=== PATIENT | female | born 1955 | race Caucasian/White ===

== ENCOUNTER 2023-09-06 08:17 | Outpatient (OUT) | payer OTHER, SELFPAY ==
[2023-09-06 08:37] LABS: Basophils Percent Auto 0.7 % (0.2-2.0); Eosinophils Absolute Auto 0.1 10^3/uL (0.0-0.7); Eosinophils Percent Auto 2.2 % (0.9-7.0); Hematocrit 38.9 % (36.0-48.0); Hemoglobin 12.9 g/dL (12.0-16.0); Immature Granulocytes Abs Auto 0.02 10^3/uL (0.00-0.03); Immature Granulocytes Pct Auto 0.4 % (0.0-0.5); Lymphocytes Absolute Auto 1.2 10^3/uL (1.2-3.8); Lymphocytes Percent Auto 22.1 % (20.5-60.0); Mean Corpuscular HGB Conc 33.2 g/dL (29.9-35.2); Mean Corpuscular Hemoglobin 29.4 pg (26.7-34.0); Mean Corpuscular Volume 88.6 fL (81.0-99.0); Monocytes Absolute Auto 0.5 10^3/uL (0.3-0.8); Monocytes Percent Auto 8.5 % (1.7-12.0); Neutrophils Absolute Auto 3.6 10^3/uL (1.4-6.5); Neutrophils Percent Auto 66.1 % (43.0-75.0); Platelet Count 243 10^3/uL (150-450); Red Blood Count 4.39 10^6/uL (4.20-5.40); Red Cell Distribution Width 13.2 % (11.0-15.0); White Blood Count 5.4 10^3/uL (4.0-11.0)
[2023-09-06 09:46] LABS: Alanine Aminotransferase 20 U/L (14-59); Albumin Level 3.4 g/dL (3.4-5.0); Alkaline Phosphatase 56 U/L (46-116); Anion Gap 10.7; Aspartate Amino Transferase 9 U/L (15-37); BUN Creatinine Ratio 18.1; Bilirubin Total 0.4 mg/dL (0.2-1.0); Calcium 8.6 mg/dL (8.5-10.1); Carbon Dioxide 27.3 mmol/L (21.0-32.0); Chloride 105 mmol/L (98-107); Chol HDL Ratio 3.2; Cholesterol 194 mg/dL (<=200); Estimated GFR (African America >60 (>=60); Estimated GFR (Non-African Ame 59 (>=60); Globulin 3.4 g/dL; Glucose 94 mg/dL (74-106); HDL Cholesterol 61 mg/dL (40-60); Sodium 139 mmol/L (136-145); Thyroid Stimulating Hormone 1.911 uIU/mL (0.358-3.740); Total Protein 6.8 g/dL (6.4-8.2); Triglycerides 125 mg/dL (<=150)
== END 2023-09-06 08:18 | disposition home or self-care (01) ==
LOC: LAB 08:17
PROVIDERS: PCP Family Medicine; Visit Provider Family Medicine
DX: Z00.00 Encounter for general adult medical examination without abnormal findings (principal); I10 Essential (primary) hypertension
CPT/HCPCS: 36415; 80053; 80061; 84443; 85025

== ENCOUNTER 2023-11-21 09:54 | Outpatient (OUT) | payer MEDICARE, SELFPAY ==
--- OUTSIDE RECORDS SUMMARY | 2023-11-21 10:00 | XMS_ITS | CCD ---
Author Name Unknown Address [address] [place] [address] Organization [facility] Care Team Providers Care Wholesale Buyer Name Role Phone MORRO LILLY Attending Unavailab le CATALINA CARSON Primary Care Unavailable Catalina Carson Primary Care Provider Genevieve Sahu Unavailable Jewell Fernandez Unavailable MD Catalina Carson Primary Care Provider MD Genevieve Sahu R Attending Provider DO Dallas Whitaker Attending Provider DO Dallas Whitaker Referring Provider DR KAN BAXTER V Consulting Unavailable DR CATALINA CARSON Primary Care Unavailable DELIA GONZALEZ Attending Unavailable DELIA GONZALEZ Admitting Unavailable DELIA GONZALEZ Consulting Unavailable MD Catalina Carson Primary Care Provider DO Dallas Whitaker Attending Provider DO Dallas Whitaker Referring Provider Catalina Carson Unavailable MD Catalina Carson Primary Care Provider DO Dallas Whitaker Attending Provider DO Dallas Whitaker Referring Provider OCTAVIO Hernandez Attending Provider Joi Hernandez Admitting Unavailable Joi Hernandez Attending Unavailable Catalina Carson Primary Care Unavailable Dallas Whitaker Referring Unavailable Catalina Carson Primary Care Unavailable Dallas Whitaker Admitting Unavailable Dallas Whitaker Attending Unavailable Gagandeep Stevens Unavailable Allergies Allergy Classification Reported Allergen(s) Allergy Type Date of Onset Reaction(s) Facility (2 sources) patient allergy list reviewed by nurse or physicia Propensity to adverse reactions Comment:Done Sape Other (2 sources) Allergies Reconciled Propensity to adverse reactions Unknown Sape Other Medications Current Medications Medication Drug Class(es) Dates Sig (Normalized) Sig (Original) acetaminophen 500 mg oral capsule (13 sources) take 1 capsule by mouth every six hours Acetaminophen 500 MG 1 capsule as needed Orally every 6 hrs Active acetaminophen 325 mg / HYDROcodone bitartrate 5 mg oral tablet (4 sources) Opioid Agonist Start: 05-08-2022 take 1 tablet by mouth every four to six hours Hydrocodone-Acetam inophen Active 1 - 2 TAB PO EVERY 4-6 HOURS 30 4 May 08, 2022 24 hr amphetamine aspartate 3.75 mg / amphetamine sulfate 3.75 mg / dextroamphetamine saccharate 3.75 mg / dextroamphetamine sulfate 3.75 mg extended release oral capsule (2 sources) Central Nervous System Stimulant Start: 09-13-2023 take 1 capsule by mouth every twenty-four hours Adderall XR 15 MG 1 capsule in the morning Orally Once a day for 30 days Aug, Active ascorbic acid 500 mg oral tablet (4 sources) Vitamin C Start: 05-04-2022 take 500 mg by mouth twice daily Ascorbic Acid (Vitamin C) Active 500 MG PO Twice daily May 03, 2022 11:00pm azithromycin 250 mg oral tablet (2 sources) Macrolide Antimicrobial Start: 11-05-2023 Azithromycin 250 MG as directed Orally 2 tabs po today, then 1 tab daily x 4 more days for 5 Oct, Active benzonatate 200 mg oral capsule (2 sources) Non-narcotic Antitussive Start: 11-05-2023 take 1 capsule by mouth every eight hours Benzonatate 200 MG 1 capsule Orally Three times a day for 10 day(s) Oct, Active Qikzuhy-Tmxetjqgt-Hngv (4 sources) Start: 05-04-2022 take 2 tablets by mouth once daily in the evening Calcium-Magnesium- Zinc Active 2 TAB PO Every evening May 03, 2022 11:00pm Start: 05-04-2022 take 2 tablets by mo uth once daily in the evening Oiwxyyl-Epqeogyrl-Wogn Active 2 TAB PO Every evening May 04, 2022 12:00am cetirizine hydrochloride 10 mg oral tablet (9 sources) Histamine-1 Receptor Antagonist Start: 05-04-2022 take 10 mg by mouth once daily Cetirizine Active 10 MG PO Daily May 03, 2022 11:00pm ZyrTEC Allergy A ctive diclofenac potassium 50 mg oral tablet (2 sources) Nonsteroidal Anti-inflammatory Drug Diclofenac Potassium 50 MG 1 tablet twice a day with food for 7 days then as needed Orally Twice a day for 30 days Active doxycycline hyclate 100 mg oral tablet (4 sources) Tetracycline-class Drug Start: 05-08-20 take 100 mg by mouth twice daily Doxycycline Hyclate Active 100 MG PO Twice daily 10 5 May 07, 2022 11:00pm estradiol 1 mg oral tablet (17 sources) Estrogen Start: 05-04-20 Estradiol Active 1 MG PO Q48H May 03, 2022 11:00pm take 1 tablet by mouth every oth er day Estradiol 0.5 MG 1 tablet Orally qod Active Estradiol Active fluconazole 150 mg oral tablet (6 sources) Azole Antifungal Start: 05-11-2022 Fluconazole 1 50 MG 1 tablet Orally repeat after 3 days if needed Apr, Active Golo (4 sources) Start: 05-04-2022 take 1 tablet by mouth three times daily Golo Active 1 TAB PO Three times daily May 03, 2022 11:00pm Start: 05-04-2022 take 1 tablet by lito th three times daily Golo Active 1 TAB PO Three times daily May 04, 2022 12:00am inulin 200 mg / lactobacillus rhamnosus gg [id number] unt oral capsule (13 sources) Culturelle - as directed Orally Active losartan potassium 50 mg oral tablet (17 sources) Angiotensin 2 Receptor Terrell Start: 2 take 1 tablet by mouth once daily Losartan Potassium 50MG Losartan Potassium 50MG, 1 (one) Tablet daily # 30, 04/28/2022, Ref. x3. Active Oral daily for 0 *Pick strength-form from [employer] for eRX* 10 Apr, 2022 Active take 1 tablet by lito th every twenty-four hours Losartan Potassium 25 MG 1 tablet Orally Once a day Active medroxyPROGESTERone acetate 2.5 mg oral tablet (12 sources) Progestin Start: 05-04-2022 Medroxyprogest erone Active 2.5 MG PO Q48H May 03, 2022 11:00pm medroxyPROGESTER one Acetate Active methylPREDNISolone 4 mg oral tablet (4 sources) Corticosteroid Start: 06-09-2022 Medrol 4 MG as directed Orally for 6 days May, Active Omeprazole (8 sources) Proton Pump Inhibitor PriLOSEC Active oxybutynin chloride 5 mg oral tablet (17 sources) Cholinergic Muscarinic Antagonist Start: 05-04-2022 take 5 mg by mouth twice daily Oxybutynin Chloride Active 5 MG PO Twice daily May 03, 2022 11:00pm Start: 10-05-2021 take 5 mg by mouth once daily oxyBUTYnin Chloride 5MG Oxybutynin Chloride( 5MG Oral daily ) Active -Hx Entry Oral daily for 0 *Pick strength-form from [employer] for eRX* Sep, Active Oxybutynin Activ e Probiotic For Digestive Health (4 sources) Start: 05-04-2022 take 2 tablets by mouth once daily in the evening Probiotic For Digestive Health Active 2 TAB PO Every evening May 03, 2022 11:00pm Start: 05-04-2022 take 2 tablets by mo ut once daily in the evening Probiotic For Digestive Health Active 2 TAB PO Every evening May 04, 2022 12:00am Psyllium (10 sources) Metamucil 48.57 % as directed Orally Active Completed/Discontinued Medications Medication Drug Class(es) Dates Sig (Normalized) Sig (Original) Calcium & Magnesium Carbonates (3 sources) Calcium & Magnesium Carbonates Not-Taking Lisinopril (3 sources) Angiotensin Converting Enzyme Inhibitor Lisinopril Not-Taking metroNIDAZOLE 500 mg oral tablet (3 sources) Nitroimidazole Antimicrobial Start: 03-10-2019 take 1 tablet by mouth every eight hours metroNIDAZOLE 500 MG 1 tablet Orally tid for 10 day(s) Feb, Not-Taking triamcinolone acetonide 0.25 mg/ml topical cream (3 sources) Corticosteroid Start: 10-24-2018 Triamcinolone Acetonide 0.025 % 1 application to affected area Externally Twice a day for 5 days Oct, Not-Taking Problems Active Problems Problem Classification Problem Date Documented Da te Episodic/Chronic Acute bronchitis (10 sources) Acute bronchitis; Translations: [Acute bronchitis due to other specified organisms] Onset: 04-25-2017 Episodic Allergic reactions (5 sources) Contact dermatitis due to plants; Translations: [Unspecified contact dermatitis due to plants, except food] Episodic Anxiety disorders (5 sources) Generalized anxiety disorder; Translations: [Generalized anxiety disorder] Chronic Attention-deficit, conduct, and disruptive behavior disorders (5 sources) Attention deficit hyperactivity disorder; Translations: [Attention-deficit hyperactivity disorder, unspecified type] Chronic Attention-deficit, conduct, and disruptive behavior disorders (1 source) Attention-deficit hyperactivity disorder, unspecified type Chronic Disorders usually diagnosed in infancy, childhood, or adolescence (6 sources) Adult attention deficit hyperactivity disorder ; Translations: [Other specified behavioral and emotional disorders with onset usually occurring in childhood and adolescence] Chronic Diverticulosis and diverticulitis (13 sources) Diverticulitis of intestine; Translations: [Diverticulitis of intestine, part unspecified, without perforation or abscess without bleeding] Chronic Esophageal disorders (6 sources) Gastro-esophageal reflux disease without esophagitis; Translations: [Esophageal reflux finding] Onset: 06-28-2015 Chronic Essential hypertension (7 sources) Essential (primary) hypertension; Translations: [Essential hypertension] Onset: 11-01-2022 Chronic Fracture of upper limb (11 sources) Nondisplaced fracture of proximal phalanx of left ring finger, initial encounter for closed fracture; Translations: [Displaced fracture of proximal phalanx of left ring finger, initial encounter for closed fracture] Onset: 04-11-2022 Resolved: 07-07-2022 Episodic Gastroduodenal ulcer (except hemorrhage) (5 sources) Gastric ulcer; Translations: [Gastric ulcer, unspecified as acute or chronic, without hemorrhage or perforation] Onset: 12-31-2018 Chronic Genitourinary symptoms and ill-defined conditions (5 sources) Dysuria; Translations: [Dysuria] Episodic Immunizations and screening for infectious disease (10 sources) Vaccination given; Translations: [Encounter for immunization] Episodic Intestinal infection (6 sources) Campylobacter enteritis; Translations: [Other intestinal Escherichia coli infections] Onset: 11-01-2022 Episodic Menopausal disorders (7 sources) Postmenopausal bleeding; Translations: [Menopause present] Onset: 06-28-2015 11-25-2020 Chronic Noninfectious gastroenteritis (5 sources) Non-infective enteritis and colitis; Translations: [Noninfective gastroenteritis and colitis, unspecified] Episodic Osteoarthritis (8 sources) Osteoarthritis of left knee joint; Translations: [Unilateral primary osteoarthritis, left knee] Chronic Other acquired deformities (5 sources) Acquired postural kyphosis; Translations: [Unspecified kyphosis, site unspecified] Onset: 07-18-2016 Chronic Other connective tissue disease (1 source) Synovial cyst of popliteal space [Trinh], left knee Episodic Other gastrointestinal disorders (5 sources) Irritable bowel syndrome with diarrhea; Translations: [Irritable bowel syndrome with diarrhea] Chronic Other liver diseases (13 sources) Liver cyst; Translations: [Other specified diseases of liver] Chronic Other liver diseases (13 sources) Disease of liver; Translations: [Liver disease, unspecified] Chronic Other nervous system disorders (4 sources) Pain in limb; Translations: [Other acute postprocedural pain] 05-08-2022 Episodic Other non-traumatic joint disorders (1 source) Pain in left knee Episodic Other nutritional; endocrine; and metabolic disorders (5 sources) Obese class I; Translations: [Body mass index (BMI) 32.0-32.9, adult] Chronic Other nutritional; endocrine; and metabolic disorders (10 sources) Body mass index 30+ - obesity; Translations: [Body mass index (BMI) 30.0-30.9, adult] Onset: 09-17-2018 Chronic Other upper respiratory disease (5 sources) Allergic rhinitis; Translations: [Allergic rhinitis, unspecified] Onset: 04-28-2016 Chronic Other upper respiratory disease (5 sources) Seasonal allergic rhinitis; Translations: [Other seasonal allergic rhinitis] Chronic Other upper respiratory infections (6 sources) Acute pharyngitis; Translations: [Acute pharyngitis, unspecified] Episodic Residual codes; unclassified (4 sources) Other specified postprocedural states Onset: 06-09-2022 Resolved: 07-07-2022 Episodic Unclassified (5 sources) Acute candidiasis of vulva and vagina; Translations: [Acute candidiasis of vulva and vagina] Unclassified (1 source) Pain in left knee; Translations: [Pain in left knee] Onset: 09-24-2023 Unclassified (1 source) Encounter for screening mammogram for malignant neoplasm of breast; Translations: [Encounter for screening mammogram for malignant neoplasm of breast] Onset: 07-27-2023 Viral infection (2 sources) Other specified viral infection; Translations: [COVID-19 virus infection] Onset: 11-25-2020 11-25-2020 Episodic Viral infection (5 sources) Disease caused by 2019-nCoV; Translations: [COVID-19] Past or Other Problems Problem Classification Problem Date Documented Da te Episodic/Chronic Abdominal pain (8 sources) Unspecified abdominal pain; Translations: [Generalized abdominal pain] Onset: 09-17-2018 Episodic Other connective tissue disease (5 sources) Pain in left hand Onset: 04-11-2022 Resolved: 06-09-2022 Episodic Other gastrointestinal disorders (5 sources) Diarrhea; Translations: [Diarrhea] Onset: 09-17-2018 Episodic Residual codes; unclassified (5 sources) Sleep disorder; Translations: [Persistent disorder of initiating or maintaining sleep] Onset: 12-31-2018 Episodic Sprains and strains (5 sources) Neck sprain; Translations: [Strain of muscle, fascia and tendon at neck level, initial encounter] Onset: 12-31-2018 Episodic Superficial injury; contusion (5 sources) Blister of toe without infection; Translations: [Blister (nonthermal), right foot, initial encounter] Onset: 07-18-2016 Episodic Unclassified (5 sources) Vaccine product containing only acellular Bordetella pertussis and Clostridium tetani and Corynebacterium diphtheriae antigens (medicinal product); Translations: [Sfircdwzch-daoamvq-b ertussis, combined [DTP] [DtaP]] Onset: 09-28-2016 Results Test Name Value Interpretation Reference Range Facility XR knee LT 4V*on 09-24-2023 XR knee LT 4V* [facility] [place] [address] XRay Report Signed Patient: Nany Carmen MR#: [id number] 1 : 1955 Acct:[id number] Age/Sex: 68 / F ADM Date: 09/24/23 Loc: XDUC Room: Type: [facility] Attending Dr: Joi CUNNINGHAM Copies to: AMBER Paul Ordering Provider: AMBER Paul Date of Service: 09/24/23 XR/XR knee LT 4V*: LEFT KNEE PAIN XR knee LT 4V* 09/24/2023 11:29 AM SIGNS AND SYMPTOMS: Recent fall, left posterior knee pain, left knee instability PROTOCOL: Frontal, lateral, and oblique radiographs of the left knee COMPARISON: None FINDINGS: There is mild narrowing of the weightbearing and patellofemoral joint spaces. No joint effusion. No soft tissue tissue swelling. No fracture or dislocation. XR/XR knee LT 4V* IMPRESSION: No acute bony injury. Mild tricompartmental degenerative changes are noted, as above. Impression dictated by: Chetne Crook M.D.09/24/2023 11:37 AM Dictation Location: [place] [address] Transcribed By: [facility] 09/24/23 113 Dictated By: Chente Crook II, MD 09/24/23 1134 Signed By: 09/24/23 1137 [facility] MM screening mammo BI w/CADo n 07-27-2023 MM screening mammo BI w/CAD [facility] [place] [address] Mammography Report Signed Patient: Nany Carmen MR#: [id number] 1 : 1955 Acct:[id number] Age/Sex: 68 / F ADM Date: 07/27/23 Loc: [place] Room: Type: [facility] Attending Dr: Dallas Whitaker DO Copies to: MD Dallas Yi DO Ordering Provider: Dallas Whitaker DO Date of Service: 07/27/23 MM/MM screening mammo BI w/CAD: SCREENING CLINICAL DATA: Screening for malignancy. BILATERAL SCREENING MAMMOGRAMS - FULL FIELD DIGITAL WITH TOMOSYNTHESIS AND CAD Tomosynthesis craniocaudal and mediolateral oblique views of both breasts were obtained using low- dose digital technique. Comparison is made to prior studies from July 08, 2019 through July 19, 2022. This examination was reviewed with the aid of CAD. There are scattered fibroglandular densities. There are a few benign and vascular calcifications. There are no developing masses, typically malignant calcifications or architectural distortion. There has been no significant interval change. MM/MM screening mammo BI w/CAD IMPRESSION: NO MAMMOGRAPHIC EVIDENCE OF MALIGNANCY. ROUTINE FOLLOW-UP IS RECOMMENDED IN ONE YEAR. RESULT CODE: 2 Benign Findings(s) DENSITY CODE: 2 (approximately 25-50% glandular) FOLLOW UP: 1YR The false-negative rate of mammography is approximately 10-percent. Management of a palpable abnormality must be based on clinical grounds. Patient was entered into a reminder system with a target due date for the next mammogram. Impression dictated by: Madeline Jimenes M.D.07/27/2023 2:52 PM Dictation Location: [facility] Transcribed By: [facility] 07/27/23 145 Dictated By: Madeline Jimenes MD 07/27/23 1448 Signed By: 07/27/23 145 [facility] AMYLASEon 10-30-2022 Amylase [Catalytic activity/Vol] 20 U/L Critically low 25-115 [facility] Comment on above: Performed By: #### A MY, LIPA, CMP #### [facility] [address] [place] [address] Dr. Nunu Newman CBC AUTO DIFFon 10-30-2022 BASO # 0.0 103/ul Normal 0.0-0.1 [facility] Comment on above: Performed By: #### C BC #### [facility] [address] [place] [address] Dr. Nunu Newman Basophils/100 WBC (Bld) 0.5 % Normal 0.2-2.0 [facility] Comment on above: Performed By: #### C BC #### [facility] [address] [place] [address] Dr. Nunu Newman EO # 0.0 103/ul Normal 0.0-0.7 [facility] Comment on above: Performed By: #### C BC #### [facility] [address] [place] [address] Dr. Nunu Newman Eosinophils/100 WBC (Bld) 0.2 % Critically low 0.9-7.0 [facility] Comment on above: Performed By: #### C BC #### [facility] [address] [place] [address] Dr. Nunu Newman Erythrocyte distribution width (RBC) [Ratio] 12.7 % Normal 11.0-15.0 [facility] Comment on above: Performed By: #### C BC #### [facility] [address] [place] [address] Dr. Nunu Newman Hematocrit (Bld) [Volume fraction] 39.7 % Normal 36.0-48.0 [facility] Comment on above: Performed By: #### C BC #### [facility] [address] [place] [address] Dr. Nunu Newman Hemoglobin (Bld) [Mass/Vol] 13.6 g/dL Normal 12.0-16.0 [facility] Comment on above: Performed By: #### C BC #### [facility] [address] [place] [address] Dr. Nunu Newman IG # 0.02 10e3/ul Normal 0.00-0.03 [facility] Comment on above: Performed By: #### C BC #### [facility] [address] [place] [address] Dr. Nunu Newman IG % 0.3 % Normal 0.0-0.5 [facility] Comment on above: Performed By: #### C BC #### [facility] [address] [place] [address] Dr. Nunu Newman LYMPH # 0.9 103/ul Critically low 1.2-3.8 [facility] Comment on above: Performed By: #### C BC #### [facility] [address] [place] [address] Dr. Nunu Newman Lymphocytes/100 WBC (Bld) 14.6 % Critically low 20.5-60.0 [facility] Comment on above: Performed By: #### C BC #### [facility] [address] [place] [address] Dr. Nunu Newman MANUAL DIFF REQ NO Normal [facility] Comment on above: Performed By: #### C BC #### [facility] [address] [place] [address] Dr. Nunu Newman MCH (RBC) [Entitic mass] 29.1 pg Normal 26.7-34.0 [facility] Comment on above: Performed By: #### C BC #### [facility] [address] [place] [address] Dr. Nunu Newman MCHC (RBC) [Mass/Vol] 34.3 g/dL Normal 29.9-35.2 [facility] Comment on above: Performed By: #### C BC #### [facility] [address] [place] [address] Dr. Nunu Newman MCV (RBC) [Entitic vol] 84.8 fL Normal 81.0-99.0 [facility] Comment on above: Performed By: #### C BC #### [facility] [address] [place] [address] Dr. Nunu Newman MONO # 0.8 103/ul Normal 0.3-0.8 [facility] Comment on above: Performed By: #### C BC #### [facility] [address] [place] [address] Dr. Nunu Newman Monocytes/100 WBC (Bld) 11.8 % Normal 1.7-12.0 [facility] Comment on above: Performed By: #### C BC #### [facility] [address] [place] [address] Dr. Nunu Newman NEUT # 4.7 103/ul Normal 1.4-6.5 [facility] Comment on above: Performed By: #### C BC #### [facility] [address] [place] [address] Dr. Nunu Newman Neutrophils/100 WBC (Bld) 72.6 % Normal 43.0-75.0 [facility] Comment on above: Performed By: #### C BC #### [facility] [address] [place] [address] Dr. Nunu Newman Platelet mean volume (Bld) [Entitic vol] 8.8 fL Critically low 9.5-13.5 [facility] Comment on above: Performed By: #### C BC #### [facility] [address] [place] [address] Dr. Nunu Newman PLT 200 103/ul Normal 150-450 [facility] Comment on above: Performed By: #### C BC #### [facility] [address] [place], [place] [address] Dr. Nunu Newman RBC 4.68 106/ul Normal 4.20-5.40 [facility] Comment on above: Performed By: #### C BC #### [facility] [address] [place], [place] [address] Dr. Nunu Newman WBC 6.4 103/ul Normal 4.0-11.0 [facility] Comment on above: Performed By: #### C BC #### [facility] [address] [place], [place] [address] ABD/PELVIS WO CONon 10-30 CT ABD/PELVIS WO CON EXAMINATION: CT ABD/PELVIS WO CON, 10/30/2022 9:33 AM EST HISTORY: UNSPECIFIED ABDOMINAL PAIN , diarrhea COMPARISON: 09/24/2018 TECHNIQUE: CT scan of the abdomen and pelvis was performed without IV contrast. CT dose reduction technique was used, including Automated Exposure Control. FINDINGS: LUNG BASES: No visible pulmonary or pleural disease. LIVER: 2.1 cm subcapsular hypodensity left hepatic lobe possibly a cyst BILIARY: No dilatation or calcification. PANCREAS: No lesion, fluid collection, ductal dilatation, or atrophy. SPLEEN: No enlargement or focal lesion. ADRENALS: No mass or enlargement. KIDNEYS: No mass, obstruction, or calcification. BOWEL/MESENTERY: Nonobstructive bowel gas pattern. Normal appendix. Some mild thickening of the colon wall significant in the ascending colon with a minimal amount of pericolonic mesenteric stranding. Colonic diverticulosis. AORTA/VASCULAR: No aortic aneurysm. Mild atherosclerosis. RETROPERITONEUM: No mass or adenopathy. LYMPH NODES: No adenopathy. URINARY BLADDER: No visible focal wall thickening, lesion, or calculus. PELVIC ORGANS: Uterine calcifications, fibroids are favored ABDOMINAL WALL: No mass or hernia. BONES: No bony lesion or fracture. OTHER: Negative. IMPRESSION: Suspected colitis. Consider inflammatory and infectious etiologies Electronically authenticated by: KAN BAXTER Date: 2022-10-30 10:50 Normal [facility] URINE PROFILEon 2 Bilirubin Ql (U) SMALL Abnormal NEGATIVE [facility] Comment on above: Performed By: #### U MICRO, ERUR #### [facility] [address] [place] [address] [address] Nunu Newman Clarity (U) CLEAR Normal CLEAR [facility] Comment on above: Performed By: #### U MICRO, ERUR #### [facility] [address] [place] [address] Dr. Nunu Newman Color (U) YELLOW Normal YELLOW [facility] Comment on above: Performed By: #### U MICRO, ERUR #### [facility] [address] [place] [address] [address] Nunu Newman ERUAHD A micrscopic examination will be performed if indicated. Normal [facility] Comment on above: Performed By: #### U MICRO, ERUR #### [facility] [address] [place] [address] Dr. Nunu Newman Glucose Ql (U) Negative Normal NEGATIVE [facility] Comment on above: Performed By: #### U MICRO, ERUR #### [facility] [address] [place] [address] Dr. Nunu Newman Hemoglobin Ql (U) TRACE-INTACT Abnormal NEGATIVE [facility] Comment on above: Performed By: #### U MICRO, ERUR #### [facility] [address] [place] [address] Dr. Nunu Newman Ketones Ql (U) 15 mg/dl Abnormal NEGATIVE [facility] Comment on above: Performed By: #### U MICRO, ERUR #### [facility] [address] [place] [address] Dr. Nunu Newman LEUKOCYTES Negative Normal NEGATIVE [facility] Comment on above: Performed By: #### U MICRO, ERUR #### [facility] [address] [place] [address] Dr. Nunu Newman Nitrite Ql (U) Negative Normal NEGATIVE [facility] Comment on above: Performed By: #### U MICRO, ERUR #### [facility] [address] [place] [address] Dr. Nunu Newman pH (U) 6.0 [pH] Normal 5-9 [facility] Comment on above: Performed By: #### U MICRO, ERUR #### [facility] [address] [address] [address] Nunu Newman SPEC GRAVITY 1.010 Normal 1.005-<=1.[address] [facility] Comment on above: Performed By: #### U MICRO, ERUR #### [facility] [address] [address] [address] Nunu Newman UA PROTEIN TRACE Normal NEGATIVE/ TRACE [facility] Comment on above: Performed By: #### U MICRO, ERUR #### [facility] [address] [address] [address] Nunu Newman UR MICRO IND INDICATED Normal [facility] Comment on above: Performed By: #### U MICRO, ERUR #### [facility] [address] [place] [address] Dr. Nunu Newman Urobilinogen Qn (U) 0.2 {Anish'U}/dL Normal 0.2 - 1. 0 [facility] Comment on above: Performed By: #### U MICRO, ERUR #### [facility] [address] [address] [address] Nunu Newman GI PANEL (PCR)on 10-30-2022 Adenovirus F 40/41 Not detected Normal NOT DETECTED [facility] Comment on above: Performed By: #### G IPANEL #### [facility] [address] [place] [address] Dr. Nunu Newman Astrovirus Not detected Normal NOT DETECTED [facility] Comment on above: Performed By: #### G IPANEL #### [facility] [address] [place] [address] Dr. Nunu Newman C. Diff toxin A/B Not detected Normal NOT DETECTED The [facility] Comment on above: Performed By: #### G IPANEL #### [facility] [address] [place] [address] Dr. Nunu Newman Campylobacter Detected Critically abnormal NOT DETECTED The [facility] Comment on above: Performed By: #### G IPANEL #### [facility] [address] [address] [address] Nunu Newman Cryptosporidium Not detected Normal NOT DETECTED [facility] Comment on above: Performed By: #### G IPANEL #### [facility] [address] [address] [address] Nunu Newman Cyclos. Cayetanensis Not detected Normal NOT DETECTED The [facility] Comment on above: Performed By: #### G IPANEL #### [facility] [address] [address] [address] Nunu Newman E. Coli O157 Not Applicable Normal Not Applicable The [facility] Comment on above: Performed By: #### G IPANEL #### [facility] [address] [place] [address] Dr. Nunu Newman E. histolytica Not detected Normal NOT DETECTED [facility] Comment on above: Performed By: #### G IPANEL #### [facility] [address] [place] [address] Dr. Nunu Newman EAEC Not detected Normal NOT DETECTED [facility] Comment on above: Performed By: #### G IPANEL #### [facility] [address] [place] [address] Dr. Nunu Newman EIEC Not detected Normal NOT DETECTED [facility] Comment on above: Performed By: #### G IPANEL #### [facility] [address] [place] [address] Dr. Nunu Newman EPEC Not detected Normal NOT DETECTED [facility] Comment on above: Performed By: #### G IPANEL #### [facility] [address] [place] [address] Dr. Nunu Newman ETEC Not detected Normal NOT DETECTED [facility] Comment on above: Performed By: #### G IPANEL #### [facility] [address] [place] [address] Dr. Nunu Guevara. Lamblia Not detected Normal NOT DETECTED [facility] Comment on above: Performed By: #### G IPANEL #### [facility] [address] [place] [address] Dr. Nunu Newman GIPANEL CONTROLS PASSED Normal [facility] Comment on above: Performed By: #### G IPANEL #### [facility] [address] [address] [address] Nunu ARRIAGA HEADER GI PANEL BACTERIA Normal [facility] Comment on above: Performed By: #### G IPANEL #### [facility] [address] [address] [address] Nunu EISENBERG ECOLI GI PANEL DIARRHEAGENIC E.COLI / SHIGELLA Normal The [facility] Comment on above: Performed By: #### G IPANEL #### [facility] [address] [address] [address] Nunu EISENBERG INFO SEE BELOW [facility] Comment on above: Result Comment: EAEC - Enteroaggregative E. Coli EPEC- Enteropathogenic E. Coli ETEC- Enterotoxigenic E. Coli lt/st STEC- Shigella-like toxin-producing E. Coli stx1/stx2 EIEC- Shigella/Enteroinvasive E. Coli Performed By: #### G IPANEL #### [facility] [address] [address] [address] Nunu EISENBERG PARASITES GI PANEL PARASITES Normal The [facility] Comment on above: Performed By: #### G IPANEL #### [facility] [address] [address] [address] Nunu EISENBERG VIRUS GI PANEL VIRUSES Normal [facility] Comment on above: Performed By: #### G IPANEL #### [facility] [address] [address] [address] Nunu Newman Norovirus GI/GII Not detected Normal NOT DETECTED The [facility] Comment on above: Performed By: #### G IPANEL #### [facility] [address] [address] [address] Nunu Newman P. Shigelloides Not detected Normal NOT DETECTED [facility] Comment on above: Performed By: #### G IPANEL #### [facility] [address] [address] [address] Nunu Newman Rotavirus A Not detected Normal NOT DETECTED [facility] Comment on above: Performed By: #### G IPANEL #### [facility] [address] [place] [address] Dr. Nunu Newman Salmonella Not detected Normal NOT DETECTED [facility] Comment on above: Performed By: #### G IPANEL #### [facility] [address] [place] [address] Dr. Nunu Newman Sapovirus Not detected Normal NOT DETECTED [facility] Comment on above: Performed By: #### G IPANEL #### [facility] [address] [place] [address] Dr. Nunu Newman STEC Not detected Normal NOT DETECTED [facility] Comment on above: Performed By: #### G IPANEL #### [facility] [address] [place] [address] Dr. Nunu Newman Vibrio Not detected Normal NOT DETECTED [facility] Comment on above: Performed By: #### G IPANEL #### [facility] [address] [place] [address] Dr. Nunu eNwman Vibrio Cholera Not detected Normal NOT DETECTED [facility] Comment on above: Performed By: #### G IPANEL #### [facility] [address] [place] [address] Dr. Nunu Newman Y. Enterocolitica Not detected Normal NOT DETECTED The [facility] Comment on above: Performed By: #### G IPANEL #### [facility] [address] [place] [address] Dr. Nunu Newman LACTATE/LACTIC ACIDon 2021 Lactate [Moles/Vol] 0.9 mmol/L Normal 0.4-1.9 [facility] Comment on above: Performed By: #### L ACT #### [facility] [address] [place] [address] Dr. Nunu Newman LIPASEon 10-30-2022 Lipase [Catalytic activity/Vol] 114.0 U/L Normal 73.0-393.0 [facility] Comment on above: Performed By: #### A MY, LIPA, CMP #### [facility] [address] [place] [address] Dr. Nunu Newman PROF 14(COMP METB)on 022 Albumin [Mass/Vol] 3.0 g/dL Critically low 3.4-5.0 [facility] Comment on above: Performed By: #### A OSCAR HOGAN, CMP #### [facility] [address] [address] [address] Nunu Newman Albumin/Globulin [Mass ratio] 0.7 {ratio} Normal [facility] Comment on above: Performed By: #### A SAMIRA LIPA, CMP #### [facility] [address] [address] [address] Nunu Newman ALP [Catalytic activity/Vol] 53 U/L Normal 46-116 [facility] Comment on above: Performed By: #### A OSCAR HOGAN, CMP #### [facility] [address] [address] [address] Nunu Newman ALT [Catalytic activity/Vol] 20 U/L Normal 14-59 [facility] Comment on above: Performed By: #### A OSCAR HOGAN, CMP #### [facility] [address] [address] [address] Nunu Newman Anion gap [Moles/Vol] 12.4 mmol/L Normal [facility] Comment on above: Performed By: #### A SAMIRA LIPMaribel, CMP #### [facility] [address] [address] [address] Nunu Newman AST [Catalytic activity/Vol] 21 U/L Normal 15-37 [facility] Comment on above: Performed By: #### A SAMIRA LIPA, CMP #### [facility] [address] [address] [address] Nunu Newamn Bilirubin [Mass/Vol] 0.4 mg/dL Normal 0.2-1.0 [facility] Comment on above: Performed By: #### A OSCAR HOGAN, CMP #### [facility] [address] [address] [address] Nunu Newman Calcium [Mass/Vol] 8.6 mg/dL Normal 8.5-10.1 [facility] Comment on above: Performed By: #### A MY, LIPA, CMP #### [facility] [address] [address] [address] Nunu Newman Chloride [Moles/Vol] 100 mmol/L Normal 98-107 [facility] Comment on above: Performed By: #### A MY, LIPA, CMP #### [facility] [address] [address] [address] Nunu Newman CO2 [Moles/Vol] 27.0 mmol/L Normal 21.0-32.0 [facility] Comment on above: Performed By: #### A MY, LIPA, CMP #### [facility] [address] [address] [address] Nunu Newman Creatinine [Mass/Vol] 0.90 mg/dL Normal 0.55-1.02 [facility] Comment on above: Performed By: #### A MY, LIPA, CMP #### [facility] [address] [place] [address] Dr. Nunu Newman EGFR-AF MOZAMBICAN >60 Normal >=60 [facility] Comment on above: Performed By: #### A MY, LIPA, CMP #### [facility] [address] [address] [address] Nunu Newman EGFR-NON AF MOZAMBICAN >60 Normal >=60 [facility] Comment on above: Performed By: #### A MY, LIPA, CMP #### [facility] [address] [address] [address] Nunu Newman Globulin (S) [Mass/Vol] 4.1 g/dL Normal [facility] Comment on above: Performed By: #### A MY, LIPA, CMP #### [facility] [address] [address] [address] Nunu Newman Glucose [Mass/Vol] 112 mg/dL Critically high 74-106 [facility] Comment on above: Performed By: #### A MY, LIPA, CMP #### [facility] [address] [address] [address] Nunu Newman Potassium [Moles/Vol] 3.4 mmol/L Critically low 3.5-5.1 [facility] Comment on above: Performed By: #### A OSCAR HOGAN, CMP #### [facility] [address] [place] [address] Dr. Nunu Newman Protein [Mass/Vol] 7.1 g/dL Normal 6.4-8.2 [facility] Comment on above: Performed By: #### A OSCAR HOGAN, CMP #### [facility] [address] [place] [address] Dr. Nunu Newman Sodium [Moles/Vol] 136 mmol/L Normal 136-145 [facility] Comment on above: Performed By: #### A OSCAR HOGAN, CMP #### [facility] [address] [place] [address] Dr. Nunu Newman Urea nitrogen [Mass/Vol] 14.0 mg/dL Normal 7.0-18.0 [facility] Comment on above: Performed By: #### A OSCAR HOGAN, CMP #### [facility] [address] [place] [address] Dr. Nunu Newman Urea nitrogen/Creatinine [Mass ratio] 15.6 mg/mg Normal [facility] Comment on above: Performed By: #### A OSCAR HOGAN, CMP #### [facility] [address] [place] [address] Dr. Nunu Newman URINE MICROSCOPIC ONLYon BACTERIA NONE SEEN Normal NONE SEEN [facility] Comment on above: Performed By: #### U MICRO, ERUR #### [facility] [address] [place] [address] Dr. Nunu Newman Bacteria identified Cx Nom (U) NOT INDICATED Normal The [facility] Comment on above: Performed By: #### U MICRO, ERUR #### [facility] [address] [place] [address] Dr. Nunu Newman CAST NONE SEEN Normal NONE SEEN [facility] Comment on above: Performed By: #### U MICRO, ERUR #### [facility] [address] [place] [address] Dr. Nunu Newman Crystals LM Nom (Urine sed) NONE SEEN Normal NONE SEEN The [facility] Comment on above: Performed By: #### U MICRO, ERUR #### [facility] [address] [address] [address] Nunu Newman Epithelial cells LM Ql (Urine sed) FEW Abnormal NONE SEEN /RARE The [facility] Comment on above: Performed By: #### U MICRO, ERUR #### [facility] [address] [address] [address] Nunu Newman MUCOUS NONE SEEN Normal NONE SEEN The [facility] Comment on above: Performed By: #### U MICRO, ERUR #### [facility] [address] [address] [address] Nunu Newman RBC 0-2 Normal 0-2 [facility] Comment on above: Performed By: #### U MICRO, ERUR #### [facility] [address] [address] [address] Nunu Newman WBC NONE SEEN Normal NONE SEEN The [facility] Comment on above: Performed By: #### U MICRO, ERUR #### [facility] [address] [address] [address] Nunu Newman XR hand LT min 3V*on 022 XR hand LT min 3V* [facility] [id number] Other XR hand LT min 3V* [facility] [employer] Other XR hand LT min 3V* [address] [place] [address] [employer] Other XR hand LT min 3V* [place] [address] [employer] [facility] [employer] Other XR hand LT min 3V* XRay Report S[employer] Other XR hand LT min 3V* Signed S[employer] Other XR hand LT min 3V* Patient: Nany Carmen MR#: [id number] [facility] [employer] Other XR hand LT min 3V* 1 [employer] Other XR hand LT min 3V* : 1955 Acct:[id number] [employer] Other XR hand LT min 3V* Age/Sex: 67 / F ADM Date: 06/09/22 S[employer] Other XR hand LT min 3V* Loc: SOXD Room: Type: [facility] Sape Other XR hand LT min 3V* Attending Dr: Genevieve Sahu MD [employer] Other XR hand LT min 3V* Copies to: Genevieve Sahu MD [employer] Other XR hand LT min 3V* Ordering Provider: Genevieve Sahu MD [employer] Other XR hand LT min 3V* Date of Service: 06/09/22 [employer] Other XR hand LT min 3V* XR/XR hand LT min 3V*: Closed displaced fracture of proximal phalanx of Sape Other XR hand LT min 3V* left ring f Sape Other XR hand LT min 3V* 4 viewsLEFT hand plain film Sape Other XR hand LT min 3V* COMPARISON:05/16/22 [employer] Other XR hand LT min 3V* HISTORY:Status post ORIF LEFT 4th proximal interphalangeal fracture Sape Other XR hand LT min 3V* Fixation hardware intact. Continued healing of the fracture of the proximal 4th phalanx present. Sape Other XR hand LT min 3V* Bony alignment is unchanged. Sape Other XR hand LT min 3V* XR/XR hand LT min 3V* Sape Other XR hand LT min 3V* IMPRESSION:Healing fracture. No hardware failure. Sape Other XR hand LT min 3V* Impression dictated by: Miguelangel Alonzo M.D.06/09/2022 1:13 PM Sape Other XR hand LT min 3V* Dictation Location: [place] [address] Sape Other XR hand LT min 3V* Transcribed By: HEMANT 06/09/22 1313 [employer] Other XR hand LT min 3V* Dictated By: Miguelangel Alonzo DO 06/09/22 1312 [employer] Other XR hand LT min 3V* Signed By: Sape Other XR hand LT min 3V* 06/09/22 1313 [facility] [id number] Other XR hand LT min 3V*on 022 XR hand LT min 3V* [facility] Sape Other XR hand LT min 3V* [facility] S[employer] Other XR hand LT min 3V* [address] [place] [address] Sape Other XR hand LT min 3V* [place] [id number] Sape Other XR hand LT min 3V* XRay Report Sape Other XR hand LT min 3V* Signed Sape Other XR hand LT min 3V* Patient: Nany Carmen MR#: [id number] [facility] [id number] Other XR hand LT min 3V* 1 Sape Other XR hand LT min 3V* : 1955 Acct:[id number] [employer] Other XR hand LT min 3V* Age/Sex: 67 / F ADM Date: 05/16/22 Sape Other XR hand LT min 3V* Loc: SOXD Room: Type: [facility] Sape Other XR hand LT min 3V* Attending Dr: Genevieve Sahu MD Sape Other XR hand LT min 3V* Copies to: Genevieve Sahu MD [employer]ape Other XR hand LT min 3V* Ordering Provider: Genevieve Sahu MD Sape Other XR hand LT min 3V* Date of Service: 05/16/22 Sape Other XR hand LT min 3V* XR/XR hand LT min 3V*: Closed displaced fracture of proximal phalanx of Sape Other XR hand LT min 3V* left ring f Sape Other XR hand LT min 3V* XR hand LT min 3V* 05/16/2022 1:23 PM Sape Other XR hand LT min 3V* SIGNS AND SYMPTOMS: Closed displaced fracture of proximal phalanx of left ring finger, follow-up Sape Other XR hand LT min 3V* PROTOCOL: Frontal, lateral, and oblique radiographs of the left hand Sape Other XR hand LT min 3V* COMPARISON: 05/08/2022 Sape Other XR hand LT min 3V* FINDINGS: Sape Other XR hand LT min 3V* There has been screw fixation across a midshaft fracture of the proximal phalanx of the fourth Sape Other XR hand LT min 3V* digit. Healing remains incomplete. There is soft tissue swelling throughout the fourth digit. No Sape Other XR hand LT min 3V* hardware complication or change in alignment. Sape Other XR hand LT min 3V* XR/XR hand LT min 3V* Sape Other XR hand LT min 3V* IMPRESSION: Sape Other XR hand LT min 3V* Status post hardware fixation across a fracture involving the shafts of the fourth proximal phalanx Sape Other XR hand LT min 3V* without hardware complication or change in alignment. Healing remains incomplete. Sape Other XR hand LT min 3V* Impression dictated by: Chente Crook M.D.05/16/2022 2:34 PM Sape Other XR hand LT min 3V* Dictation Location: [place] [address] Sape Other XR hand LT min 3V* Transcribed By: HEMANT 05/16/22 [facility] Sape Other XR hand LT min 3V* Dictated By: Chente Crook II, MD 05/16/22 [facility] Sape Other XR hand LT min 3V* Signed By: Sape Other XR hand LT min 3V* 05/16/[address] [place] [address] [id number] Other Albumin [Mass/volume] in Ser um or PlasmaOrdered By: Genevieve Sahu on 05-04-2022 Albumin [Mass/Vol] 3.6 g/dL 3.2-5.5 [facility] Basophils Auto (Bld) [#/Vol] Ordered By: Genevieve Sahu on 05-04-2022 Basophils (Bld) [#/Vol] 0.0 10*3/uL 0.0-0.2 [facility] Basophils/100 WBC Auto (Bld) Ordered By: Genevieve Sahu on 05-04-2022 Basophils/100 WBC (Bld) 0.5 % . [facility] Blood hemoglobin measurement (mass/volume)Ordered By: Genevieve Sahu on 05-04-2022 Hemoglobin (Bld) [Mass/Vol] 13.0 g/dL 11.8-15.4 [facility] Blood leukocytes automated c ount (number/volume)Ordered By: Genevieve Sahu on 05-04-2022 WBC (Bld) [#/Vol] 7.0 10*3/uL 4.5-11.0 [facility] COVID-19 Positive/NegativeOr dered By: Genevieve Sahu on 05-04-2022 SARS-CoV-2 (COVID-19) N gene LISA+probe Ql (Resp) Negative Negative [facility] Comment on above: Testing for SARS-CoV -2 by RT-PCR This test was developed and its performance characteristics determined by [employer] [facility]) and validated at the [facility]. This test has not been FDA cleared or approved. This test has been authorized by FDA under an Emergency Use Authorization (EUA). This test has been validated in accordance with the FDA's Guidance Document (Policy for Diagnostics Testing in Laboratories Certified to Perform High Complexity Testing under CLIA prior to Emergency Use Authorization for Coronavirus Disease-2019 during the Public Health Emergency) issued on February 19, 2020. This test is only authorized for the duration of time the declaration that circumstances exist justifying the authorization of the emergency use of in vitro diagnostic tests for detection of SARS-CoV-2 virus and/or diagnosis of COVID-19 infection under section 564(b)(1) of the Act, 21 U.S.C. 360bbb-3(b)(1), unless the authorization is terminated or revoked sooner. Creatinine and Glomerular fi ltration rate.predicted panel (S/P/Bld)Ordered By: Genevieve Sahu on 05-04-2022 Creatinine [Mass/Vol] 0.95 mg/dL 0.44-1.03 [facility] Eosinophils Auto (Bld) [#/Vo l]Ordered By: Genevieve Sahu on 05-04-2022 Eosinophils (Bld) [#/Vol] 0.1 10*3/uL 0.0-0.45 [facility] Eosinophils/100 WBC Auto (Bl d)Ordered By: Genevieve Sahu on 05-04-2022 Eosinophils/100 WBC (Bld) 2.0 % . [facility] Erythrocyte distribution wid th Auto (RBC) [Ratio]Ordered By: Genevieve Sahu on 05-04-2022 Erythrocyte distribution width (RBC) [Ratio] 14.0 % 11.9-15.3 [facility] Estimated glomerular filtrat ion rate (GFR) non- AmericanOrdered By: Genevieve Sahu on 05-04-2022 GFR/1.73 sq M.predicted among non-blacks MDRD (S/P/Bld) [Vol rate/Area] 59 mL/Min [facility] Globulin Calc (S) [Mass/Vol] Ordered By: Genevieve Sahu on 05-04-2022 Globulin (S) [Mass/Vol] 2.8 g/dL [facility] Hematocrit Auto (Bld) [Volum e fraction]Ordered By: Genevieve Sahu on 05-04-2022 Hematocrit (Bld) [Volume fraction] 38.7 % 34.0-46.4 [facility] Laboratory - Hematology and Cell countsOrdered By: Genevieve Sahu on 05-04-2022 Nucleated RBC/100 WBC (Bld) [Ratio] 0.1 % 0-0.5 [facility] Lymphocytes Auto (Bld) [#/Vo l]Ordered By: Genevieve Sahu on 05-04-2022 Lymphocytes (Bld) [#/Vol] 1.5 10*3/uL 1.00-4.8 [facility] Lymphocytes/100 WBC Auto (Bl d)Ordered By: Genevieve Sahu on 05-04-2022 Lymphocytes/100 WBC (Bld) 22.0 % . [facility] MCH Auto (RBC) [Entitic mass ]Ordered By: Genevieve Sahu on 05-04-2022 MCH (RBC) [Entitic mass] 29.5 pg 24.7-34.3 [facility] MCHC Auto (RBC) [Mass/Vol]Or dered By: Genevieve Sahu on 05-04-2022 MCHC (RBC) [Mass/Vol] 33.6 g/dL 32.0-35.0 [facility] MCV Auto (RBC) [Entitic vol] Ordered By: Genevieve Sahu on 05-04-2022 MCV (RBC) [Entitic vol] 87.9 fL 80-100 [facility] Monocytes Auto (Bld) [#/Vol] Ordered By: Genevieve Sahu on 05-04-2022 Monocytes (Bld) [#/Vol] 0.5 10*3/uL 0.0-0.8 [facility] Monocytes/100 WBC Auto (Bld) Ordered By: Genevieve Sahu on 05-04-2022 Monocytes/100 WBC (Bld) 7.1 % . [facility] Neutrophils Auto (Bld) [#/Vo l]Ordered By: Genevieve Sahu on 05-04-2022 Neutrophils (Bld) [#/Vol] 4.8 10*3/uL 1.8-7.7 [facility] Neutrophils/100 WBC Auto (Bl d)Ordered By: Genevieve Sahu on 05-04-2022 Neutrophils/100 WBC (Bld) 68.4 % . [facility] No Panel InformationOrdered By: Genevieve Sahu on 05-04-2022 Estimated GFR () > 60 mL/Min [facility] Comment on above: GFR estimated refere nce range: According to KDOQI guidelines, <60 ml/min/1.73m2 is sufficient to diagnose a patient with chronic kidney disease. Pharmacy Creatinine Clearance (Chem N/A [facility] Platelet mean volume Auto (B ld) [Entitic vol]Ordered By: Genevieve Sahu on 05-04-2022 Platelet mean volume (Bld) [Entitic vol] 8.1 fL 6.3-10.7 [facility] Platelets Auto (Bld) [#/Vol] Ordered By: Genevieve Sahu on 05-04-2022 Platelets (Bld) [#/Vol] 271 10*3/uL 150-450 [facility] Protein [Mass/volume] in Ser um or PlasmaOrdered By: Genevieve Sahu on 05-04-2022 Protein [Mass/Vol] 6.4 g/dL 6.1-7.9 [facility] RBC Auto (Bld) [#/Vol]Ordere d By: Genevieve Sahu on 05-04-2022 RBC (Bld) [#/Vol] 4.40 10*6/uL 3.60-5.00 [facility] Serum or plasma alanine alejandre otransferase measurement without P-5'-P (enzymatic activiOrdered By: Genevieve Sahu on 05-04-2022 ALT No additional P-5'-P [Catalytic activity/Vol] 16 U/L 10-60 [facility] Serum or plasma albumin/glob ulin mass ratioOrdered By: Genevieve Sahu on 05-04-2022 Albumin/Globulin [Mass ratio] 1.3 {ratio} [facility] Serum or plasma alkaline lakia sphatase measurement (enzymatic activity/volume)Ordered By: Genevieve Sahu on 05-04-2022 ALP [Catalytic activity/Vol] 48 U/L 32-92 [facility] Serum or plasma aspartate am inotransferase measurement (enzymatic activity/volume)Ordered By: Genevieve Sahu on 05-04-2022 AST [Catalytic activity/Vol] 17 U/L 10-42 [facility] Serum or plasma calcium glynn urement (mass/volume)Ordered By: Genevieve Sahu on 05-04-2022 Calcium [Mass/Vol] 9.2 mg/dL 8.2-10.2 [facility] Serum or plasma chloride srinivasa surement (moles/volume)Ordered By: Genevieve Sahu on 05-04-2022 Chloride [Moles/Vol] 101 mmol/L 95-114 [facility] Serum or plasma glucose glynn urement (mass/volume)Ordered By: Genevieve Sahu on 05-04-2022 Glucose [Mass/Vol] 95 mg/dL 70-100 [facility] Comment on above: ADA recommended refe rence range Random Glucose Reference Range is dependent on time and content of last meal. Glucose of more than 200 mg/dL in a nonstressed, ambulatory subject supports the diagnosis of Diabetes Mellitus. Serum or plasma potassium me asurement (moles/volume)Ordered By: Genevieve Sahu on 05-04-2022 Potassium [Moles/Vol] 4.2 mmol/L 3.5-5.1 [facility] Serum or plasma sodium measu rement (moles/volume)Ordered By: Genevieve Sahu on 05-04-2022 Sodium [Moles/Vol] 138 mmol/L 136-146 [facility] Serum or plasma total biliru bin measurement (mass/volume)Ordered By: Genevieve Sahu on 05-04-2022 Bilirubin [Mass/Vol] 0.4 mg/dL 0.3-1.2 [facility] Serum or plasma total carbon dioxide measurement (moles/volume)Ordered By: Genevieve Sahu on 05-04-2022 CO2 [Moles/Vol] 24.9 mmol/L 22.0-30.0 [facility] Serum or plasma urea nitroge n measurement (mass/volume)Ordered By: Genevieve Sahu on 05-04-2022 Urea nitrogen [Mass/Vol] 17 mg/dL 9- [facility] XR hand LT min 3V*on 022 XR hand LT min 3V* [facility] [employer] Other XR hand LT min 3V* [facility] Sape Other XR hand LT min 3V* [address] [place] [address] Sape Other XR hand LT min 3V* [place] [address] Sape Other XR hand LT min 3V* XRay Report Sape Other XR hand LT min 3V* Signed Sape Other XR hand LT min 3V* Patient: Nany Carmen MR#: [id number] S[employer] Other XR hand LT min 3V* 1 Sape Other XR hand LT min 3V* : 1955 Acct:[id number] S[employer] Other XR hand LT min 3V* Age/Sex: 66 / F ADM Date: 05/03/22 Sape Other XR hand LT min 3V* Loc: SOXD Room: Type: [facility] Sape Other XR hand LT min 3V* Attending Dr: Genevieve Sahu MD Sape Other XR hand LT min 3V* Copies to: Genevieve Sahu MD Sape Other XR hand LT min 3V* Ordering Provider: Genevieve Sahu MD Sape Other XR hand LT min 3V* Date of Service: 05/03/22 Sape Other XR hand LT min 3V* XR/XR hand LT min 3V*: M79.642 S[employer] Other XR hand LT min 3V* XR hand LT min 3V* 05/03/2022 4:05 PM Sape Other XR hand LT min 3V* SIGNS AND SYMPTOMS: Injury to left fourth digit with fracture, follow-up Sape Other XR hand LT min 3V* PROTOCOL: Frontal, lateral, and oblique radiographs of the left Sape Other XR hand LT min 3V* COMPARISON: 04/11/2022 Sape Other XR hand LT min 3V* FINDINGS: Sape Other XR hand LT min 3V* There is a transversely oriented, comminuted fracture of the shaft of the fourth proximal phalanx. Sape Other XR hand LT min 3V* There is 38 degrees of apex palmar angulation which is slightly more pronounced when compared prior Sape Other XR hand LT min 3V* exam. No change in alignment otherwise. There is mild narrowing of the distal interphalangeal Sape Other XR hand LT min 3V* joints of the second and third digits. Degenerative changes are noted in the wrist. Sape Other XR hand LT min 3V* XR/XR hand LT min 3V* Sape Other XR hand LT min 3V* IMPRESSION: Sape Other XR hand LT min 3V* exam. Sape Other XR hand LT min 3V* Impression dictated by: Chente Crook M.D.05/03/2022 7:18 PM Sape Other XR hand LT min 3V* Dictation Location: [address] [employer] Other XR hand LT min 3V* Transcribed By: PWS 05/03/221917 Sape Other XR hand LT min 3V* Dictated By: Chente Crook II, MD 05/03/221916 Sape Other XR hand LT min 3V* Signed By: Sape Other XR hand LT min 3V* 05/03/221917 Nor [employer] Other XR hand LT min 3V*on XR hand LT min 3V* [facility] [id number] Other XR hand LT min 3V* [facility] [employer] Other XR hand LT min 3V* [address] [place] [address] Sape Other XR hand LT min 3V* RONNY Delgado [address] [address] [employer] Other XR hand LT min 3V* XRay Report Sape Other XR hand LT min 3V* Signed Sape Other XR hand LT min 3V* Patient: Nany Carmen MR#: [id number] [place] [employer] Other XR hand LT min 3V* 1 Sape Other XR hand LT min 3V* : 1955 Acct:[id number] Sape Other XR hand LT min 3V* Age/Sex: 66 / F ADM Date: 04/11/22 Sape Other XR hand LT min 3V* Loc: XDUCLY Room: Type: [facility] Sape Other XR hand LT min 3V* Attending Dr: Jewell CUNNINGHAM Sape Other XR hand LT min 3V* Ordering Provider: OCTAVIO Guzman Sape Other XR hand LT min 3V* Date of Service: 04/11/22 Sape Other XR hand LT min 3V* XR/XR hand LT min 3V*: LEFT HAND PAIN Sape Other XR hand LT min 3V* Copies to: OCTAVIO Guzman Sape Other XR hand LT min 3V* LEFT HAND - 3 views Sape Other XR hand LT min 3V* COMPARISON: None Sape Other XR hand LT min 3V* REASON FOR EXAM: Heavy rock truck onto left hand without pain and swelling and redness over the Sape Other XR hand LT min 3V* dorsal hand/ ringfinger Sape Other XR hand LT min 3V* FINDINGS: Sape Other XR hand LT min 3V* Soft tissue swelling is noted involving the ring finger. There is a mildly displaced comminuted Sape Other XR hand LT min 3V* fracture involving the shaft of the proximal phalanx of the fourth digit. No additional fractures Sape Other XR hand LT min 3V* are seen. Mild degenerative changes involving the DIP joints. Sape Other XR hand LT min 3V* XR/XR hand LT min 3V* Sape Other XR hand LT min 3V* IMPRESSION: Sape Other XR hand LT min 3V* MILDLY DISPLACED COMMINUTED FRACTURE INVOLVING THE SHAFT OF THE PROXIMAL PHALANX OF THE FOURTH Sape Other XR hand LT min 3V* DIGIT. Sape Other XR hand LT min 3V* Impression dictated by: Reji Khan Jr., KarelOMario04/11/2022 1:56 PM Sape Other XR hand LT min 3V* Dictation Location: [facility]--13 Sape Other XR hand LT min 3V* Transcribed By: PWS 04/11/22 [facility] Sape Other XR hand LT min 3V* Dictated By: Reji Khan Jr, DO 04/11/22 [facility] Sape Other XR hand LT min 3V* Signed By: Sape Other XR hand LT min 3V* 04/11/[address] [place] [address] [employer] Other Basic Metabolic Panelon 0 Anion gap [Moles/Vol] 7 mmol/L Low 9 - 17 mmol/L [facility], [place] Bun/Cre Ratio 13 [facility] [place] [place] Calcium [Mass/Vol] 9.2 mg/dL 8.6 - 10. 4 mg/dL [facility] [place] Chloride [Moles/Vol] 104 mmol/L 98 - 10 7 mmol/L [facility] [place] CO2 [Moles/Vol] 26 mmol/L 20 - 31 mmol/L [facility], [place] Creatinine [Mass/Vol] 0.76 mg/dL 0.5 - 0.9 mg/dL [place], [place] GFR >60 >60 mL/min [place], [place] GFR Non- >60 >60 mL/min [place] Glucose [Mass/Vol] 111 mg/dL High 70 - 99 mg/dL [place], [place] Interpretation and review of laboratory results Abnormal [place] Potassium [Moles/Vol] 4.2 mmol/L 3.7 - 5.3 mmol/L [place] Sodium [Moles/Vol] 137 mmol/L 135 - 144 mmol/L [place] Urea nitrogen [Mass/Vol] 10 mg/dL 8 - 23 mg/dL [place] Basic Metabolic Profon 11-25 (cont.) Normal [facility] Comment on above: Result Comment: Aver age GFR for 60-69 years old: 85 mL/min/1.73sq m Chronic Kidney Disease: <60 mL/min/1.73sq m Kidney failure: <15 mL/min/1.73sq m eGFR calculated using average adult body mass. Additional eGFR calculator available at: http://www.Self-A-r-T.Textingly/multiple_crcl_2012.htm Performed By: #### B AMANDA, CDP #### [facility] [address] [place] [address] [place] [address] Orientor: Kan Gupta MD Anion gap [Moles/Vol] 7 mmol/L Low 9- [facility] Comment on above: Performed By: #### B AMANDA, CDP #### [facility] [address] [place] [address] Orientor: Kan Gupta MD BUN/CRE Ratio 13 Normal - [facility] Comment on above: Performed By: #### B AMANDA, CDP #### [facility] [address] [place] [address] Orientor: Kan Gupta MD Calcium [Mass/Vol] 9.2 mg/dL Normal 8.6-10.[address] [facility] Comment on above: Performed By: #### B MP, CDP #### [facility] [address] [place], [place] [id number] Orientor: Kan Gupta MD Chloride [Moles/Vol] 104 mmol/L Normal 98-107 [facility] Comment on above: Performed By: #### B MP, CDP #### [facility] [address] [place], [place] [id number] Orientor: Kan Gupta MD CO2 [Moles/Vol] 26 mmol/L Normal 20-31 [facility] Comment on above: Performed By: #### B MP, CDP #### [facility] [address] [place], [place] [id number] Orientor: Kan Gupta MD Creatinine [Mass/Vol] 0.76 mg/dL Normal 0.50-0.90 [facility] Comment on above: Performed By: #### B MP, CDP #### [facility] [address] [place], [place] [id number] Orientor: Kan Gupta MD GFR, Amer >60 Normal >60 [facility] Comment on above: Performed By: #### B MP, CDP #### [facility] [address] [place], [place] [id number] Orientor: Kan Gupta MD GFR,non Amer >60 Normal >60 [facility] Comment on above: Performed By: #### B MP, CDP #### [facility] [address] [place], [place] [id number] Orientor: Kan Gupta MD Glucose [Mass/Vol] 111 mg/dL High 70-[address] [facility] Comment on above: Performed By: #### B MP, CDP #### [facility] [address] [place], [place] [id number] Orientor: Kan Gupta MD Potassium [Moles/Vol] 4.2 mmol/L Normal 3.7-5.3 [facility] Comment on above: Performed By: #### B AMANDA, CDP #### [facility] [address] [place] [address] [place] [address] Orientor: Kan Gupta MD Sodium [Moles/Vol] 137 mmol/L Normal 135-[address] [facility] Comment on above: Performed By: #### B AMANDA, CDP #### [facility] [address] [place] [address] [place] [address] Orientor: Kan Gupta MD Staging: Normal [facility] Comment on above: Result Comment: Stag e 1: Some kidney damage normal GFR Stage 2: Mild kidney damage GFR 60-89 Stage 3: Moderate kidney damage GFR 30-59 Stage 4: Severe kidney damage GFR 15-29 Stage 5: Severe kidney damage GFR <15 ESRD - chronic treatment by dialysis or transplant Performed By: #### B AMANDA, CDP #### [address] [place] [address] Orientor: Kan Gupta MD Urea nitrogen [Mass/Vol] 10 mg/dL Normal 8-[address] [facility] Comment on above: Performed By: #### B AMANDA, CDP #### [address] [place] [address] Orientor: Kan Gupta MD CBC Auto Differentialon Basophils (Bld) [#/Vol] 10*3/uL [place] Basophils/100 WBC (Bld) 0 % 0 - 2 % [place] Differential Type NOT REPORTED [place] Eosinophils (Bld) [#/Vol] 0.10 10*3/uL [place] Eosinophils/100 WBC (Bld) 2 % 1 - 4 % [place] Erythrocyte distribution width (RBC) [Ratio] 13.2 % 11.8 - 14.4 % [place] Hematocrit (Bld) [Volume fraction] 39.3 % 36.3 - 47.1 % [place] Hemoglobin (Bld) [Mass/Vol] 12.5 g/dL 11.9 - 15.1 g/dL [place] Immature granulocytes (Bld) [#/Vol] 0.03 10*3/uL [place] Immature granulocytes (Bld) [#/Vol] 1 % High 0 [place] Interpretation and review of laboratory results Abnormal [place] Lymphocytes (Bld) [#/Vol] 0.99 10*3/uL Low [place] Lymphocytes/100 WBC (Bld) 19 % Low 24 - 43 % [place] MCH (RBC) [Entitic mass] 28.0 pg 25.2 - 33.5 pg [place] MCHC (RBC) [Mass/Vol] 31.8 g/dL 28.4 - 34.8 g/dL [place] MCV (RBC) [Entitic vol] 88.1 fL 82.6 - 102.9 fL [place] Monocytes (Bld) [#/Vol] 0.51 10*3/uL [place] Monocytes/100 WBC (Bld) 10 % 3 - 12 % [place] Platelet mean volume (Bld) [Entitic vol] 8.4 fL 8.1 - 13.5 fL [place], [place] Platelets (Bld) [#/Vol] NOT REPORTED [place] Platelets (Bld) [#/Vol] 279 10*3/uL [place] RBC (Bld) [#/Vol] 4.46 10*6/uL 3.95 - 5.1 1 m/uL [place] RBC morphology finding Nom (Bld) NOT REPORTED [place] Segmented neutrophils/100 WBC (Bld) 68 % High 36 - 65 % [place] Segs Absolute 3.64 [place], [place] WBC (Bld) [#/Vol] 0.0 10*3/uL 0.0 per 10 0 WBC [place] WBC (Bld) [#/Vol] 5.3 10*3/uL [facility] [place] WBC Morphology NOT [facility]PORTED [facility]2020 Abs. Basophil <0.03 Normal 0.00-0.20 [facility] Comment on above: Performed By: #### B MP, CDP #### [facility] [address] [place] [address] [place], [place] [id number] Orientor: Kan Gupta MD Abs.Imm.Granulocyte 0.03 k/uL Normal 0.00-0.[address] [facility] Comment on above: Performed By: #### B MP, CDP #### [address] [place] [id number] Orientor: Kan Gupta MD Abs.Neutrophil (Seg) 3.64 k/uL Normal 1.50-8.10 [facility] Comment on above: Performed By: #### B AMANDA, CDP #### [address] [place], [place] [id number] Orientor: Kan Gupta MD Basophils/100 WBC (Bld) 0 % Normal 0-[address] [facility] Comment on above: Performed By: #### B MP, CDP #### [address] [place], [place] [id number] Orientor: Kan Gupta MD Eosinophils (Bld) [#/Vol] 0.10 10*3/uL Normal 0.00-0.[address] [facility] Comment on above: Performed By: #### B MP, CDP #### [address] [place], [place] [id number] Orientor: Kan Gupta MD Eosinophils/100 WBC (Bld) 2 % Normal 1-[address] [facility] Comment on above: Performed By: #### B MP, CDP #### [facility] [address] [place] [address] [place], [place] [id number] Orientor: Kan Gupta MD Erythrocyte distribution width (RBC) [Ratio] 13.2 % Normal 11.8-14.[address] [facility] Comment on above: Performed By: #### B AMANDA, CDP #### [facility] [address] [place] [address] [place], [place] [id number] Orientor: Kan Gupta MD Hematocrit (Bld) [Volume fraction] 39.3 % Normal 36.3-47.[address] [facility] Comment on above: Performed By: #### B AMANDA, CDP #### [address] [place], [place] [id number] Orientor: Kan Gupta MD Hemoglobin (Bld) [Mass/Vol] 12.5 g/dL Normal 11.9-15.[address] [facility] Comment on above: Performed By: #### B AMANDA, CDP #### [address] [place], [facility]83 Orientor: Kan Gupta MD Immature granulocytes (Bld) [#/Vol] 1 % High [address] [facility] Comment on above: Performed By: #### B AMANDA, CDP #### [address] [place], [place] [id number] Orientor: Kan Gupta MD Lymphocytes (Bld) [#/Vol] 0.99 10*3/uL Low 1.10-3.[address] [facility] Comment on above: Performed By: #### B AMANDA, CDP #### [facility] [address] [place] [address] [place], [place] [id number] Orientor: Kan Gupta MD Lymphocytes/100 WBC (Bld) 19 % Low 24-[address] [facility] Comment on above: Performed By: #### B AMANDA, CDP #### [address] [place], [place] [id number] Orientor: Kan Gupta MD MCH (RBC) [Entitic mass] 28.0 pg Normal 25.2-33.[address] [facility] Comment on above: Performed By: #### B AMANDA, CDP #### [facility] [address] [place], [place] [id number] Orientor: Kan Gupta MD MCHC (RBC) [Mass/Vol] 31.8 g/dL Normal 28.4-34.8 [facility] Comment on above: Performed By: #### B MP, CDP #### [facility] [address] [place], [facility]83 Orientor: Kan Gupta MD MCV (RBC) [Entitic vol] 88.1 fL Normal 82.6-102.[address] [facility] Comment on above: Performed By: #### B AMANDA, CDP #### [address] [place], [facility]83 Orientor: Kan Gupta MD Monocytes (Bld) [#/Vol] 0.51 10*3/uL Normal 0.10-1.[address] [facility] Comment on above: Performed By: #### B AMANDA, CDP #### [address] [place], [place] [id number] Orientor: Kan Gupta MD Monocytes/100 WBC (Bld) 10 % Normal 3-[address] [facility] Comment on above: Performed By: #### B AMANDA, CDP #### [address] [place], [facility]83 Orientor: Kan Gupta MD Neutrophil (Seg) 68 % High 36-65 [facility] Comment on above: Performed By: #### B AMANDA, CDP #### [address] [place], [place] [id number] Orientor: Kan Gupta MD NRBC Automated 0.0 per 100 WBC Normal 0.[address] [facility] Comment on above: Performed By: #### B MP, CDP #### [address] [place] [address] Orientor: Kan Gupta MD Platelet mean volume (Bld) [Entitic vol] 8.4 fL Normal 8.1-13.[address] [facility] Comment on above: Performed By: #### B MP, CDP #### [facility] [address] [place] [address] Orientor: Kan Gupta MD Platelets (Bld) [#/Vol] 279 10*3/uL Normal 138-[address] [facility] Comment on above: Performed By: #### B MP, CDP #### [facility] [address] [place], [place] [id number] Orientor: Kan Gupta MD RBC (Bld) [#/Vol] 4.46 10*6/uL Normal 3.95-5.[address] [facility] Comment on above: Performed By: #### B MP, CDP #### [facility] [address] [place] [address] Orientor: Kan Gupta MD WBC (Bld) [#/Vol] 5.3 10*3/uL Normal 3.5-11.[address] [facility] Comment on above: Performed By: #### B MP, CDP #### [facility] [address] [place] [address] [place] [address] Orientor: Kan Gupta MD Auto Diff Performed NOT REPORTED Normal [facility] Comment on above: Performed By: #### B MP, CDP #### [facility] [address] [place] [address] Orientor: Kan Gupta MD Platelets (Bld) [#/Vol] NOT REPORTED Normal [facility] Comment on above: Performed By: #### B MP, CDP #### [facility] [address] [place], [place] [id number] Orientor: Kan Gupta MD RBC morphology finding Nom (Bld) NOT REPORTED Normal [facility] Comment on above: Performed By: #### B MP, CDP #### [facility] [address] [place] [address] Orientor: Kan Gupta MD WBC Morphology NOT REPORTED Normal [facility] Comment on above: Performed By: #### B MP, CDP #### [facility] [address] [place] [address] Orientor: Kan Gupta MD Metabolic Panelon 11-25-2020 GFR/1.73 sq M predicted among non-blacks MDRD (S/P/Bld) [Vol rate/Area] [place], [place] Comment on above: Stage 1: Some kidney damage normal GFR Stage 2: Mild kidney damage GFR 60-89 Stage 3: Moderate kidney damage GFR 30-59 Stage 4: Severe kidney damage GFR 15-29 Stage 5: Severe kidney damage GFR <15 ESRD - chronic treatment by dialysis or transplant Average GFR for 60-6 9 years old: 85 mL/min/1.73sq m Chronic Kidney Disease: <60 mL/min/1.73sq m Kidney failure: <15 mL/min/1.73sq m eGFR calculated using average adult body mass. Additional eGFR calculator available at: http://www.Self-A-r-T.Textingly/multiple_crcl_2012.htm US NON OB TRANSVAGINALon US NON OB TRANSVAGINAL EXAMINATION: PELVIC ULTRASOUND 11/25/2020 TECHNIQUE: Transvaginal pelvic ultrasound was performed. Color Doppler evaluation was performed. COMPARISON: None HISTORY: ORDERING SYSTEM PROVIDED HISTORY: Postmenopausal bleeding TECHNOLOGIST PROVIDED HISTORY: Postmenopausal bleeding 65-year-old female with postmenopausal bleeding FINDINGS: Measurements: Uterus: 6.9 x 3.9 x 4.8 cm Endometrial stripe: 8 mm Right Ovary: Not visualized. Left Ovary: Not visualized. Ultrasound Findings: Uterus: Uterus demonstrates normal myometrial echotexture. Hypoechoic left uterine fundal fibroid measuring 2.4 x 1.5 x 1.2 cm with associated calcification measuring 1.2 x 0.8 x 1.0 cm. Endometrial stripe: Endometrial stripe is abnormally thickened for a postmenopausal female with bleeding. Right Ovary: Not visualized. Left Ovary: Not visualized. Free Fluid: No evidence of free fluid. IMPRESSION: 1. Endometrial stripe thickness is abnormally enlarged measuring 8 mm in a postmenopausal female with bleeding. Differential considerations include endometrial hyperplasia or endometrial carcinoma. Endometrial sampling recommended. 2. Left uterine fundal fibroid measuring up to 2.4 cm with associated 1.2 cm calcification. 3. Nonvisualization of the ovaries. Interpreted by: Mele Ivy MD Signed by: Mele Ivy MD 11/25/20 Final result Normal [facility] [employer], [employer] Incoming Radiant Results From [employer] - 11/25/2020 12:03 PM EST EXAMINATION: PELVIC ULTRASOUND 11/25/2020 TECHNIQUE: Transvaginal pelvic ultrasound was performed. Color Doppler evaluation was performed. COMPARISON: None HISTORY: ORDERING SYSTEM PROVIDED HISTORY: Postmenopausal bleeding TECHNOLOGIST PROVIDED HISTORY: Postmenopausal bleeding 65-year-old female with postmenopausal bleeding FINDINGS: Measurements: Uterus: 6.9 x 3.9 x 4.8 cm Endometrial stripe: 8 mm Right Ovary: Not visualized. Left Ovary: Not visualized. Ultrasound Findings: Uterus: Uterus demonstrates normal myometrial echotexture. Hypoechoic left uterine fundal fibroid measuring 2.4 x 1.5 x 1.2 cm with associated calcification measuring 1.2 x 0.8 x 1.0 cm. Endometrial stripe: Endometrial stripe is abnormally thickened for a postmenopausal female with bleeding. Right Ovary: Not visualized. Left Ovary: Not visualized. Free Fluid: No evidence of free fluid. IMPRESSION: 1. Endometrial stripe thickness is abnormally enlarged measuring 8 mm in a postmenopausal female with bleeding. Differential considerations include endometrial hyperplasia or endometrial carcinoma. Endometrial sampling recommended. 2. Left uterine fundal fibroid measuring up to 2.4 cm with associated 1.2 cm calcification. 3. Nonvisualization of the ovaries. [facility]- [place], [place] EXAMINATION: PELVIC ULTRASOUND 11/25/2020 TECHNIQUE: Transvaginal pelvic ultrasound was performed. Color Doppler evaluation was performed. COMPARISON: None HISTORY: ORDERING SYSTEM PROVIDED HISTORY: Postmenopausal bleeding TECHNOLOGIST PROVIDED HISTORY: Postmenopausal bleeding 65-year-old female with postmenopausal bleeding FINDINGS: Measurements: Uterus: 6.9 x 3.9 x 4.8 cm Endometrial stripe: 8 mm Right Ovary: Not visualized. Left Ovary: Not visualized. Ultrasound Findings: Uterus: Uterus demonstrates normal myometrial echotexture. Hypoechoic left uterine fundal fibroid measuring 2.4 x 1.5 x 1.2 cm with associated calcification measuring 1.2 x 0.8 x 1.0 cm. Endometrial stripe: Endometrial stripe is abnormally thickened for a postmenopausal female with bleeding. Right Ovary: Not visualized. Left Ovary: Not visualized. Free Fluid: No evidence of free fluid. [place] 1. Endometrial stripe thickness is abnormally enlarged measuring 8 mm in a postmenopausal female with bleeding. Differential considerations include endometrial hyperplasia or endometrial carcinoma. Endometrial sampling recommended. 2. Left uterine fundal fibroid measuring up to 2.4 cm with associated 1.2 cm calcification. 3. Nonvisualization of the ovaries. [place] Vital Signs Date Time Vital Sign Value Performing Clinician Viviane [email or web address] 11-02-2023 08:00-0500 Body height 165.1 cm Gagandeep Stevens Other [facility] Other 11-02-2023 08:00-0500 Body mass index (BMI) [Ratio] 31.12 kg/m2 Gagandeep Stevens Other [facility] Other 11-02-2023 08:00-0500 Body weight 84.82 kg Gagandeep Stevens Other [facility] Other 10-08-2023 11:00-0500 Body height 165.1 cm Catalina Carson Other [facility] Other 10-08-2023 11:00-0500 Body mass index (BMI) [Ratio] 31.21 kg/m2 Catalina Carson Other [facility] Other 10-08-2023 11:00-0500 Body weight 85.1 kg Catalina Carson Other [facility] Other 10-08-2023 11:00-0500 Diastolic blood pressure 91 mm[Hg] Catalina Carson Other [facility] Other 10-08-2023 11:00-0500 Systolic blood pressure 142 mm[Hg] Catalina Carson Other [facility] Other 09-04-2023 11:00-0400 Body height 165.1 cm Catalina Carson Other [facility] Other 09-04-2023 11:00-0400 Body mass index (BMI) [Ratio] 31.08 kg/m2 Catalina Carson Other [facility] Other 09-04-2023 11:00-0400 Body weight 84.73 kg Catalina Carson Other [facility] Other 09-04-2023 11:00-0400 Diastolic blood pressure 85 mm[Hg] Catalina Carson Other [facility] Other 09-04-2023 11:00-0400 Systolic blood pressure 135 mm[Hg] Catalina Carson Other [facility] Other 07-07-2022 11:45-0400 Body height 166.37 cm Genevieve Calvmalinda Other [facility] Other 07-07-2022 11:45-0400 Body mass index (BMI) [Ratio] 29.99 kg/m2 Genevieve Calvey Other [facility] Other 07-07-2022 11:45-0400 Body weight 83.01 kg Genevieve Calvey Other [facility] Other 05-16-2022 12:45-0400 Body height 166.37 cm Genevieve Calvey Other [facility] Other 05-16-2022 12:45-0400 Body mass index (BMI) [Ratio] 30.48 kg/m2 Genevieve Calvey Other [facility] [employer] Other 05-16-2022 12:45-0400 Body weight 84.37 kg Genevieve Sahu Other [facility] [employer] Other 05-08-2022 17:02-0400 Diastolic blood pressure 75 mm[Hg] MD Catalina Carson Work Phone: [facility] 05-08-2022 17:02-0400 Heart rate 66 /min MD Catalina Carson Work Phone: [facility] 05-08-2022 17:02-0400 Respiratory rate 16 /min MD Catalina Carson Work Phone: [facility] 05-08-2022 17:02-0400 SaO2% (BldA) [Mass fraction] 97 % MD Catalina Carson Work Phone: [facility] 05-08-2022 17:02-0400 Systolic blood pressure 144 mm[Hg] MD Catalina Carson Work Phone: [facility] 05-08-2022 16:17-0400 Inhaled oxygen flow rate 6 L/min MD Catalina Carson Work Phone: [facility] 05-08-2022 14:43-0400 Body mass index (BMI) [Ratio] 32.5 kg/m2 MD Catalina Carson Work Phone: [facility] 05-08-2022 14:34-0400 Body height 162.56 cm MD Catalina Carson Work Phone: [facility] 05-08-2022 14:34-0400 Body weight 86 kg MD Catalina Carson Work Phone: [facility] 05-08-2022 12:57-0400 Body temperature 98.1 [degF] MD Catalina Carson Work Phone: [facility] 04-11-2022 14:10-0400 Body height 166.37 cm Jewell Fernandez Other [facility] Other 04-11-2022 14:10-0400 Body mass index (BMI) [Ratio] 30.48 kg/m2 Jewell Fernandez Other [facility] Other 04-11-2022 14:10-0400 Body temperature 97.1 [degF] Jewell Fernandez Other [facility] Other 04-11-2022 14:10-0400 Body weight 84.37 kg Jewell Fernandez Other [facility] Other 04-11-2022 14:10-0400 Diastolic blood pressure 93 mm[Hg] Jewell Fernandez Other [facility] Other 04-11-2022 14:10-0400 Respiratory rate 18 /min Jewell Fernandez Other [facility] Other 04-11-2022 14:10-0400 SaO2% (BldA) [Mass fraction] 99 % Jewell Fernandez Other [facility] Other 04-11-2022 14:10-0400 Systolic blood pressure 151 mm[Hg] Jewell Fernandez Other [facility] Other 11-25-2020 12:30-0500 BP Diastolic 80 mm[Hg] Morro [employer] [facility], [place] 11-25-2020 12:30-0500 BP Systolic 129 mm[Hg] Morro Auth[employer] [facility], [place] 11-25-2020 12:30-0500 Pulse Oximetry 94 % Morro Auth[employer] [facility], [place] 11-25-2020 10:39-0500 Body Temperature 99.9 [degF] Morro Polanco [facility], [place] 11-25-2020 10:35-0500 BMI (Body Mass Index) 31.62 kg/m2 Morro Mayer [facility], [place] 11-25-2020 10:35-0500 Body weight 86.18 kg Morro Mayer [facility], [place] 11-25-2020 10:35-0500 Height 165.1 cm Morro Mayer [facility], [place] 11-25-2020 10:35-0500 Pulse (Heart Rate) 95 /min Morro Mayer [facility], [place] 11-25-2020 10:35-0500 Respiratory Rate 18 /min Morro Polanco [facility] Encounters Encounter Date Encounter Type Care Provider Facility Start: 11-05-2023 (Televisit) Televisit Catalina Carson [facility] Start: 11-05-2023 End: 11-05-2023 ambulatory Catalina Carson Other [facility] Other Start: 11-02-2023 End: 11-02-2023 ambulatory Gagandeep Stevens Other [facility] Other Start: 11-02-2023 Office outpatient ne w 30 minutes Gagandeep Stevens [facility] Start: 10-08-2023 End: 10-08-2023 ambulatory Catalina Carson Other [facility] Other Start: 10-08-2023 Office outpatient visit 15 minutes Catalina Carson [facility] Start: 09-24-2023 Telephone encounter Catalina Carson [facility] Start: 09-24-2023 End: 09-24-2023 ambulatory MD Catalina Carson Work Phone: [facility] Work Phone: Start: 09-24-2023 End: 09-24-2023 Patient encounter procedure MD Catalina Carson Work Phone: [facility] Work Phone: Start: 09-04-2023 End: 09-04-2023 ambulatory Catalina Carson Other [facility] Other Start: 09-04-2023 Patient encounter procedure Catalina Carson [facility] Start: 07-27-2023 End: 07-27-2023 ambulatory Dallas Whitaker Facility:[facility] Start: 07-27-2023 End: 07-27-2023 ambulatory MD Catalina Carson Work Phone: [facility] Work Phone: Start: 07-27-2023 End: 07-27-2023 Patient encounter procedure MD Catalina Carson [facility] Work Phone: Start: 11-06-2022 Adult health examination Catalina Carson Other [facility] Other Start: 11-06-2022 Pre-procedure evaluation check Catalina Carson Other [facility] Other Start: 10-30-2022 End: 10-30-[address] KAN BAXTER Facility: Start: 10-03-2022 End: 10-03-2022 ambulatory Genevieve Sahu Other [facility] Other Start: 10-03-2022 Office outpatient visit 15 minutes Genevieve Sahu [facility] Start: 07-19-2022 End: 07-19-2022 Patient encounter procedure MD Catalina Carson [facility] Start: 07-07-2022 End: 07-07-2022 ambulatory Genevieve Sahu Other [facility] Other Start: 07-07-2022 Postop follow up vis it related to original px Genevieve Sahu [facility] Start: 07-07-2022 End: 07-07-2022 Patient encounter procedure MD Catalina Carson Work Phone: [facility] Start: 06-09-2022 End: 06-09-2022 ambulatory Genevievejovani Sahu Other [facility] Other Start: 06-09-2022 Postop follow up vis it related to original px Genevieve Calvey [facility] Start: 06-09-2022 End: 06-09-2022 Patient encounter procedure MD Catalina Carson Work Phone: [facility] Start: 05-16-2022 End: 05-16-2022 ambulatory Genevievejovani Sahu Other [facility] Other Start: 05-16-2022 Postop follow up vis it related to original px Genevieve Calvey [facility] Start: 05-16-2022 End: 05-16-2022 Patient encounter procedure MD Catalina Carson Work Phone: [facility] Start: 05-11-2022 End: 05-11-2022 ambulatory Genevieve Calvmalinda Other [facility] Other Start: 05-11-2022 Telephone encounter Genevieve Sahu [facility] Start: 05-08-2022 End: 05-08-2022 Admission to same day surgery center MD Catalina Carson Work Phone: [facility] [place] Start: 05-04-2022 End: 05-04-2022 Patient encounter procedure MD Catalina Carson Work Phone: [facility] Start: 05-03-2022 End: 05-03-2022 Patient encounter procedure MD Catalina Carson Work Phone: [facility] Start: 05-03-2022 End: 05-03-2022 ambulatory Genevievejovani Sahu Other [employer] [facility] [employer] Other Start: 05-03-2022 Office outpatient ne w 45 minutes Genevievejovani Sahu [facility] Start: 04-11-2022 End: 04-11-2022 ambulatory Jewell Fernandez Other [facility] [employer] Other Start: 04-11-2022 Office outpatient ne w 20 minutes Jewellleah Fernandez [facility] Start: 11-25-2020 End: 11-25-2020 Emergency department patient visit [facility] Start: 11-25-2020 End: 11-25-2020 Emergency department patient visit [facility] ED Comment on above: COVID-19 virus infec tion (Primary Dx); Postmenopausal bleeding Procedures Date Procedure Procedure Detail Performing Clinician Start: 09-24-2023 Radiologic examinati on of knee MD Catalina Carson Work Phone: Start: 07-27-2023 Screening mammograph y of bilateral breasts MD Catalina Carson Work Phone: Start: 07-19-2022 Screening mammograph y of bilateral breasts MD Catalina Carson Work Phone: Start: 07-07-2022 Plain X-ray of left hand MD Catalina Carson Work Phone: Start: 06-09-2022 Plain X-ray of left hand MD Catalina Carson Work Phone: Start: 05-16-2022 Plain X-ray of left hand MD Catalina Carson Work Phone: Start: 05-08-2022 Plain X-ray of left hand MD Catalina Carson Work Phone: Start: 05-08-2022 Open reduction with external fixation MD Catalina Carson Work Phone: Start: 05-03-2022 Plain X-ray of left hand MD Catalina Carson Work Phone: Start: 11-25-2020 Basic metabolic pane l calcium total Morro Jimenez Vijaya Start: 11-25-2020 Blood count complete auto&auto difrntl wbc Morro Jimenez Vijaya Start: 11-25-2020 Us transvaginal Morro Jimenez Vijaya Plan of Treatment Date Care Activity Detail Author Start: 07-19-2022 Screening mammograph y of bilateral breasts MM screening mammo BI w/CAD [facility] Start: 07-19-2022 End: 07-19-2022 Patient encounter procedure Departed Clinical [facility] Start: 05-08-2022 [facility] Work Phone: Start: 05-08-2022 [facility] Work Phone: Start: 07-20-2020 Influenza vaccination Flu vaccine (# 1) [place], [place] Start: 2006 Screening for malign ant neoplasm of breast Breast cancer screen [place], [place] Start: 2006 Screening for malign ant neoplasm of colon Colon cancer screen colonoscopy [place], [place] Start: 2006 Shingles Vaccine (1 of 2) Shingles Vaccine (1 of 2) [place], [place] Start: 1996 Diabetes screen Diabetes screen [place], [place] Start: 1996 Lipid panel Lipid screen [place], [place] Start: 1977 Screening for malign ant neoplasm of cervix Cervical cancer screen [place], [place] Start: 1975 DTaP/Tdap/Td vaccine (1 - Tdap) DTaP/Tdap/Td vaccine (1 - Tdap) [place], [place] Start: 1971 HIV screening HIV screen [place], [place] Start: 1956 Hepatitis C screening Hepatitis C sc reen [place], [place] Patient referral [facility] Work Phone: Immunizations Immunization Date Immunization Notes Care Provider Fa cilidylon 11-14-2021 COVID-19 Adriane Azevedo (Pfizer) MD Catalina Carson Work Phone: [facility] 04-04-2021 COVID-19 Adriane Azevedo (Pfizer) MD Catalina Carson Work Phone: [facility] 03-14-2021 COVID-19 Adriane Azevedo (Pfizer) MD Catalina Carson Work Phone: [facility] 01-27-2021 zoster vaccine, live Catalina Carson Other [facility] Other 09-28-2016 diphtheria, tetanus toxoids and acellular pertussis vaccine, unspecified formulation Catalina Carson Other [facility] Other Payers Date Payer Category Payer Self-pay [id number] 2019 Unknown [id number] 1958 Medicare [id number] [id number] 1955 Unknown [id number] 1955 Unknown [id number] Medicare Medicare [id number] Medicare Anthem MCR PFFS [id number] Unknown [employer] [id number] Unknown [id number] Unknown [id number] Social History Date Type Detail Facility Tobacco smoking status NHIS Unknown if ever smoked [employer] [place], [place] Sex Assigned At Not on file [employer] [place], [employer] Sex Assigned At Sex Assigned At Bir th [facility] Other Start: 05-08-2022 End: 05-08-2022 Tobacco smoking status NHIS Never smoked tobacco (finding) [facility] Start: 1955 Sex Assigned At Female F [facility] Medical Equipment Procedure Code Equipment Code Equipment Origin al Text Equipment Identifier Dates ORIF, fracture, hand Orthopaedic bone screw, non-bioabsorbable, non-sterile [id number] FDA Start: 05-08-2022 Goals Date Patient Goal Desired Activity /State Clinical Notes 04-11-2022 to 11-05-2023 Note Date & Type Note Facility 11-05-2023 Evaluation note Encounter Date Diagnosis Assessment Notes Oct, Acute non-recurren t maxillary sinusitis (ICD-10 - J01.00) Sinus infections can be triggered by a secondary infection from a viral URI or even seasonal allergies. Take medications as directed. Use saline nasal spray prior to presciption nasal spray. Take medications as directed, and complete all doses of medication even if you start to feel better. Patient advised to follow up with PCP if symptoms persist or worsen. Patient verbalized understanding and agreement with treatment plan. [facility] Other 12-15-2023 Evaluation note* Encounter Date Diagnosis Assessment Notes Treatment Notes Treatment Clinical Notes Oct, Arthritis of left knee (ICD-10 - M17.12) Oct, Cyst, trinh's knee, left (ICD-10 - M71.22) Radiographs reviewed with patient as mild arthritis. Based on her exam, there is a possibility she has a meniscal tear as well. As she is improving at this time, we will continue to monitor the condition. Could also consider a cortisone injection if patient wishes. If she does not full recover or pain worsens, we will order an MRI to assess for a meniscal tear. Advised to monitor for mechanical symptoms which would be indicative of a meniscal tear. May take diclofenac as needed. Call with questions/concern s. Oct, Acute pain of left knee (ICD-10 - M25.562) Nany presents with left knee pain. At this juncture we have discussed the findings and diagnosis as well as personally reviewed appropriate imaging and performed interpretation of related testing and examination with the patient in office today. Prior medical notes from Dr. Carson and history have been reviewed. Today we have discussed degenerative joint disease of the knee and its treatment. Imaging was discussed and explained to the patient. We discussed recommended conservative therapies including physical therapy, anti-inflammatory medications, and weight loss strategies. We also discussed other treatment options including cortisone injections, Visco supplementation injections which are options for treatment. I have laid out the course of knee DJD including the end-stage treatment of total joint arthroplasty. The patient recognizes and understands our options and goals and we will move forward with our treatment. Since she is having good results of conservative treatment I would continue this. If she has issues that return or worsen then I would like to see her back to move forward with cortisone injection. She is agreeable to this. Follow-up as needed The patient has been involved in our cooperative treatment plan and agrees to move forward with treatment at this time. Oct, Other See orders for this visit as documented in the electronic medical record. [facility] Other 11-20-2023 Evaluation note* Encounter Date Diagnosis Assessment Notes Treatment Notes Treatment Clinical Notes Sep, Primary osteoarthritis of left knee (ICD-10 - M17.12) Pt agrees to referral to ortho for her ongoing knee issues. Sep, Attention-deficit hyperactivity disorder, unspecified type (ICD-10 - F90.9) Recommend Neurology eval to assess adult ADD v. memory issues causing problems focusing and completing tasks [facility] Other 10-17-2023 Evaluation note* Encounter Date Diagnosis Assessment Notes Treatment Notes Treatment Clinical Notes Aug, Medicare annual wellness visit, subsequent (ICD-10 - Z00.00) Personalized health advice was given to the beneficiary including a written plan for screenings discussed and provided. Advanced care planning reviewed and/or information given as requested. Additional counseling was provided here today in regards to, [ ]. The above visit was performed by [ ], under direct supervision of [ ]. Document reviewed and amended by provider signed below. Aug, Essential (primary) hypertension (ICD-10 - I10) Blood pressure remains well controlled at this time. Denies cardiac symptoms. Shows no signs or symptoms or poor control. Patient to continue with above medication and we will continue to monitor. Advised to pay attention to body and symptoms. Any developing patterns. Stay well hydrated. Aug, Attention deficit disorder (ADD) in adult (ICD-10 - F98.8) Pt notes stress w father's passing but also endorses symptoms of adult ADD. Will trial lower dose of medication and followup in 1 month [facility] Other 11-15-2022 Evaluation note* Encounter Date Diagnosis Assessment Notes Treatment Notes Treatment Clinical Notes Sep, Other specified postprocedural states (ICD-10 - Z98.890) Sep, Displaced fracture o f proximal phalanx of left ring finger, subsequent encounter for fracture with routine healing (ICD-10 - S62.615D) Discussed with patient to continue to progress activity as tolerated. Call with any questions or concerns [facility] Other 08-19-2022 Evaluation note* Encounter Date Diagnosis Assessment Notes Treatment Notes Treatment Clinical Notes Jun, Other specified postprocedural states (ICD-10 - Z98.890) Jun, Displaced fracture o f proximal phalanx of left ring finger, subsequent encounter for fracture with routine healing (ICD-10 - S62.615D) Radiographs reviewed with patient today. Discussed with patient she is progressing well. Instructed patient to continue to stretch and work on range of motion excersies. Instructed patient to continue to use edema glove to help with swelling. Prescription for medrol dose pack sent into patients pharmacy [facility] Other 07-22-2022 Evaluation note* Encounter Date Diagnosis Assessment Notes Treatment Notes Treatment Clinical Notes May, Closed displaced fracture of proximal phalanx of left ring finger, initial encounter (ICD-10 - S62.615A) May dicontinue use of splint. Work on massage and stretching. Continue working on ROM exercises. Rx given for Medrol Dosepak. Patient instructed on the use of OTC NSAIDs May, Other specified postprocedural states (ICD-10 - Z98.890) May, Left hand pain (ICD-10 - M79.642) [facility] Other 06-28-2022 Evaluation note* Encounter Date Diagnosis Assessment Notes Treatment Notes Treatment Clinical Notes Apr, Left hand pain (ICD-10 - M79.642) Apr, Closed displaced fracture of proximal phalanx of left ring finger, initial encounter (ICD-10 - S62.615A) Today we removed the sterri strips on the finger, we advised patient to work on bending the ring finger. We will send her to therapy well to further improve finger motion. Patient is to remain 2-5 IBS weight limit. She is to wear brace when she is out of the house or sleeping at night. We will see her back in 2-3 weeks. Patient can call with any questions or concerns. [facility] Other 06-15-2022 Evaluation note* Encounter Date Diagnosis Assessment Notes Treatment Notes Treatment Clinical Notes Apr, Left hand pain (ICD-10 - M79.642) Apr, Closed displaced fracture of proximal phalanx of left ring finger, initial encounter (ICD-10 - S62.615A) Patient would like to proceed with surgery patient was informed of the risks and benefits. [facility] Other 05-24-2022 Evaluation note* Encounter Date Diagnosis Assessment Notes Treatment Notes Treatment Clinical Notes March, Left hand pain (ICD-10 - M79.642) March, Closed nondisplaced fracture of proximal phalanx of left ring finger, initial encounter (ICD-10 - S62.645A) Keep the splint in place until seen by orthopedics. Take Tylenol or ibuprofen as needed for pain. Ice and elevate your hand 2-3 times a day. Follow-up with the orthopedic surgeon of your choice, call tomorrow for an appointment for recheck and reevaluation as soon as possible. Go to the ER for worsening symptoms or concerns. [facility] Other Evaluation noteNo InformationNortWebflakes Other Evaluation noteNo assessment information available [facility] Work Phone: History general Narrative - Reported* Type Description Date Medical History HTN Medical History Menopause Medical History Urinary Incontinence Medical History Colonoscopy Medical History ulcers Surgical History Carpal Tunnel, Bilateral Surgical History hernia repair with mesh january 182018 Hospitalization History See above [facility] Other History general Narrative - Reported* Type Description Date Medical History HTN Medical History Menopause Medical History Urinary Incontinence Medical History Colonoscopy Medical History ulcers Medical History Skin cancer Surgical History Carpal Tunnel, Bilateral Surgical History hernia repair with mesh january 182018 Surgical History Skin cancer 08/2022 Hospitalization History See above [facility] Other Summary Purpose Family History Relationship Condition Age at Onset Recorded Date/T vi father Hypertension Unknown Not Specified Dementia Unknown Cerebrovascular accident (CVA) Unknown Advance Directives Advance Directive Response Recorded Date/ Time Advance Directives No January 24 2:31pm Advance Directive Response Recorded Date/ Time Advance Directives No January 24 1:31pm Discharge Instructions * Instructions* Morro Lilly MD - 11/25/2020 In 2 weeks you need to see an [employer] physician to have endometrial biopsy done. The lining of your uterus is thicker than it should be. There might be uterine cancer. * Attachments The following attachments cannot be sent through Care Everywhere. * Vaginal Bleeding: Postmenopausal (Lib[place]) * Coronavirus Disease (COVID-19): General Info (Libyan) documented in this encounter Assessments Diagnosis COVID-19 virus infection- Primary Postmenopausal bleeding Chief Complaint and Reason for Visit Chief Complaint M79.642 Pain Pain S62.615A S62.615A Z98.890 Screening Chief Complaint Screening Reason for Referral Reason [place] - Fol lowup from [facility], saw Joi Mina - had xrays Diagnosis 1 Primary osteoarthrit is of left knee (M17.12) Referral Organization [facility] [employer] Referring Provider First Name Catalina Referring Provider Last Name Ernestine Referring Provider Specialty Family [facility] c[facility] Referred Organization [facility] Referred Provider Sean Darling Referred Address [address] [address] [place],[id number] Referred Provider Specialty Orthopedic S urgery Referral Priority Routine General Notes Karina Aleman 12:08:58 PM >received today, faxed P2P Reason *FU 10/16 [facility] - problems focusing and completing tasks. Diagnosis 1 Attention-deficit hy peractivity disorder, unspecified type (F90.9) Referral Organization [facility] Referring Provider First Name Catalina Referring Provider Last Name Ernestine Referring Provider Specialty Family [facility] Referred Organization [facility]erred Provider Dylan Stockton [address] Address [address] [facility] [place], [place],[address] Referred Provider Specialty Neurology Referral Priority Routine General Notes Karina Aleman 04:07:47 PM >received today, attachments made, referral faxed Additional Source Comments INFORMATION SOURCE (unrecogn ized section and content) DATE CREATED AUTHOR 11/25/2020 [facility] DATE CREATED AUTHOR AUTHOR'S ORGANIZ ATION 11/08/2022 [facility] DATE CREATED AUTHOR AUTHOR'S ORGANIZ ATION 10/02/2023 [facility] Reason for Visit (unrecogniz ed section and content) Left Knee Pain Reason Comments Vaginal Bleeding Onset 1-2 days ago. Pt states she is postmenopausal Cough Pt tested positive f or Covid on Nov 15 and has been on home O2 x 1 week and is still having shortness of breath Care Teams (unrecognized sec tion and content) Team Status: Active Member Role Status Dates Catalina Carson MD Primary Care Provider Active Team Status: Inactive Member Role Status Dates Catalina Carson MD Primary Care Provider Active Dallas Whitaker DO Attending Provider, Referring Pr micheline Active Team Status: Inactive Member Role Status Dates Catalina Carson MD Primary Care Provider Active Genevieve Sahu MD Attending Provider Active Team Status: Inactive Member Role Status Dates Catalina Carson MD Primary Care Provider Active OCTAVIO Paul Attending Provider Active Goals (unrecognized section and content) Goals may be documented in a n alternate section FOR RECORDS PERTAINING TO PATIENTS WHO ARE OR HAVE BEEN ENROLLED IN A CHEMICAL DEPENDENCY/SUBSTANCEABUSE PROGRAM, SOME INFORMATION MAY BE OMITTED. This clinical summary was aggregated from multiple sources. Caution should be exercised in using it in the provision of clinical care. This summary normalizes information from multiple sources, and as a consequence, information in this document may materially change the coding, format and clinical context of patient data. In addition, data may be omitted in some cases. CLINICAL DECISIONS SHOULD BE BASED ON THE PRIMARY CLINICAL RECORDS. [employer] provides no warranty or guarantee of the accuracy or completeness of information in this document.
== END 2023-11-21 09:55 | disposition home or self-care (01) ==
LOC: LAB 09:56
PROVIDERS: PCP Family Medicine; Visit Provider Nurse Practitioner Adult Health
DX: R41.840 Attention and concentration deficit (principal)
CPT/HCPCS: 36415; 82607; 82746

== ENCOUNTER 2024-07-29 13:58 | Outpatient (OUT) | payer MEDICARE, SELFPAY ==
--- NOTE | 2024-07-29 | CT_ITS ---
[place] [address], [place] [address] Patient Name: ROGER MALHOTRA MRN: [id number] date: 1955 Sex: F Assigned Patient Location: CT Current Patient Location: Accession/Order Number: [id number] Exam Date: 07/29/2024 15:45 Report Date: 07/31/2024 07:43 At the request of: ELIUD ROMERO Procedure: CT abdomen pelvis w con EXAMINATION: CT abdomen pelvis w con HISTORY: IRRITABLE BOWEL SYNDROME WITH DIARRHEA, ABD PAIN COMPARISON: 10/30/2022 TECHNIQUE: CT images were created with IV contrast. Axial, Coronal, and Sagittal images. Dose reduction techniques were achieved by using automated exposure control and/or adjustment of mA and/or kV according to patient size and/or use of iterative reconstruction technique. FINDINGS: LUNG BASES: No visible pulmonary or pleural disease. LIVER: Scattered hypodensities, cysts are favored. BILIARY: No visible dilatation or calcification. PANCREAS: No lesion, fluid collection, ductal dilatation, or atrophy. SPLEEN: No enlargement or focal lesion. ADRENALS: No mass or enlargement. KIDNEYS: No mass, obstruction, or calcification. BOWEL/MESENTERY: Moderate colonic diverticulosis without evidence of acute diverticulitis. Nonobstructive bowel gas pattern. Normal appendix AORTA/VASCULAR: No aortic aneurysm. Mild atherosclerosis RETROPERITONEUM: No mass or adenopathy. LYMPH NODES: No adenopathy. URINARY BLADDER: No visible focal wall thickening, lesion, or calculus. PELVIC ORGANS: Lobular uterus with calcified masses fibroids are favored ABDOMINAL WALL: No mass or hernia. BONES: No bony lesion or fracture. OTHER: Negative. CT/CT abdomen pelvis w con IMPRESSION: No acute intraperitoneal abnormality Electronically authenticated by: KAN BAXTER Date: 07/31/2024 07:43
--- OUTSIDE RECORDS SUMMARY | 2024-07-29 14:03 | XMS_ITS | CCD ---
Author Organization [facility] Care Team Providers Care Splitter Machine Name Role Phone MORRO LILLY Attending Unavailab CATALINA Root Primary Care Unavailable Catalina Carson Primary Care Provider Genevieve Sahu Unavailable Jewell Fernandez Unavailable MD Catalina Carson Primary Care Provider MD Genevieve Sahu Attending Provider DO Dallas Whitaker Attending Provider [...] Care Provider DO Dallas Whitaker Attending Provider [phone] DO Dallas Whitaker Referring Provider OCTAVIO Hernandez Attending Provider Gagandeep Stevens Unavailable Catalina Carson Primary Care Unavailable Joi Hernandez Admitting Unavailable Joi Hernandez Attending Unavailable Marylin Doran Admitting Unavailable Marylin Doran Attending Unavailable Catalina Carson Primary Care Unavailable Dallas Whitaker Attending Unavailable Dallas Whitaker Referring Unavailable Catalina Carson Primary Care Unavailable Dallas Whitaker Admitting Unavailable MD Catalina Carson Primary Care Provider JESSY Doran Attending Provider Mary Joi Unavailable Allergies Allergy Classification Reported Allergen(s) Allergy Type Date of Onset Reaction(s) Facility (2 sources) patient allergy list reviewed by nurse or physicia Propensity to adverse reactions 5 Comment:Done Exos Other (2 sources) Allergies Reconciled Propensity to adverse reactions Unknown Exos Other Medications Current Medications Medication Drug Class(es) Dates Sig (Normalized) Sig (Original) acetaminophen 500 mg oral capsule (15 sources) take 1 capsule by mouth every six hours Acetaminophen 500 MG 1 capsule as needed Orally every 6 hrs Active 24 hr amphetamine aspartate 3.75 mg / [...] Active ascorbic acid 500 mg oral tablet (8 sources) Vitamin C Start: 05-04-2022 take 500 mg by mouth twice daily Ascorbic Acid (Vitamin C) Active 500 MG PO Twice daily May 04, 2022 12:00am azithromycin 250 mg oral tablet (4 sources) Macrolide Antimicrobial Start: 11-05-2023 Azithromycin 250 MG as directed Orally 2 tabs po today, then 1 tab daily x 4 more days for 5 Oct, Active benzonatate 200 mg oral capsule (4 sources) Non-narcotic Antitussive Start: 11-05-2023 take 1 capsule by mouth every eight hours Benzonatate 200 MG 1 capsule Orally Three times a day for 10 day(s) Oct, Active Htxqikl-Cjqzjymnm-Pukk (8 sources) Start: 05-04-2022 take 2 tablets by mouth once daily in the evening Calcium-Magnesium- Zinc Active 2 TAB PO Every evening May 03, 2022 11:00pm Start: 05-04-2022 take 2 tablets by mo uth once daily in the evening Xihukpm-Gyszuhwjf-Ydld Active 2 TAB PO Every evening May 04, 2022 12:00am diclofenac sodium 75 mg delayed release oral tablet (4 sources) Nonsteroidal Anti-inflammatory Drug Start: 12-26-2023 take 1 tablet by mouth every twelve hours Diclofenac Sodium 75 MG 1 tablet as needed Orally Twice a day for 30 days Dec, Active Diclofenac Activ e Diclofenac Potas sium 50 MG 1 tablet twice a day with food for 7 days then as needed Orally Twice a day for 30 days Active estradiol 1 mg oral tablet (20 sources) Estrogen Start: 05-04-2022 Estradiol Acti ve 1 MG PO Q48H May 04, 2022 12:00am take 1 tablet by mouth every oth er day Estradiol 0.5 MG 1 tablet Orally qod Active Estradiol Active fluconazole 150 mg oral tablet (6 sources) Azole Antifungal Start: 05-11-2022 Fluconazole 1 50 MG 1 tablet Orally repeat after 3 days if needed Apr, Active hyoscyamine sulfate 0.125 mg oral tablet (2 sources) Start: 06-12-2024 Hyoscyamine Sulfate (Levsin) 0.125 mg tablet Active 0.125 MG PO 2-4 TIMES PER DAY June 12, 2024 12:00am inulin 200 mg / lactobacillus rhamnosus gg [id number] unt oral capsule (15 sources) Culturelle - as directed Orally Active Losartan (20 sources) Angiotensin 2 Receptor Terrell Start: 05-08-2024 take 1 tablet by mouth once daily Losartan Active 0 .ROUTE .COMPLEX 90 May 08, 2024 8:43am TAKE 1 TABLET BY MOUTH EVERY DAY Start: 04-28-2022 End: 05-08-2024 take 50 mg by mouth once daily in the morning Losartan Discontinued 50 MG PO Every morning May 04, 2022 12:00am May 08, 2024 8:43am take 1 tablet by lito every twenty-four hours Losartan Potassium 25 MG 1 tablet Orally Once a day Active medroxyPROGESTERone acetate 2.5 mg oral tablet (16 sources) Progestin Start: 05-04-2022 Medroxyprogest erone Active 2.5 MG PO Q48H May 04, 2022 12:00am medroxyPROGESTER one Acetate Active Medroxyprogesterone Yordan-Lido (1 source) Medroxyprogester one Yordan-Lido Active methylPREDNISolone 4 mg oral tablet (4 sources) Corticosteroid Start: 2021 Medrol 4 MG as directed Orally for 6 days May, Active omeprazole 20 mg delayed release oral capsule (11 sources) Proton Pump Inhibitor Start: 2023 End: 2023 take 20 mg by mouth once daily Omeprazole Active 20 MG PO Daily July 08, 2024 2:51pm PriLOSEC Active oxybutynin chloride 5 mg oral tablet (20 sources) Cholinergic Muscarinic Antagonist Start: 05-04-2022 take 5 mg by mouth twice daily Oxybutynin Chloride Active 5 MG PO Twice daily May 04, 2022 12:00am Start: 10-05-2021 take 5 mg by mouth once daily oxyBUTYnin Chloride 5MG Oxybutynin Chloride( 5MG Oral daily ) Active -Hx Entry Oral daily for 0 *Pick strength-form from [employer] for eRX* Sep, Active Oxybutynin Activ e Probiotic For Digestive Health (8 sources) Start: 05-04-2022 take 2 tablets by mouth once daily in the evening Probiotic For Digestive Health Active 2 TAB PO Every evening May 03, 2022 11:00pm Start: 05-04-2022 take 2 tablets by co ut once daily in the evening Probiotic For Digestive Health Active 2 TAB PO Every evening May 04, 2022 12:00am Psyllium (10 sources) Metamucil 48.57 % as directed Orally Active Completed/Discontinued Medications Medication Drug Class(es) Dates Sig (Normalized) Sig (Original) acetaminophen 325 mg / HYDROcodone bitartrate 5 mg oral tablet (8 sources) Opioid Agonist Start: 05-08-2022 End: 03-05-2024 take 1 tablet by mouth every four to six hours Hydrocodone-Acetam inophen Discontinued 1 - 2 TAB PO EVERY 4-6 HOURS 30 4 May 08, 2022 March 05, 2024 11:10am Calcium & Magnesium Carbonates (3 sources) Calcium & Magnesium Carbonates Not-Taking cetirizine hydrochloride 10 mg oral tablet (15 sources) Histamine-1 Receptor Antagonist Start: 05-04-2022 End: 03-05-2024 take 10 mg by mouth once daily Cetirizine Discontinued 10 MG PO Daily May 04, 2022 12:00am March 05, 2024 11:09am ZyrTEC Allergy A ctive doxycycline hyclate 100 mg oral tablet (8 sources) Tetracycline-class Drug Start: 05-08-2022 End: 03-05-2024 take 100 mg by mouth twice daily Doxycycline Hyclate Discontinued 100 MG PO Twice daily 10 5 May 08, 2022 12:00am March 05, 2024 11:10am Golo (8 sources) Start: 05-04-2022 End: 03-05-2024 take 1 tablet by mouth three times daily Golo Discontinued 1 TAB PO Three times daily May 04, 2022 12:00am March 05, 2024 11:10am Start: 05-04-2022 take 1 tablet by lito th three times daily Golo Active 1 TAB PO Three times daily May 03, 2022 11:00pm Start: 05-04-2022 take 1 tablet by lito th three times daily Golo Active 1 TAB PO Three times daily May 04, 2022 12:00am Lisinopril (3 sources) Angiotensin Converting Enzyme Inhibitor Lisinopril Not-Taking metroNIDAZOLE 500 mg oral tablet (3 sources) Nitroimidazole Antimicrobial Start: 03-10-20 take 1 tablet by mouth every eight hours metroNIDAZOLE 500 MG 1 tablet Orally tid for 10 day(s) Feb, Not-Taking triamcinolone acetonide 40 mg/ml injectable suspension (4 sources) Corticosteroid Start: 12-26-19 24 Kenalog-40 Dec, 40 mg Start: 10-24-2018 Triamcinolone Acetonide 0.025 % 1 application to affected area Externally Twice a day for 5 days Oct, Not-Taking Problems Active Problems Problem Classification Problem Date Documented Da te Episodic/Chronic Abdominal pain (12 sources) Unspecified abdominal pain; Translations: [Generalized abdominal pain] Onset: 09-17-2018 Episodic Acute bronchitis (14 sources) Acute bronchitis; Translations: [Acute bronchitis due to other specified organisms] Onset: 04-25-2017 Episodic Allergic reactions (7 sources) Contact dermatitis due to plants; Translations: [Unspecified contact dermatitis due to plants, except food] Episodic Anxiety disorders (7 sources) Generalized anxiety disorder; Translations: [Generalized anxiety disorder] Chronic Attention-deficit, conduct, and disruptive behavior disorders (7 sources) Attention deficit hyperactivity disorder; Translations: [Attention-deficit hyperactivity disorder, unspecified type] Chronic Attention-deficit, conduct, and disruptive behavior disorders (1 source) Attention-deficit hyperactivity disorder, unspecified type Chronic Diseases of mouth; excluding dental (2 sources) Mass of oral cavity; Translations: [Other lesions of oral mucosa] 06-12-2024 Episodic Disorders usually diagnosed in infancy, childhood, or adolescence (8 sources) Adult attention deficit hyperactivity disorder ; Translations: [Other specified behavioral and emotional disorders with onset usually occurring in childhood and adolescence] Chronic Diverticulosis and diverticulitis (15 sources) Diverticulitis of intestine; Translations: [Diverticulitis of intestine, part unspecified, without perforation or abscess without bleeding] Chronic Esophageal disorders (8 sources) Gastro-esophageal reflux disease without esophagitis; Translations: [Esophageal reflux finding] Onset: 06-28-2015 Chronic Essential hypertension (11 sources) Essential (primary) hypertension; Translations: [Essential hypertension] Onset: 11-01-2022 Chronic Fracture of upper limb (15 sources) Nondisplaced fracture of proximal phalanx of left ring finger, initial encounter for closed fracture; Translations: [Displaced fracture of proximal phalanx of left ring finger, initial encounter for closed fracture] Onset: 04-11-2022 Resolved: 07-07-2022 Episodic Gastroduodenal ulcer (except hemorrhage) (7 sources) Gastric ulcer; Translations: [Gastric ulcer, unspecified as acute or chronic, without hemorrhage or perforation] Onset: 12-31-2018 Chronic Genitourinary symptoms and ill-defined conditions (7 sources) Dysuria; Translations: [Dysuria] Episodic Immunizations and screening for infectious disease (14 sources) Vaccination given; Translations: [Encounter for immunization] Episodic Intestinal infection (8 sources) Campylobacter enteritis; Translations: [Other intestinal Escherichia coli infections] Onset: 11-01-2022 Episodic Menopausal disorders (9 sources) Postmenopausal bleeding; Translations: [Menopause present] Onset: 06-28-2015 11-25-2020 Chronic Noninfectious gastroenteritis (7 sources) Non-infective enteritis and colitis; Translations: [Noninfective gastroenteritis and colitis, unspecified] Episodic Osteoarthritis (13 sources) Osteoarthritis of left knee joint; Translations: [Unilateral primary osteoarthritis, left knee] Chronic Other acquired deformities (7 sources) Acquired postural kyphosis; Translations: [Unspecified kyphosis, site unspecified] Onset: 07-18-2016 Chronic Other connective tissue disease (2 sources) Synovial cyst of popliteal space [Trinh], left knee Episodic Other connective tissue disease (2 sources) Muscle pain; Translations: [Myalgia, unspecified site] 03-11-2024 Episodic Other gastrointestinal disorders (8 sources) Irritable bowel syndrome with diarrhea; Translations: [Irritable bowel syndrome with diarrhea] 06-12-2024 Chronic Other gastrointestinal disorders (2 sources) Irritable bowel syndrome with diarrhea; Translations: [Irritable bowel syndrome] 06-12-2024 Chronic Other gastrointestinal disorders (1 source) Altered bowel function; Translations: [Change in bowel habit] 07-24-2024 Episodic Other gastrointestinal disorders (1 source) Change in bowel habit; Translations: [Other symptoms involving digestive system] 07-24-2024 Episodic Other liver diseases (15 sources) Liver cyst; Translations: [Other specified diseases of liver] Chronic Other liver diseases (15 sources) Disease of liver; Translations: [Liver disease, unspecified] Chronic Other nervous system disorders (1 source) Attention and concentration deficit; Translations: [Attention and concentration deficit] Onset: 11-23-2023 Chronic Other nervous system disorders (8 sources) Pain in limb; Translations: [Other acute postprocedural pain] 05-08-2022 Episodic Other non-traumatic joint disorders (2 sources) Pain in left knee Episodic Other nutritional; endocrine; and metabolic disorders (7 sources) Obese class I; Translations: [Body mass index (BMI) 32.0-32.9, adult] Chronic Other nutritional; endocrine; and metabolic disorders (14 sources) Body mass index 30+ - obesity; Translations: [Body mass index (BMI) 30.0-30.9, adult] Onset: 09-17-2018 Chronic Other upper respiratory disease (7 sources) Allergic rhinitis; Translations: [Allergic rhinitis, unspecified] Onset: 04-28-2016 Chronic Other upper respiratory disease (7 sources) Seasonal allergic rhinitis; Translations: [Other seasonal allergic rhinitis] Chronic Other upper respiratory infections (8 sources) Acute pharyngitis; Translations: [Acute pharyngitis, unspecified] Episodic Residual codes; unclassified (4 sources) Other specified postprocedural states Onset: 06-09-2022 Resolved: 07-07-2022 Episodic Unclassified (7 sources) Acute candidiasis of vulva and vagina; [...] infection] Onset: 11-25-2020 11-25-2020 Episodic Viral infection (7 sources) Disease caused by 2019-nCoV; Translations: [COVID-19] Past or Other Problems Problem Classification Problem Date Documented Da te Episodic/Chronic Other connective tissue disease (5 sources) Pain in left hand Onset: 04-11-2022 Resolved: 06-09-2022 Episodic Other gastrointestinal disorders (7 sources) Diarrhea; Translations: [Diarrhea] Onset: 09-17-2018 Episodic Residual codes; unclassified (7 sources) Sleep disorder; Translations: [Persistent disorder of initiating or maintaining sleep] Onset: 12-31-2018 Episodic Sprains and strains (7 sources) Neck sprain; Translations: [Strain of muscle, fascia and tendon at neck level, initial encounter] Onset: 12-31-2018 Episodic Superficial injury; contusion (7 sources) Blister of toe without infection; Translations: [Blister (nonthermal), right foot, initial encounter] Onset: 07-18-2016 Episodic Unclassified (7 sources) Vaccine product containing only acellular Bordetella pertussis and Clostridium tetani and Corynebacterium diphtheriae antigens (medicinal product); Translations: [Puqmmkinmh-lpxxhvl-l ertussis, combined [DTP] [DtaP]] Onset: 09-28-2016 Results Test Name Value Interpretation Reference Range Facility MR head/brain wo christian 11-24 MR head/brain wo [facility] [address] [address] MRI Report Signed Patient: Nany Carmen MR#: [id number] 1 : 1955 Acct:[id number] Age/Sex: 68 / F ADM Date: 11/23/23 Loc: MR Room: Type: [facility] CLI Attending Dr: Marylin Doran 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 FINDINGS: Extra axial spaces: Age appropriate. Hemorrhage: None. Ventricular system: Within normal limits. Basal cisterns: Within normal limits and not effaced. Cerebral parenchyma: T2 and FLAIR hyperintense signal is noted in the periventricular and subcortical white matter. Midline shift: None.. Cerebellum: Within normal limits. Brainstem: Within normal limits. OTHER: Calvarium: Normal marrow signal. Vascular system: Satisfactory flow voids within the anterior and posterior circulation. Visualized Paranasal sinuses: There is mucosal thickening of the maxillary sinuses, ethmoid air cells, right frontal sinus, and sphenoid sinuses. Visualized Orbits: Within normal limits. Visualized upper cervical spine: Within normal limits. Sella and skull base: Within normal limits. MR/MR head/brain wo con IMPRESSION: No acute intracranial pathology or abnormal postcontrast enhancement. Mild chronic microvascular ischemic changes are noted. Impression dictated by: Chente Crook M.D.11/24/2023 9:17 AM Dictation Location: [place] [address] Transcribed By: [facility] 11/24/23916 Dictated By: Chente Crook II, MD 11/24/2314 Signed By: 11/24/23 0917 Normal [facility] XR knee LT 4V*on 09-24-2023 XR knee LT 4V* [facility] [place] [address] XRay Report Signed Patient: Nany Carmen MR#: [id number] 1 : 1955 Acct:[id number] Age/Sex: 68 / F ADM Date: 09/24/23 Loc: XDUCLY Room: Type: REG CLI Attending Dr: Joi PROCTORC Copies to: AMBER Paul Ordering Provider: AMBER [...] are noted, as above. Impression dictated by: Chente Crook M.D.09/24/2023 11:37 AM Dictation Location: [place] [address] Transcribed By: [facility] 09/24/23 1137 Dictated By: Chente Crook II, MD 09/24/23 1134 Signed By: 09/24/23 1137 Normal [facility] MM screening mammo BI w/CADo n 07-27-2023 MM screening mammo BI w/CAD [facility] [place] [address] Mammography Report Signed Patient: Nany Carmen MR#: [id number] 1 : 1955 Acct:[id number] Age/Sex: 68 / F ADM Date: 07/27/23 Loc: [place] Room: Type: [facility] CLI Attending Dr: Dallas Whitaker DO Copies to: [...] Madeline Jimenes M.D.07/27/2023 2:52 PM Dictation Location: [facility] Transcribed By: HEMANT 07/27/23 1452 Dictated By: Madeline Jimenes MD 07/27/23 1448 Signed By: 07/27/23 1452 Normal [facility] AMYLASEon 10-30-2022 Amylase [Catalytic activity/Vol] 20 U/L Critically low 25-115 [facility] Comment on above: Performed By: #### A MY, LIPA, CMP #### [facility] [address] [place] [address] Dr. Nunu Newman CBC AUTO DIFFon 10-30-2022 BASO # 0.0 103/ul Normal 0.0-0.1 [facility] Comment on above: Performed By: #### C BC #### [facility] [address] [place] [address] Dr. Nunu Newman Basophils/100 WBC (Bld) 0.5 % Normal 0.2-2.0 [facility] Comment on above: Performed By: #### C BC #### [facility] [address] [place] [address] Dr. Nunu Newman EO # 0.0 103/ul Normal 0.0-0.7 [facility] Comment on above: Performed By: #### C BC #### [facility] [address] [place] [address] Dr. Nunu Newman Eosinophils/100 WBC (Bld) 0.2 % Critically low 0.9-7.0 [facility] Comment on above: Performed By: #### C BC #### [facility] [address] [place] [address] Dr. Nunu Newman Erythrocyte distribution width (RBC) [Ratio] 12.7 % Normal 11.0-15.0 [facility] Comment on above: Performed By: #### C BC #### [facility] [address] [place] [address] Dr. Nunu Newman Hematocrit (Bld) [Volume fraction] 39.7 % Normal 36.0-48.0 [facility] Comment on above: Performed By: #### C BC #### [facility] [address] [place] [address] Dr. Nunu Newman Hemoglobin (Bld) [Mass/Vol] 13.6 g/dL Normal 12.0-16.0 [facility] Comment on above: Performed By: #### C BC #### [facility] [address] [place] [address] Dr. Nunu Newman IG # 0.02 10e3/ul Normal 0.00-0.03 [facility] Comment on above: Performed By: #### C BC #### [facility] [address] [place] [address] Dr. uNnu Newman IG % 0.3 % Normal 0.0-0.5 [facility] Comment on above: Performed By: #### C BC #### [facility] [address] [place] [address] Dr. Nunu Newman LYMPH # 0.9 103/ul Critically low 1.2-3.8 [facility] Comment on above: Performed By: #### C BC #### [facility] [address] [place] [address] Dr. Nunu Newman Lymphocytes/100 WBC (Bld) 14.6 % Critically low 20.5-60.0 [facility] Comment on above: Performed By: #### C BC #### [facility] [address] [place] [address] Dr. Nunu Newman MANUAL DIFF REQ NO Normal [facility] Comment on above: Performed By: #### C BC #### [facility] [address] [place] [address] Dr. Nunu Newman MCH (RBC) [Entitic mass] 29.1 pg Normal 26.7-34.0 [facility] Comment on above: Performed By: #### C BC #### [facility] [address] [place] [address] Dr. Nunu Newman MCHC (RBC) [Mass/Vol] 34.3 g/dL Normal 29.9-35.2 [facility] Comment on above: Performed By: #### C BC #### [facility] [address] [place] [address] Dr. Nunu Newman MCV (RBC) [Entitic vol] 84.8 fL Normal 81.0-99.0 [facility] Comment on above: Performed By: #### C BC #### [facility] [address] [place] [address] Dr. Nunu Newman MONO # 0.8 103/ul Normal 0.3-0.8 [facility] Comment on above: Performed By: #### C BC #### [facility] [address] [place] [address] Dr. Nunu Newman Monocytes/100 WBC (Bld) 11.8 % Normal 1.7-12.0 [facility] Comment on above: Performed By: #### C BC #### [facility] [address] [place] [address] Dr. Nunu Newman NEUT # 4.7 103/ul Normal 1.4-6.5 [facility] Comment on above: Performed By: #### C BC #### [facility] [address] [place] [address] Dr. Nunu Newman Neutrophils/100 WBC (Bld) 72.6 % Normal 43.0-75.0 [facility] Comment on above: Performed By: #### C BC #### [facility] [address] [place] [address] Dr. Nunu Newman Platelet mean volume (Bld) [Entitic vol] 8.8 fL Critically low 9.5-13.5 [facility] Comment on above: Performed By: #### C BC #### [facility] [address] [place], [place] [address] Dr. Nunu Newman PLT 200 103/ul Normal 150-450 [facility] Comment on above: Performed By: #### C BC #### [facility] [address] [place], [place] [address] Dr. Nunu Newman RBC 4.68 106/ul Normal 4.20-5.40 [facility] Comment on above: Performed By: #### C BC #### [facility] [address] [place], [place] [address] Dr. Nunu Newman WBC 6.4 103/ul Normal 4.0-11.0 [facility] Comment on above: Performed By: #### C BC #### [facility] [address] [place], [place] [address] ABD/PELVIS WO CONon [...] KAN BAXTER Date: 2022-10-30 10:50 Normal [facility] ER URINE PROFILEon 2 Bilirubin Ql (U) SMALL Abnormal NEGATIVE [facility] Comment on above: Performed By: #### U MICRO, ERUR #### [facility] [address] [place] [address] Dr. Nunu Newman Clarity (U) CLEAR Normal CLEAR [facility] [facility] Comment on above: Performed By: #### U MICRO, ERUR #### [facility] [address] [address] [address] Nunu Newman Color (U) YELLOW Normal YELLOW [facility] Comment on above: Performed By: #### U MICRO, ERUR #### [facility] [address] [place] [address] Dr. Nunu SAMPSON A micrscopic examination will be performed if indicated. Normal The [facility] Comment on above: Performed By: #### U MICRO, ERUR #### [facility] [address] [address] [address] Nunu Newman Glucose Ql (U) Negative Normal NEGATIVE The [facility] Comment on above: Performed By: #### U MICRO, ERUR #### [facility] [address] [place] [address] Dr. Nunu Newman Hemoglobin Ql (U) TRACE-INTACT Abnormal NEGATIVE [facility] Comment on above: Performed By: #### U MICRO, ERUR #### [facility] [address] [address] [address] Nunu Newman Ketones Ql (U) 15 mg/dl Abnormal NEGATIVE The [facility] Comment on above: Performed By: #### U MICRO, ERUR #### [facility] [address] [address] [address] Nunu Newman LEUKOCYTES Negative Normal NEGATIVE [facility] Comment on above: Performed By: #### U MICRO, ERUR #### [facility] [address] [place] [address] Dr. Nunu Newman Nitrite Ql (U) Negative Normal NEGATIVE The [facility] Comment on above: Performed By: #### U MICRO, ERUR #### [facility] [address] [address] [address] Nunu Newman pH (U) 6.0 [pH] Normal 5-9 [facility] Comment on above: Performed By: #### U MICRO, ERUR #### [facility] [address] [place] [address] Dr. Nunu Newman SPEC GRAVITY 1.010 Normal 1.005-<=1.025 [facility] Comment on above: Performed By: #### U MICRO, ERUR #### [facility] [address] [address] [address] Nunu Newman UA PROTEIN TRACE Normal NEGATIVE/ TRACE [facility] Comment on above: Performed By: #### U MICRO, ERUR #### [facility] [address] [place] [address] Dr. Nunu Newman UR MICRO IND INDICATED Normal [facility] Comment on above: Performed By: #### U MICRO, ERUR #### [facility] [address] [place] [address] Dr. Nunu Newman Urobilinogen Qn (U) 0.2 {Anish'U}/dL Normal 0.2 - 1. 0 [facility] Comment on above: Performed By: #### U MICRO, ERUR #### [facility] [address] [place] [address] Dr. Nunu Newman GI PANEL (PCR)on 10-30-2022 Adenovirus F 40/41 Not detected Normal NOT DETECTED [facility] Comment on above: Performed By: #### G IPANEL #### [facility] [address] [place] [address] Dr. Nunu Newman Astrovirus Not detected Normal NOT DETECTED The [facility] Comment on above: Performed By: #### G IPANEL #### [facility] [address] [place] [address] Dr. Nunu Newman C. Diff toxin A/B Not detected Normal NOT DETECTED The [facility] Comment on above: Performed By: #### G IPANEL #### [facility] [address] [address] [address] Nunu Newman Campylobacter Detected Critically abnormal NOT DETECTED The [facility] Comment on above: Performed By: #### G IPANEL #### [facility] [address] [address] [address] Nunu Newman Cryptosporidium Not detected Normal NOT DETECTED The [facility] Comment on above: Performed By: #### G IPANEL #### [facility] [address] [address] [address] Nunu Newman Cyclos. Cayetanensis Not detected Normal NOT DETECTED The [facility] Comment on above: Performed By: #### G IPANEL #### [facility] [address] [place] [address] Dr. Nunu Newman E. Coli O157 Not Applicable Normal Not Applicable [facility] Comment on above: Performed By: #### G IPANEL #### [facility] [address] [place] [address] Dr. Nunu Newman E. histolytica Not detected Normal NOT DETECTED The [facility] Comment on above: Performed By: #### G IPANEL #### [facility] [address] [place] [address] Dr. Nunu Newman EAEC Not detected Normal NOT DETECTED The [facility] Comment on above: Performed By: #### G IPANEL #### [facility] [address] [place] [address] Dr. Nunu Newman EIEC Not detected Normal NOT DETECTED The [facility] Comment on above: Performed By: #### G IPANEL #### [facility] [address] [place] [address] Dr. Nunu Newman EPEC Not detected Normal NOT DETECTED The [facility] Comment on above: Performed By: #### G IPANEL #### [facility] [address] [place] [address] Dr. Nunu Newman ETEC Not detected Normal NOT DETECTED The [facility] Comment on above: Performed By: #### G IPANEL #### [facility] [address] [place] [address] Dr. Nunu Newman G. Lamblia Not detected Normal NOT DETECTED The [facility] Comment on above: Performed By: #### G IPANEL #### [facility] [address] [address] [address] Nunu STARKEY CONTROLS PASSED Normal The [facility] Comment on above: Performed By: #### G IPANEL #### [facility] [address] [address] [address] Nunu MATTHEWS BART HEADER GI PANEL BACTERIA Normal T [facility] Comment on above: Performed By: #### G IPANEL #### [facility] [address] [address] [address] Nunu EISENBERG ECOLI GI PANEL DIARRHEAGENIC E.COLI / SHIGELLA Normal The [facility] Comment on above: Performed By: #### G IPANEL #### [facility] [address] [address] [address] Nunu EISENBERG INFO SEE BELOW Normal [facility] Comment on above: Result Comment: EAEC - Enteroaggregative E. Coli EPEC- Enteropathogenic E. Coli ETEC- Enterotoxigenic E. Coli lt/st STEC- Shigella-like toxin-producing E. Coli stx1/stx2 EIEC- Shigella/Enteroinvasive E. Coli Performed By: #### G IPANEL #### [facility] [address] [address] [address] Nunu EISENBERG PARASITES GI PANEL PARASITES Normal [facility] Comment on above: Performed By: #### G IPANEL #### [facility] [address] [address] [address] Nunu EISENBERG VIRUS GI PANEL VIRUSES Normal The [facility] Comment on above: Performed By: #### G IPANEL #### [facility] [address] [address] [address] Nunu Newman Norovirus GI/GII Not detected Normal NOT DETECTED [facility] Comment on above: Performed By: #### G IPANEL #### [facility] [address] [address] [address] Nunu Newman P. Shigelloides Not detected Normal NOT DETECTED The [facility] Comment on above: Performed By: #### G IPANEL #### [facility] [address] [place] [address] Dr. Nunu Newman Rotavirus A Not detected Normal NOT DETECTED The [facility] Comment on above: Performed By: #### G IPANEL #### [facility] [address] [place] [address] Dr. Nunu Newman Salmonella Not detected Normal NOT DETECTED The [facility] Comment on above: Performed By: #### G IPANEL #### [facility] [address] [place] [address] Dr. Nunu Newman Sapovirus Not detected Normal NOT DETECTED The [facility] Comment on above: Performed By: #### G IPANEL #### [facility] [address] [place] [address] Dr. Nunu Newman STEC Not detected Normal NOT DETECTED The [facility] Comment on above: Performed By: #### G IPANEL #### [facility] [address] [place] [address] Dr. Nunu Newman Vibrio Not detected Normal NOT DETECTED The [facility] Comment on above: Performed By: #### G IPANEL #### [facility] [address] [place] [address] Dr. Nunu Newman Vibrio Cholera Not detected Normal NOT DETECTED The [facility] Comment on above: Performed By: #### G IPANEL #### [facility] [address] [place] [address] Dr. Nunu Newman Y. Enterocolitica Not detected Normal NOT DETECTED The [facility] Comment on above: Performed By: #### G IPANEL #### [facility] [address] [place] [address] Dr. Nunu Newman LACTATE/LACTIC ACIDon 2021 Lactate [Moles/Vol] 0.9 mmol/L Normal 0.4-1.9 The [facility] Comment on above: Performed By: #### L ACT #### [facility] [address] [place] [address] Dr. Nunu Newman LIPASEon 10-30-2022 Lipase [Catalytic activity/Vol] 114.0 U/L Normal 73.0-393.0 [facility] Comment on above: Performed By: #### A MY LIPA, CMP #### [facility] [address] [place] [address] Dr. Nunu Newman PROF 14(COMP METB)on 022 Albumin [Mass/Vol] 3.0 g/dL Critically low 3.4-5.0 [facility] Comment on above: Performed By: #### A MY LIPA, CMP #### [facility] [address] [place] [address] Dr. Nunu Newman Albumin/Globulin [Mass ratio] 0.7 {ratio} Normal [facility] Comment on above: Performed By: #### A MY LIPA, CMP #### [facility] [address] [place] [address] Dr. Nunu Newman ALP [Catalytic activity/Vol] 53 U/L Normal 46-116 [facility] Comment on above: Performed By: #### A SAMIRA LIPA, CMP #### [facility] [address] [place] [address] Dr. Nunu Newman ALT [Catalytic activity/Vol] 20 U/L Normal 14-59 [facility] Comment on above: Performed By: #### A SAMIRA LIPA, CMP #### [facility] [address] [place] [address] Dr. Nunu Newman Anion gap [Moles/Vol] 12.4 mmol/L Normal [facility] Comment on above: Performed By: #### A MY LIPA, CMP #### [facility] [address] [place] [address] Dr. Nunu Newman AST [Catalytic activity/Vol] 21 U/L Normal 15-37 [facility] Comment on above: Performed By: #### A MY LIPA, CMP #### [facility] [address] [place] [address] Dr. Nunu Newman Bilirubin [Mass/Vol] 0.4 mg/dL Normal 0.2-1.0 [facility] Comment on above: Performed By: #### A SAMIRA LIPA, CMP #### [facility] [address] [address] [address] Nunu Newman Calcium [Mass/Vol] 8.6 mg/dL Normal 8.5-10.1 [facility] Comment on above: Performed By: #### A MY, LIPA, CMP #### [facility] [address] [address] [address] Nunu Newman Chloride [Moles/Vol] 100 mmol/L Normal 98-107 [facility] Comment on above: Performed By: #### A MY, LIPA, CMP #### [facility] [address] [address] [address] Nunu Newman CO2 [Moles/Vol] 27.0 mmol/L Normal 21.0-32.0 [facility] Comment on above: Performed By: #### A MY LIPA, CMP #### [facility] [address] [place] [address] Dr. Nunu Newman Creatinine [Mass/Vol] 0.90 mg/dL Normal 0.55-1.02 [facility] Comment on above: Performed By: #### A SAMIRA LIPA, CMP #### [facility] [address] [place] [address] Dr. Nunu Newman EGFR-AF CUBAN >60 Normal >=60 [facility] Comment on above: Performed By: #### A SAMIRA LIPA, CMP #### [facility] [address] [place] [address] Dr. Nunu Newman EGFR-NON AF CUBAN >60 Normal >=60 [facility] Comment on above: Performed By: #### A MY LIPA, CMP #### [facility] [address] [address] [address] Nunu Newman Globulin (S) [Mass/Vol] 4.1 g/dL Normal [facility] Comment on above: Performed By: #### A MY, LIPA, CMP #### [facility] [address] [address] [address] Nunu Newman Glucose [Mass/Vol] 112 mg/dL Critically high 74-106 [facility] Comment on above: Performed By: #### A MARQUEZ HOGANA, CMP #### [facility] [address] [place] [address] Dr. Nunu Newman Potassium [Moles/Vol] 3.4 mmol/L Critically low 3.5-5.1 [facility] Comment on above: Performed By: #### A SAMIRA LIPA, CMP #### [facility] [address] [place] [address] Dr. Nunu Newman Protein [Mass/Vol] 7.1 g/dL Normal 6.4-8.2 [facility] Comment on above: Performed By: #### A SAMIRA LIPA, CMP #### [facility] [address] [place] [address] Dr. Nunu Newman Sodium [Moles/Vol] 136 mmol/L Normal 136-145 [facility] Comment on above: Performed By: #### A SAMIRA LIPA, CMP #### [facility] [address] [place] [address] Dr. Nunu Newman Urea nitrogen [Mass/Vol] 14.0 mg/dL Normal 7.0-18.0 [facility] Comment on above: Performed By: #### A OSCAR HOGAN, CMP #### [facility] [address] [place] [address] Dr. Nunu Newman Urea nitrogen/Creatinine [Mass ratio] 15.6 mg/mg Normal [facility] Comment on above: Performed By: #### A MARQUEZ HOGANA, CMP #### [facility] [address] [place] [address] Dr. Nunu Newman URINE MICROSCOPIC ONLYon BACTERIA NONE SEEN Normal NONE SEEN The [facility] Comment on above: Performed By: #### U MICRO, ERUR #### [facility] [address] [place] [address] Dr. Nunu Newman Bacteria identified Cx Nom (U) NOT INDICATED Normal [facility] Comment on above: Performed By: #### U MICRO, ERUR #### [facility] [address] [place] [address] Dr. Nunu Newman CAST NONE SEEN Normal NONE SEEN The [facility] Comment on above: Performed By: #### U MICRO, ERUR #### [facility] [address] [address] [address] Nunu Newman Crystals LM Nom (Urine sed) NONE SEEN Normal NONE SEEN The [facility] Comment on above: Performed By: #### U MICRO, ERUR #### [facility] [address] [address] [address] Nunu Newman Epithelial cells LM Ql (Urine sed) FEW Abnormal NONE SEEN /RARE The [facility] Comment on above: Performed By: #### U MICRO, ERUR #### [facility] [address] [address] [address] Nunu Newman MUCOUS NONE SEEN Normal NONE SEEN The [facility] Comment on above: Performed By: #### U MICRO, ERUR #### [facility] [address] [address] [address] Nunu Newman RBC 0-2 Normal 0-2 [facility] Comment on above: Performed By: #### U MICRO, ERUR #### [facility] [address] [address] [address] Nunu Newman WBC NONE SEEN Normal NONE SEEN The [facility] Comment on above: Performed By: #### U MICRO, ERUR #### [facility] [address] [address] [address] Nunu Newman XR hand LT min 3V*on 022 XR hand LT min 3V* [facility] [employer] Other XR hand LT min 3V* [facility] [employer] Other XR hand LT min 3V* [address] [place] [address] [employer] Other XR hand LT min 3V* [place] [address] [facility] [facility] [employer] Other XR hand LT min 3V* XRay Report [employer] [facility] [employer] Other XR hand LT min 3V* Signed [employer] Other XR hand LT min 3V* Patient: Nany Carmen MR#: [id number] [employer] Other XR hand LT min 3V* 1 [employer] Other XR hand LT min 3V* : 1955 Acct:[id number] [employer] Other XR hand LT min 3V* Age/Sex: 67 / F ADM Date: 06/09/22 [employer] Other XR hand LT min 3V* Loc: SOXD Room: Type: [facility] [employer] Other XR hand LT min 3V* Attending Dr: Genevieve Sahu MD [employer] Other XR hand LT min 3V* Copies to: Genevieve Sahu MD [employer] Other XR hand LT min 3V* Ordering Provider: Genevieve Sahu MD [employer] Other XR hand LT min 3V* Date of Service: 06/09/22 [employer] Other XR hand LT min 3V* XR/XR hand LT min 3V*: Closed displaced fracture of proximal phalanx of [employer] Other XR hand LT min 3V* left ring f [employer] Other XR hand LT min 3V* 4 viewsLEFT hand plain film [employer] Other XR hand LT min 3V* COMPARISON:05/16/22 [employer] Other XR hand LT min 3V* HISTORY:Status post ORIF LEFT 4th proximal interphalangeal fracture [employer] Other XR hand LT min 3V* Fixation hardware intact. Continued healing of the fracture of the proximal 4th phalanx present. [employer] Other XR hand LT min 3V* Bony alignment is unchanged. [employer] Other XR hand LT min 3V* XR/XR hand LT min 3V* [employer] Other XR hand LT min 3V* IMPRESSION:Healing fracture. No hardware failure. [employer] Other XR hand LT min 3V* Impression dictated by: Miguelangel Alonzo M.D.06/09/2022 1:13 PM [employer] Other XR hand LT min 3V* Dictation Location: [place] [address] [employer] Other XR hand LT min 3V* Transcribed By: PWS 06/09/22 1313 [employer] Other XR hand LT min 3V* Dictated By: Miguelangel Alonzo DO 06/09/22 1312 [employer] Other XR hand LT min 3V* Signed By: [employer] Other XR hand LT min 3V* 06/09/22 1313 [facility] [employer] Other XR hand LT min 3V*on 022 XR hand LT min 3V* [facility] [employer] Other XR hand LT min 3V* [facility] [employer] Other XR hand LT min 3V* [address] [place] [address] [employer] Other XR hand LT min 3V* [place] [address] [employer] Other XR hand LT min 3V* XRay Report [employer] Other XR hand LT min 3V* Signed [employer] Other XR hand LT min 3V* Patient: Nany Carmen MR#: [id number] [place] [employer] Other XR hand LT min 3V* 1 [employer] Other XR hand LT min 3V* : 1955 Acct:[id number] [employer] Other XR hand LT min 3V* Age/Sex: 67 / F ADM Date: 05/16/22 [employer] Other XR hand LT min 3V* Loc: SOXD Room: Type: [facility] [employer] Other XR hand LT min 3V* Attending Dr: Genevieve Sahu MD [employer] Other XR hand LT min 3V* Copies to: Genevieve Sahu MD [employer] Other XR hand LT min 3V* Ordering Provider: Genevieve Sahu MD [employer] Other XR hand LT min 3V* Date of Service: 05/16/22 [employer] Other XR hand LT min 3V* XR/XR hand LT min 3V*: Closed displaced fracture of proximal phalanx of [employer] Other XR hand LT min 3V* left ring f [employer] Other XR hand LT min 3V* XR hand LT min 3V* 05/16/2022 1:23 PM [employer] Other XR hand LT min 3V* SIGNS AND SYMPTOMS: Closed displaced fracture of proximal phalanx of left ring finger, follow-up [employer] Other XR hand LT min 3V* PROTOCOL: Frontal, lateral, and oblique radiographs of the left hand [employer] Other XR hand LT min 3V* COMPARISON: 05/08/2022 [employer] Other XR hand LT min 3V* FINDINGS: [employer] Other XR hand LT min 3V* There has been screw fixation across a midshaft fracture of the proximal phalanx of the fourth [employer] Other XR hand LT min 3V* digit. Healing remains incomplete. There is soft tissue swelling throughout the fourth digit. No [employer] Other XR hand LT min 3V* hardware complication or change in alignment. [employer] Other XR hand LT min 3V* XR/XR hand LT min 3V* [employer] Other XR hand LT min 3V* IMPRESSION: [employer] Other XR hand LT min 3V* Status post hardware fixation across a fracture involving the shafts of the fourth proximal phalanx [employer] Other XR hand LT min 3V* without hardware complication or change in alignment. Healing remains incomplete. [employer] Other XR hand LT min 3V* Impression dictated by: Chente Crook M.D.05/16/2022 2:34 PM [employer] Other XR hand LT min 3V* Dictation Location: [place] [address] [employer] Other XR hand LT min 3V* Transcribed By: HEMANT 05/16/22 [facility] [employer] Other XR hand LT min 3V* Dictated By: Chente Crook II, MD 05/16/22 [facility] [employer] Other XR hand LT min 3V* Signed By: [employer] Other XR hand LT min 3V* 05/16/[address] [place] [address] [employer] Other Albumin [Mass/volume] in Ser um or PlasmaOrdered By: Genevieve Sahu on 05-04-2022 Albumin [Mass/Vol] 3.6 g/dL 3.2-5.5 [facility] Basophils Auto (Bld) [#/Vol] Ordered By: Genevieve Sahu on 05-04-2022 Basophils (Bld) [#/Vol] 0.0 10*3/uL 0.0-0.2 [facility] Basophils/100 WBC Auto (Bld) Ordered By: Genevieve Sahu on 05-04-2022 Basophils/100 WBC (Bld) 0.5 % . [facility] Blood hemoglobin measurement (mass/volume)Ordered By: Genevieve Sahu on 05-04-2022 Hemoglobin (Bld) [Mass/Vol] 13.0 g/dL 11.8-15.4 [facility] Blood leukocytes automated c ount (number/volume)Ordered By: Genevieve Sahu on 05-04-2022 WBC (Bld) [#/Vol] 7.0 10*3/uL 4.5-11.0 [facility] COVID-19 Positive/NegativeOr dered By: Genevieve Sahu on 05-04-2022 SARS-CoV-2 (COVID-19) N gene LISA+probe Ql (Resp) Negative Negative [facility] Comment on above: Testing for SARS-CoV -2 by RT-PCR This test was developed and its performance characteristics determined by [employer] and validated at the [facility]. This test has not been FDA [...] on 05-04-2022 Creatinine [Mass/Vol] 0.95 mg/dL 0.44-1.03 [facility] Eosinophils Auto (Bld) [#/Vo l]Ordered By: Genevieve Sahu on 05-04-2022 Eosinophils (Bld) [#/Vol] 0.1 10*3/uL 0.0-0.45 [facility] Eosinophils/100 WBC Auto (Bl d)Ordered By: Genevieve Sahu on 05-04-2022 Eosinophils/100 WBC (Bld) 2.0 % . [facility] Erythrocyte distribution wid th Auto (RBC) [Ratio]Ordered By: Genevieve Sahu on 05-04-2022 Erythrocyte distribution width (RBC) [Ratio] 14.0 % 11.9-15.3 [facility] Estimated glomerular filtrat ion rate (GFR) non- AmericanOrdered By: Genevieve Sahu on 05-04-2022 GFR/1.73 sq M.predicted among non-blacks MDRD (S/P/Bld) [Vol rate/Area] 59 mL/Min [facility] Globulin Calc (S) [Mass/Vol] Ordered By: Genevieve Sahu on 05-04-2022 Globulin (S) [Mass/Vol] 2.8 g/dL [facility] Hematocrit Auto (Bld) [Volum e fraction]Ordered By: Genevieve Sahu on 05-04-2022 Hematocrit (Bld) [Volume fraction] 38.7 % 34.0-46.4 [facility] Laboratory - Hematology and Cell countsOrdered By: Genevieve Sahu on 05-04-2022 Nucleated RBC/100 WBC (Bld) [Ratio] 0.1 % 0-0.5 [facility] Lymphocytes Auto (Bld) [#/Vo l]Ordered By: Genevieve Sahu on 05-04-2022 Lymphocytes (Bld) [#/Vol] 1.5 10*3/uL 1.00-4.8 [facility] Lymphocytes/100 WBC Auto (Bl d)Ordered By: Genevieve Sahu on 05-04-2022 Lymphocytes/100 WBC (Bld) 22.0 % . [facility] MCH Auto (RBC) [Entitic mass ]Ordered By: Genevieve Sahu on 05-04-2022 MCH (RBC) [Entitic mass] 29.5 pg 24.7-34.3 [facility] MCHC Auto (RBC) [Mass/Vol]Or dered By: Genevieve Sahu on 05-04-2022 MCHC (RBC) [Mass/Vol] 33.6 g/dL 32.0-35.0 [facility] MCV Auto (RBC) [Entitic vol] Ordered By: Genevieve Sahu on 05-04-2022 MCV (RBC) [Entitic vol] 87.9 fL 80-100 [facility] Monocytes Auto (Bld) [#/Vol] Ordered By: Genevieve Sahu on 05-04-2022 Monocytes (Bld) [#/Vol] 0.5 10*3/uL 0.0-0.8 [facility] Monocytes/100 WBC Auto (Bld) Ordered By: Genevieve Sahu on 05-04-2022 Monocytes/100 WBC (Bld) 7.1 % . [facility] Neutrophils Auto (Bld) [#/Vo l]Ordered By: Genevieve Sahu on 05-04-2022 Neutrophils (Bld) [#/Vol] 4.8 10*3/uL 1.8-7.7 [facility] Neutrophils/100 WBC Auto (Bl d)Ordered By: Genevieve Sahu on 05-04-2022 Neutrophils/100 WBC (Bld) 68.4 % . [facility] No Panel InformationOrdered By: Genevieve Sahu on 05-04-2022 Estimated GFR () > 60 mL/Min [facility] Comment on above: GFR estimated refere nce range: According to KDOQI guidelines, <60 ml/min/1.73m2 is sufficient to diagnose a patient with chronic kidney disease. Pharmacy Creatinine Clearance (Chem N/A [facility] Platelet mean volume Auto (B ld) [Entitic vol]Ordered By: Genevieve Sahu on 05-04-2022 Platelet mean volume (Bld) [Entitic vol] 8.1 fL 6.3-10.7 [facility] Platelets Auto (Bld) [#/Vol] Ordered By: Genevieve Sahu on 05-04-2022 Platelets (Bld) [#/Vol] 271 10*3/uL 150-450 [facility] Protein [Mass/volume] in Ser um or PlasmaOrdered By: Genevieve Sahu on 05-04-2022 Protein [Mass/Vol] 6.4 g/dL 6.1-7.9 [facility] RBC Auto (Bld) [#/Vol]Ordere d By: Genevieve Sahu on 05-04-2022 RBC (Bld) [#/Vol] 4.40 10*6/uL 3.60-5.00 [facility] Serum or plasma alanine alejandre otransferase measurement without P-5'-P (enzymatic activiOrdered By: Genevieve Sahu on 05-04-2022 ALT No additional P-5'-P [Catalytic activity/Vol] 16 U/L 10-60 [facility] Serum or plasma albumin/glob ulin mass ratioOrdered By: Genevieve Sahu on 05-04-2022 Albumin/Globulin [Mass ratio] 1.3 {ratio} [facility] Serum or plasma alkaline lakia sphatase measurement (enzymatic activity/volume)Ordered By: Genevieve Sahu on 05-04-2022 ALP [Catalytic activity/Vol] 48 U/L 32-92 [facility] Serum or plasma aspartate am inotransferase measurement (enzymatic activity/volume)Ordered By: Genevieve Sahu on 05-04-2022 AST [Catalytic activity/Vol] 17 U/L 10-42 [facility] Serum or plasma calcium glynn urement (mass/volume)Ordered By: Genevieve Sahu on 05-04-2022 Calcium [Mass/Vol] 9.2 mg/dL 8.2-10.2 [facility] Serum or plasma chloride srinivasa surement (moles/volume)Ordered By: Genevieve Sahu on 05-04-2022 Chloride [Moles/Vol] 101 mmol/L 95-114 [facility] Serum or plasma glucose glynn urement (mass/volume)Ordered By: Genevieve Sahu on 05-04-2022 Glucose [Mass/Vol] 95 mg/dL 70-100 [facility] Comment on above: ADA recommended refe rence range Random Glucose Reference Range is dependent on time and content of last meal. Glucose of more than 200 mg/dL in a nonstressed, ambulatory subject supports the diagnosis of Diabetes Mellitus. Serum or plasma potassium me asurement (moles/volume)Ordered By: Genevieve Sahu on 05-04-2022 Potassium [Moles/Vol] 4.2 mmol/L 3.5-5.1 [facility] Serum or plasma sodium measu rement (moles/volume)Ordered By: Genevieve Sahu on 05-04-2022 Sodium [Moles/Vol] 138 mmol/L 136-146 [facility] Serum or plasma total biliru bin measurement (mass/volume)Ordered By: Genevieve Sahu on 05-04-2022 Bilirubin [Mass/Vol] 0.4 mg/dL 0.3-1.2 [facility] Serum or plasma total carbon dioxide measurement (moles/volume)Ordered By: Genevieve Sahu on 05-04-2022 CO2 [Moles/Vol] 24.9 mmol/L 22.0-30.0 [facility] Serum or plasma urea nitroge n measurement (mass/volume)Ordered By: Genevieve Sahu on 05-04-2022 Urea nitrogen [Mass/Vol] 17 mg/dL 9-23 [facility] XR hand LT min 3V*on 022 XR hand LT min 3V* [facility] [employer] Other XR hand LT min 3V* [facility] [employer] Other XR hand LT min 3V* [address] [place] [address] [employer] Other XR hand LT min 3V* [place] [address] [employer] Other XR hand LT min 3V* XRay Report [employer] Other XR hand LT min 3V* Signed [employer] Other XR hand LT min 3V* Patient: Nany Carmen MR#: [id number] [employer] Other XR hand LT min 3V* 1 [employer] Other XR hand LT min 3V* : 1955 Acct:[id number] [employer] Other XR hand LT min 3V* Age/Sex: 66 / F ADM Date: 05/03/22 [employer] Other XR hand LT min 3V* Loc: [facility] min [facility]* Attending Dr: Genevieve Sahu MD [employer] Other XR hand LT min 3V* Copies to: Genevieve Sahu MD [employer] Other XR hand LT min 3V* Ordering Provider: Genevieve Sahu MD [employer] Other XR hand LT min 3V* Date of Service: 05/03/22 [employer] Other XR hand LT min 3V* XR/XR hand LT min 3V*: M79.642 [employer] Other XR hand LT min 3V* XR hand LT min 3V* 05/03/2022 4:05 PM [employer] Other XR hand LT min 3V* SIGNS AND SYMPTOMS: Injury to left fourth digit with fracture, follow-up [employer] Other XR hand LT min 3V* PROTOCOL: Frontal, lateral, and oblique radiographs of the left [employer] Other XR hand LT min 3V* COMPARISON: 04/11/2022 [employer] Other XR hand LT min 3V* FINDINGS: [employer] Other XR hand LT min 3V* There is a transversely oriented, comminuted fracture of the shaft of the fourth proximal phalanx. [employer] Other XR hand LT min 3V* There is 38 degrees of apex palmar angulation which is slightly more pronounced when compared prior [employer] Other XR hand LT min 3V* exam. No change in alignment otherwise. There is mild narrowing of the distal interphalangeal [employer] Other XR hand LT min 3V* joints of the second and third digits. Degenerative changes are noted in the wrist. [employer] Other XR hand LT min 3V* XR/XR hand LT min 3V* [employer] Other XR hand LT min 3V* IMPRESSION: [employer] Other XR hand LT min 3V* exam. [employer] Other XR hand LT min 3V* Impression dictated by: Chente Crook M.D.05/03/2022 7:18 PM [employer] Other XR hand LT min 3V* Dictation Location: [place] [address] [employer] Other XR hand LT min 3V* Transcribed By: HEMANT 05/03/221917 [employer] Other XR hand LT min 3V* Dictated By: Chente Crook II, MD 05/03/221916 [employer] Other XR hand LT min 3V* Signed By: [employer] Other XR hand LT min 3V* 05/03/221917 [facility] [employer] Other XR hand LT min 3V*on 022 XR hand LT min 3V* [facility] [employer] Other XR hand LT min 3V* [facility] [employer] Other XR hand LT min 3V* [address] [place] [address] [employer] Other XR hand LT min 3V* RONNY Delgado [address] [employer] Other XR hand LT min 3V* XRay Report [employer] Other XR hand LT min 3V* Signed [employer] Other XR hand LT min 3V* Patient: Nany Carmen MR#: [id number] [employer] Other XR hand LT min 3V* 1 [employer] Other XR hand LT min 3V* : 1955 Acct:[id number] [employer] Other XR hand LT min 3V* Age/Sex: 66 / F ADM Date: 04/11/22 [employer] Other XR hand LT min 3V* Loc: XDUCLY Room: Type: [facility] [employer] Other XR hand LT min 3V* Attending Dr: Jewell CUNNINGHAM [employer] Other XR hand LT min 3V* Ordering Provider: OCTAVIO Guzman [employer] Other XR hand LT min 3V* Date of Service: 04/11/22 [employer] Other XR hand LT min 3V* XR/XR hand LT min 3V*: LEFT HAND PAIN [employer] Other XR hand LT min 3V* Copies to: OCTAVIO Guzman [employer] Other XR hand LT min 3V* LEFT HAND - 3 views [employer] Other XR hand LT min 3V* COMPARISON: None [employer] Other XR hand LT min 3V* REASON FOR EXAM: Heavy 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 There is a mildly displaced comminuted [employer] Other XR hand LT min 3V* fracture involving the shaft of the proximal phalanx of the fourth digit. No additional fractures [employer] Other XR hand LT min 3V* are seen. Mild degenerative changes involving the DIP joints. [employer] Other XR hand LT min 3V* XR/XR hand LT min 3V* [employer] Other XR hand LT min 3V* IMPRESSION: [employer] Other XR hand LT min 3V* MILDLY DISPLACED COMMINUTED FRACTURE INVOLVING THE SHAFT OF THE PROXIMAL PHALANX OF THE FOURTH [employer] Other XR hand LT min 3V* DIGIT. [employer] Other XR hand LT min 3V* Impression dictated by: Reji Khan Jr., Chace04/11/2022 1:56 PM [employer] Other XR hand LT min 3V* Dictation Location: [facility]--13 [employer] Other XR hand LT min 3V* Transcribed By: [facility] 04/11/22 [facility] [employer] Other XR hand LT min 3V* Dictated By: Reji Khan Jr, DO 04/11/22 [facility] [employer] Other XR hand LT min 3V* Signed By: [employer] Other XR hand LT min 3V* 04/11/[address] [place] [address] [employer] Other Basic Metabolic Panelon Anion gap [Moles/Vol] 7 mmol/L Low 9 - 17 mmol/L [facility] [place], [employer] Ratio 13 [facility] [place], [place] Calcium [Mass/Vol] 9.2 mg/dL 8.6 - 10. 4 mg/dL [place], [place] Chloride [Moles/Vol] 104 mmol/L 98 - 10 7 mmol/L [place] CO2 [Moles/Vol] 26 mmol/L 20 - 31 mmol/L [place] Creatinine [Mass/Vol] 0.76 mg/dL 0.5 - 0.9 mg/dL [place] GFR >60 >60 mL/min [place] GFR Non- >60 >60 mL/min [place] Glucose [Mass/Vol] 111 mg/dL High 70 - 99 mg/dL [place], [place] Interpretation and review of laboratory results Abnormal [place] Potassium [Moles/Vol] 4.2 mmol/L 3.7 - 5.3 mmol/L [place] Sodium [Moles/Vol] 137 mmol/L 135 - 144 mmol/L [place] Urea nitrogen [Mass/Vol] 10 mg/dL 8 - 23 mg/dL [place] Basic Metabolic Profon 11-25 (cont.) Normal [facility] Comment on above: Result Comment: Aver age GFR for 60-69 years old: 85 mL/min/1.73sq m Chronic Kidney Disease: <60 mL/min/1.73sq m Kidney failure: <15 mL/min/1.73sq m eGFR calculated using average adult body mass. Additional eGFR calculator available at: http://www.[employer]/multiple_crcl_2011.htm Performed By: #### B AMANDA, CDP #### [facility] [address] [place] [address] [employer] Officer: Kan Gupta MD Anion gap [Moles/Vol] 7 mmol/L Low 9-17 [facility] Comment on above: Performed By: #### B AMANDA, CDP #### [facility] [address] [place] [address] [employer] Officer: Kan Gupta MD BUN/CRE Ratio 13 Normal - [facility] Comment on above: Performed By: #### B AMANDA, CDP #### [facility] [address] [place], [place] [id number] [employer] Officer: Kan Gupta MD Calcium [Mass/Vol] 9.2 mg/dL Normal 8.6-10.4 [facility] Comment on above: Performed By: #### B MP, CDP #### [facility] [address] [place], [place] [id number] [employer] Officer: Kan Gupta MD Chloride [Moles/Vol] 104 mmol/L Normal 98-107 [facility] Comment on above: Performed By: #### B MP, CDP #### [facility] [address] [place], [place] [id number] [employer] Officer: Kan Gupta MD CO2 [Moles/Vol] 26 mmol/L Normal 20-31 [facility] Comment on above: Performed By: #### B MP, CDP #### [facility] [address] [place], [place] [id number] [employer] Officer: Kan Gupta MD Creatinine [Mass/Vol] 0.76 mg/dL Normal 0.50-0.90 [facility] Comment on above: Performed By: #### B MP, CDP #### [facility] [address] [place], [place] [address] [employer] Officer: Kan Gupta MD GFR, Amer >60 Normal >60 [facility] Comment on above: Performed By: #### B MP, CDP #### [facility] [address] [place], [place] [id number] [employer] Officer: Kan Gupta MD GFR,non Amer >60 Normal >60 [facility] Comment on above: Performed By: #### B MP, CDP #### [facility] [address] [place], [place] [id number] [employer] Officer: Kan Gupta MD Glucose [Mass/Vol] 111 mg/dL High 70-99 [facility] Comment on above: Performed By: #### B AMANDA, CDP #### [facility] [address] [place] [address] [place] [address] [employer] Officer: Kan Gupta MD Potassium [Moles/Vol] 4.2 mmol/L Normal 3.7-5.3 [facility] Comment on above: Performed By: #### B AMANDA, CDP #### [facility] [address] [place] [address] [place] [address] [employer] Officer: Kan Gupta MD Sodium [Moles/Vol] 137 mmol/L Normal 135-144 [facility] Comment on above: Performed By: #### B AMANDA, CDP #### [address] [place] [address] [employer] Officer: Kan Gupta MD Staging: Normal [facility] Comment on above: Result Comment: Stag e 1: Some kidney damage normal GFR Stage 2: Mild kidney damage GFR 60-89 Stage 3: Moderate kidney damage GFR 30-59 Stage 4: Severe kidney damage GFR 15-29 Stage 5: Severe kidney damage GFR <15 ESRD - chronic treatment by dialysis or transplant Performed By: #### B AMANDA, CDP #### [address] [place] [address] [employer] Officer: Kan Gupta MD Urea nitrogen [Mass/Vol] 10 mg/dL Normal 8-23 [facility] Comment on above: Performed By: #### B AMANDA, CDP #### [facility] [address] [place] [address] [place] [address] [employer] Officer: Kan Gupta MD CBC Auto Differentialon Basophils (Bld) [#/Vol] 10*3/uL [facility] [place] Basophils/100 WBC (Bld) 0 % 0 - 2 % [facility] [place] Differential Type NOT REPORTED [facility] [place] Eosinophils (Bld) [#/Vol] 0.10 10*3/uL [facility] [place] Eosinophils/100 WBC (Bld) 2 % 1 - 4 % [place] Erythrocyte distribution width (RBC) [Ratio] 13.2 % 11.8 - 14.4 % [place] Hematocrit (Bld) [Volume fraction] 39.3 % 36.3 - 47.1 % [place] Hemoglobin (Bld) [Mass/Vol] 12.5 g/dL 11.9 - 15.1 g/dL [place] Immature granulocytes (Bld) [#/Vol] 0.03 10*3/uL [place] Immature granulocytes (Bld) [#/Vol] 1 % High 0 [place] Interpretation and review of laboratory results Abnormal [place] Lymphocytes (Bld) [#/Vol] 0.99 10*3/uL Low [place] Lymphocytes/100 WBC (Bld) 19 % Low 24 - 43 % [place] MCH (RBC) [Entitic mass] 28.0 pg 25.2 - 33.5 pg [place] MCHC (RBC) [Mass/Vol] 31.8 g/dL 28.4 - 34.8 g/dL [place] MCV (RBC) [Entitic vol] 88.1 fL 82.6 - 102.9 fL [place] Monocytes (Bld) [#/Vol] 0.51 10*3/uL [place] Monocytes/100 WBC (Bld) 10 % 3 - 12 % [place] Platelet mean volume (Bld) [Entitic vol] 8.4 fL 8.1 - 13.5 fL [place], [place] Platelets (Bld) [#/Vol] NOT REPORTED [place] Platelets (Bld) [#/Vol] 279 10*3/uL [place] RBC (Bld) [#/Vol] 4.46 10*6/uL 3.95 - 5.1 1 m/uL [place] RBC morphology finding Nom (Bld) NOT REPORTED [place] Segmented neutrophils/100 WBC (Bld) 68 % High 36 - 65 % [place] Segs Absolute 3.64 [place], [place] WBC (Bld) [#/Vol] 0.0 10*3/uL 0.0 per 10 0 WBC [place] WBC (Bld) [#/Vol] 5.3 10*3/uL [place] WBC Morphology NOT REPORTED [place], [place] CBC with Diffon 11-25-2020 Abs. Basophil <0.03 Normal 0.00-0.20 [facility] Comment on above: Performed By: #### B AMANDA, CDP #### [address] [place] [address] [employer] Officer: Kan Gupta MD Abs.Imm.Granulocyte 0.03 k/uL Normal 0.00-0.30 [facility] Comment on above: Performed By: #### B AMANDA, CDP #### [address] [place], [place] [id number] [employer] Officer: Kan Gupta MD Abs.Neutrophil (Seg) 3.64 k/uL Normal 1.50-8.10 [facility] Comment on above: Performed By: #### B AMANDA, CDP #### [address] [place] [address] [employer] Officer: Kan Gupta MD Basophils/100 WBC (Bld) 0 % Normal 0-2 [facility] Comment on above: Performed By: #### B AMANDA, CDP #### [address] [place] [address] [employer] Officer: Kan Gupta MD Eosinophils (Bld) [#/Vol] 0.10 10*3/uL Normal 0.00-0.44 [facility] Comment on above: Performed By: #### B MP, CDP #### [address] [place] [address] [employer] Officer: Kan Gupta MD Eosinophils/100 WBC (Bld) 2 % Normal 1-4 [facility] Comment on above: Performed By: #### B MP, CDP #### [facility] [address] [place], [place] [address] [employer] Officer: Kan Gupta MD Erythrocyte distribution width (RBC) [Ratio] 13.2 % Normal 11.8-14.4 [facility] Comment on above: Performed By: #### B MP, CDP #### [facility] [address] [place], [place] [address] [employer] Officer: Kan Gupta MD Hematocrit (Bld) [Volume fraction] 39.3 % Normal 36.3-47.1 [facility] Comment on above: Performed By: #### B AMANDA, CDP #### [address] [place], [place] [address] [employer] Officer: Kan Gupta MD Hemoglobin (Bld) [Mass/Vol] 12.5 g/dL Normal 11.9-15.1 [facility] Comment on above: Performed By: #### B AMANDA, CDP #### [address] [place], [place] [address] [employer] Officer: Kan Gupta MD Immature granulocytes (Bld) [#/Vol] 1 % High 0 [facility] Comment on above: Performed By: #### B AMANDA, CDP #### [facility] [address] [place] [address] [place], [place] [address] [employer] Officer: Kan Gupta MD Lymphocytes (Bld) [#/Vol] 0.99 10*3/uL Low 1.10-3.70 [facility] Comment on above: Performed By: #### B MP, CDP #### [facility] [address] [place] [id number] [employer] Officer: Kan Gupta MD Lymphocytes/100 WBC (Bld) 19 % Low 24-43 [facility] Comment on above: Performed By: #### B MP, CDP #### [facility] [address] [place] [address] [place] [address] [employer] Officer: Kan Gupta MD MCH (RBC) [Entitic mass] 28.0 pg Normal 25.2-33.5 [facility] Comment on above: Performed By: #### B MP, CDP #### [address] [place] [address] [employer] Officer: Kan Gupta MD MCHC (RBC) [Mass/Vol] 31.8 g/dL Normal 28.4-34.8 [facility] Comment on above: Performed By: #### B MP, CDP #### [address] [place] [address] [employer] Officer: Kan Gupta MD MCV (RBC) [Entitic vol] 88.1 fL Normal 82.6-102.9 [facility] Comment on above: Performed By: #### B MP, CDP #### [address] [place], [place] [address] [employer] Officer: Kan Gupta MD Monocytes (Bld) [#/Vol] 0.51 10*3/uL Normal 0.10-1.20 [facility] Comment on above: Performed By: #### B MP, CDP #### [address] [place], [place] [address] [employer] Officer: Kan Gupta MD Monocytes/100 WBC (Bld) 10 % Normal 3-12 [facility] Comment on above: Performed By: #### B MP, CDP #### [address] [place], [place] [id number] [employer] Officer: Kan Gupta MD Neutrophil (Seg) 68 % High 36-65 [facility] Comment on above: Performed By: #### B MP, CDP #### [facility] [address] [place] [address] [address], [facility] [employer] Officer: Kan Gupta MD NRBC Automated 0.0 per 100 WBC Normal 0.0 [facility] Comment on above: Performed By: #### B AMANDA, CDP #### [facility] [address] [place], [place] [id number] [employer] Officer: Kan Gupta MD Platelet mean volume (Bld) [Entitic vol] 8.4 fL Normal 8.1-13.5 [facility] Comment on above: Performed By: #### B AMANDA, CDP #### [facility] [address] [place], [place] [address] [employer] Officer: Kan Gupta MD Platelets (Bld) [#/Vol] 279 10*3/uL Normal 138-453 [facility] Comment on above: Performed By: #### B AMANDA, CDP #### [facility] [address] [place] [address] [employer] Officer: Kan Gupta MD RBC (Bld) [#/Vol] 4.46 10*6/uL Normal 3.95-5.11 [facility] Comment on above: Performed By: #### B AMANDA, CDP #### [address] [place], [place] [id number] [employer] Officer: Kan Gupta MD WBC (Bld) [#/Vol] 5.3 10*3/uL Normal 3.5-11.3 [facility] Comment on above: Performed By: #### B AMANDA, CDP #### [facility] [address] [place], [place] [id number] [employer] Officer: Kan Gupta MD Auto Diff Performed NOT REPORTED Normal [facility] Comment on above: Performed By: #### B MP, CDP #### [facility] [address] [place] [address] [employer] Officer: Kan Gupta MD Platelets (Bld) [#/Vol] NOT REPORTED Normal [facility] Comment on above: Performed By: #### B MP, CDP #### [facility] [address] [place] [address] [employer] Officer: Kan Gupta MD RBC morphology finding Nom (Bld) NOT REPORTED Normal [facility] Comment on above: Performed By: #### B MP, CDP #### [facility] [address] [place] [address] [employer] Officer: Kan Gupta MD WBC Morphology NOT REPORTED Normal [facility] Comment on above: Performed By: #### B MP, CDP #### [facility] [address] [place] [address] [employer] Officer: Kan Gupta MD Metabolic Panelon 11-25-2020 GFR/1.73 sq M predicted among non-blacks MDRD (S/P/Bld) [Vol rate/Area] [place], [place] Comment on above: Stage 1: Some [...] body mass. Additional eGFR calculator available at: http://www.[employer]/multiple_crcl_2012.htm US NON OB TRANSVAGINALon US NON OB [...] Mele Ivy MD 11/25/20 Final result Normal [facility] [employer] Incoming Radiant Results From [employer] - 11/25/2020 12:03 PM EST EXAMINATION: PELVIC [...] cm calcification. 3. Nonvisualization of the ovaries. [facility], [place] EXAMINATION: PELVIC ULTRASOUND 11/25/2020 TECHNIQUE: Transvaginal [...] Free Fluid: No evidence of free fluid. [facility], [place] 1. Endometrial stripe thickness is abnormally enlarged measuring 8 mm in a postmenopausal female with bleeding. Differential considerations include endometrial hyperplasia or endometrial carcinoma. Endometrial sampling recommended. 2. Left uterine fundal fibroid measuring up to 2.4 cm with associated 1.2 cm calcification. 3. Nonvisualization of the ovaries. [place], [place] Vital Signs Date Time Vital Sign Value Performing Clinician Saharai froilan 07-24-2024 11:10-0400 Body height 165.1 cm [facility] 07-24-2024 11:10-0400 Body mass index (BMI) [Ratio] 30.7 kg/m2 [facility] 07-24-2024 11:10-0400 Body weight 83.91 kg [facility] 07-24-2024 11:10-0400 Diastolic blood pressure 73 mm[Hg] [facility] 07-24-2024 11:10-0400 Heart rate 75 /min [facility] 07-24-2024 11:10-0400 Systolic blood pressure 137 mm[Hg] [facility] 06-12-2024 10:04-0400 Body height 165.1 cm [facility] 06-12-2024 10:04-0400 Body mass index (BMI) [Ratio] 31.1 kg/m2 [facility] 06-12-2024 10:04-0400 Body weight 84.82 kg [facility] 06-12-2024 10:04-0400 Diastolic blood pressure 82 mm[Hg] [facility] 06-12-2024 10:04-0400 Heart rate 68 /min [facility] 06-12-2024 10:04-0400 Systolic blood pressure 129 mm[Hg] [facility] 03-05-2024 11:03-0400 Body height 165.1 cm [facility] 03-05-2024 11:03-0400 Body mass index (BMI) [Ratio] 31.3 kg/m2 [facility] 03-05-2024 11:03-0400 Body weight 85.33 kg [facility] 03-05-2024 11:03-0400 Diastolic blood pressure 74 mm[Hg] [facility] 03-05-2024 11:03-0400 Heart rate 78 /min [facility] 03-05-2024 11:03-0400 Systolic blood pressure 122 mm[Hg] [facility] 12-26-2023 12:00-0500 Body height 165.1 cm Joi Hernandez Other [facility] [employer] Other 12-26-2023 12:00-0500 Body mass index (BMI) [Ratio] 30.95 kg/m2 Joi Hernandez Other [facility] [employer] Other 12-26-2023 12:00-0500 Body weight 84.37 kg Joi Mary Other [facility] Other 11-02-2023 08:00-0500 Body height 165.1 cm Gagandeep Stevens Other [facility] Other 11-02-2023 08:00-0500 Body mass index (BMI) [Ratio] 31.12 kg/m2 Gagandeep Stevens Other [facility] Other 11-02-2023 08:00-0500 Body weight 84.82 kg Gagandeep Stevens Other [facility] Other 10-08-2023 11:00-0500 Body height 165.1 cm Catalina Carson Other [facility] Other 10-08-2023 11:00-0500 Body mass index (BMI) [Ratio] 31.21 kg/m2 Catalina Carson Other [facility] Other 10-08-2023 11:00-0500 Body weight 85.1 kg Catalina Carson Other [facility] Other 10-08-2023 11:00-0500 Diastolic blood pressure 91 mm[Hg] Catalina Carson Other [facility] Other 10-08-2023 11:00-0500 Systolic blood pressure 142 mm[Hg] Catalina Carson Other [facility] Other 09-04-2023 11:00-0400 Body height 165.1 cm Catalina Carson Other [facility] Other 09-04-2023 11:00-0400 Body mass index (BMI) [Ratio] 31.08 kg/m2 Catalina Carson Other [facility] Other 09-04-2023 11:00-0400 Body weight 84.73 kg Catalina Carson Other [facility] Other 09-04-2023 11:00-0400 Diastolic blood pressure 85 mm[Hg] Catalina Carson Other [facility] Other 09-04-2023 11:00-0400 Systolic blood pressure 135 mm[Hg] Catalina Carson Other [facility] Other 07-07-2022 11:45-0400 Body height 166.37 cm Genevieve Sahu Other [facility] Other 07-07-2022 11:45-0400 Body mass index (BMI) [Ratio] 29.99 kg/m2 Genevieve Sahu Other [facility] Other 07-07-2022 11:45-0400 Body weight 83.01 kg Genevieve Sahu Other [facility] Other 05-16-2022 12:45-0400 Body height 166.37 cm Genevieve Sauh Other [facility] Other 05-16-2022 12:45-0400 Body mass index (BMI) [Ratio] 30.48 kg/m2 Genevieve Sahu Other [facility] Other 05-16-2022 12:45-0400 Body weight 84.37 kg Genevieve Sahu Other [facility] Other 05-08-2022 17:02-0400 Diastolic blood pressure 75 mm[Hg] MD Catalina Carson Work Phone: [facility] 05-08-2022 17:02-0400 Heart rate 66 /min MD Catalina Carson Work Phone: [facility] 05-08-2022 17:02-0400 Respiratory rate 16 /min MD Catalina Carson Work Phone: [facility] 05-08-2022 17:02-0400 SaO2% (BldA) [Mass fraction] 97 % MD Catalina Carson Work Phone: [facility] 05-08-2022 17:02-0400 Systolic blood pressure 144 mm[Hg] MD Catalina Carson Work Phone: [facility] 05-08-2022 16:17-0400 Inhaled oxygen flow rate 6 L/min MD Catalina Carson Work Phone: [facility] 05-08-2022 14:43-0400 Body mass index (BMI) [Ratio] 32.5 kg/m2 MD Catalina Carson Work Phone: [facility] 05-08-2022 14:34-0400 Body height 162.56 cm MD Catalina Carson Work Phone: [facility] 05-08-2022 14:34-0400 Body weight 86 kg MD Catalina Carson Work Phone: [facility] 05-08-2022 12:57-0400 Body temperature 98.1 [degF] MD Catalina Carson Work Phone: [facility] 04-11-2022 14:10-0400 Body height 166.37 cm Jewell Rebecca Other [facility] Other 04-11-2022 14:10-0400 Body mass index (BMI) [Ratio] 30.48 kg/m2 Jewell Rebecca Other [facility] Other 04-11-2022 14:10-0400 Body temperature 97.1 [degF] Jewell Rebecca Other [facility] Other 04-11-2022 14:10-0400 Body weight 84.37 kg Jewell Calhounmond Other [facility] Other 04-11-2022 14:10-0400 Diastolic blood pressure 93 mm[Hg] Jewell Rebecca Other [facility] Other 04-11-2022 14:10-0400 Respiratory rate 18 /min Jewell Rebecca Other [facility] Other 04-11-2022 14:10-0400 SaO2% (BldA) [Mass fraction] 99 % Jewell Rebecca Other [facility] Other 04-11-2022 14:10-0400 Systolic blood pressure 151 mm[Hg] Jewlel Fernandez Other [facility] Other 11-25-2020 12:30-0500 BP Diastolic 80 mm[Hg] Morro Mayer [facility], [place] 11-25-2020 12:30-0500 BP Systolic 129 mm[Hg] Morro Mayer [facility] 11-25-2020 12:30-0500 Pulse Oximetry 94 % Morro Mayer [facility] 11-25-2020 10:39-0500 Body Temperature 99.9 [degF] Morro Mayer [facility], [place] 11-25-2020 10:35-0500 BMI (Body Mass Index) 31.62 kg/m2 Morro Mayer [facility], [place] 11-25-2020 10:35-0500 Body weight 86.18 [facility] [place] 11-25-2020 10:35-0500 Height 165.1 [address] [facility] [place] 11-25-2020 10:35-0500 Pulse (Heart Rate) 95 /min Morro Mayer [facility] [place], [place] 11-25-2020 10:35-0500 Respiratory Rate 18 /min Morro Mayer [facility] Encounters Encounter Date Encounter Type Care Provider Facility Start: 07-24-2024 End: 07-24-2024 [facility] Work Phone: Start: 07-24-2024 End: 07-24-2024 Patient encounter procedure [facility] Work Phone: Start: 06-12-2024 End: 06-12-2024 ambulatory [facility] Work Phone: Start: 06-12-2024 End: 06-12-2024 Patient encounter procedure [facility] Work Phone: Start: 03-05-2024 End: 03-05-2024 ambulatory [facility] Work Phone: Start: 03-05-2024 End: 03-05-2024 Patient encounter procedure [facility] Work Phone: Start: 12-26-2023 End: 12-26-2023 ambulatory Joi Hernandez Other [facility] Other Start: 12-26-2023 Office outpatient visit 25 minutes Joi Hernandez [facility] Start: 11-23-2023 End: 11-23-2023 ambulatory Marylin Doran Facility:[facility] Start: 11-23-2023 End: 11-23-2023 ambulatory MD Catalina Carson Work Phone: [facility] Work Phone: Start: 11-23-2023 End: 11-23-2023 Patient encounter procedure MD Catalina Carson Work Phone: [facility] [place] Work Phone: Start: 11-20-2023 End: 11-20-2023 ambulatory Catalina Carson Other [facility] Other Start: 11-20-2023 Telephone encounter Catalina Carson [facility] Start: 11-05-2023 (Televisit) Televisit Catalina Silva [facility] Start: 11-05-2023 End: 11-05-2023 ambulatory Catalina Carson Other [facility] Other Start: 11-02-2023 End: 11-02-2023 ambulatory Gagandeep Stevens Other [facility] Other Start: 11-02-2023 Office outpatient ne w 30 minutes Gagandeep Stevens [facility] Start: 10-08-2023 End: 10-08-2023 ambulatory Catalina Carson Other [facility] Other Start: 10-08-2023 Office outpatient visit 15 minutes Catalina Carson [facility] Start: 09-24-2023 Telephone encounter Catalina Carson [facility] Start: 09-24-2023 End: 09-24-2023 ambulatory MD Catalina Carson Work Phone: [facility] Work Phone: Start: 09-24-2023 End: 09-24-2023 Patient encounter procedure MD Catalina Carson Work Phone: [facility] Work Phone: Start: 09-04-2023 End: 09-04-2023 ambulatory Catalina Carson Other [facility] Other Start: 09-04-2023 Patient encounter procedure Catalina Carson [facility] Start: 07-27-2023 End: 07-27-2023 ambulatory Dallas Whitaker Facility:[facility] Start: 07-27-2023 End: 07-27-2023 ambulatory MD Catalina Carson Work Phone: [facility] Work Phone: Start: 07-27-2023 End: 07-27-2023 Patient encounter procedure MD Catalina Carson Work Phone: [facility] Work Phone: Start: 11-06-2022 Adult health examination Catalina Carson Other [facility] Other Start: 11-06-2022 Pre-procedure evaluation check Catalina Carson Other [facility] Other Start: 10-30-2022 End: 10-30-[address] KAN BAXTER Facility: Start: 10-03-2022 End: 10-03-2022 ambulatory Genevieve Calvey Other [facility] Other Start: 10-03-2022 Office outpatient visit 15 minutes Genevieve Calvey [facility] Start: 07-19-2022 End: 07-19-2022 Patient encounter procedure MD Catalina Carson Work Phone: [facility] Start: 07-07-2022 End: 07-07-2022 ambulatory Gneevieve Calvey Other [facility] Other Start: 07-07-2022 Postop follow up vis it related to original px Genevieve Calvey [facility] Start: 07-07-2022 End: 07-07-2022 Patient encounter procedure MD Catalina Carson Work Phone: [facility] Start: 06-09-2022 End: 06-09-2022 ambulatory Genevieve Calvey Other [facility] Other Start: 06-09-2022 Postop follow up vis it related to original px Genevieve Calvey [facility] Start: 06-09-2022 End: 06-09-2022 Patient encounter procedure MD Catalina Carson Work Phone: [facility] Start: 05-16-2022 End: 05-16-2022 ambulatory Genevieve Calvey Other [facility] Other Start: 05-16-2022 Postop follow up vis it related to original px Genevieve Calvey [facility] Start: 05-16-2022 End: 05-16-2022 Patient encounter procedure MD Catalina Carson Work Phone: [facility] Start: 05-11-2022 End: 05-11-2022 ambulatory Genevieve Calvey Other [facility] Other Start: 05-11-2022 Telephone encounter Genevieve Sahu [facility] Start: 05-08-2022 End: 05-08-2022 Admission to same day surgery center MD Catalina Carson Work Phone: [facility] [place] Start: 05-04-2022 End: 05-04-2022 Patient encounter procedure MD Catalina Carson Work Phone: [facility] Start: 05-03-2022 End: 05-03-2022 Patient encounter procedure MD Catalina Carson Work Phone: [facility] Start: 05-03-2022 End: 05-03-2022 ambulatory Genevieve Sahu Other [facility] Other Start: 05-03-2022 Office outpatient ne w 45 minutes Genevieve Sahu [facility] Start: 04-11-2022 End: 04-11-2022 ambulatory Jewell Fernandez Other [facility] Other Start: 04-11-2022 Office outpatient ne w 20 minutes Jewell Fernandez [facility] Start: 11-25-2020 End: 11-25-2020 Emergency department patient visit [facility] Start: 11-25-2020 End: 11-25-2020 Emergency department patient visit [facility] ED Comment on above: COVID-19 virus infec [...] Basic metabolic pane l calcium total Morro Lilly Start: 11-25-2020 Blood count complete auto&auto difrntl wbc Morro Lilly Start: 11-25-2020 Us transvaginal Moror Lilly Plan of Treatment Date Care Activity Detail Author Start: 07-24-2024 Patient referral [facility] Work Phone: Start: 11-23-2023 MR Brain WO contrast [facility] Start: 11-23-2023 MRI of head MR head/brain wo con [facility] Start: 07-19-2022 Screening mammograph y of bilateral breasts MM screening mammo BI w/CAD [facility] Start: 07-19-2022 End: 07-19-2022 Patient encounter procedure Departed Clinical [facility] Start: 05-08-2022 [facility] Work Phone: Start: 05-08-2022 [facility] Work Phone: Start: 07-20-2020 Influenza vaccination Flu vaccine (# 1) [place], [place] Start: 2006 Screening for malign ant neoplasm of breast Breast cancer screen [place], [place] Start: 2006 Screening for malign ant neoplasm of colon Colon cancer screen colonoscopy [place], [place] Start: 2006 Shingles Vaccine (1 of 2) Shingles Vaccine (1 of 2) [place], [place] Start: 1996 Diabetes screen Diabetes screen [place], [place] Start: 1996 Lipid panel Lipid screen [place], [place] Start: 1977 Screening for malign ant neoplasm of cervix Cervical cancer screen [place], [place] Start: 1975 DTaP/Tdap/Td vaccine (1 - Tdap) DTaP/Tdap/Td vaccine (1 - Tdap) [place], [place] Start: 1971 HIV screening HIV screen [facility] [place], [place] Start: 1956 Hepatitis C screening Hepatitis C sc reen [place], [place] CT Abdomen and Pelvi s W contrast IV [facility] Patient referral [facility] Work Phone: Immunizations Immunization Date Immunization Notes Care Provider Fa cili 11-14-2021 COVID-19 mRNA Comirnatgeorgie (Pfizer) MD Catalina Carson Work Phone: [facility] 04-04-2021 COVID-19 Adriane Azevedo (Pfizer) MD Catalina Carson Work Phone: [facility] 03-14-2021 COVID-19 Adriane Azevedo (Pfizer) MD Catalina Carson Work Phone: [facility] 01-27-2021 zoster vaccine, live Catalina Carson Other [facility] 09-28-2016 diphtheria, tetanus toxoids and acellular pertussis vaccine, unspecified formulation Catalina Carson Other [facility] Payers Date Payer Category Payer Self-pay [id number] 2019 Unknown [id number] 1958 Medicare [id number] 1955 Unknown [id number] [id number] 1955 Unknown [id number] Medicare Medicare [id number] Medicare Anthem MCR PF [id number] Unknown [employer] [id number] Unknown [id number] [id number] [id number] Unknown [id number] 2.16.8 [id number] Unknown [id number] 2.16.8 [id number] Social History Date Type Detail Facility Tobacco smoking status NHIS Unknown if ever smoked [employer] Sex Assigned At Not on file [employer] Sex Assigned At Sex Assigned At Bir th [facility] Other Start: 05-08-2022 End: 05-08-2022 Tobacco smoking status NHIS Never smoked tobacco (finding) [facility] Start: 1955 Sex Assigned At Female F [facility] Medical Equipment Procedure Code Equipment Code Equipment Origin al Text Equipment Identifier Dates ORIF, fracture, hand Orthopaedic bone screw, non-bioabsorbable, non-sterile ([id number] [facility] Start: 05-08-2022 Goals Date Patient Goal Desired Activity /State Clinical Notes 04-11-2022 to 12-26-2023 Note Date & Type Note Facility 12-26-2023 Evaluation note Encounter Date Diagnosis Assessment Notes Dec, Arthritis of left knee (ICD-10 - M17.12) Dec, Cyst, trinh's knee, left (ICD-10 - M71.22) Dec, Acute pain of left knee (ICD-10 - [...] we will move forward with our treatment. At this time she would like to proceed with an intraarticular left knee injection with 40 mg of Kenalog and 4 cc of Marcaine. This was administered under sterile conditions and patient tolerated it well. If symptoms do not improve will proceed with an MRI of the left knee. . Follow-up as needed The patient has been involved in our cooperative treatment plan and agrees to move forward with treatment at this time. Examination and assessment of this patient was performed by Joi Hernandez NP and patient will continue with the treatment plan per Dr. Stevens, who initiated this treatment plan. Dr. Stevens is present in the office today and providing supervision. [facility] Other 12-18-2023 Evaluation note* Encounter Date Diagnosis Assessment Notes Treatment Notes Treatment Clinical Notes Oct, Acute non-recurrent maxillary sinusitis (ICD-10 - J01.00) Sinus infections [...] verbalized understanding and agreement with treatment plan. [facility] Other 12-15-2023 Evaluation note* Encounter Date Diagnosis [...] as documented in the electronic medical record. [facility] Other 11-20-2023 Evaluation note* Encounter Date Diagnosis Assessment Notes Treatment Notes Treatment Clinical Notes Sep, Primary osteoarthritis of left knee (ICD-10 - M17.12) Pt agrees to referral to ortho for her ongoing knee issues. Sep, Attention-deficit hyperactivity disorder, unspecified type (ICD-10 - F90.9) Recommend Neurology eval to assess adult ADD v. memory issues causing problems focusing and completing tasks [facility] Other 10-17-2023 Evaluation note* Encounter Date Diagnosis [...] of medication and followup in 1 month [facility] Other 11-15-2022 Evaluation note* Encounter Date Diagnosis Assessment Notes Treatment Notes Treatment Clinical Notes Sep, Other specified postprocedural states (ICD-10 - Z98.890) Sep, Displaced fracture o f proximal phalanx of left ring finger, subsequent encounter for fracture with routine healing (ICD-10 - S62.615D) Discussed with patient to continue to progress activity as tolerated. Call with any questions or concerns [facility] Other 08-19-2022 Evaluation note* Encounter Date Diagnosis [...] medrol dose pack sent into patients pharmacy [facility] Other 07-22-2022 Evaluation note* Encounter Date Diagnosis [...] May, Left hand pain (ICD-10 - M79.642) [facility] Other 06-28-2022 Evaluation note* Encounter Date Diagnosis [...] can call with any questions or concerns. [facility] Other 06-15-2022 Evaluation note* Encounter Date Diagnosis Assessment Notes Treatment Notes Treatment Clinical Notes Apr, Left hand pain (ICD-10 - M79.642) Apr, Closed displaced fracture of proximal phalanx of left ring finger, initial encounter (ICD-10 - S62.615A) Patient would like to proceed with surgery patient was informed of the risks and benefits. [facility] Other 05-24-2022 Evaluation note* Encounter Date Diagnosis [...] the ER for worsening symptoms or concerns. [facility] Other [facility]No [facility] Other Evaluation noteNo assessment information available [facility] Work Phone: Evaluation note* Diagnosis Onset Date Resolution Status Irritable bowel syndrome with diarrhea acute Mass of oral cavity acute Abdominal pain acute Change in bowel habits acute Irritable bowel syndrome with diarrhea acute [facility] Work Phone: History general Narrative - Reported* Type Description Date Medical History HTN Medical History Menopause Medical History Urinary Incontinence Medical History Colonoscopy Medical History ulcers Surgical History Carpal Tunnel, Bilateral Surgical History hernia repair with mesh january 182018 Hospitalization History See above [facility] Other [facility] general Narrative - Reported* Type Description Date Medical History HTN Medical History Menopause Medical History Urinary Incontinence Medical History Colonoscopy Medical History ulcers Medical History Skin cancer Surgical History Carpal Tunnel, Bilateral Surgical History hernia repair with mesh january 182018 Surgical History Skin cancer 08/2022 Hospitalization History See above [facility] Other Hospital Discharge instructionsAmbulatory Orders* Referral to Gastroenterology Time Frame: 07/24/24, Location: None Selected [facility] Work Phone: Summary Purpose Family History Relationship Condition Age at Onset Recorded Date/T vi father Hypertension Unknown Not Specified Dementia Unknown Cerebrovascular accident (CVA) Unknown Relationship Condition Age at Onset Recorded Date/T vi father Hypertension Unknown Not Specified Dementia Unknown Cerebrovascular accident (CVA) Unknown Unknown Not Specified Unknown Relationship Condition Age at Onset Recorded Date/T vi father Hypertension Unknown mother Dementia Unknown Cerebrovascular accident (CVA) Unknown Unknown mother Unknown Advance Directives Advance Directive Response Recorded Date/ Time Advance Directives No January 24 2:31pm Advance Directive Response Recorded Date/ Time Advance Directives No January 24 1:31pm Discharge Instructions * Instructions* Morro Lilly MD - 11/25/2020 In 2 weeks you need to see an [employer] physician to have endometrial biopsy done. The lining of your uterus is thicker than it should be. There might be uterine cancer. * Attachments The following attachments cannot be sent through Care Everywhere. * Vaginal Bleeding: Postmenopausal ([place]) * Coronavirus Disease (COVID-19): General Info ([place]) documented in this encounter Assessments Diagnosis COVID-19 virus infection- Primary Postmenopausal bleeding Chief Complaint and Reason for Visit Chief Complaint M79.642 Pain Pain S62.615A S62.615A Z98.890 Screening Chief Complaint Screening Chief Complaint M25.562 r41.840 r41.89 Chief Complaint discuss labs Chief Complaint abd issues, gum issu es Chief Complaint abd issues, gum issu es stomach issues Reason for Visit Irritable bowel synd leila with diarrhea Mass of oral cavity Abdominal pain Change in bowel habits Irritable bowel syndrome with diarrhea Reason for Referral Reason [place] - Fol lowup from [facility], saw Joi Mina - had xrays Diagnosis 1 Primary osteoarthrit is of left knee (M17.12) Referral Organization [facility] [employer] Referring Provider First Name Catalina Referring Provider Last Name Ernestine Referring Provider Specialty [facility] Referred Organization [facility] Referred Provider Sean Darling Referred Address [address] [place],[address] Referred Provider Specialty Orthopedic S urgery Referral Priority Routine General Notes Karina Aleman 12:08:58 PM >received today, faxed P2P Reason *FU 10/16 [place] office - problems focusing and completing tasks. Diagnosis 1 Attention-deficit hy peractivity disorder, unspecified type (F90.9) Referral Organization [facility] [employer] Referring Provider First Name Catalina Referring Provider Last Name Ernestine Referring Provider Specialty [facility] Referred Organization [facility] Referred Provider Dylan Stockton Referred Address [address] [place],[address] Referred Provider Specialty Neurology Referral Priority Routine General Notes Karina Aleman 04:07:47 PM >received today, attachments made, referral faxed Additional Source Comments INFORMATION SOURCE (unrecogn ized section and content) DATE CREATED AUTHOR 11/25/2020 Leyla paul DATE CREATED AUTHOR AUTHOR'S ORGANIZ ATION 11/08/2022 [facility] DATE CREATED AUTHOR AUTHOR'S ORGANIZ ATION 11/28/2023 [facility] Reason for Visit (unrecogniz ed section and content) Reason Comments Vaginal Bleeding Onset 1-2 days [...] Dallas Whitaker DO Attending Provider, Referring Pr ovider Active Team Status: Inactive Member Role Status Dates Catalina Carson MD Primary Care Provider Active Genevieve Sahu MD Attending Provider Active Team Status: Inactive Member Role Status Dates Catalina Carson MD Primary Care Provider Active Joi Hernandez [employer]-C Attending Provider Active Team Status: Inactive Member Role Status Dates Catalina Carson MD Primary Care Provider Active Marylin Doran ANP-BC Attending Provider Active Team Status: Inactive Member Role Status Dates Catalina Carson MD Primary Care Provide r, Attending Provider Active Start: March 05, 2024 End: March 05, 2024 Team Status: Inactive Member Role Status Dates Catalina Carson MD Primary Care Provide r, Attending Provider Active Start: June 12, 2024 End: June 12, 2024 Team Status: Inactive Member Role Status Dates Catalina Carson MD Primary Care Provide r, Attending Provider Active Start: July 24, 2024 End: July 24, 2024 Goals (unrecognized section and content) Goals may [...] BE BASED ON THE PRIMARY CLINICAL RECORDS. [employer] provides no warranty or guarantee of the accuracy or completeness of information in this document.
[2024-07-29 14:27] LABS: Estimated GFR (African America >60 (>=60); Estimated GFR (Non-African Ame 54 (>=60)
== END 2024-07-29 13:59 | disposition home or self-care (01) ==
LOC: CT 13:58
PROVIDERS: PCP Family Medicine; Visit Provider Internal Medicine
DX: K58.0 Irritable bowel syndrome with diarrhea (principal); R10.9 Unspecified abdominal pain; R19.4 Change in bowel habit
CPT/HCPCS: 36415; 74177; 82565; Q9967

== ENCOUNTER 2024-11-27 10:00 | Outpatient (OUT) | payer MEDICARE, SELFPAY ==
[2024-11-27 11:31] LABS: C Reactive Protein 0.61 mg/dL (<=0.50); TSH W/ REFLEX FT4 1.525 uIU/mL (0.358-3.740)
[2024-12-01 14:08] LABS: Calprotectin, Fecal 110 ug/g (0-120)
== END 2024-11-27 10:01 | disposition home or self-care (01) ==
LOC: LAB 10:02
PROVIDERS: PCP Family Medicine; Visit Provider Internal Medicine
DX: K59.00 Constipation, unspecified (principal)
CPT/HCPCS: 36415; 83993; 84443; 86140

== ENCOUNTER 2025-02-11 12:26 | Emergency (ER) | payer MEDICARE, SELFPAY ==
--- OUTSIDE RECORDS SUMMARY | 2025-02-11 12:47 | XMS_ITS | CCD ---
Author Organization [facility] Care Team Providers Care Hand Silvering Supervisor Name Role Phone MORRO LILLY Attending Unavailab [...] OCTAVIO Hernandez Attending Provider Gagandeep Stevens Unavailable MD Catalina Carson Primary Care Provider JESSICA Doran-MARVIN Coulter Attending Provider Joi Hernandez Unavailable MD Catalina Carson Primary Care Provider Self, Referral Attending Provider Unavailable Catalina Carson MD Primary Care Provider [phone] Paul Blair MD Attending Provider [phone] Catalina Carson Primary Care Unavailable Self, Referral Admitting Unavailable Self, Referral Attending Unavailable Catalina Carson Primary Care Unavailable Asaad, Imad Admitting Unavailable Asaad, Imad Attending Unavailable Catalina Carson MD Primary Care Provider Paul Blair MD Attending Provider Allergies Allergy Classification Reported Allergen(s) Allergy Type Date of Onset Reaction(s) Facility (2 sources) patient allergy list reviewed by nurse or physicia Propensity to adverse reactions Comment:Done [facility] Other (2 sources) Allergies Reconciled Propensity to adverse reactions Unknown [facility] Other Medications Current Medications Medication Drug Class(es) [...] Active ascorbic acid 500 mg oral tablet (11 sources) Vitamin C Start: 05-04-2022 take 1 tablet by mouth once daily Ascorbic Acid (Vitamin C) 500 mg Tablet Active 500 MG PO Daily May 04, 2022 12:00am Start: 05-04-2022 take 500 mg by mouth twice jesús ly Ascorbic Acid (Vitamin C) Active 500 MG [...] a day for 10 day(s) Oct, Active Cnwrtkp-Cxyowiqcq-Z inc (9 sources) Start: 05-04-2022 take 2 tablets by mouth once daily in the evening Calcium-Magnesium- Zinc Active 2 TAB PO Every evening May 03, 2022 11:00pm Start: 05-04-2022 take 2 tablets by mo uth once daily in the evening Iialpsu-Quvsyzgkc-Tsov Active 2 TAB PO Every evening May 04, 2022 12:00am Fguvpnt-Bcocjyenr-Tfgh Tablet (2 sources) Start: 05-04-2022 take 2 tablets by mouth once daily in the evening Rouzajr-Tspqnjcgw-Lujm Tablet Active 2 TAB PO Every evening May 04, 2022 12:00am Start: 05-04-2022 take 2 tablets by mo uth once daily in the evening Ixxrymn-Fgrgpanrz-Cxny Tablet Active 2 TAB PO Every evening May 03, 2022 11:00pm diclofenac sodium 75 mg delayed release oral [...] tablet (20 sources) Estrogen Start: 05-04-2022 Estradiol 1 mg Tablet Active 1 MG PO Q48H May 04, 2022 12:00am take 1 tablet by mouth every oth er day Estradiol 0.5 MG 1 tablet Orally qod Active Estradiol Active fluconazole 150 mg oral tablet (6 sources) Azole Antifungal Start: 05-11-2022 Fluconazole 1 50 MG 1 tablet Orally repeat after 3 days if needed Apr, Active inulin 200 mg / lactobacillus rhamnosus gg [id number] unt oral capsule (15 sources) Culturelle - as directed Orally Active losartan potassium 50 mg oral tablet (20 sources) Angiotensin 2 Receptor Terrell Start: 05-08-2024 take 1 tablet by mouth once daily Losartan 50 mg tablet Active 0 .ROUTE .COMPLEX 90 May 08, 2024 8:43am TAKE 1 TABLET BY MOUTH EVERY DAY Start: 05-08-2024 take 1 tablet by lito th once daily Losartan Active 0 .ROUTE .COMPLEX 90 May 08, 2024 8:43am TAKE 1 TABLET BY MOUTH EVERY DAY Start: 04-28-2022 End: 05-08-2024 take 1 tablet by mouth once daily in the morning Losartan 50 mg tablet Discontinued 50 MG PO Every morning May 04, 2022 12:00am May 08, 2024 8:43am take 1 tablet by lito th every twenty-four hours Losartan Potassium 25 MG 1 tablet Orally Once a day Active medroxyPROGESTERone acetate 2.5 mg oral tablet (19 sources) Progestin Start: 05-04-2022 Medroxyprogest erone 2.5 mg Tablet Active 2.5 MG PO Q48H May 04, 2022 12:00am medroxyPROGESTER one Acetate Active Medroxyprogesterone Yordan-Lido (1 source) Medroxyprogester one Yordan-Lido Active methylPREDNISolone 4 mg oral tablet (4 sources) Corticosteroid Start: 2021 Medrol 4 MG as directed Orally for 6 days May, Active Omeprazole 20 mg capsule,delayed release(DR/EC) (2 sources) Start: 2024 take 1 capsule by mouth once daily Omeprazole 20 mg capsule,delayed release(DR/EC) Active 0 .ROUTE .COMPLEX December 02, 2024 9:31am TAKE 1 CAPSULE BY MOUTH EVERY DAY Start: 12-02-2024 take 1 capsule by [facility] once daily Omeprazole 20 mg capsule,delayed release(DR/EC) Active 0 .ROUTE .COMPLEX December 02, 2024 8:31am TAKE 1 CAPSULE BY MOUTH EVERY DAY oxybutynin chloride 5 mg oral tablet (20 sources) Cholinergic Muscarinic Antagonist Start: 05-04-2022 take 5 mg by mouth twice daily Oxybutynin Chloride Active 5 MG PO Twice daily May 04, 2022 12:00am Start: 10-05-2021 take 1 tablet by lito th once daily in the morning Oxybutynin Chloride 5 mg tablet Active 5 MG PO Every morning May 04, 2022 12:00am Oxybutynin Activ e polyethylene glycol 3350 02479 mg powder for oral solution (2 sources) Osmotic Laxative Start: 11-17-2024 Polyethylene Glycol 3350 (Miralax) 17 gram/dose powder Active 17 GM PO Daily November 17, 2024 1:00am Psyllium (10 sources) Metamucil 48.57 % as directed Orally Active Completed/Discontinued Medications Medication Drug Class(es) Dates Sig (Normalized) Sig (Original) acetaminophen 325 mg / HYDROcodone bitartrate 5 mg oral tablet (11 sources) Opioid Agonist Start: 05-08-2022 End: 03-05-2024 take 1 tablet by mouth every four to six hours as needed for pain Hydrocodone-Acetam inophen 5-325 mg tablet Discontinued 1 - 2 TAB PO EVERY 4-6 HOURS as needed for pain 30 4 May 08, 2022 March 05, 2024 11:10am Calcium & Magnesium Carbonates (3 sources) Calcium & Magnesium Carbonates Not-Taking cetirizine hydrochloride 10 mg oral capsule (19 sources) Histamine-1 Receptor Antagonist Start: 02-09-2025 End: 02-10-2025 take 1 capsule by mouth once daily as needed Cetirizine (Zyrtec) 10 mg capsule Discontinued 10 MG PO Daily as needed February 09, 2025 12:00am February 10, 2025 1:52pm Start: 05-04-2022 End: 03-05-2024 take 1 tablet by mouth once daily Cetirizine 10 mg Tablet Discontinued 10 MG PO Daily May 04, 2022 12:00am March 05, 2024 11:09am ZyrTEC Allergy A ctive doxycycline hyclate 100 mg oral tablet (11 sources) Tetracycline-class Drug Start: 05-08-2022 End: 03-05-2024 take 1 tablet by mouth twice daily Doxycycline Hyclate 100 mg tablet Discontinued 100 MG PO Twice daily 10 5 May 08, 2022 12:00am March 05, 2024 11:10am Golo (11 sources) Start: 05-04-2022 End: 03-05-2024 take 1 tablet by mouth three times daily Golo Discontinued 1 TAB PO Three times daily May 03, 2022 11:00pm March 05, 2024 10:10am Start: 05-04-2022 End: 03-05-2024 take 1 tablet by mouth three times daily Golo Discontinued 1 TAB PO Three times daily May 04, 2022 12:00am March 05, 2024 11:10am Start: 06-16-2022 take 1 tablet by lito th three times daily Golo Active 1 TAB PO Three times daily May 03, 2022 11:00pm Start: 05-04-2022 take 1 tablet by lito th three times daily Golo Active 1 TAB PO Three times daily May 04, 2022 12:00am hyoscyamine sulfate 0.125 mg oral tablet (5 sources) Start: 06-12-2024 End: 11-27-2024 Hyoscyamine Sulfate (Levsin) 0.125 mg tablet Discontinued 0.125 MG PO 2-4 TIMES PER DAY as needed for dyspepsia June 12, 2024 12:00am November 27, 2024 10:41am lactobacillus rhamnosus gg [id number] unt oral capsule (1 source) Start: 02-09-2025 End: 02-10-2025 Lactobacillus Rhamnosus Gg 10 billion cell capsule Discontinued PO As Directed February 09, 2025 12:00am February 10, 2025 1:55pm FreeTextSig: as directed Orally; Note: Source Status: Taking; Provider: Ernestine Arnold ( ) Lisinopril (3 sources) Angiotensin Converting Enzyme Inhibitor Lisinopril Not-Taking metroNIDAZOLE 500 mg oral tablet (3 sources) Nitroimidazole Antimicrobial Start: 03-10-2019 take 1 tablet by mouth every eight hours metroNIDAZOLE 500 MG 1 tablet Orally tid for 10 day(s) Feb, Not-Taking omeprazole 20 mg delayed release oral capsule (17 sources) Proton Pump Inhibitor Start: 06-12-2024 End: 12-02-2024 take 1 capsule by mouth once daily Omeprazole 20 mg capsule,delayed release(DR/EC) Discontinued 20 MG PO Daily July 08, 2024 2:51pm December 02, 2024 9:31am PriLOSEC Active Probiotic For Digestive Health (11 sources) Start: 05-04-2022 End: 11-27-2024 take 2 tablets by mouth once daily in the evening Probiotic For Digestive Health Discontinued 2 TAB PO Every evening May 04, 2022 12:00am November 27, 2024 10:41am Start: 05-04-2022 End: 11-27-2024 take 2 tablets by mouth once daily in the evening Probiotic For Digestive Health Discontinued 2 TAB PO Every evening May 03, 2022 11:00pm November 27, 2024 9:41am Start: 05-04-2022 take 2 tablets by mo uth once daily in the evening Probiotic For Digestive Health Active 2 TAB PO Every evening May 03, 2022 11:00pm Start: 05-04-2022 take 2 tablets by mo uth once daily in the evening Probiotic For Digestive Health Active 2 TAB PO Every evening May 04, 2022 12:00am Sod Picosulf-Mag Ox-Citric Ac (2 sources) Start: 11-17-2024 End: 02-10-2025 take 1 mL by mouth once daily Sod Picosulf-Mag Ox-Citric Ac (Clenpiq) 10 mg-3.5 gram- 12 gram/175 mL solution Discontinued 175 ML PO Daily 11 19November 17, 2024 1:00am February 10, 2025 1:53pm please follow instructions provided by Dr. Dixon's office. Start: 11-17-2024 take 1 mL by mouth once daily Sod Picosulf-Mag Ox-Citric Ac (Clenpiq) 10 mg-3.5 gram- 12 gram/175 mL solution Active 175 ML PO Daily 11 19November 17, 2024 12:00am please follow instructions provided by Dr. Dixon's office. triamcinolone acetonide 40 mg/ml injectable suspension (4 sources) Corticosteroid Start: 12-26-2023 Kenalog-40 Dec, 40 mg Start: 10-24-2018 Triamcinolone Acetonide 0.025 % 1 application to affected area Externally Twice a day for 5 days Oct, Not-Taking Problems Active Problems Problem Classification Problem Date Documented Da te Episodic/Chronic Abdominal pain (18 sources) Unspecified abdominal pain; Translations: [Generalized abdominal [...] type Chronic Diseases of mouth; excluding dental (6 sources) Mass of oral cavity; Translations: [Other [...] reflux finding] Onset: 06-28-2015 Chronic Essential hypertension (14 sources) Essential (primary) hypertension; Translations: [Essential hypertension] Onset: 11-01-2022 Chronic Fracture of upper limb (18 sources) Nondisplaced fracture of proximal phalanx of [...] left knee Episodic Other connective tissue disease (5 sources) Muscle pain; Translations: [Myalgia, unspecified site] 03-11-2024 Episodic Other gastrointestinal disorders (11 sources) Irritable bowel syndrome with diarrhea; Translations: [Irritable bowel syndrome with diarrhea] 06-12-2024 Chronic Other gastrointestinal disorders (4 sources) Irritable bowel syndrome with diarrhea; Translations: [Irritable bowel syndrome] 06-12-2024 Chronic Other gastrointestinal disorders (4 sources) Altered bowel function; Translations: [Change in bowel habit] 07-24-2024 Episodic Other gastrointestinal disorders (4 sources) Change in bowel habit; Translations: [Other symptoms involving digestive system] 07-24-2024 Episodic Other gastrointestinal disorders (2 sources) Constipation; Translations: [Constipation, unspecified] 11-17-2024 Episodic Other gastrointestinal disorders (2 sources) Constipation, unspecified; Translations: [Constipation, unspecified] 11-17-2024 Episodic Other gastrointestinal disorders (1 source) Other constipation; Translations: [Other constipation] Onset: 12-10-2024 Episodic Other liver diseases (15 sources) Liver cyst; Translations: [Other specified diseases of liver] Chronic Other liver diseases (15 sources) Disease of liver; Translations: [Liver disease, unspecified] Chronic Other nervous system disorders (11 sources) Pain in limb; Translations: [Other acute [...] postprocedural states Onset: 06-09-2022 Resolved: 07-07-2022 Episodic Spondylosis; intervertebral disc disorders; other back problems (2 sources) Pain in the coccyx; Translations: [Sacrococcygeal disorders, not elsewhere classified] 02-10-2025 Episodic Unclassified (7 sources) Acute candidiasis of vulva and vagina; Translations: [Acute candidiasis of vulva and vagina] Viral infection (2 sources) Other specified viral [...] sources) Diarrhea; Translations: [Diarrhea] Onset: 09-17-2018 Episodic Other screening for suspected conditions (not mental disorders or infectious disease) (1 source) Encounter for screening mammogram for malignant neoplasm of breast; Translations: [Encounter for screening mammogram for malignant neoplasm of breast] Onset: 08-04-2024 Episodic Residual codes; unclassified (7 sources) Sleep [...] and Corynebacterium diphtheriae antigens (medicinal product); Translations: [Egqlgexmxu-iwmbobb-v ertussis, combined [DTP] [DtaP]] Onset: 09-28-2016 Results Test Name Value Interpretation Reference Range Facility Laboratory - Chemistry and C hemistry - challengeon 11-27-2024 TSH Qn 1.525 m[IU]/L 0.358-3.740 [facility] No Panel Informationon 11-27 C-Reactive Protein, Quantitative 0.61 mg/dL High <=0.50 [facility] Stool Calprotectin 110 ug/g 0-120 [facility] Comment on above: Concentration Interp retation Follow-Up< 5 - 50 ug/g Normal None>50 -120 ug/g Borderline Re-evaluate in 4-6 weeks >120 ug/g Abnormal Repeat as clinically indicatedPerformed at: [facility] Lab[address] [id number] Director: Elma Oshea MD, Phone: [phone] MM screening mammo BI w/CADo n 08-05-2024 MM screening mammo BI w/CAD [facility] [place] [address] [place] [address] Mammography Report Signed Patient: Nany Carmen MR#: [id number] 1 : 1955 Acct:[id number] Age/Sex: 69 / F ADM Date: 08/04/24 Loc: [place] Room: Type: [facility] Attending Dr: Referral Self Copies to: Catalina Carson MD SELF,REFERRAL Ordering Provider: SELF,REFERRAL Date of Service: 08/04/24 MM/MM screening mammo BI w/CAD: SCREENING BILATERAL Screening Full Field digital mammogram with 3-D imaging. Full field digital CC and MLO imaging performed. CAD utilized. COMPARISON: 07/25/2023 HISTORY: Annual screening BREAST COMPOSITION: Scattered fibroglandular densities of the breast parenchyma identified BREAST CALCIFICATIONS: Benign calcifications present. VASCULAR CALCIFICATIONS: None ARCHITECTURAL DISTORTION: None BREAST NODULE: None AXILLARY LYMPH NODES: Normal POSTSURGICAL CHANGES: None MM/MM screening mammo BI w/CAD IMPRESSION: No mammographic evidence of malignancy. Routine follow-up recommended in one year. RESULT CODE: 2 Benign Findings(s) DENSITY CODE: 2 (approximately 25-50% glandular) FOLLOW UP: 1YR THE FALSE-NEGATIVE RATE OF MAMMOGRAPHY IS APPROXIMATELY 10%. IMAGING OF A PALPABLE ABNORMALITY MUST BE BASED ON CLINICAL GROUNDS. PATIENT WAS ENTERED INTO A REMINDER SYSTEM WITH A TARGET DUE DATE FOR THE NEXT MAMMOGRAM. Impression dictated by: Miguelangel Alonzo M.D.08/05/2024 8:18 AM Dictation Location: S01 Transcribed By: HEMANT 08/05/24817 Dictated By: Miguelangel Alonzo DO 08/05/2414 Signed By: 08/05/24817 Normal [facility] Estimated glomerular filtrat ion rate (GFR) non- Americanon 07-29-2024 GFR/1.73 sq M.predicted among non-blacks MDRD (S/P/Bld) [Vol rate/Area] 54 mL/min/{1.73_m2} Low >=60 [facility] Laboratory - Chemistry and C hemistry - challengeon 07-29-2024 Creatinine [Mass/Vol] 1.02 mg/dL 0.55-1.02 [facility] GFR/1.73 sq M.predicted MDRD (S/P/Bld) [Vol rate/Area] mL/min/{1.73_m2} >=60 [facility] AMYLASEon 10-30-2022 Amylase [Catalytic activity/Vol] 20 U/L Critically low 25-115 [facility] Comment on above: Performed By: #### A MY, LIPA, CMP #### [facility] [address] [place] [address] Dr. Nunu Newman CBC AUTO DIFFon 10-30-2022 BASO # 0.0 103/ul Normal 0.0-0.1 [facility] Comment on above: Performed By: #### C BC #### [facility] [address] [address] [address] Nunu Newman Basophils/100 WBC (Bld) 0.5 % Normal 0.2-2.0 [facility] Comment on above: Performed By: #### C BC #### [facility] [address] [address] [address] Nunu Newman EO # 0.0 103/ul Normal 0.0-0.7 [facility] Comment on above: Performed By: #### C BC #### [facility] [address] [place] [address] Dr. Nunu Newman Eosinophils/100 WBC (Bld) 0.2 % Critically low 0.9-7.0 [facility] Comment on above: Performed By: #### C BC #### [facility] [address] [address] [address] Nunu Newman Erythrocyte distribution width (RBC) [Ratio] 12.7 % Normal 11.0-15.0 [facility] Comment on above: Performed By: #### C BC #### [facility] [address] [place] [address] Dr. Nunu Newman Hematocrit (Bld) [Volume fraction] 39.7 % Normal 36.0-48.0 [facility] Comment on above: Performed By: #### C BC #### [facility] [address] [place] [address] Dr. Nunu Newman Hemoglobin (Bld) [Mass/Vol] 13.6 g/dL Normal 12.0-16.0 [facility] Comment on above: Performed By: #### C BC #### [facility] [address] [place] [address] Dr. Nunu Newman IG # 0.02 10e3/ul Normal 0.00-0.03 [facility] Comment on above: Performed By: #### C BC #### [facility] [address] [place] [address] Dr. Nunu Newman IG % 0.3 % Normal 0.0-0.5 [facility] Comment on above: Performed By: #### C BC #### [facility] [address] [place] [address] Dr. Nunu Newman LYMPH # 0.9 103/ul Critically low 1.2-3.8 [facility] Comment on above: Performed By: #### C BC #### [facility] [address] [place] [address] Dr. Nunu Newman Lymphocytes/100 WBC (Bld) 14.6 % Critically low 20.5-60.0 [facility] Comment on above: Performed By: #### C BC #### [facility] [address] [place] [address] Dr. Nunu Newman MANUAL DIFF REQ NO Normal [facility] Comment on above: Performed By: #### C BC #### [facility] [address] [place] [address] Dr. Nunu eNwman MCH (RBC) [Entitic mass] 29.1 pg Normal 26.7-34.0 [facility] Comment on above: Performed By: #### C BC #### [facility] [address] [place] [address] Dr. Nunu Newman MCHC (RBC) [Mass/Vol] 34.3 g/dL Normal 29.9-35.2 [facility] Comment on above: Performed By: #### C BC #### [facility] [address] [place] [address] Dr. Nunu Newman MCV (RBC) [Entitic vol] 84.8 fL Normal 81.0-99.0 [facility] Comment on above: Performed By: #### C BC #### [facility] [address] [place] [address] Dr. Nunu Newman MONO # 0.8 103/ul Normal 0.3-0.8 [facility] Comment on above: Performed By: #### C BC #### [facility] [address] [place] [address] Dr. Nunu Newman Monocytes/100 WBC (Bld) 11.8 % Normal 1.7-12.0 [facility] Comment on above: Performed By: #### C BC #### [facility] [address] [place] [address] Dr. Nunu Newman NEUT # 4.7 103/ul Normal 1.4-6.5 [facility] Comment on above: Performed By: #### C BC #### [facility] [address] [place] [address] Dr. Nunu Newman Neutrophils/100 WBC (Bld) 72.6 % Normal 43.0-75.0 [facility] Comment on above: Performed By: #### C BC #### [facility] [address] [place] [address] Dr. Nunu Newman Platelet mean volume (Bld) [Entitic vol] 8.8 fL Critically low 9.5-13.5 [facility] Comment on above: Performed By: #### C BC #### [facility] [address] [place], [place] [address] Dr. Nunu Newman PLT 200 103/ul Normal 150-450 [facility] Comment on above: Performed By: #### C BC #### [facility] [address] [address] [address] Nunu Newman RBC 4.68 106/ul Normal 4.20-5.40 [facility] Comment on above: Performed By: #### C BC #### [facility] [address] [address] [address] Nunu Newman WBC 6.4 103/ul Normal 4.0-11.0 [facility] Comment on above: Performed By: #### C BC #### [facility] [address] [address] [address] ABD/PELVIS WO CONon [...] KAN BAXTER Date: 2022-10-30 10:50 Normal [facility] ER URINE PROFILEon 2 Bilirubin Ql (U) SMALL Abnormal NEGATIVE [facility] Comment on above: Performed By: #### U MICRO, ERUR #### [facility] [address] [address] [address] Nunu Newman Clarity (U) CLEAR Normal CLEAR [facility] Comment on above: Performed By: #### U MICRO, ERUR #### [facility] [address] [address] [address] Nunu Newman Color (U) YELLOW Normal YELLOW [facility] Comment on above: Performed By: #### U MICRO, ERUR #### [facility] [address] [place] [address] Dr. Nunu SAMPSON A micrscopic examination will be performed if indicated. Normal [facility] Comment on above: Performed By: #### U MICRO, ERUR #### [facility] [address] [address] [address] Nunu Newman Glucose Ql (U) Negative Normal NEGATIVE [facility] Comment on above: Performed By: #### U MICRO, ERUR #### [facility] [address] [address] [address] Nunu Newman Hemoglobin Ql (U) TRACE-INTACT Abnormal NEGATIVE [facility] Comment on above: Performed By: #### U MICRO, ERUR #### [facility] [address] [address] [address] Nunu Newman Ketones Ql (U) 15 mg/dl Abnormal NEGATIVE [facility] Comment on above: Performed By: #### U MICRO, ERUR #### [facility] [address] [address] [address] Nunu Newman LEUKOCYTES Negative Normal NEGATIVE [facility] Comment on above: Performed By: #### U MICRO, ERUR #### [facility] [address] [address] [address] Nunu Newman Nitrite Ql (U) Negative Normal NEGATIVE [facility] Comment on above: Performed By: #### U MICRO, ERUR #### [facility] [address] [place] [address] Dr. Nunu Newman pH (U) 6.0 [pH] Normal 5-9 [facility] Comment on above: Performed By: #### U MICRO, ERUR #### [facility] [address] [place] [address] Dr. Nunu Newman SPEC GRAVITY 1.010 Normal 1.005-<=1.02 5 [facility] Comment on above: Performed By: #### U MICRO, ERUR #### [facility] [address] [place] [address] Dr. Nunu Newman UA PROTEIN TRACE Normal NEGATIVE/ TRACE [facility] Comment on above: Performed By: #### U MICRO, ERUR #### [facility] [address] [place] [address] Dr. Nunu Newman UR MICRO IND INDICATED Normal [facility] Comment on above: Performed By: #### U MICRO, ERUR #### [facility] [address] [place] [address] Dr. Nunu Newman Urobilinogen Qn (U) 0.2 {Anish'U}/dL Normal 0.2 - 1. 0 [facility] Comment on above: Performed By: #### U MICRO, ERUR #### [facility] [address] [place] [address] Dr. Nunu Newman GI PANEL (PCR)on 10-30-2022 Adenovirus F 40/41 Not detected Normal NOT DETECTED [facility] Comment on above: Performed By: #### G IPANEL #### [facility] [address] [place] [address] Dr. Nunu Newman Astrovirus Not detected Normal NOT DETECTED [facility] Comment on above: Performed By: #### G IPANEL #### [facility] [address] [place] [address] Dr. Nunu Newman C. Diff toxin A/B Not detected Normal NOT DETECTED [facility] Comment on above: Performed By: #### G IPANEL #### [facility] [address] [place] [address] Dr. Nunu Newman Campylobacter Detected Critically abnormal NOT DETECTED [facility] Comment on above: Performed By: #### G IPANEL #### [facility] [address] [address] [address] Nunu Newman Cryptosporidium Not detected Normal NOT DETECTED [facility] Comment on above: Performed By: #### G IPANEL #### [facility] [address] [address] [address] Nunu Newman Cyclos. Cayetanensis Not detected Normal NOT DETECTED [facility] Comment on above: Performed By: #### G IPANEL #### [facility] [address] [address] [address] Nunu Newman E. Coli O157 Not Applicable Normal Not Applicable [facility] Comment on above: Performed By: #### G IPANEL #### [facility] [address] [place] [address] Dr. Nunu Newman E. histolytica Not detected Normal NOT DETECTED [facility] Comment on above: Performed By: #### G IPANEL #### [facility] [address] [place] [address] Dr. Nunu Newman EAEC Not detected Normal NOT DETECTED [facility] Comment on above: Performed By: #### G IPANEL #### [facility] [address] [place] [address] Dr. Nunu Newman EIEC Not detected Normal NOT DETECTED [facility] Comment on above: Performed By: #### G IPANEL #### [facility] [address] [place] [address] Dr. Nunu Newman EPEC Not detected Normal NOT DETECTED [facility] Comment on above: Performed By: #### G IPANEL #### [facility] [address] [place] [address] Dr. Nunu Newman ETEC Not detected Normal NOT DETECTED [facility] Comment on above: Performed By: #### G IPANEL #### [facility] [address] [place] [address] Dr. Nunu Guevara. Lamblia Not detected Normal NOT DETECTED [facility] Comment on above: Performed By: #### G IPANEL #### [facility] [address] [address] [address] Nunu STARKEY CONTROLS PASSED Normal [facility] Comment on above: Performed By: #### G IPANEL #### [facility] [address] [address] [address] Nunu [facility] HEADER GI PANEL BACTERIA Normal [facility] Comment on above: Performed By: #### G IPANEL #### [facility] [address] [address] [address] Nunu EISENBERG ECOLI GI PANEL DIARRHEAGENIC E.COLI / SHIGELLA Normal [facility] Comment on above: Performed By: #### G IPANEL #### [facility] [address] [address] [address] Nunu EISENBERG INFO SEE BELOW Normal [facility] Comment on above: Result Comment: EAEC - Enteroaggregative E. Coli EPEC- Enteropathogenic E. Coli ETEC- Enterotoxigenic E. Coli lt/st STEC- Shigella-like toxin-producing E. Coli stx1/stx2 EIEC- Shigella/Enteroinvasive E. Coli Performed By: #### G IPANEL #### [facility] [address] [place] [address] Dr. Nunu EISENBERG PARASITES GI PANEL PARASITES Normal [facility] Comment on above: Performed By: #### G IPANEL #### [facility] [address] [address] [address] Nunu EISENBERG VIRUS GI PANEL VIRUSES Normal [facility] Comment on above: Performed By: #### G IPANEL #### [facility] [address] [address] [address] Nunu Newman Norovirus GI/GII Not detected Normal NOT DETECTED [facility] Comment on above: Performed By: #### G IPANEL #### [facility] [address] [place] [address] Dr. Nunu Newman P. Shigelloides Not detected Normal NOT DETECTED [facility] Comment on above: Performed By: #### G IPANEL #### [facility] [address] [address] [address] Nunu Newman Rotavirus A Not detected Normal NOT DETECTED [facility] Comment on above: Performed By: #### G IPANEL #### [facility] [address] [place] [address] Dr. Nunu Newman Salmonella Not detected Normal NOT DETECTED [facility] Comment on above: Performed By: #### G IPANEL #### [facility] [address] [place] [address] Dr. Nunu Newman Sapovirus Not detected Normal NOT DETECTED [facility] Comment on above: Performed By: #### G IPANEL #### [facility] [address] [place] [address] Dr. Nunu Newman STEC Not detected Normal NOT DETECTED [facility] Comment on above: Performed By: #### G IPANEL #### [facility] [address] [place] [address] Dr. Nnuu Newman Vibrio Not detected Normal NOT DETECTED [facility] Comment on above: Performed By: #### G IPANEL #### [facility] [address] [place] [address] Dr. Nunu Newman Vibrio Cholera Not detected Normal NOT DETECTED [facility] Comment on above: Performed By: #### G IPANEL #### [facility] [address] [place] [address] Dr. Nunu Newman Y. Enterocolitica Not detected Normal NOT DETECTED [facility] Comment on above: Performed By: #### G IPANEL #### [facility] [address] [place] [address] Dr. Nunu Newman LACTATE/LACTIC ACIDon 2021 Lactate [Moles/Vol] 0.9 mmol/L Normal 0.4-1.9 [facility] Comment on above: Performed By: #### L ACT #### [facility] [address] [place] [address] Dr. Nunu Newman LIPASEon 10-30-2022 Lipase [Catalytic activity/Vol] 114.0 U/L Normal 73.0-393.0 [facility] Comment on above: Performed By: #### A MY, LIPA, CMP #### [facility] [address] [place] [address] Dr. Nunu Newman PROF 14(COMP METB)on 022 Albumin [Mass/Vol] 3.0 g/dL Critically low 3.4-5.0 [facility] Comment on above: Performed By: #### A MY, LIPA, CMP #### [facility] [address] [address] [address] Nunu Newman Albumin/Globulin [Mass ratio] 0.7 {ratio} Normal [facility] Comment on above: Performed By: #### A MY, LIPA, CMP #### [facility] [address] [place] [address] Dr. Nunu Newman ALP [Catalytic activity/Vol] 53 U/L Normal 46-116 [facility] Comment on above: Performed By: #### A MY, LIPA, CMP #### [facility] [address] [place] [address] Dr. Nunu Newman ALT [Catalytic activity/Vol] 20 U/L Normal 14-59 [facility] Comment on above: Performed By: #### A MY, LIPA, CMP #### [facility] [address] [place] [address] Dr. Nunu Newman Anion gap [Moles/Vol] 12.4 mmol/L Normal [facility] Comment on above: Performed By: #### A MY, LIPA, CMP #### [facility] [address] [place] [address] Dr. Nunu Newman AST [Catalytic activity/Vol] 21 U/L Normal 15-37 [facility] Comment on above: Performed By: #### A MY, LIPA, CMP #### [facility] [address] [place] [address] Dr. Nunu Newman Bilirubin [Mass/Vol] 0.4 mg/dL Normal 0.2-1.0 [facility] Comment on above: Performed By: #### A MY, LIPA, CMP #### [facility] [address] [place] [address] Dr. Nunu Newman Calcium [Mass/Vol] 8.6 mg/dL Normal 8.5-10.1 [facility] Comment on above: Performed By: #### A OSCAR HOGAN, CMP #### [facility] [address] [address] [address] Nunu Newman Chloride [Moles/Vol] 100 mmol/L Normal 98-107 [facility] Comment on above: Performed By: #### A OSCAR HOGAN, CMP #### [facility] [address] [address] [address] Nunu Newman CO2 [Moles/Vol] 27.0 mmol/L Normal 21.0-32.0 [facility] Comment on above: Performed By: #### A OSCAR HOGAN, CMP #### [facility] [address] [place] [address] Dr. Nunu Newman Creatinine [Mass/Vol] 0.90 mg/dL Normal 0.55-1.02 [facility] Comment on above: Performed By: #### A OSCAR HOGAN, CMP #### [facility] [address] [place] [address] Dr. Nunu Newman EGFR-AF KOSOVAN >60 Normal >=60 [facility] Comment on above: Performed By: #### A OSCAR HOGAN, CMP #### [facility] [address] [place] [address] Dr. Nunu Newman EGFR-NON AF KOSOVAN >60 Normal >=60 [facility] Comment on above: Performed By: #### A OSCAR HOGAN, CMP #### [facility] [address] [place] [address] Dr. Nunu Newman Globulin (S) [Mass/Vol] 4.1 g/dL Normal [facility] Comment on above: Performed By: #### A OSCAR HOGAN, CMP #### [facility] [address] [place] [address] Dr. Nunu Newman Glucose [Mass/Vol] 112 mg/dL Critically high 74-106 [facility] Comment on above: Performed By: #### A OSCAR HOGAN, CMP #### [facility] [address] [place] [address] Dr. Nunu Newman Potassium [Moles/Vol] 3.4 mmol/L Critically low 3.5-5.1 [facility] Comment on above: Performed By: #### A OSCAR HOGAN, CMP #### [facility] [address] [address] [address] Nunu Newman Protein [Mass/Vol] 7.1 g/dL Normal 6.4-8.2 [facility] Comment on above: Performed By: #### A OSCAR HOGAN, CMP #### [facility] [address] [address] [address] Nunu Newman Sodium [Moles/Vol] 136 mmol/L Normal 136-145 [facility] Comment on above: Performed By: #### A OSCAR HOGAN, CMP #### [facility] [address] [place] [address] Dr. Nunu Newman Urea nitrogen [Mass/Vol] 14.0 mg/dL Normal 7.0-18.0 [facility] Comment on above: Performed By: #### A OSCAR HOGAN, CMP #### [facility] [address] [place] [address] Dr. Nunu Newman Urea nitrogen/Creatinine [Mass ratio] 15.6 mg/mg Normal [facility] Comment on above: Performed By: #### A OSCAR HOGAN, CMP #### [facility] [address] [place] [address] Dr. Nunu Newman URINE MICROSCOPIC ONLYon BACTERIA NONE SEEN Normal NONE SEEN [facility] Comment on above: Performed By: #### U MICRO, ERUR #### [facility] [address] [place] [address] Dr. Nunu Newman Bacteria identified Cx Nom (U) NOT INDICATED Normal [facility] Comment on above: Performed By: #### U MICRO, ERUR #### [facility] [address] [place] [address] Dr. Nunu Newman CAST NONE SEEN Normal NONE SEEN [facility] Comment on above: Performed By: #### U MICRO, ERUR #### [facility] [address] [address] [address] Nunu Newman Crystals LM Nom (Urine sed) NONE SEEN Normal NONE SEEN [facility] Comment on above: Performed By: #### U MICRO, ERUR #### [facility] [address] [address] [address] Nunu Newman Epithelial cells LM Ql (Urine sed) FEW Abnormal NONE SEEN /RARE [facility] Comment on above: Performed By: #### U MICRO, ERUR #### [facility] [address] [address] [address] Nunu Newman MUCOUS NONE SEEN Normal NONE SEEN [facility] Comment on above: Performed By: #### U MICRO, ERUR #### [facility] [address] [place] [address] Dr. Nunu Newman RBC 0-2 Normal 0-2 [facility] Comment on above: Performed By: #### U MICRO, ERUR #### [facility] [address] [place] [address] Dr. Nunu Newman WBC NONE SEEN Normal NONE SEEN [facility] Comment on above: Performed By: #### U MICRO, ERUR #### [facility] [address] [place] [address] Dr. Nunu Newman XR hand LT min 3V*on 022 XR hand LT min 3V* [facility] [employer] Other XR hand LT min 3V* [facility] [employer] Other XR hand LT min 3V* [address] [place] [address] [employer] Other XR hand LT min 3V* [place] [address] [employer] Other XR hand LT min 3V* XRay Report [employer] Other XR hand LT min 3V* Signed [employer] Other XR hand LT min 3V* Patient: Nany Carmen MR#: [id number] [employer] Other XR hand LT min 3V* 1 [employer] Other XR hand LT min 3V* : 1955 Acct:[id number] [employer] Other XR hand LT min 3V* Age/Sex: 67 / F ADM Date: 06/09/22 [employer] Other XR hand LT min 3V* Loc: [facility] Room: Type : [facility] [employer] Other XR hand LT min 3V* Attending Dr: Ginna Sahu MD [employer] Other XR hand LT min 3V* Copies to: Genevieve Sahu MD [employer] Other XR hand LT min 3V* Ordering Provider: Genevieve Sahu MD [employer] Other XR hand LT min 3V* Date of Service: 06/09/22 [employer] Other XR hand LT min 3V* XR/XR hand LT min 3V*: Closed displaced fracture of proximal phalanx of [employer] Other XR hand LT min 3V* left ring f [employer] Other XR hand LT min 3V* 4 viewsLEFT hand plain film [employer] Other XR hand LT min 3V* COMPARISON:05/16/22 [employer] Other XR hand LT min 3V* HISTORY:Status post ORIF LEFT 4th proximal interphalangeal fracture [employer] Other XR hand LT min 3V* Fixation hardware intact. Continued healing of the fracture of the proximal 4th phalanx present. [employer] Other XR hand LT min 3V* Bony alignment is unchanged. [employer] Other XR hand LT min 3V* XR/XR hand LT min 3V* [employer] Other XR hand LT min 3V* IMPRESSION:Healing fracture. No hardware failure. [employer] Other XR hand LT min 3V* Impression dictated by: Miguelangel Alonzo M.D.06/09/2022 1:13 PM [employer] Other XR hand LT min 3V* Dictation Location: [place] [address] [employer] Other XR hand LT min 3V* Transcribed By: PWS 06/09/22 1313 [employer] Other XR hand LT min 3V* Dictated By: Miguelangel Alonzo DO 06/09/22 1312 [employer] Other XR hand LT min 3V* Signed By: [employer] Other XR hand LT min 3V* 06/09/22 1313 [facility] [employer] Other XR hand LT min 3V*on 022 XR hand LT min 3V* [facility] [employer] Other XR hand LT min 3V* [facility] [employer] Other XR hand LT min 3V* [address] [place] [address] [employer] Other XR hand LT min 3V* [place] [address] [employer] Other XR hand LT min 3V* XRay Report [employer] Other XR hand LT min 3V* Signed [employer] Other XR hand LT min 3V* Patient: Nany Carmen MR#: [id number] [employer] Other XR hand LT min 3V* 1 [employer] Other XR hand LT min 3V* : 1955 Acct:[id number] [employer] Other XR hand LT min 3V* Age/Sex: 67 / F ADM Date: 05/16/22 [employer] Other XR hand LT min 3V* Loc: [facility] Room: Type : [facility] [employer] Other XR hand LT min 3V* Attending Dr: Ginna Sahu MD [employer] Other XR hand LT min 3V* Copies to: Genevieve Sahu MD [employer] Other XR hand LT min 3V* Ordering Provider: Genevieve Sahu MD [employer] Other XR hand LT min 3V* Date of Service: 05/16/22 [employer] Other XR hand LT min 3V* XR/XR hand LT min 3V*: Closed displaced fracture of proximal phalanx of [employer] Other XR hand LT min 3V* left ring f [employer] Other XR hand LT min 3V* XR hand LT min 3V* 05/16/2022 1:23 PM [employer] Other XR hand LT min 3V* SIGNS AND SYMPTOMS: Closed displaced fracture of proximal phalanx of left ring finger, follow-up [employer] Other XR hand LT min 3V* PROTOCOL: Frontal, lateral, and oblique radiographs of the left hand [employer] Other XR hand LT min 3V* COMPARISON: 05/08/2022 [employer] Other XR hand LT min 3V* FINDINGS: [employer] Other XR hand LT min 3V* There has been screw fixation across a midshaft fracture of the proximal phalanx of the fourth [employer] Other XR hand LT min 3V* digit. Healing remains incomplete. There is soft tissue swelling throughout the fourth digit. No [employer] Other XR hand LT min 3V* hardware complicatio n or change in alignment. [employer] Other XR hand LT min 3V* XR/XR hand LT min 3V* [employer] Other XR hand LT min 3V* IMPRESSION: [employer] Other XR hand LT min 3V* Status post hardware fixation across a fracture involving the shafts of the fourth proximal phalanx [employer] Other XR hand LT min 3V* without hardware complication or change in alignment. Healing remains incomplete. [employer] Other XR hand LT min 3V* Impression dictated by: Chente Crook M.D.05/16/2022 2:34 PM [employer] Other XR hand LT min 3V* Dictation Location: [place] [address] [employer] Other XR hand LT min 3V* Transcribed By: HEMANT 05/16/22 [facility] [employer] Other XR hand LT min 3V* Dictated By: Chente Crook II, MD 05/16/22 [facility] [employer] Other XR hand LT min 3V* Signed By: [employer] Other XR hand LT min 3V* 05/16/[address] [place] [address] [employer] Other Albumin [Mass/volume] in Ser um or PlasmaOrdered By: Genevieve Sahu on 05-04-2022 Albumin [Mass/Vol] 3.6 g/dL 3.2-5.5 [facility] Basophils Auto (Bld) [#/Vol] Ordered By: Genevieve Sahu on 05-04-2022 Basophils (Bld) [#/Vol] 0.0 10*3/uL 0.0-0.2 [facility] Basophils/100 WBC Auto (Bld) Ordered By: Genevieve Sahu on 05-04-2022 Basophils/100 WBC (Bld) 0.5 % . [facility] Blood hemoglobin measurement (mass/volume)Ordered By: Genevieve Sahu on 05-04-2022 Hemoglobin (Bld) [Mass/Vol] 13.0 g/dL 11.8-15.4 [facility] Blood leukocytes automated c ount (number/volume)Ordered By: Genevieve Sahu on 05-04-2022 WBC (Bld) [#/Vol] 7.0 10*3/uL 4.5-11.0 [facility] COVID-19 Positive/NegativeOr dered By: Genevieve Sahu on 05-04-2022 SARS-CoV-2 (COVID-19) N gene LISA+probe Ql (Resp) Negative Negative [facility] Comment on above: Testing for SARS-CoV -2 by RT-PCR This test was developed and its performance characteristics determined by [employer] ([employer] and validated at the [facility]. This test has not been FDA [...] on 05-04-2022 Creatinine [Mass/Vol] 0.95 mg/dL 0.44-1.03 [facility] Eosinophils Auto (Bld) [#/Vo l]Ordered By: Genevieve Sahu on 05-04-2022 Eosinophils (Bld) [#/Vol] 0.1 10*3/uL 0.0-0.45 [facility] Eosinophils/100 WBC Auto (Bl d)Ordered By: Genevieve Sahu on 05-04-2022 Eosinophils/100 WBC (Bld) 2.0 % . [facility] Erythrocyte distribution wid th Auto (RBC) [Ratio]Ordered By: Genevieve Sahu on 05-04-2022 Erythrocyte distribution width (RBC) [Ratio] 14.0 % 11.9-15.3 [facility] Estimated glomerular filtrat ion rate (GFR) non- AmericanOrdered By: Genevieve Sahu on 05-04-2022 GFR/1.73 sq M.predicted among non-blacks MDRD (S/P/Bld) [Vol rate/Area] 59 mL/Min [facility] Globulin Calc (S) [Mass/Vol] Ordered By: Genevieve Sahu on 05-04-2022 Globulin (S) [Mass/Vol] 2.8 g/dL [facility] Hematocrit Auto (Bld) [Volum e fraction]Ordered By: Genevieve Sahu on 05-04-2022 Hematocrit (Bld) [Volume fraction] 38.7 % 34.0-46.4 [facility] Laboratory - Hematology and Cell countsOrdered By: Genevieve Sahu on 05-04-2022 Nucleated RBC/100 WBC (Bld) [Ratio] 0.1 % 0-0.5 [facility] Lymphocytes Auto (Bld) [#/Vo l]Ordered By: Genevieve Sahu on 05-04-2022 Lymphocytes (Bld) [#/Vol] 1.5 10*3/uL 1.00-4.8 [facility] Lymphocytes/100 WBC Auto (Bl d)Ordered By: Genevieve Sahu on 05-04-2022 Lymphocytes/100 WBC (Bld) 22.0 % . [facility] MCH Auto (RBC) [Entitic mass ]Ordered By: Genevieve Sahu on 05-04-2022 MCH (RBC) [Entitic mass] 29.5 pg 24.7-34.3 [facility] MCHC Auto (RBC) [Mass/Vol]Or dered By: Genevieve Sahu on 05-04-2022 MCHC (RBC) [Mass/Vol] 33.6 g/dL 32.0-35.0 [facility] MCV Auto (RBC) [Entitic vol] Ordered By: Genevieve Sahu on 05-04-2022 MCV (RBC) [Entitic vol] 87.9 fL 80-100 [facility] Monocytes Auto (Bld) [#/Vol] Ordered By: Genevieve Sahu on 05-04-2022 Monocytes (Bld) [#/Vol] 0.5 10*3/uL 0.0-0.8 [facility] Monocytes/100 WBC Auto (Bld) Ordered By: Genevieve Sahu on 05-04-2022 Monocytes/100 WBC (Bld) 7.1 % . [facility] Neutrophils Auto (Bld) [#/Vo l]Ordered By: Genevieve Sahu on 05-04-2022 Neutrophils (Bld) [#/Vol] 4.8 10*3/uL 1.8-7.7 [facility] Neutrophils/100 WBC Auto (Bl d)Ordered By: Genevieve Sahu on 05-04-2022 Neutrophils/100 WBC (Bld) 68.4 % . [facility] No Panel InformationOrdered By: Genevieve Sahu on 05-04-2022 Estimated GFR () > 60 mL/Min [facility] Comment on above: GFR estimated refere nce range: According to KDOQI guidelines, <60 ml/min/1.73m2 is sufficient to diagnose a patient with chronic kidney disease. Pharmacy Creatinine Clearance (Chem N/A [facility] Platelet mean volume Auto (B ld) [Entitic vol]Ordered By: Genevieve Sahu on 05-04-2022 Platelet mean volume (Bld) [Entitic vol] 8.1 fL 6.3-10.7 [facility] Platelets Auto (Bld) [#/Vol] Ordered By: Genevieve Sahu on 05-04-2022 Platelets (Bld) [#/Vol] 271 10*3/uL 150-450 [facility] Protein [Mass/volume] in Ser um or PlasmaOrdered By: Geneveive Sahu on 05-04-2022 Protein [Mass/Vol] 6.4 g/dL 6.1-7.9 [facility] RBC Auto (Bld) [#/Vol]Ordere d By: Genevieve Sahu on 05-04-2022 RBC (Bld) [#/Vol] 4.40 10*6/uL 3.60-5.00 [facility] Serum or plasma alanine alejandre otransferase measurement without P-5'-P (enzymatic activiOrdered By: Genevieve Sahu on 05-04-2022 ALT No additional P-5'-P [Catalytic activity/Vol] 16 U/L 10-60 [facility] Serum or plasma albumin/glob ulin mass ratioOrdered By: Genevieve Sahu on 05-04-2022 Albumin/Globulin [Mass ratio] 1.3 {ratio} [facility] Serum or plasma alkaline lakia sphatase measurement (enzymatic activity/volume)Ordered By: Genevieve Sahu on 05-04-2022 ALP [Catalytic activity/Vol] 48 U/L 32-92 [facility] Serum or plasma aspartate am inotransferase measurement (enzymatic activity/volume)Ordered By: Genevieve Sahu on 05-04-2022 AST [Catalytic activity/Vol] 17 U/L 10-42 [facility] Serum or plasma calcium glynn urement (mass/volume)Ordered By: Genevieve Sahu on 05-04-2022 Calcium [Mass/Vol] 9.2 mg/dL 8.2-10.2 [facility] Serum or plasma chloride srinivasa surement (moles/volume)Ordered By: Genevieve Sahu on 05-04-2022 Chloride [Moles/Vol] 101 mmol/L 95-114 [facility] Serum or plasma glucose glynn urement (mass/volume)Ordered By: Genevieve Sahu on 05-04-2022 Glucose [Mass/Vol] 95 mg/dL 70-100 [facility] Comment on above: ADA recommended refe rence range Random Glucose Reference Range is dependent on time and content of last meal. Glucose of more than 200 mg/dL in a nonstressed, ambulatory subject supports the diagnosis of Diabetes Mellitus. Serum or plasma potassium me asurement (moles/volume)Ordered By: Genevieve Sahu on 05-04-2022 Potassium [Moles/Vol] 4.2 mmol/L 3.5-5.1 [facility] Serum or plasma sodium measu rement (moles/volume)Ordered By: Genevieve Sahu on 05-04-2022 Sodium [Moles/Vol] 138 mmol/L 136-146 [facility] Serum or plasma total biliru bin measurement (mass/volume)Ordered By: Genevieve Sahu on 05-04-2022 Bilirubin [Mass/Vol] 0.4 mg/dL 0.3-1.2 [facility] Serum or plasma total carbon dioxide measurement (moles/volume)Ordered By: Genevieve Sahu on 05-04-2022 CO2 [Moles/Vol] 24.9 mmol/L 22.0-30.0 [facility] Serum or plasma urea nitroge n measurement (mass/volume)Ordered By: Genevieve Sahu on 05-04-2022 Urea nitrogen [Mass/Vol] 17 mg/dL 9- [facility] XR hand LT min 3V*on 022 XR hand LT min 3V* [facility] [employer] Other XR hand LT min 3V* [facility] [employer] Other XR hand LT min 3V* [address] [place] [address] [employer] Other XR hand LT min 3V* [place] [address] [employer] Other XR hand LT min 3V* XRay Report [employer] Other XR hand LT min 3V* Signed [employer] Other XR hand LT min 3V* Patient: Nany Carmen MR#: [id number] [employer] Other XR hand LT min 3V* 1 [employer] Other XR hand LT min 3V* : 1955 Acct:[id number] [employer] Other XR hand LT min 3V* Age/Sex: 66 / F ADM Date: 05/03/22 [employer] Other XR hand LT min 3V* Loc: SOXD [facility]: [facility] [employer] Other XR hand LT min 3V* Attending Dr: Ginna Sahu MD [employer] Other XR hand LT min 3V* Copies to: Genevieve Sahu MD [employer] Other XR hand LT min 3V* Ordering Provider: Genevieve Sahu MD [employer] Other XR hand LT min 3V* Date of Service: 05/03/22 [employer] Other XR hand LT min 3V* XR/XR hand LT min 3V*: M79.642 [employer] Other XR hand LT min 3V* XR hand LT min 3V* 05/03/2022 4:05 PM [employer] Other XR hand LT min 3V* SIGNS AND SYMPTOMS: Injury to left fourth digit with fracture, follow-up [employer] Other XR hand LT min 3V* PROTOCOL: Frontal, lateral, and oblique radiographs of the left [employer] Other XR hand LT min 3V* COMPARISON: 04/11/2022 [employer] Other XR hand LT min 3V* FINDINGS: [employer] Other XR hand LT min 3V* There is a transversely oriented, comminuted fracture of the shaft of the fourth proximal phalanx. [employer] Other XR hand LT min 3V* There is 38 degrees of apex palmar angulation which is slightly more pronounced when compared prior [employer] Other XR hand LT min 3V* exam. No change in alignment otherwise. There is mild narrowing of the distal interphalangeal [employer] Other XR hand LT min 3V* joints of the second and third digits. Degenerative changes are noted in the wrist. [employer] Other XR hand LT min 3V* XR/XR hand LT min 3V* [employer] Other XR hand LT min 3V* IMPRESSION: [employer] Other XR hand LT min 3V* exam. [employer] Other XR hand LT min 3V* Impression dictated by: Chente Crook M.D.05/03/2022 7:18 PM [employer] Other XR hand LT min 3V* Dictation Location: [place] [address] [employer] Other XR hand LT min 3V* Transcribed By: HEMANT 05/03/221917 [employer] Other XR hand LT min 3V* Dictated By: Chente Crook II, MD 05/03/221916 [employer] Other XR hand LT min 3V* Signed By: [employer] Other XR hand LT min 3V* 05/03/221917 [facility] [employer] Other XR hand LT min 3V*on 022 XR hand LT min 3V* [facility] [employer] Other XR hand LT min 3V* [facility] [employer] Other XR hand LT min 3V* [address] [place] [address] [employer] Other XR hand LT min 3V* [place] [address] [employer] Other XR hand LT min 3V* XRay Report [employer] Other XR hand LT min 3V* Signed [employer] Other XR hand LT min 3V* Patient: Nany Carmen MR#: [id number] [employer] Other XR hand LT min 3V* 1 [employer] Other XR hand LT min 3V* : 1955 Acct:[id number] [employer] Other XR hand LT min 3V* Age/Sex: 66 / F ADM Date: 04/11/22 [employer] Other XR hand LT min 3V* Loc: XDUCLY [facility]: [facility] [employer] Other XR hand LT min 3V* Attending Dr: Jewell CUNNINGHAM [employer] Other XR hand LT min 3V* Ordering Provider: OCTAVIO Guzman [employer] Other XR hand LT min 3V* Date of Service: 04/11/22 [employer] Other XR hand LT min 3V* XR/XR hand LT min 3V*: LEFT HAND PAIN [employer] Other XR hand LT min 3V* Copies to: OCTAVIO Guzman [employer] Other XR hand LT min 3V* LEFT HAND - 3 views [employer] Other XR hand LT min 3V* COMPARISON: None [employer] Other XR hand LT min 3V* REASON FOR EXAM: Heavy rock truck onto left hand without pain and swelling and redness over the [employer] Other XR hand LT min 3V* dorsal hand/ ringfinger [employer] Other XR hand LT min 3V* FINDINGS: [employer] Other XR hand LT min 3V* Soft tissue swelling is noted involving the ring finger. There is a mildly displaced comminuted [employer] Other XR hand LT min 3V* fracture involving the shaft of the proximal phalanx of the fourth digit. No additional fractures [employer] Other XR hand LT min 3V* are seen. Mild degenerative changes involving the DIP joints. [employer] Other XR hand LT min 3V* XR/XR hand LT min 3V* [employer] Other XR hand LT min 3V* IMPRESSION: [employer] Other XR hand LT min 3V* MILDLY DISPLACED COMMINUTED FRACTURE INVOLVING THE SHAFT OF THE PROXIMAL PHALANX OF THE FOURTH [employer] Other XR hand LT min 3V* DIGIT. [employer] Other XR hand LT min 3V* Impression dictated by: Reji Khan Jr., D.OMario04/11/2022 1:56 PM [employer] Other XR hand LT min 3V* Dictation Location: [facility]- [employer] Other XR hand LT min 3V* Transcribed By: PWS 04/11/22 [facility] [employer] Other XR hand LT min 3V* Dictated By: Reji Khan Jr, DO 04/11/22 [facility] [employer] Other XR hand LT min 3V* Signed By: [employer] Other XR hand LT min 3V* 04/11/[address] [place] [address] [employer] Other Basic Metabolic Panelon Anion gap [Moles/Vol] 7 mmol/L Low 9 - 17 mmol/L [facility] Bun/Cre Ratio 13 [facility] [place] Calcium [Mass/Vol] 9.2 mg/dL 8.6 - 10. 4 mg/dL [facility] [place] Chloride [Moles/Vol] 104 mmol/L 98 - 10 7 mmol/L [place] CO2 [Moles/Vol] 26 mmol/L 20 - 31 mmol/L [place] Creatinine [Mass/Vol] 0.76 mg/dL 0.5 - 0.9 mg/dL [place] GFR >60 >60 mL/min [place] GFR Non- >60 >60 mL/min [place] Glucose [Mass/Vol] 111 mg/dL High 70 - 99 mg/dL [place] Interpretation and review of laboratory results Abnormal [place] Potassium [Moles/Vol] 4.2 mmol/L 3.7 - 5.3 mmol/L [place] Sodium [Moles/Vol] 137 mmol/L 135 - 144 mmol/L [place] Urea nitrogen [Mass/Vol] 10 mg/dL 8 - 23 mg/dL [place] Basic Metabolic Profon 11-25 (cont.) Normal [facility] Comment on above: Result Comment: Aver age GFR for 60-69 years old: 85 mL/min/1.73sq m Chronic Kidney Disease: <60 mL/min/1.73sq m Kidney failure: <15 mL/min/1.73sq m eGFR calculated using average adult body mass. Additional eGFR calculator available at: http://www.Harry and David/multiple_crcl_2012.htm Performed By: #### B AMANDA, CDP #### [facility] [address] [place] [address] [place] [address] Human Resources Communications Manager: Kan Gupta MD Anion gap [Moles/Vol] 7 mmol/L Low 9-17 [facility] Comment on above: Performed By: #### Eleazar PATEL, CDP #### [facility] [address] [place] [address] Human Resources Communications Manager: Kan Gupta MD BUN/CRE Ratio 13 Normal 9-20 [facility] Comment on above: Performed By: #### Eleazar PATEL, CDP #### [facility] [address] [place] [id number] Human Resources Communications Manager: Kan Gupta MD Calcium [Mass/Vol] 9.2 mg/dL Normal 8.6-10.4 [facility] Comment on above: Performed By: #### B MP, CDP #### [facility] [address] [place], [place] [id number] Human Resources Communications Manager: Kan Gupta MD Chloride [Moles/Vol] 104 mmol/L Normal 98-107 [facility] Comment on above: Performed By: #### B MP, CDP #### [facility] [address] [place], [place] [id number] Human Resources Communications Manager: Kan Gupta MD CO2 [Moles/Vol] 26 mmol/L Normal 20-31 [facility] Comment on above: Performed By: #### B AMANDA, CDP #### [facility] [address] [place], [place] [id number] Human Resources Communications Manager: Kan Gupta MD Creatinine [Mass/Vol] 0.76 mg/dL Normal 0.50-0.90 [facility] Comment on above: Performed By: #### B AMANDA, CDP #### [facility] [address] [place], [place] [id number] Human Resources Communications Manager: Kan Gupta MD GFR, Amer >60 Normal >60 [facility] Comment on above: Performed By: #### B MP, CDP #### [facility] [address] [place], [place] [id number] Human Resources Communications Manager: Kan Gupta MD GFR,non Amer >60 Normal >60 [facility] Comment on above: Performed By: #### B MP, CDP #### [facility] [address] [place], [place] [id number] Human Resources Communications Manager: Kan Gupta MD Glucose [Mass/Vol] 111 mg/dL High 70-99 [facility] Comment on above: Performed By: #### B MP, CDP #### [facility] [address] [place] [address] Human Resources Communications Manager: Kan Gupta MD Potassium [Moles/Vol] 4.2 mmol/L Normal 3.7-5.3 [facility] Comment on above: Performed By: #### B AMANDA, CDP #### [address] [place] [address] Human Resources Communications Manager: Kan Gupta MD Sodium [Moles/Vol] 137 mmol/L Normal 135-144 [facility] Comment on above: Performed By: #### B AMANDA, CDP #### [address] [place] [address] Human Resources Communications Manager: Kan Gupta MD Staging: Normal [facility] Comment on above: Result Comment: Stag e 1: Some kidney damage normal GFR Stage 2: Mild kidney damage GFR 60-89 Stage 3: Moderate kidney damage GFR 30-59 Stage 4: Severe kidney damage GFR 15-29 Stage 5: Severe kidney damage GFR <15 ESRD - chronic treatment by dialysis or transplant Performed By: #### B AMANDA, CDP #### [address] [place] [address] Human Resources Communications Manager: Kan Gupta MD Urea nitrogen [Mass/Vol] 10 mg/dL Normal 8-23 [facility] Comment on above: Performed By: #### B AMANDA, CDP #### [address] [place] [address] Human Resources Communications Manager: Kan Gupta MD CBC Auto Differentialon Basophils (Bld) [#/Vol] 10*3/uL [place] Basophils/100 WBC (Bld) 0 % 0 - 2 % [place] Differential Type NOT REPORTED [place] Eosinophils (Bld) [#/Vol] 0.10 10*3/uL [place] Eosinophils/100 WBC (Bld) 2 % 1 - 4 % [place] Erythrocyte distribution width (RBC) [Ratio] 13.2 % 11.8 - 14.4 % [place] Hematocrit (Bld) [Volume fraction] 39.3 % 36.3 - 47.1 % [place] Hemoglobin (Bld) [Mass/Vol] 12.5 g/dL 11.9 - 15.1 g/dL [place] Immature granulocytes (Bld) [#/Vol] 0.03 10*3/uL [place] Immature granulocytes (Bld) [#/Vol] 1 % High 0 [place] Interpretation and review of laboratory results Abnormal [place] Lymphocytes (Bld) [#/Vol] 0.99 10*3/uL Low [place] Lymphocytes/100 WBC (Bld) 19 % Low 24 - 43 % [place] MCH (RBC) [Entitic mass] 28.0 pg 25.2 - 33.5 pg [place] MCHC (RBC) [Mass/Vol] 31.8 g/dL 28.4 - 34.8 g/dL [place] MCV (RBC) [Entitic vol] 88.1 fL 82.6 - 102.9 fL [place] Monocytes (Bld) [#/Vol] 0.51 10*3/uL [place] Monocytes/100 WBC (Bld) 10 % 3 - 12 % [place] Platelet mean volume (Bld) [Entitic vol] 8.4 fL 8.1 - 13.5 fL [place] Platelets (Bld) [#/Vol] NOT REPORTED [place] Platelets (Bld) [#/Vol] 279 10*3/uL [place] RBC (Bld) [#/Vol] 4.46 10*6/uL 3.95 - 5.1 1 m/uL [place] RBC morphology finding Nom (Bld) NOT REPORTED [place] Segmented neutrophils/100 WBC (Bld) 68 % High 36 - 65 % [place] Segs Absolute 3.64 [place] WBC (Bld) [#/Vol] 0.0 10*3/uL 0.0 per 10 0 WBC [place] WBC (Bld) [#/Vol] 5.3 10*3/uL [place] WBC Morphology NOT REPORTED [place] CBC with Diffon 11-25-2020 Abs. Basophil <0.03 Normal 0.00-0.20 [facility] Comment on above: Performed By: #### B AMANDA, CDP #### [address] [place] [address] Human Resources Communications Manager: Kan Gupta MD Abs.Imm.Granulocyte 0.03 k/uL Normal 0.00-0.30 [facility] Comment on above: Performed By: #### B AMANDA, CDP #### [address] [place] [address] Human Resources Communications Manager: Kan Gupta MD Abs.Neutrophil (Seg) 3.64 k/uL Normal 1.50-8.10 [facility] Comment on above: Performed By: #### B AMANDA, CDP #### [address] [place] [address] Human Resources Communications Manager: aKn Gupta MD Basophils/100 WBC (Bld) 0 % Normal 0-2 [facility] Comment on above: Performed By: #### B AMANDA, CDP #### [address] [place] [id number] Human Resources Communications Manager: Kan Gupta MD Eosinophils (Bld) [#/Vol] 0.10 10*3/uL Normal 0.00-0.44 [facility] Comment on above: Performed By: #### B MP, CDP #### [address] [place] [id number] Human Resources Communications Manager: Kan Gupta MD Eosinophils/100 WBC (Bld) 2 % Normal 1-4 [facility] Comment on above: Performed By: #### B MP, CDP #### [address] [place], [place] [id number] Human Resources Communications Manager: Kan Gupta MD Erythrocyte distribution width (RBC) [Ratio] 13.2 % Normal 11.8-14.4 [facility] Comment on above: Performed By: #### B MP, CDP #### [address] [place], [facility]83 Human Resources Communications Manager: Kan Gupta MD Hematocrit (Bld) [Volume fraction] 39.3 % Normal 36.3-47.1 [facility] Comment on above: Performed By: #### B AMANDA, CDP #### [address] [place], [facility] Human Resources Communications Manager: Kan Gupta MD Hemoglobin (Bld) [Mass/Vol] 12.5 g/dL Normal 11.9-15.1 [facility] Comment on above: Performed By: #### B AMANDA, CDP #### [address] [place], [facility] Human Resources Communications Manager: Kan Gupta MD Immature granulocytes (Bld) [#/Vol] 1 % High 0 [facility] Comment on above: Performed By: #### B MP, CDP #### [address] [place], [facility] Human Resources Communications Manager: Kan Gupta MD Lymphocytes (Bld) [#/Vol] 0.99 10*3/uL Low 1.10-3.70 [facility] Comment on above: Performed By: #### B MP, CDP #### [address] [place], [place] [id number] Human Resources Communications Manager: Kan Gupta MD Lymphocytes/100 WBC (Bld) 19 % Low 24-43 [facility] Comment on above: Performed By: #### B MP, CDP #### [address] [place] [address] Human Resources Communications Manager: Kan Gupta MD MCH (RBC) [Entitic mass] 28.0 pg Normal 25.2-33.5 [facility] Comment on above: Performed By: #### B MP, CDP #### [address] [place] [address] Human Resources Communications Manager: Kan Gupta MD MCHC (RBC) [Mass/Vol] 31.8 g/dL Normal 28.4-34.8 [facility] Comment on above: Performed By: #### B MP, CDP #### [address] [place] [address] Human Resources Communications Manager: Kan Gupta MD MCV (RBC) [Entitic vol] 88.1 fL Normal 82.6-102.9 [facility] Comment on above: Performed By: #### B AMANDA, CDP #### [address] [place] [address] Human Resources Communications Manager: Kan Gupta MD Monocytes (Bld) [#/Vol] 0.51 10*3/uL Normal 0.10-1.20 [facility] Comment on above: Performed By: #### B AMANDA, CDP #### [address] [place] [address] Human Resources Communications Manager: Kan Gupta MD Monocytes/100 WBC (Bld) 10 % Normal 3-12 [facility] Comment on above: Performed By: #### B MP, CDP #### [facility] [address] [place] [address] [place], [place] [id number] Human Resources Communications Manager: Kan Gupta MD Neutrophil (Seg) 68 % High 36-65 [facility] Comment on above: Performed By: #### B MP, CDP #### [facility] [address] [place] [address] [place], [place] [id number] Human Resources Communications Manager: Kan Gupta MD NRBC Automated 0.0 per 100 WBC Normal 0.0 [facility] Comment on above: Performed By: #### B MP, CDP #### [facility] [address] [place] [address] Human Resources Communications Manager: Kan Gupta MD Platelet mean volume (Bld) [Entitic vol] 8.4 fL Normal 8.1-13.5 [facility] Comment on above: Performed By: #### B MP, CDP #### [facility] [address] [place], [facility] Human Resources Communications Manager: Kan Gupta MD Platelets (Bld) [#/Vol] 279 10*3/uL Normal 138-453 [facility] Comment on above: Performed By: #### B AMANDA, CDP #### [facility] [address] [place] [address] Human Resources Communications Manager: Kan Gupta MD RBC (Bld) [#/Vol] 4.46 10*6/uL Normal 3.95-5.11 [facility] Comment on above: Performed By: #### B AMANDA, CDP #### [address] [place] [address] Human Resources Communications Manager: Kan Gupta MD WBC (Bld) [#/Vol] 5.3 10*3/uL Normal 3.5-11.3 [facility] Comment on above: Performed By: #### B MAANDA, CDP #### [facility] [address] [place], [facility] Human Resources Communications Manager: Kan Gupta MD Auto Diff Performed NOT REPORTED Normal [facility] Comment on above: Performed By: #### B AMANDA, CDP #### [facility] [address] [place], [place] [id number] Human Resources Communications Manager: Kan Gupta MD Platelets (Bld) [#/Vol] NOT REPORTED Normal [facility] Comment on above: Performed By: #### B MP, CDP #### [facility] [address] [place], [place] [id number] Human Resources Communications Manager: Kan Gupta MD RBC morphology finding Nom (Bld) NOT REPORTED Normal [facility] Comment on above: Performed By: #### B MP, CDP #### [facility] [address] [place] [address] Human Resources Communications Manager: Kan Gupta MD WBC Morphology NOT REPORTED Normal [facility] Comment on above: Performed By: #### B MP, CDP #### [facility] [address] [place] [address] Human Resources Communications Manager: Kan Gupta MD Metabolic Panelon 11-25-2020 GFR/1.73 sq M predicted among non-blacks MDRD (S/P/Bld) [Vol rate/Area] [place] Comment on above: Stage 1: Some [...] body mass. Additional eGFR calculator available at: http://www.[employer]Gravy/multiple_crcl_2012.htm US NON OB TRANSVAGINALon US NON OB [...] Mele Ivy MD 11/25/20 Final result Normal [facility] Axel, Mhpn Incoming Radiant Results From [employer] - 11/25/2020 12:03 PM EST EXAMINATION: PELVIC [...] cm calcification. 3. Nonvisualization of the ovaries. [facility] EXAMINATION: PELVIC ULTRASOUND 11/25/2020 TECHNIQUE: [...] Free Fluid: No evidence of free fluid. [place] 1. Endometrial strip e thickness is abnormally enlarged measuring 8 mm in a postmenopausal female with bleeding. Differential considerations include endometrial hyperplasia or endometrial carcinoma. Endometrial sampling recommended. 2. Left uterine fundal fibroid measuring up to 2.4 cm with associated 1.2 cm calcification. 3. Nonvisualization of the ovaries. [place] Vital Signs Date Time Vital Sign Value Performing Clinician Faci lity 02-10-2025 13:43-0400 Body height 165.1 cm Catalina Carson MD Work Phone: [facility] 02-10-2025 13:43-0400 Body mass index (BMI) [Ratio] 29.7 kg/m2 Catalina Carson MD Work Phone: [facility] 02-10-2025 13:43-0400 Body weight 81.19 kg Catalina Carson MD Work Phone: [facility] 02-10-2025 13:43-0400 Diastolic blood pressure 82 mm[Hg] Catalina Carson MD Work Phone: [facility] 02-10-2025 13:43-0400 Heart rate 83 /min Catalina Carson MD Work Phone: [facility] 02-10-2025 13:43-0400 Systolic blood pressure 132 mm[Hg] Catalina Carson MD Work Phone: [facility] 12-10-2024 09:52-0500 Diastolic blood pressure 75 mm[Hg] Catalina Carson MD Work Phone: [facility] 12-10-2024 09:52-0500 Heart rate 82 /min Catalina Carson MD Work Phone: [facility] 12-10-2024 09:52-0500 Respiratory rate 14 /min Catalina Carson MD Work Phone: [facility] 12-10-2024 09:52-0500 SaO2% (BldA) [Mass fraction] 98 % Catalina Carson MD Work Phone: [facility] 12-10-2024 09:52-0500 Systolic blood pressure 154 mm[Hg] Catalina Carson MD Work Phone: [facility] 12-10-2024 07:44-0500 Body height 165.1 cm Catalina Carson MD Work Phone: [facility] 12-10-2024 07:44-0500 Body weight 86.18 kg Catalina Carson MD Work Phone: [facility] 11-17-2024 13:56-0500 Body height 165.1 cm Catalina Carson MD Work Phone: [facility] 11-17-2024 13:56-0500 Body mass index (BMI) [Ratio] 32.1 kg/m2 Catalina Carson MD Work Phone: [facility] 11-17-2024 13:56-0500 Body weight 87.54 kg Catalina Carson MD Work Phone: [facility] 07-24-2024 11:10-0400 Body height 165.1 cm [facility] 07-24-2024 11:10-0400 Body mass index (BMI) [Ratio] 30.7 kg/m2 [facility] 07-24-2024 11:10-0400 Body weight 83.91 kg [facility] 07-24-2024 11:10-0400 Diastolic blood pressure 73 mm[Hg] [facility] 07-24-2024 11:10-0400 Heart rate 75 /min [facility] 07-24-2024 11:10-0400 Systolic blood pressure 137 mm[Hg] [facility] 06-12-2024 10:04-0400 Body height 165.1 cm [facility] 06-12-2024 10:04-0400 Body mass index (BMI) [Ratio] 31.1 kg/m2 [facility] 06-12-2024 10:04-0400 Body weight 84.82 kg [facility] 06-12-2024 10:04-0400 Diastolic blood pressure 82 mm[Hg] [facility] 06-12-2024 10:04-0400 Heart rate 68 /min [facility] 06-12-2024 10:04-0400 Systolic blood pressure 129 mm[Hg] [facility] 03-05-2024 11:03-0400 Body height 165.1 cm [facility] 03-05-2024 11:03-0400 Body mass index (BMI) [Ratio] 31.3 kg/m2 [facility] 03-05-2024 11:03-0400 Body weight 85.33 kg [facility] 03-05-2024 11:03-0400 Diastolic blood pressure 74 mm[Hg] [facility] 03-05-2024 11:03-0400 Heart rate 78 /min [facility] 03-05-2024 11:03-0400 Systolic blood pressure 122 mm[Hg] [facility] 12-26-2023 12:00-0500 Body height 165.1 cm Joi Hernandez Other [employer] Other 12-26-2023 12:00-0500 Body mass index (BMI) [Ratio] 30.95 kg/m2 Joi Hernandez Other [employer] Other 12-26-2023 12:00-0500 Body weight 84.37 kg Joi Hernandez Other [employer] Other 11-02-2023 08:00-0500 Body height 165.1 cm Gagandeep Stevens Other [employer] Other 11-02-2023 08:00-0500 Body mass index (BMI) [Ratio] 31.12 kg/m2 Gagandeep Stevens Other [employer] Other 11-02-2023 08:00-0500 Body weight 84.82 kg Gagandeep Stevens Other [employer] Other 10-08-2023 11:00-0500 Body height 165.1 cm Catalina Carson Other [employer] Other 10-08-2023 11:00-0500 Body mass index (BMI) [Ratio] 31.21 kg/m2 Catalina Carson Other [employer] Other 10-08-2023 11:00-0500 Body weight 85.1 kg Catalina Carson Other [employer] Other 10-08-2023 11:00-0500 Diastolic blood pressure 91 mm[Hg] Catalina Carson Other [employer] Other 10-08-2023 11:00-0500 Systolic blood pressure 142 mm[Hg] Catalina Carson Other [employer] Other 09-04-2023 11:00-0400 Body height 165.1 cm Catalina Carson Other [employer] Other 09-04-2023 11:00-0400 Body mass index (BMI) [Ratio] 31.08 kg/m2 Catalina Carson Other [employer] Other 09-04-2023 11:00-0400 Body weight 84.73 kg Catalina Carson Other [employer] Other 09-04-2023 11:00-0400 Diastolic blood pressure 85 mm[Hg] Catalina Carson Other [employer] Other 09-04-2023 11:00-0400 Systolic blood pressure 135 mm[Hg] Catalina Carson Other [employer] Other 07-07-2022 11:45-0400 Body height 166.37 cm Genevieve Sahu Other [employer] Other 07-07-2022 11:45-0400 Body mass index (BMI) [Ratio] 29.99 kg/m2 Genevievejovani Sahu Other [employer] Other 07-07-2022 11:45-0400 Body weight 83.01 kg Genevieve Sahu Other [employer] Other 05-16-2022 12:45-0400 Body height 166.37 cm Genevieve Sahu Other [employer] Other 05-16-2022 12:45-0400 Body mass index (BMI) [Ratio] 30.48 kg/m2 Genevieve Calvmalinda Other [employer] Other 05-16-2022 12:45-0400 Body weight 84.37 kg Genevieve Sahu Other [employer] Other 05-08-2022 17:02-0400 Diastolic blood pressure 75 mm[Hg] MD Catalina Carson Work Phone: [facility] 05-08-2022 17:02-0400 Heart rate 66 /min MD Catalina Carson Work Phone: [facility] 05-08-2022 17:02-0400 Respiratory rate 16 /min MD Catalina Carson Work Phone: [facility] 05-08-2022 17:02-0400 SaO2% (BldA) [Mass fraction] 97 % MD Catalina Carson Work Phone: [facility] 05-08-2022 17:02-0400 Systolic blood pressure 144 mm[Hg] MD Catalina Carson Work Phone: [facility] 05-08-2022 16:17-0400 Inhaled oxygen flow rate 6 L/min MD Catalina Carson Work Phone: [facility] 05-08-2022 14:43-0400 Body mass index (BMI) [Ratio] 32.5 kg/m2 MD Catalina Carson Work Phone: [facility] 05-08-2022 14:34-0400 Body height 162.56 cm MD Catalina Carson Work Phone: [facility] 05-08-2022 14:34-0400 Body weight 86 kg MD Catalina Carson Work Phone: [facility] 05-08-2022 12:57-0400 Body temperature 98.1 [degF] MD Catalina Carson Work Phone: [facility] 04-11-2022 14:10-0400 Body height 166.37 cm Jewell Fernandez Other [facility] [employer] Other 04-11-2022 14:10-0400 Body mass index (BMI) [Ratio] 30.48 kg/m2 Jewell Fernandez Other [facility] Other 04-11-2022 14:10-0400 Body temperature 97.1 [degF] Jewell Fernandez Other [facility] Other 04-11-2022 14:10-0400 Body weight 84.37 kg Jewell Fernandez Other [facility] Other 04-11-2022 14:10-0400 Diastolic blood pressure 93 mm[Hg] Jewell Fernandez Other [facility] Other 04-11-2022 14:10-0400 Respiratory rate 18 /min Jewell Calhounmond Other [facility] Other 04-11-2022 14:10-0400 SaO2% (BldA) [Mass fraction] 99 % Jewell Calhounmond Other [facility] Other 04-11-2022 14:10-0400 Systolic blood pressure 151 mm[Hg] Jewell Calhounmond Other [employer] Other 11-25-2020 12:30-0500 BP Diastolic 80 mm[Hg] Morro LillyConvoe [facility] 11-25-2020 12:30-0500 BP Systolic 129 mm[Hg] Morro LillyConvoe [facility] 11-25-2020 12:30-0500 Pulse Oximetry 94 % Morro LillyConvoe [facility] 11-25-2020 10:39-0500 Body Temperature 99.9 [degF] [facility] [place] 11-25-2020 10:35-0500 BMI (Body Mass Index) 31.62 kg/m2 [facility] [employer] [facility] 11-25-2020 10:35-0500 Body weight 86.18 kg [facility]ro [employer] [facility] 11-25-2020 10:35-0500 Height 165.1 cm Morro Osisis [employer] [facility], [place] 11-25-2020 10:35-0500 Pulse (Heart Rate) 95 /min [facility] [place] 11-25-2020 10:35-0500 Respiratory Rate 18 /min Morro [employer] [place] Encounters Encounter Date Encounter Type Care Provider Facility Start: 02-10-2025 End: 02-10-2025 ambulatory Catalina Carson MD Work Phone: [facility] Work Phone: Start: 02-10-2025 End: 02-10-2025 Patient encounter procedure Catalina Carson MD Work Phone: [facility] Work Phone: Start: 12-11-2024 Non-patient / Non-visit Catalina Carson MD Work Phone: [facility] Work Phone: Start: 12-10-2024 Non-patient / Non-visit Catalina Carson MD Work Phone: [facility] Work Phone: Start: 12-10-2024 End: 12-10-2024 Admission to same day surgery center Catalina Carson MD Work Phone: [facility] Work Phone: Start: 12-10-2024 End: 12-10-2024 ambulatory Catalina Carson MD Work Phone: [facility] Work Phone: Start: 11-27-2024 Non-patient / Non-visit Catalina Carson MD Work Phone: [facility] Work Phone: Start: 11-17-2024 End: 11-17-2024 Patient encounter procedure Catalina Carson MD Work Phone: [facility] Work Phone: Start: 08-04-2024 End: 08-04-2024 Patient encounter procedure MD Catalina Carson Work Phone: [facility] Work Phone: Start: 08-04-2024 End: 08-04-2024 ambulatory MD Catalina Carson Work Phone: [facility] Work Phone: Start: 07-29-2024 Non-patient / Non-visit MD Catalina Carson Work Phone: [facility] [employer] Work Phone: Start: 07-24-2024 End: 07-24-2024 ambulatory [facility] Work Phone: Start: 07-24-2024 End: 07-24-2024 Patient encounter procedure [facility] Work Phone: Start: 06-12-2024 End: 06-12-2024 ambulatory [facility] Work Phone: Start: 06-12-2024 End: 06-12-2024 Patient encounter procedure [facility] Work Phone: Start: 03-05-2024 End: 03-05-2024 ambulatory [facility] Work Phone: Start: 03-05-2024 End: 03-05-2024 Patient encounter procedure [facility] Work Phone: Start: 12-26-2023 End: 12-26-2023 ambulatory Joi Hernandez Other [facility] [employer] Other Start: 12-26-2023 Office outpatient visit 25 minutes Joi Hernandez [facility] Start: 11-23-2023 End: 11-23-2023 ambulatory MD Catalina Carson Work Phone: [facility] Work Phone: Start: 11-23-2023 End: 11-23-2023 Patient encounter procedure MD Catalina Carson Work Phone: [facility] [place] Work Phone: Start: 11-20-2023 End: 11-20-2023 ambulatory Catalina Carson Other [facility] [employer] Other Start: 11-20-2023 Telephone encounter Catalina Carson [facility] [address] Start: 11-05-2023 (Televisit) Televisit Catalina Silva [facility] Start: 11-05-2023 End: 11-05-2023 ambulatory Catalina Carson Other [employer] Other Start: 11-02-2023 End: 11-02-2023 ambulatory Gagandeep Stevens Other [employer] Other Start: 11-02-2023 Office outpatient ne w 30 minutes Gagandeep Stevens [facility] Start: 10-08-2023 End: 10-08-2023 ambulatory Catalina Carson Other [employer] Other Start: 10-08-2023 Office outpatient visit 15 minutes Catalina Carson [facility] Start: 09-24-2023 Telephone encounter Catalina Carson [facility] Start: 09-24-2023 End: 09-24-2023 ambulatory MD Catalina Carson Work Phone: [facility] Work Phone: Start: 09-24-2023 End: 09-24-2023 Patient encounter procedure MD Catalina Carson Work Phone: [facility] Work Phone: Start: 09-04-2023 End: 09-04-2023 ambulatory Catalina Carson Other [employer] Other Start: 09-04-2023 Patient encounter procedure Catalina Carson [facility] Start: 07-27-2023 End: 07-27-2023 ambulatory MD Catalina Carson Work Phone: [facility] Work Phone: Start: 07-27-2023 End: 07-27-2023 Patient encounter procedure MD Catalina Carson Work Phone: [facility] Work Phone: Start: 11-06-2022 Adult health examination Catalina Carson Other [employer] Other Start: 11-06-2022 Pre-procedure evaluation check Catalina Carson Other [employer] Other Start: 10-30-2022 End: 10-30-[address] KAN BAXTER Facility: Start: 10-03-2022 End: 10-03-2022 ambulatory Genevieve Calvey Other [employer] Other Start: 10-03-2022 Office outpatient visit 15 minutes Genevieve Calvey [facility] Start: 07-19-2022 End: 07-19-2022 Patient encounter procedure MD Catalina Carson Work Phone: [facility] Start: 07-07-2022 End: 07-07-2022 ambulatory Genevieve Calvey Other [employer] Other Start: 07-07-2022 Postop follow up vis it related to original px Genevieve Calvey [facility] Start: 07-07-2022 End: 07-07-2022 Patient encounter procedure MD Catalina Carson Work Phone: [facility] Start: 06-09-2022 End: 06-09-2022 ambulatory Genevieve Calvey Other [employer] Other Start: 06-09-2022 Postop follow up vis it related to original px Genevieve Calvey [facility] Start: 06-09-2022 End: 06-09-2022 Patient encounter procedure MD Catalina Carson Work Phone: [facility] Start: 05-16-2022 End: 05-16-2022 ambulatory Genevieve Calvey Other [employer] Other Start: 05-16-2022 Postop follow up vis it related to original px Genevieve Luis Alberto [facility] Start: 05-16-2022 End: 05-16-2022 Patient encounter procedure MD Catalina Carson Work Phone: [facility] Start: 05-11-2022 End: 05-11-2022 ambulatory Genevieve Luis Alberto Other [employer] Other Start: 05-11-2022 Telephone encounter Genevieve Usmalinda [facility] Start: 05-08-2022 End: 05-08-2022 Admission to same day surgery center MD Catalina Carson Work Phone: [facility] [place] Start: 05-04-2022 End: 05-04-2022 Patient encounter procedure MD Catalina Carson Work Phone: [facility] Start: 05-03-2022 End: 05-03-2022 Patient encounter procedure MD Catalina Carson Work Phone: [facility] Start: 05-03-2022 End: 05-03-2022 ambulatory Genevieve Sahu Other [employer] Other Start: 05-03-2022 Office outpatient ne w 45 minutes Genevievejovani Sahu [facility] Start: 04-11-2022 End: 04-11-2022 ambulatory Jewell Fernandez Other [employer] Other Start: 04-11-2022 Office outpatient ne w 20 minutes Jewell Fernandez [facility] Start: 11-25-2020 End: 11-25-2020 Emergency department patient visit [facility] Start: 11-25-2020 End: 11-25-2020 Emergency department patient visit [facility] ED Comment on above: COVID-19 virus infec tion (Primary Dx); Postmenopausal bleeding Procedures Date Procedure Procedure Detail Performing Clinician Start: 12-10-2024 Colonoscopy Catalina brewer MD Work Phone: Start: 09-24-2023 Radiologic examinati on of knee [...] wbc Morro Lilly Start: 11-25-2020 Us transvaginal Morro Lilly Plan of Treatment Date Care Activity Detail Author Start: 12-10-2024 [facility] Start: 08-04-2024 MG Breast - bilateral Screening [facility] Start: 08-04-2024 Screening mammography of bilateral breasts MM screening mammo BI w/CAD [facility] Start: 07-24-2024 Patient referral [facility] Work Phone: Start: 11-23-2023 MR Brain WO contrast [facility] Start: 11-23-2023 MRI of head MR head/brain wo con [facility] Start: 07-19-2022 Screening mammography of bilateral breasts MM screening mammo BI w/CAD [facility] Start: 07-19-2022 End: 07-19-2022 Patient encounter procedure Departed Clinical [facility] Start: 05-08-2022 [facility] Work Phone: Start: 05-08-2022 [facility] Work Phone: Start: 07-20-2020 Influenza vaccination Flu vaccine (#1) [place], [place] Start: 2006 Screening for malignant neoplasm of breast Breast cancer screen [place], [place] Start: 2006 Screening for malignant neoplasm of colon Colon cancer screen colonoscopy [place], [place] Start: 2006 Shingles Vaccine (1 of 2) Shingles Vaccine (1 of 2) [place] Start: 1996 Diabetes screen Diabetes screen [place] Start: 1996 Lipid panel Lipid screen [place] Start: 1977 Screening for malignant neoplasm of cervix Cervical cancer screen [place] Start: 1975 DTaP/Tdap/Td vaccine (1 - Tdap) DTaP/Tdap/Td vaccine (1 - Tdap) [place], [place] Start: 1971 HIV screening HIV screen [place], [place] Start: 1956 Hepatitis C screening Hepatitis C screen [place] CT Abdomen and Pelvi s W contrast IV [facility] Patient Education Hemorrhoids ED High-fiber diet Diverticulosis Know your Meds [facility] Work Phone: Patient referral [facility] Work Phone: XR Lumbar spine 2 or 3 Views [facility] Immunizations Immunization Date Immunization Notes Care Provider Mahesh reid 11-14-2021 COVID-19 Adriane Azevedo (Pfizer) MD Catalina Carson Work Phone: [facility] 04-04-2021 COVID-19 Adriane Azevedo (Pfizer) MD Catalina Carson Work Phone: [facility] 03-14-2021 COVID-19 Adriane Azevedo (Pfizer) MD Catalina Carson Work Phone: [facility] 01-27-2021 zoster vaccine, live Catalnia Carson Other [facility] 09-28-2016 diphtheria, tetanus toxoids and acellular pertussis vaccine, unspecified formulation Catalina Carson Other [facility] Payers Date Payer Category Payer Self-pay [id number] 2019 Unknown [id number] 1958 Medicare [id number] 1955 Unknown [id number] 1955 Unknown [id number] Medicare Medicare [id number] Medicare Anthem MCR PFFS [id number] Unknown [employer] [id number] Unknown [id number] [id number] Unknown [id number] [id number] Social History Date Type Detail Facility Tobacco smoking status NHIS Unknown if ever smoked [place], [place] Sex Assigned At Not on file [place] Sex Assigned At Sex Assigned At [facility] Other Start: 05-08-2022 End: 12-10-2024 Tobacco smoking status NHIS Never smoked tobacco (finding) [facility] Start: 1955 Sex Assigned At Female [facility] Start: 12-10-2024 End: 02-10-2025 Sex Female (finding) [facility] Medical Equipment Procedure Code Equipment Code Equipment Origin al Text Equipment Identifier Dates ORIF, fracture, hand Orthopaedic bone screw, non-bioabsorbable, non-sterile [id number] FDA Start: 05-08-2022 Goals Date Patient Goal Desired Activity /State Clinical Notes 04-11-2022 to 12-10-2024 Note Date & Type Note Facility 12-10-2024 Procedure note [facility] 11-17-2024 Evaluation note Authored November 17, 2024 3:11pm 69-year-old female referred to the GI clinic for evaluation of constipation +chronic constipation for years. +intermittent pain that happens every few months which usually resolves after getting explosive diarrhea. Will check TSH CRP and fecal calprotectin Will arrange for colonoscopy. Patient was recommended to take tablespoon of Metamucil once daily if needed, avoid dehydration, Can add Miralax 17gm PO Qday and titrate up to twice or three times daily if needed. [facility] Work Phone: [phone]) 952-523912-30-2024 Evaluation note* Author Paul Blair [facility] Authored November 17, 2024 2:11pm 69-year-old female referred to the GI clinic for evaluation of constipation +chronic constipation for years. +intermittent pain that happens every few months which usually resolves after getting explosive diarrhea. Will check TSH CRP and fecal calprotectin Will arrange for colonoscopy. Patient was recommended to take tablespoon of Metamucil once daily if needed, avoid dehydration, Can add Miralax 17gm PO Qday and titrate up to twice or three times daily if needed. [facility] Work Phone: [phone]) 579-146402-07-2024 Evaluation note* Encounter Date Diagnosis Assessment Notes Treatment Notes Treatment Clinical Notes Dec, Arthritis of left knee (ICD-10 [...] in the office today and providing supervision. [facility] Other 12-18-2023 Evaluation note* Encounter Date Diagnosis [...] verbalized understanding and agreement with treatment plan. [facility] Other 12-15-2023 Evaluation note* Encounter Date Diagnosis [...] as documented in the electronic medical record. [facility] Other 11-20-2023 Evaluation note* Encounter Date Diagnosis Assessment Notes Treatment Notes Treatment Clinical Notes Sep, Primary osteoarthritis of left knee (ICD-10 - M17.12) Pt agrees to referral to ortho for her ongoing knee issues. Sep, Attention-deficit hyperactivity disorder, unspecified type (ICD-10 - F90.9) Recommend Neurology eval to assess adult ADD v. memory issues causing problems focusing and completing tasks [employer] Other 10-17-2023 Evaluation note* Encounter Date Diagnosis [...] of medication and followup in 1 month [facility] Other 11-15-2022 Evaluation note* Encounter Date Diagnosis Assessment Notes Treatment Notes Treatment Clinical Notes Sep, Other specified postprocedural states (ICD-10 - Z98.890) Sep, Displaced fracture o f proximal phalanx of left ring finger, subsequent encounter for fracture with routine healing (ICD-10 - S62.615D) Discussed with patient to continue to progress activity as tolerated. Call with any questions or concerns [facility] Other 08-19-2022 Evaluation note* Encounter Date Diagnosis [...] medrol dose pack sent into patients pharmacy [facility] Other 07-22-2022 Evaluation note* Encounter Date Diagnosis Assessment Notes Treatment Notes Treatment Clinical Notes May, Closed displaced fracture of proximal phalanx of left ring finger, initial encounter (ICD-10 - S62.615A) March dicontinue use of splint. Work on massage and stretching. Continue working on ROM exercises. Rx given for Medrol Dosepak. Patient instructed on the use of OTC NSAIDs May, Other specified postprocedural states (ICD-10 - Z98.890) May, Left hand pain (ICD-10 - M79.642) [employer] Other 06-28-2022 Evaluation note* Encounter Date Diagnosis [...] can call with any questions or concerns. [facility] Other 06-15-2022 Evaluation note* Encounter Date Diagnosis Assessment Notes Treatment Notes Treatment Clinical Notes Apr, Left hand pain (ICD-10 - M79.642) Apr, Closed displaced fracture of proximal phalanx of left ring finger, initial encounter (ICD-10 - S62.615A) Patient would like to proceed with surgery patient was informed of the risks and benefits. [employer] Other 05-24-2022 Evaluation note* Encounter Date Diagnosis Assessment Notes Treatment Notes Treatment Clinical Notes March, Left hand pain (ICD-10 - M79.642) 24 May, 2022 Closed nondisplaced fracture of proximal phalanx of [...] the ER for worsening symptoms or concerns. [employer] Other Evaluation noteNo InformationNort [employer] Other Evaluation noteNo assessment information available [facility] Work Phone: Evaluation note* Diagnosis Onset Date Resolution Status Irritable bowel syndrome with diarrhea acute Mass of oral cavity acute Abdominal pain acute Change in bowel habits acute Irritable bowel syndrome with diarrhea acute [facility] Work Phone: Hiscnfs general Narrative - Reported* Type Description Date Medical History HTN Medical History Menopause Medical History Urinary Incontinence Medical History Colonoscopy Medical History ulcers Surgical History Carpal Tunnel, Bilateral Surgical History hernia repair with mesh january 182018 Hospitalization History See above [facility] [employer] Other [facility] general Narrative - Reported* Type Description Date Medical History HTN Medical History Menopause Medical History Urinary Incontinence Medical History Colonoscopy Medical History ulcers Medical History Skin cancer Surgical History Carpal Tunnel, Bilateral Surgical History hernia repair with mesh january 182018 Surgical History Skin cancer 08/2022 Hospitalization History See above [facility] [employer] Other Hospital Discharge instructionsAmbulatory Orders* Referral to Gastroenterology Time Frame: 07/24/24, Location: None Selected [facility] Work Phone: Hospital Discharge instructions Additional Instructions DISCHARGE INSTRUCTIONS FOR COLONOSCOPY WHAT TO EXPECT: - You may feel full, gassy or cramping after your procedure. In some cases, this may be from a few hours to a day. Walking may help relieve the discomfort. - If you have polyp(s) removed you may note some minor bloody discharge after your first bowel movements. - You should begin to recover from anesthesia within 1 hour of the procedure, however may feel groggy for the next 24 hours. DO's AND DON'Ts: - Call your doctor right away if you have a hard abdomen, severe pain, are passing lots of bright red blood or clots. - Call your doctor if you develop any rashes, hives or difficulty breathing. - Let your doctor know if you have not had a bowel movement by 3 days after your procedure. - If you take 81 mg aspirin for your heart it is safe to resume this medication. - If you take other blood thinner medications your doctor will instruct you when these can safely be resumed. - Do NOT drive for 24 hours. - Do NOT operate machinery such as power tools, lawn mowers, snow blowers, sewing machines, etc. for 24 hours. - Avoid alcoholic beverages and drugs for allergies, nerves, or sleep. - Do NOT stay alone. Do NOT leave your child unattended. - Do NOT make important personal or business decisions or sign any legal documents. - Eat solid foods and drink liquids in smaller amounts than usual until normal appetite returns. If you should experience an upset stomach, liquids high in sugar content (soda, Binu-Aid, non-acid juices) are recommended. - You can resume normal activities tomorrow. FOLLOW UP & RECOMMENDATIONS: -Notify the doctor if you have any problems. -Repeat colonoscopy in 10 years -can add tablespoon of Metamucil once daily if needed, avoid dehydration, maintain regular activity/exercise. Can add Miralax 17gm PO Qday and titrate up to twice or three times daily if needed. -Office number [phone]. [facility] Work Phone: Summary Purpose Family History Relationship [...] Cerebrovascular accident (CVA) Unknown Unknown mother Unknown Relationship Condition Age at Onset Recorded Date/T vi father Hypertension Unknown Unknown mother Dementia Unknown Cerebrovascular accident (CVA) Unknown Advance Directives Advance Directive Response Recorded Date/ Time Advance Directives No January 24 18 2:31pm Advance Directive Response Recorded Date/ Time Advance Directives No January 24 1:31pm Discharge Instructions * Instructions* Morro Lilly MD - 11/25/2020 In 2 weeks you need to see an [employer] physician to have endometrial biopsy done. The lining of your uterus is thicker than it should be. There might be uterine cancer. * Attachments The following attachments cannot be sent through Care Everywhere. * Vaginal Bleeding: Postmenopausal (Thai) * Coronavirus Disease (COVID-19): General Info (Thai) documented in this encounter Assessments Diagnosis COVID-19 [...] bowel habits Irritable bowel syndrome with diarrhea Chief Complaint abd issues, gum issu es stomach issues Screening Reason for Visit Irritable bowel synd leila with diarrhea Mass of oral cavity Abdominal pain Change in bowel habits Irritable bowel syndrome with diarrhea Chief Complaint Admit Date Refer: change in bowel habits, ibs w/ di arrhea November 17, 2024 1:53pm constipation December 10, 2024 7 :07am constipation December 10, 2024 8 :59am Reason for Visit Admit Date Abdominal pain November 17, 2024 1:53pm Change in bowel habits November 17 1:53pm Constipation November 17, 2024 1:53pm Chief Complaint Admit Date Refer: change in bowel habits, ibs w/ di arrhea November 17, 2024 1:53pm constipation December 10, 2024 7 :07am constipation December 10, 2024 8 :59am Amb Documentation December 11, 2024 8 :18am diarrhea, abd discomfort February 10 1:38pm Reason for Visit Admit Date Abdominal pain November 17, 2024 1:53pm Change in bowel habits November 17 1:53pm Constipation November 17, 2024 1:53pm Coccygeal pain, chronic February 10, 2025 1:38pm Reason for Referral Reason [place] - Fol lowup from [facility], saw Joi Mina - had xrays Diagnosis 1 Primary osteoarthrit is of left knee (M17.12) Referral Organization [facility] [employer] Referring Provider First Name Catalina Referring Provider Last Name Ernestine Referring Provider Specialty [facility] Referred Organization [facility] Referred Provider Sean Darling Referred Address [address] [place],[address] Referred Provider Specialty Orthopedic S urgery Referral Priority Routine General Notes Karina Aleman 12:08:58 PM >received today, faxed P2P Reason *FU 10/16 [place] office - problems focusing and completing tasks. Diagnosis 1 Attention-deficit hy peractivity disorder, unspecified type (F90.9) Referral Organization [facility] [employer] Referring Provider First Name Catalina Referring Provider Last Name Ernestine Referring Provider Specialty [facility] Referred Organization [facility] Referred Provider Dylan Stockton Referred Address [address] [place],[address] Referred Provider Specialty Neurology Referral Priority Routine General Notes Karina Aleman 04:07:47 PM >received today, attachments made, referral faxed Additional Source Comments INFORMATION SOURCE (unrecogn ized section and content) DATE CREATED AUTHOR 11/25/2020 [facility] DATE CREATED AUTHOR AUTHOR'S ORGANIZ ATION 11/08/2022 [facility] DATE CREATED AUTHOR AUTHOR'S ORGANIZ ATION 12/20/2024 [facility] Reason for Visit (unrecogniz ed section and [...] Provider Active OCTAVIO Paul Attending Provider Active Team Status: Inactive Member Role Status Dates Catalina Carson MD Primary Care Provider Active JESSICA Ramirez-BC Attending Provider Active Team Status: Inactive Member Role Status Dates Catalnia Carson MD Primary Care Provide r, Attending [...] July 24, 2024 End: July 24, 2024 Team Status: Active Member Role Status Dates Catalina Carson MD Primary Care Provider Active Start: July 29, 2024 Reg Adamson DO Attending Provider Active Sta rt: July 29, 2024 Team Status: Inactive Member Role Status Dates Catalina Carson MD Primary Care Provider Active Start: August 04, 2024 End: August 04, 2024 Referral Self Attending Provider Active Start: S wintertetracee 2023 End: August 04, 2024 Team Status: Inactive Member Role Status Dates Catalina Carson MD Primary Care Provider Active Start: November 17, 2024 End: November 17, 2024 Paul Blair MD Attending Provider Active Start: November 17, 2024 End: November 17, 2024 Team Status: Active Member Role Status Dates Catalina Carson MD Primary Care Provider Active Start: November 27, 2024 Paul Blair MD Attending Provider Active Start: November 27, 2024 Team Status: Inactive Member Role Status Dates Catalina Carson MD Primary Care Provider Active Start: December 10, 2024 End: December 10, 2024 Paul Blair MD Attending Provider Active Start: December 10, 2024 End: December 10, 2024 Team Status: Active Member Role Status Dates Catalina Carson MD Primary Care Provider Active Start: December 10, 2024 Paul Blair MD Attending Provider, Other Provider Active Start: December 10, 2024 Team Status: Active Member Role Status Dates Catalina Carson MD Primary Care Provider Active Start: December 11, 2024 Mini Hernandez CMA Attending Provider Active St art: December 11, 2024 Team Status: Inactive Member Role Status Dates Catalina Carson MD Primary Care Provide r, Attending Provider Active Start: February 10, 2025 End: February 10, 2025 Goals (unrecognized section and content) Goals may [...] BE BASED ON THE PRIMARY CLINICAL RECORDS. [employer] provides no warranty or guarantee of the accuracy or completeness of information in this document.
[2025-02-11 12:56] VITALS: BP 155/95; PULSE 77; TEMP 36.4; O2SAT 95
--- NOTE | 2025-02-11 13:40 | ED_ITS ---
HPI HPI - General Adult General Chief complaint: Abdominal Pain Stated complaint: ABDOMINAL PAIN Time Seen by Provider: 02/11/25 13:06 Source: patient Mode of arrival: walk-in Limitations: no limitations Related Data Previous Rx's ?Medication ?Instructions ?Recorded ciprofloxacin HCl 500 mg tablet 500 mg PO BID #20 tabs 02/11/25 (Cipro) dicyclomine 20 mg tablet 20 mg PO QID PRN abdominal pain 02/11/25 #12 tabs metronidazole 500 mg tablet 500 mg PO Q12H 10 days #20 tabs 02/11/25 ondansetron 4 mg disintegrating 4 mg PO Q6H PRN nausea and 02/11/25 tablet vomiting #12 tabs Allergies Allergy/AdvReac Type Severity Reaction Status Date / Time No Known Drug Allergies Allergy Verified 02/11/25 12:56 Opioid HPI Opioid Management Most Recent Opioid Data: No Data to Display PFSH PFSH Social History Little interest or pleasure in doing things: not at all Feeling down, depressed, or hopeless: not at all Exam Constitutional Vital Signs, click to edit/add: Last Vital Signs Temp 97.6 F 02/11/25 12:56 Pulse 77 02/11/25 12:56 Resp 18 02/11/25 12:56 BP 155/95 H 02/11/25 12:56 Pulse Ox 95 02/11/25 12:56 O2 Del Method Room Air 02/11/25 12:56 Course Vital Signs Vital signs: Vital Signs Temperature 97.6 F 02/11/25 12:56 Pulse Rate 77 02/11/25 12:56 Respiratory Rate 18 02/11/25 12:56 Blood Pressure 155/95 H 02/11/25 12:56 Pulse Oximetry 95 02/11/25 12:56 Oxygen Delivery Method Room Air 02/11/25 12:56 Temperature 97.6 F 02/11/25 12:56 Pulse Rate 77 02/11/25 12:56 Respiratory Rate 18 02/11/25 12:56 Blood Pressure 155/95 H 02/11/25 12:56 Pulse Oximetry 95 02/11/25 12:56 Oxygen Delivery Method Room Air 02/11/25 12:56 Medical Decision Making MDM Narrative Medical decision making narrative: Patient medicated with IV fluids, Levsin and Zofran. Abdomen is soft and benign in the ER and she is hemodynamically stable. Laboratory studies reviewed and noted showing mild leukocytosis, CT consistent with sigmoid colitis. No free air or abscess. Patient did not provide a stool specimen while in the emergency department for 3 hours. She is discharged home with Cipro, Flagyl, Levsin, Zofran. She is instructed to follow a clear liquid diet for 48 hours and not resume her ClearLax laxative until she touches base with her GI office. Return to the emergency department if symptoms change or worsen SHARED APC VISIT, PHYSICIAN ATTESTATION: [id number] I performed a substantive part of the MDM during the patient?s E/M visit. I personally evaluated and examined the patient. I personally made or approved the documented management plan and acknowledge its risk of complications. Medical Records Medical records reviewed: Yes I reviewed the patient's medical records Lab Data Lab results reviewed: Yes I reviewed the patient's lab results Labs: Lab Results 02/11/25 02/11/25 Range/Units 13:46 15:20 WBC 14.1 H (4.0-11.0) 10^3/uL RBC 5.02 (4.20-5.40) 10^6/uL Hgb 14.7 (12.0-16.0) g/dL Hct 43.0 (36.0-48.0) % MCV 85.7 (81.0-99.0) fL MCH 29.3 (26.7-34.0) pg MCHC 34.2 (29.9-35.2) g/dL RDW 12.9 (11.0-15.0) % Plt Count 276 (150-450) 10^3/uL MPV 9.4 L (9.5-13.5) fL Neut % (Auto) 88.0 H (43.0-75.0) % Lymph % (Auto) 7.0 L (20.5-60.0) % Emery % (Auto) 3.9 (1.7-12.0) % Eos % (Auto) 0.5 L (0.9-7.0) % Baso % (Auto) 0.3 (0.2-2.0) % Neut # (Auto) 12.4 H (1.4-6.5) 10^3/uL Lymph # (Auto) 1.0 L (1.2-3.8) 10^3/uL Emery # (Auto) 0.6 (0.3-0.8) 10^3/uL Eos # (Auto) 0.1 (0.0-0.7) 10^3/uL Baso # (Auto) 0.0 (0.0-0.1) 10^3/uL Abs Immat Gran (auto) 0.04 H (0.00-0.03) 10^3/uL Imm/Tot Granulo (auto) 0.3 (0.0-0.5) % Sodium 138 (136-145) mmol/L Potassium 3.7 (3.5-5.1) mmol/L Chloride 104 (98-107) mmol/L Carbon Dioxide 24.5 (21.0-32.0) mmol/L Anion Gap 13.2 BUN 14.0 (7.0-18.0) mg/dL Creatinine 1.03 H (0.55-1.02) mg/dL Est GFR ( Amer) >60 (>=60 mL/min/1.73m^2) Est GFR (Non-Af Amer) 53 L (>=60 mL/min/1.73m^2) BUN/Creatinine Ratio 13.6 Glucose 113 H (74-106) mg/dL Lactate 1.2 (0.4-2.0) mmol/L Calcium 9.3 (8.5-10.1) mg/dL Total Bilirubin 0.6 (0.2-1.0) mg/dL AST 14 L (15-37) U/L ALT 23 (14-59) U/L Alkaline Phosphatase 68 (46-116) U/L Total Protein 7.4 (6.4-8.2) g/dL Albumin 3.6 (3.4-5.0) g/dL Globulin 3.8 g/dL Albumin/Globulin Ratio 0.9 Lipase 40.0 (16.0-77.0) U/L Urine Color Lt. yellow (YELLOW) Urine Clarity Clear (CLEAR) Urine pH 6.5 (5.0-9.0) Ur Specific Isabella <=1.005 A (1.005-1.025) Urine Protein Negative (NEG/TRACE) mg/dL Urine Glucose (UA) Negative (NEGATIVE) mg/dL Urine Ketones Negative (NEGATIVE) mg/dL Urine Occult Blood Negative (NEGATIVE) Urine Nitrite Negative (NEGATIVE) Urine Bilirubin Negative (NEGATIVE) Urine Urobilinogen 0.2 (0.2-1.0) EU/dL Ur Leukocyte Esterase Negative (NEGATIVE) Urine RBC None seen (0-2) #/HPF Urine WBC None seen (NONE SEEN) #/HPF Ur Squamous Epith Cells Rare (NONE/RARE) #/LPF Urine Crystals None seen (None Seen) #/HPF Urine Bacteria None seen (NONE SEEN) #/HPF Urine Casts None seen (NONE SEEN) #/LPF Urine Mucus None seen (NONE SEEN) Ur Culture Indicated? No Imaging Data CT scan - abdomen: Attestation: I have reviewed the pertinent imaging results. Discharge Plan Discharge Chief Complaint: Abdominal Pain Clinical Impression: Abdominal pain, Colitis, Diarrhea Patient Disposition: Home, Self-Care Time of Disposition Decision: 15:51 Condition: Good Prescriptions / Home Meds: New metronidazole 500 mg tablet 500 mg PO Q12H 10 Days Qty: 20 0RF ciprofloxacin HCl [Cipro] 500 mg tablet 500 mg PO BID Qty: 20 0RF dicyclomine 20 mg tablet 20 mg PO QID PRN (Reason: abdominal pain) Qty: 12 0RF ondansetron 4 mg tablet,disintegrating 4 mg PO Q6H PRN (Reason: nausea and vomiting) Qty: 12 0RF Print Language: Sri Lankan Instructions: Acute Diarrhea (ED), Colitis (ED) Additional Instructions: Please follow a clear liquid diet for 48 hours Do not take a laxative for at least 48 hours - you can call your GI doctor's office for further instructions on the ClearLax Referrals: Catalina Sinha MD [Primary Care Provider] - 1 week
[2025-02-11 14:11] LABS: Basophils Percent Auto 0.3 % (0.2-2.0); Eosinophils Absolute Auto 0.1 10^3/uL (0.0-0.7); Eosinophils Percent Auto 0.5 % (0.9-7.0); Hemoglobin 14.7 g/dL (12.0-16.0); Immature Granulocytes Abs Auto 0.04 10^3/uL (0.00-0.03); Immature Granulocytes Pct Auto 0.3 % (0.0-0.5); Mean Corpuscular HGB Conc 34.2 g/dL (29.9-35.2); Mean Corpuscular Hemoglobin 29.3 pg (26.7-34.0); Mean Corpuscular Volume 85.7 fL (81.0-99.0); Mean Platelet Volume 9.4 fL (9.5-13.5); Monocytes Absolute Auto 0.6 10^3/uL (0.3-0.8); Monocytes Percent Auto 3.9 % (1.7-12.0); Neutrophils Absolute Auto 12.4 10^3/uL (1.4-6.5); Platelet Count 276 10^3/uL (150-450); Red Blood Count 5.02 10^6/uL (4.20-5.40); Red Cell Distribution Width 12.9 % (11.0-15.0); White Blood Count 14.1 10^3/uL (4.0-11.0)
[2025-02-11] MEDS: 0.9 % SODIUM CHLORIDE 1,000 ML 999 ML IV (14:15)
[2025-02-11] MEDS: HYOSCYAMINE SULFATE 0.125 MG TAB.SUBL SL (14:18)
[2025-02-11] MEDS: ONDANSETRON PF 4 MG/2 ML VIAL IV (14:18)
[2025-02-11 14:28] LABS: Lactate/Lactic Acid 1.2 mmol/L (0.4-2.0)
[2025-02-11 14:53] LABS: Alanine Aminotransferase 23 U/L (14-59); Albumin Globulin Ratio 0.9; Albumin Level 3.6 g/dL (3.4-5.0); Alkaline Phosphatase 68 U/L (46-116); Anion Gap 13.2; Aspartate Amino Transferase 14 U/L (15-37); BUN Creatinine Ratio 13.6; Bilirubin Total 0.6 mg/dL (0.2-1.0); Calcium 9.3 mg/dL (8.5-10.1); Carbon Dioxide 24.5 mmol/L (21.0-32.0); Chloride 104 mmol/L (98-107); Estimated GFR (African America >60 (>=60 mL/min/1.73m^2); Estimated GFR (Non-African Ame 53 (>=60 mL/min/1.73m^2); Globulin 3.8 g/dL; Glucose 113 mg/dL (74-106); Potassium 3.7 mmol/L (3.5-5.1); Sodium 138 mmol/L (136-145); Total Protein 7.4 g/dL (6.4-8.2)
[2025-02-11 15:40] LABS: Bilirubin Urine NEGATIVE (NEGATIVE); Blood Urine NEGATIVE (NEGATIVE); Clarity Urine CLEAR (CLEAR); Color Urine LT. YELLOW (YELLOW); Glucose Urine UA NEGATIVE (NEGATIVE); Ketones Urine NEGATIVE (NEGATIVE); Leukocyte Esterase Urine NEGATIVE (NEGATIVE); Nitrite Urine NEGATIVE (NEGATIVE); Protein Urine NEGATIVE (NEG/TRACE); Specific Gravity Urine <=1.005 (1.005-1.025); Urobilinogen Urine 0.2 EU/dL (0.2-1.0); pH Urine 6.5 (5.0-9.0)
[2025-02-11 15:49] LABS: Bacteria Urine NONE SEEN #/HPF (NONE SEEN); Cast Seen? NONE SEEN #/LPF (NONE SEEN); Crystals Seen? None Seen #/HPF (None Seen); Mucus Urine NONE SEEN (NONE SEEN); RBC Urine NONE SEEN #/HPF (0-2); Squamous Epithelial Cell Urine RARE #/LPF (NONE/RARE); Urine Culture Indicated NO; WBC Urine NONE SEEN #/HPF (NONE SEEN)
[2025-02-11 16:05] VITALS: BP 164/99; PULSE 80; O2SAT 96
== END 2025-02-11 16:28 | disposition home or self-care (01) ==
PROVIDERS: Physician Assistant; Emergency Provider Emergency Medicine; PCP Family Medicine
DX: K52.9 Noninfective gastroenteritis and colitis, unspecified (principal); R10.9 Unspecified abdominal pain
CPT/HCPCS: 36415; 74177; 80053; 81001; 83605; 83690; 85025; 96361; 96374; 99285; J2405; Q9967

== ENCOUNTER 2025-02-17 08:12 | Outpatient (REF) | payer MEDICARE, SELFPAY ==
--- OUTSIDE RECORDS SUMMARY | 2025-02-17 08:16 | XMS_ITS | CCD ---
Author Organization [facility] Care Team Providers Care Cylinder Inspector Name Role Phone MORRO LILLY Attending Unavailab CATALINA Root Primary Care Unavailable Catalina Carson Primary Care Provider Genevieve Sahu Unavailable Jewell Fernandez Unavailable MD Catalina Carson Primary Care Provider MD Genevieve Sahu Attending Provider DO Dallas Whitaker Attending Provider DO Dallas Whitaker Referring Provider [phone] [address] KAN BAXTER V Consulting Unavailable DR [...] Unavailable Catalina Carson MD Primary Care Provider [phone] Paul Blair MD Attending Provider Catalina Carson Primary Care Unavailable Self, Referral [...] or physicia Propensity to adverse reactions Comment:Done Yuyuto Other (2 sources) Allergies Reconciled Propensity to adverse reactions Unknown Yuyuto Other Medications Current Medications Medication Drug Class(es) [...] a day for 10 day(s) Oct, Active Zlcemoh-Yjbpjigth-T inc (9 sources) Start: 05-04-2022 take 2 tablets by mouth once daily in the evening Calcium-Magnesium- Zinc Active 2 TAB PO Every evening May 03, 2022 11:00pm Start: 05-04-2022 take 2 tablets by mo uth once daily in the evening Dugxddl-Jjkmdhdkh-Xyvq Active 2 TAB PO Every evening May 04, 2022 12:00am Zwthsvt-Svfeyhbxl-Xbln Tablet (2 sources) Start: 05-04-2022 take 2 tablets by mouth once daily in the evening Zspqqvi-Omepmjgou-Uswy Tablet Active 2 TAB PO Every evening May 04, 2022 12:00am Start: 05-04-2022 take 2 tablets by mo uth once daily in the evening Jukqzip-Rhxlvlqsc-Nlcb Tablet Active 2 TAB PO Every evening [...] inulin 200 mg / lactobacillus rhamnosus gg [id number] unt oral capsule (15 sources) Culturelle - [...] Start: 12-02-2024 take 1 capsule by mo [facility] once daily Omeprazole 20 mg capsule,delayed release(DR/EC) [...] 12:00am Oxybutynin Activ e polyethylene glycol 3350 74927 mg powder for oral solution (2 sources) [...] November 27, 2024 10:41am lactobacillus rhamnosus gg [id number] unt oral capsule (1 source) Start: 02-09-2025 [...] and Corynebacterium diphtheriae antigens (medicinal product); Translations: [Fzomwjrinw-efeouqm-e ertussis, combined [DTP] [DtaP]] Onset: 09-28-2016 Results Test Name Value Interpretation Reference Range Facility Laboratory - Chemistry and C hemistry - challengeon 11-27-2024 TSH Qn 1.525 m[IU]/L 0.358-3.[address] [facility] No Panel Informationon 11-27 C-Reactive Protein, Quantitative 0.61 mg/dL High <=0.[address] [facility] Stool Calprotectin 110 ug/g 0-120 [facility] Comment on above: Concentration Interp retation Follow-Up< 5 - 50 ug/g Normal None>50 -120 ug/g Borderline Re-evaluate in 4-6 weeks >120 ug/g Abnormal Repeat as clinically indicatedPerformed at: [facility] Lab[address] [id number] Director: Elma Oshea MD, Phone: [phone] MM screening mammo BI w/CADo n 08-05-2024 MM screening mammo BI w/CAD [facility] Main [place] [address] [place] [address] Mammography Report Signed Patient: Nany Carmen MR#: [id number] 1 : 1955 Acct:[id number] Age/Sex: 69 / F ADM Date: 08/04/24 Loc: [place] Room: Type: [facility] Attending Dr: Referral Self Copies to: Catalina [...] DO 08/05/2414 Signed By: 08/05/24817 Normal [facility] Estimated glomerular filtrat ion rate (GFR) non- Americanon 07-29-2024 GFR/1.73 sq M.predicted among non-blacks MDRD (S/P/Bld) [Vol rate/Area] 54 mL/min/{1.73_m2} Low >=[address] [facility] Laboratory - Chemistry and C hemistry - challengeon 07-29-2024 Creatinine [Mass/Vol] 1.02 mg/dL 0.55-1.02 [facility] GFR/1.73 sq M.predicted MDRD (S/P/Bld) [Vol rate/Area] mL/min/{1.73_m2} >=[address] [facility] AMYLASEon 10-30-2022 Amylase [Catalytic activity/Vol] 20 U/L Critically low 25-115 [facility] Comment on above: Performed By: #### A MY, LIPA, CMP #### [facility] [address] [place] [address] Dr. Nunu Newman CBC AUTO DIFFon 10-30-2022 BASO # 0.0 103/ul Normal 0.0-0.1 [facility] Comment on above: Performed By: #### C BC #### [facility] [address] [address] [address] Nunu Newman Basophils/100 WBC (Bld) 0.5 % Normal 0.2-2.0 [facility] Comment on above: Performed By: #### C BC #### [facility] [address] [address] [address] Nunu Newman EO # 0.0 103/ul Normal 0.0-0.7 [facility] Comment on above: Performed By: #### C BC #### [facility] [address] [place] [address] Dr. Nunu Newman Eosinophils/100 WBC (Bld) 0.2 % Critically low 0.9-7.0 [facility] Comment on above: Performed By: #### C BC #### [facility] [address] [address] [address] Nunu Newman Erythrocyte distribution width (RBC) [Ratio] 12.7 % Normal 11.0-15.0 [facility] Comment on above: Performed By: #### C BC #### [facility] [address] [place] [address] Dr. Nunu Newman Hematocrit (Bld) [Volume fraction] 39.7 % Normal 36.0-48.0 [facility] Comment on above: Performed By: #### C BC #### [facility] [address] [place] [address] Dr. Nunu Newman Hemoglobin (Bld) [Mass/Vol] 13.6 g/dL Normal 12.0-16.0 [facility] Comment on above: Performed By: #### C BC #### [facility] [address] [place] [address] Dr. Nunu Newman IG # 0.02 10e3/ul Normal 0.00-0.03 [facility] Comment on above: Performed By: #### C BC #### [facility] [address] [place] [address] Dr. Nunu Newman IG % 0.3 % Normal 0.0-0.5 [facility] Comment on above: Performed By: #### C BC #### [facility] [address] [place] [address] Dr. Nunu Newman LYMPH # 0.9 103/ul Critically low 1.2-3.8 [facility] Comment on above: Performed By: #### C BC #### [facility] [address] [place] [address] Dr. Nunu Newman Lymphocytes/100 WBC (Bld) 14.6 % Critically low 20.5-60.0 [facility] Comment on above: Performed By: #### C BC #### [facility] [address] [place] [address] Dr. Nunu Newman MANUAL DIFF REQ NO Normal [facility] Comment on above: Performed By: #### C BC #### [facility] [address] [place] [address] Dr. Nunu Newman MCH (RBC) [Entitic mass] 29.1 pg Normal 26.7-34.0 [facility] Comment on above: Performed By: #### C BC #### [facility] [address] [place] [address] Dr. Nunu Newman MCHC (RBC) [Mass/Vol] 34.3 g/dL Normal 29.9-35.2 [facility] Comment on above: Performed By: #### C BC #### [facility] [address] [place] [address] Dr. Nunu Newman MCV (RBC) [Entitic vol] 84.8 fL Normal 81.0-99.0 [facility] Comment on above: Performed By: #### C BC #### [facility] [address] [place] [address] Dr. Nunu Newman MONO # 0.8 103/ul Normal 0.3-0.8 [facility] Comment on above: Performed By: #### C BC #### [facility] [address] [place] [address] Dr. Nunu Newman Monocytes/100 WBC (Bld) 11.8 % Normal 1.7-12.0 [facility] Comment on above: Performed By: #### C BC #### [facility] [address] [place] [address] Dr. Nunu Newman NEUT # 4.7 103/ul Normal 1.4-6.5 [facility] Comment on above: Performed By: #### C BC #### [facility] [address] [place] [address] Dr. Nunu Newman Neutrophils/100 WBC (Bld) 72.6 % Normal 43.0-75.0 [facility] Comment on above: Performed By: #### C BC #### [facility] [address] [place] [address] Dr. Nunu Newman Platelet mean volume (Bld) [Entitic vol] 8.8 fL Critically low 9.5-13.5 [facility] Comment on above: Performed By: #### C BC #### [facility] [address] [place], [place] [address] Dr. Nunu Newman PLT 200 103/ul Normal 150-450 [facility] Comment on above: Performed By: #### C BC #### [facility] [address] [address] [address] Nunu Newman RBC 4.68 106/ul Normal 4.20-5.40 [facility] Comment on above: Performed By: #### C BC #### [facility] [address] [address] [address] Nunu Newman WBC 6.4 103/ul Normal 4.0-11.0 [facility] Comment on above: Performed By: #### C BC #### [facility] [address] [address] ABD/PELVIS WO CONon [...] KAN BAXTER Date: 2022-10-30 10:50 Normal [facility] ER URINE PROFILEon 2 Bilirubin Ql (U) SMALL Abnormal NEGATIVE [facility] Comment on above: Performed By: #### U MICRO, ERUR #### [facility] [address] [address] [address] Nunu Newman Clarity (U) CLEAR Normal CLEAR [facility] Comment on above: Performed By: #### U MICRO, ERUR #### [facility] [address] [address] [address] Nunu Newman Color (U) YELLOW Normal YELLOW [facility] Comment on above: Performed By: #### U MICRO, ERUR #### [facility] [address] [place] [address] Dr. Nunu SAMPSON A micrscopic examination will be performed if indicated. Normal [facility] Comment on above: Performed By: #### U MICRO, ERUR #### [facility] [address] [address] [address] Nunu Newman Glucose Ql (U) Negative Normal NEGATIVE [facility] Comment on above: Performed By: #### U MICRO, ERUR #### [facility] [address] [address] [address] Nunu Newman Hemoglobin Ql (U) TRACE-INTACT Abnormal NEGATIVE [facility] Comment on above: Performed By: #### U MICRO, ERUR #### [facility] [address] [address] [address] Nunu Newman Ketones Ql (U) 15 mg/dl Abnormal NEGATIVE [facility] Comment on above: Performed By: #### U MICRO, ERUR #### [facility] [address] [address] [address] Nunu Newman LEUKOCYTES Negative Normal NEGATIVE [facility] Comment on above: Performed By: #### U MICRO, ERUR #### [facility] [address] [address] [address] Nunu Newman Nitrite Ql (U) Negative Normal NEGATIVE [facility] Comment on above: Performed By: #### U MICRO, ERUR #### [facility] [address] [place] [address] Dr. Nunu Newman pH (U) 6.0 [pH] Normal 5-9 [facility] Comment on above: Performed By: #### U MICRO, ERUR #### [facility] [address] [place] [address] Dr. Nunu Newman SPEC GRAVITY 1.010 Normal 1.005-<=1.02 5 [facility] Comment on above: Performed By: #### U MICRO, ERUR #### [facility] [address] [place] [address] Dr. Nunu Newman UA PROTEIN TRACE Normal NEGATIVE/ TRACE [facility] Comment on above: Performed By: #### U MICRO, ERUR #### [facility] [address] [place] [address] Dr. Nunu Newman UR MICRO IND INDICATED Normal [facility] Comment on above: Performed By: #### U MICRO, ERUR #### [facility] [address] [place] [address] Dr. Nunu Newman Urobilinogen Qn (U) 0.2 {Anish'U}/dL Normal 0.2 - 1. 0 [facility] Comment on above: Performed By: #### U MICRO, ERUR #### [facility] [address] [place] [address] Dr. Nunu Newman GI PANEL (PCR)on 10-30-2022 Adenovirus F 40/41 Not detected Normal NOT DETECTED [facility] Comment on above: Performed By: #### G IPANEL #### [facility] [address] [place] [address] Dr. Nunu Newman Astrovirus Not detected Normal NOT DETECTED [facility] Comment on above: Performed By: #### G IPANEL #### [facility] [address] [place] [address] Dr. Nunu Newman C. Diff toxin A/B Not detected Normal NOT DETECTED [facility] Comment on above: Performed By: #### G IPANEL #### [facility] [address] [place] [address] Dr. Nunu Newman Campylobacter Detected Critically abnormal NOT DETECTED [facility] Comment on above: Performed By: #### G IPANEL #### [facility] [address] [address] [address] Nunu Newman Cryptosporidium Not detected Normal NOT DETECTED [facility] Comment on above: Performed By: #### G IPANEL #### [facility] [address] [address] [address] Nunu Newman Cyclos. Cayetanensis Not detected Normal NOT DETECTED [facility] Comment on above: Performed By: #### G IPANEL #### [facility] [address] [address] [address] Nunu Newman E. Coli O157 Not Applicable Normal Not Applicable [facility] Comment on above: Performed By: #### G IPANEL #### [facility] [address] [place] [address] Dr. Nunu Newman E. histolytica Not detected Normal NOT DETECTED [facility] Comment on above: Performed By: #### G IPANEL #### [facility] [address] [place] [address] Dr. Nunu Newman EAEC Not detected Normal NOT DETECTED [facility] Comment on above: Performed By: #### G IPANEL #### [facility] [address] [place] [address] Dr. Nunu Newman EIEC Not detected Normal NOT DETECTED [facility] Comment on above: Performed By: #### G IPANEL #### [facility] [address] [place] [address] Dr. Nunu Newman EPEC Not detected Normal NOT DETECTED [facility] Comment on above: Performed By: #### G IPANEL #### [facility] [address] [place] [address] Dr. Nunu Newman ETEC Not detected Normal NOT DETECTED [facility] Comment on above: Performed By: #### G IPANEL #### [facility] [address] [place] [address] Dr. Nunu Guevara. Lamblia Not detected Normal NOT DETECTED [facility] Comment on above: Performed By: #### G IPANEL #### [facility] [address] [address] [address] Nunu STARKEY CONTROLS PASSED Normal [facility] Comment on above: Performed By: #### G IPANEL #### [facility] [address] [address] [address] Nunu [facility] HEAD[facility] GI PANEL BACTERIA Normal [facility] Comment on above: Performed By: #### G IPANEL #### [facility] [address] [address] [address] Nunu EISENBERG ECOLI GI PANEL DIARRHEAGENIC E.COLI / SHIGELLA Normal [facility] Comment on above: Performed By: #### G IPANEL #### [facility] [address] [address] [address] Nunu EISENBERG INFO SEE BELOW Normal [facility] Comment on above: Result Comment: EAEC - Enteroaggregative E. Coli EPEC- Enteropathogenic E. Coli ETEC- Enterotoxigenic E. Coli lt/st STEC- Shigella-like toxin-producing E. Coli stx1/stx2 EIEC- Shigella/Enteroinvasive E. Coli Performed By: #### G IPANEL #### [facility] [address] [place] [address] Dr. Nunu EISENBERG PARASITES GI PANEL PARASITES Normal [facility] Comment on above: Performed By: #### G IPANEL #### [facility] [address] [address] [address] Nunu EISENBERG VIRUS GI PANEL VIRUSES Normal [facility] Comment on above: Performed By: #### G IPANEL #### [facility] [address] [address] [address] Nunu Newman Norovirus GI/GII Not detected Normal NOT DETECTED [facility] Comment on above: Performed By: #### G IPANEL #### [facility] [address] [place] [address] Dr. Nunu Newman P. Shigelloides Not detected Normal NOT DETECTED [facility] Comment on above: Performed By: #### G IPANEL #### [facility] [address] [address] [address] Nunu Newman Rotavirus A Not detected Normal NOT DETECTED [facility] Comment on above: Performed By: #### G IPANEL #### [facility] [address] [place] [address] Dr. Nunu Newman Salmonella Not detected Normal NOT DETECTED [facility] Comment on above: Performed By: #### G IPANEL #### [facility] [address] [place] [address] Dr. Nunu Newman Sapovirus Not detected Normal NOT DETECTED [facility] Comment on above: Performed By: #### G IPANEL #### [facility] [address] [place] [address] Dr. Nunu Newman STEC Not detected Normal NOT DETECTED [facility] Comment on above: Performed By: #### G IPANEL #### [facility] [address] [place] [address] Dr. Nunu Newman Vibrio Not detected Normal NOT DETECTED [facility] Comment on above: Performed By: #### G IPANEL #### [facility] [address] [place] [address] Dr. Nunu Newman Vibrio Cholera Not detected Normal NOT DETECTED [facility] Comment on above: Performed By: #### G IPANEL #### [facility] [address] [place] [address] Dr. Nunu Newman Y. Enterocolitica Not detected Normal NOT DETECTED [facility] Comment on above: Performed By: #### G IPANEL #### [facility] [address] [place] [address] Dr. Nunu Newman LACTATE/LACTIC ACIDon 2021 Lactate [Moles/Vol] 0.9 mmol/L Normal 0.4-1.9 [facility] Comment on above: Performed By: #### L ACT #### [facility] [address] [place] [address] Dr. Nunu Newman LIPASEon 10-30-2022 Lipase [Catalytic activity/Vol] 114.0 U/L Normal 73.0-393.0 [facility] Comment on above: Performed By: #### A MY, LIPA, CMP #### [facility] [address] [place] [address] Dr. Nunu Newman PROF 14(COMP METB)on 022 Albumin [Mass/Vol] 3.0 g/dL Critically low 3.4-5.0 [facility] Comment on above: Performed By: #### A MY, LIPA, CMP #### [facility] [address] [address] [address] Nunu Newman Albumin/Globulin [Mass ratio] 0.7 {ratio} Normal [facility] Comment on above: Performed By: #### A MY, LIPA, CMP #### [facility] [address] [place] [address] Dr. Nunu Newman ALP [Catalytic activity/Vol] 53 U/L Normal 46-116 [facility] Comment on above: Performed By: #### A MY, LIPA, CMP #### [facility] [address] [place] [address] Dr. Nunu Newman ALT [Catalytic activity/Vol] 20 U/L Normal 14-59 [facility] Comment on above: Performed By: #### A MY, LIPA, CMP #### [facility] [address] [place] [address] Dr. Nunu Newman Anion gap [Moles/Vol] 12.4 mmol/L Normal [facility] Comment on above: Performed By: #### A MY, LIPA, CMP #### [facility] [address] [place] [address] Dr. Nunu Newman AST [Catalytic activity/Vol] 21 U/L Normal 15-37 [facility] Comment on above: Performed By: #### A MY, LIPA, CMP #### [facility] [address] [place] [address] Dr. Nunu Newman Bilirubin [Mass/Vol] 0.4 mg/dL Normal 0.2-1.0 [facility] Comment on above: Performed By: #### A MY, LIPA, CMP #### [facility] [address] [place] [address] Dr. Nunu Newman Calcium [Mass/Vol] 8.6 mg/dL Normal 8.5-10.1 [facility] Comment on above: Performed By: #### A OSCAR HOGAN, CMP #### [facility] [address] [address] [address] Nunu Newman Chloride [Moles/Vol] 100 mmol/L Normal 98-107 [facility] Comment on above: Performed By: #### A OSCAR HOGAN, CMP #### [facility] [address] [address] [address] Nunu Newman CO2 [Moles/Vol] 27.0 mmol/L Normal 21.0-32.0 [facility] Comment on above: Performed By: #### A OSCAR HOGAN, CMP #### [facility] [address] [place] [address] Dr. Nunu Newman Creatinine [Mass/Vol] 0.90 mg/dL Normal 0.55-1.02 [facility] Comment on above: Performed By: #### A OSCAR HOGAN, CMP #### [facility] [address] [place] [address] Dr. Nunu Newman EGFR-AF ALBANIAN >60 Normal >=60 [facility] Comment on above: Performed By: #### A OSCAR HOGAN, CMP #### [facility] [address] [place] [address] Dr. Nunu Newman EGFR-NON AF ALBANIAN >60 Normal >=60 [facility] Comment on above: Performed By: #### A OSCAR HOGAN, CMP #### [facility] [address] [place] [address] Dr. Nunu Newman Globulin (S) [Mass/Vol] 4.1 g/dL Normal [facility] Comment on above: Performed By: #### A OSCAR HOGAN, CMP #### [facility] [address] [place] [address] Dr. Nunu Newman Glucose [Mass/Vol] 112 mg/dL Critically high 74-106 [facility] Comment on above: Performed By: #### A OSCAR HOGAN, CMP #### [facility] [address] [place] [address] Dr. Nunu Newman Potassium [Moles/Vol] 3.4 mmol/L Critically low 3.5-5.1 [facility] Comment on above: Performed By: #### A OSCAR HOGAN, CMP #### [facility] [address] [address] [address] Nunu Newman Protein [Mass/Vol] 7.1 g/dL Normal 6.4-8.2 [facility] Comment on above: Performed By: #### A OSCAR HOGAN, CMP #### [facility] [address] [address] [address] Nunu Newman Sodium [Moles/Vol] 136 mmol/L Normal 136-145 [facility] Comment on above: Performed By: #### A OSCAR HOGAN, CMP #### [facility] [address] [place] [address] Dr. Nunu Newman Urea nitrogen [Mass/Vol] 14.0 mg/dL Normal 7.0-18.0 [facility] Comment on above: Performed By: #### A OSCAR HOGAN, CMP #### [facility] [address] [place] [address] Dr. Nunu Newman Urea nitrogen/Creatinine [Mass ratio] 15.6 mg/mg Normal [facility] Comment on above: Performed By: #### A OSCAR HOGAN, CMP #### [facility] [address] [place] [address] Dr. Nunu Newman URINE MICROSCOPIC ONLYon BACTERIA NONE SEEN Normal NONE SEEN [facility] Comment on above: Performed By: #### U MICRO, ERUR #### [facility] [address] [place] [address] Dr. Nunu Newman Bacteria identified Cx Nom (U) NOT INDICATED Normal [facility] Comment on above: Performed By: #### U MICRO, ERUR #### [facility] [address] [place] [address] Dr. Nunu Newman CAST NONE SEEN Normal NONE SEEN [facility] Comment on above: Performed By: #### U MICRO, ERUR #### [facility] [address] [address] [address] Nunu Newman Crystals LM Nom (Urine sed) NONE SEEN Normal NONE SEEN The [facility] [facility] Comment on above: Performed By: #### U MICRO, ERUR #### [facility] [address] [address] [address] Nunu Newman Epithelial cells LM Ql (Urine sed) FEW Abnormal NONE SEEN /RARE [facility] Comment on above: Performed By: #### U MICRO, ERUR #### [facility] [address] [address] [address] Nunu Newman MUCOUS NONE SEEN Normal NONE SEEN [facility] Comment on above: Performed By: #### U MICRO, ERUR #### [facility] [address] [place] [address] Dr. Nunu Newman RBC 0-2 Normal 0-2 [facility] Comment on above: Performed By: #### U MICRO, ERUR #### [facility] [address] [place] [address] Dr. Nunu Newman WBC NONE SEEN Normal NONE SEEN [facility] Comment on above: Performed By: #### U MICRO, ERUR #### [facility] [address] [place] [address] Dr. Nunu Newman XR hand LT min 3V*on 022 XR hand LT min 3V* [facility] [employer] Other XR hand LT min 3V* [facility] [employer] Other XR hand LT min 3V* [address] [place] [address] [employer] Other XR hand LT min 3V* [place] [address] [employer] Other XR hand LT min 3V* XRay Report [employer] Other XR hand LT min 3V* Signed [employer] Other XR hand LT min 3V* Patient: Nany Carmen MR#: [id number] [employer] Other XR hand LT min 3V* 1 [employer] Other XR hand LT min 3V* : 1955 Acct:[id number] [employer] Other XR hand LT min 3V* Age/Sex: 67 / F ADM Date: 06/09/22 [employer] Other XR hand LT min 3V* Loc: SOXD Room: Type : [facility] [employer] Other XR hand LT min 3V* Attending Dr: Ginna Sahu MD [employer] Other XR hand LT min 3V* Copies to: Genevieve Sahu MD [employer] Other XR hand LT min 3V* Ordering Provider: Genevieve Sahu MD [employer] Other XR hand LT min 3V* Date of Service: 06/09/22 [employer] Other XR hand LT min 3V* XR/XR hand LT min 3V*: Closed displaced fracture of proximal phalanx of [employer] Other XR hand LT min 3V* left ring f [employer] Other XR hand LT min 3V* 4 viewsLEFT hand plain film [employer] Other XR hand LT min 3V* COMPARISON:05/16/22 [employer] Other XR hand LT min 3V* HISTORY:Status post ORIF LEFT 4th proximal interphalangeal fracture [employer] Other XR hand LT min 3V* Fixation hardware intact. Continued healing of the fracture of the proximal 4th phalanx present. [employer] Other XR hand LT min 3V* Bony alignment is unchanged. [employer] Other XR hand LT min 3V* XR/XR hand LT min 3V* [employer] Other XR hand LT min 3V* IMPRESSION:Healing fracture. No hardware failure. [employer] Other XR hand LT min 3V* Impression dictated by: Miguelangel Alonzo M.D.06/09/2022 1:13 PM [employer] Other XR hand LT min 3V* Dictation Location: [place] [address] [employer] Other XR hand LT min 3V* Transcribed By: PWS 06/09/22 1313 [employer] Other XR hand LT min 3V* Dictated By: Miguelangel Alonzo DO 06/09/22 1312 [employer] Other XR hand LT min 3V* Signed By: [employer] Other XR hand LT min 3V* 06/09/22 1313 [facility] [employer] Other XR hand LT min 3V*on 022 XR hand LT min 3V* [facility] [employer] Other XR hand LT min 3V* [facility] [employer] Other XR hand LT min 3V* [address] [place] [address] [employer] Other XR hand LT min 3V* [place] [address] [employer] Other XR hand LT min 3V* XRay Report [employer] Other XR hand LT min 3V* Signed [employer] Other XR hand LT min 3V* Patient: Nany Carmen MR#: [id number] [employer] Other XR hand LT min 3V* 1 [employer] Other XR hand LT min 3V* : 1955 Acct:[id number] [employer] Other XR hand LT min 3V* Age/Sex: 67 / F ADM Date: 05/16/22 [employer] Other XR hand LT min 3V* Loc: [facility] Room: Type : [facility] [employer] Other XR hand LT min 3V* Attending Dr: Ginna Sahu MD [employer] Other XR hand LT min 3V* Copies to: Genevieve Sahu MD [employer] Other XR hand LT min 3V* Ordering Provider: Genevieve Sahu MD [employer] Other XR hand LT min 3V* Date of Service: 05/16/22 [employer] Other XR hand LT min 3V* XR/XR hand LT min 3V*: Closed displaced fracture of proximal phalanx of [employer] Other XR hand LT min 3V* left ring f [employer] Other XR hand LT min 3V* XR hand LT min 3V* 05/16/2022 1:23 PM [employer] Other XR hand LT min 3V* SIGNS AND SYMPTOMS: Closed displaced fracture of proximal phalanx of left ring finger, follow-up [employer] Other XR hand LT min 3V* PROTOCOL: Frontal, lateral, and oblique radiographs of the left hand [employer] Other XR hand LT min 3V* COMPARISON: 05/08/2022 [employer] Other XR hand LT min 3V* FINDINGS: [employer] Other XR hand LT min 3V* There has been screw fixation across a midshaft fracture of the proximal phalanx of the fourth [employer] Other XR hand LT min 3V* digit. Healing remains incomplete. There is soft tissue swelling throughout the fourth digit. No [employer] Other XR hand LT min 3V* hardware complicatio n or change in alignment. [employer] Other XR hand LT min 3V* XR/XR hand LT min 3V* [employer] Other XR hand LT min 3V* IMPRESSION: [employer] Other XR hand LT min 3V* Status post hardware fixation across a fracture involving the shafts of the fourth proximal phalanx [employer] Other XR hand LT min 3V* without hardware complication or change in alignment. Healing remains incomplete. [employer] Other XR hand LT min 3V* Impression dictated by: Chente Crook M.D.05/16/2022 2:34 PM [employer] Other XR hand LT min 3V* Dictation Location: [place] [address] [employer] Other XR hand LT min 3V* Transcribed By: HEMANT 05/16/22 [facility] [employer] Other XR hand LT min 3V* Dictated By: Chente Crook II, MD 05/16/22 [facility] [employer] Other XR hand LT min 3V* Signed By: [employer] Other XR hand LT min 3V* 05/16/[address] [place] [address] [employer] Other Albumin [Mass/volume] in Ser um or PlasmaOrdered By: Genevieve Sahu on 05-04-2022 Albumin [Mass/Vol] 3.6 g/dL 3.2-5.5 [facility] Basophils Auto (Bld) [#/Vol] Ordered By: Genevieve Sahu on 05-04-2022 Basophils (Bld) [#/Vol] 0.0 10*3/uL 0.0-0.[address] [facility] Basophils/100 WBC Auto (Bld) Ordered By: Genevieve Sahu on 05-04-2022 Basophils/100 WBC (Bld) 0.5 % . [facility] Blood hemoglobin measurement (mass/volume)Ordered By: Genevieve Sahu on 05-04-2022 Hemoglobin (Bld) [Mass/Vol] 13.0 g/dL 11.8-15.[address] [facility] Blood leukocytes automated c ount (number/volume)Ordered By: Genevieve Sahu on 05-04-2022 WBC (Bld) [#/Vol] 7.0 10*3/uL 4.5-11.0 [facility] COVID-19 Positive/NegativeOr dered By: Genevieve Sahu on 05-04-2022 SARS-CoV-2 (COVID-19) N gene LISA+probe Ql (Resp) Negative Negative [facility] Comment on above: Testing for SARS-CoV -2 by RT-PCR This test was developed and its performance characteristics determined by [employer] and validated at the [facility]. This test has not been FDA [...] on 05-04-2022 Creatinine [Mass/Vol] 0.95 mg/dL 0.44-1.03 [facility] Eosinophils Auto (Bld) [#/Vo l]Ordered By: Genevieve Sahu on 05-04-2022 Eosinophils (Bld) [#/Vol] 0.1 10*3/uL 0.0-0.[address] [facility] Eosinophils/100 WBC Auto (Bl d)Ordered By: Genevieve Sahu on 05-04-2022 Eosinophils/100 WBC (Bld) 2.0 % . [facility] Erythrocyte distribution wid th Auto (RBC) [Ratio]Ordered By: Genevieve Sahu on 05-04-2022 Erythrocyte distribution width (RBC) [Ratio] 14.0 % 11.9-15.[address] [facility] Estimated glomerular filtrat ion rate (GFR) non- AmericanOrdered By: Genevieve Sahu on 05-04-2022 GFR/1.73 sq M.predicted among non-blacks MDRD (S/P/Bld) [Vol rate/Area] 59 mL/Min [facility] Globulin Calc (S) [Mass/Vol] Ordered By: Genevieve Sahu on 05-04-2022 Globulin (S) [Mass/Vol] 2.8 g/dL [facility] Hematocrit Auto (Bld) [Volum e fraction]Ordered By: Genevieve Sahu on 05-04-2022 Hematocrit (Bld) [Volume fraction] 38.7 % 34.0-46.[address] [facility] Laboratory - Hematology and Cell countsOrdered By: Genevieve Sahu on 05-04-2022 Nucleated RBC/100 WBC (Bld) [Ratio] 0.1 % 0-0.[address] [facility] Lymphocytes Auto (Bld) [#/Vo l]Ordered By: Genevieve Sahu on 05-04-2022 Lymphocytes (Bld) [#/Vol] 1.5 10*3/uL 1.00-4.[address] [facility] Lymphocytes/100 WBC Auto (Bl d)Ordered By: Genevieve Sahu on 05-04-2022 Lymphocytes/100 WBC (Bld) 22.0 % . [facility] MCH Auto (RBC) [Entitic mass ]Ordered By: Genevieve Sahu on 05-04-2022 MCH (RBC) [Entitic mass] 29.5 pg 24.7-34.[address] [facility] MCHC Auto (RBC) [Mass/Vol]Or dered By: Genevieve Sahu on 05-04-2022 MCHC (RBC) [Mass/Vol] 33.6 g/dL 32.0-35.0 [facility] MCV Auto (RBC) [Entitic vol] Ordered By: Genevieve Sahu on 05-04-2022 MCV (RBC) [Entitic vol] 87.9 fL 80-[address] [facility] Monocytes Auto (Bld) [#/Vol] Ordered By: Genevieve Sahu on 05-04-2022 Monocytes (Bld) [#/Vol] 0.5 10*3/uL 0.0-0.[address] [facility] Monocytes/100 WBC Auto (Bld) Ordered By: Genevieve Sahu on 05-04-2022 Monocytes/100 WBC (Bld) 7.1 % . [facility] Neutrophils Auto (Bld) [#/Vo l]Ordered By: Genevieve Sahu on 05-04-2022 Neutrophils (Bld) [#/Vol] 4.8 10*3/uL 1.8-7.[address] [facility] Neutrophils/100 WBC Auto (Bl d)Ordered By: Genevieve Shau on 05-04-2022 Neutrophils/100 WBC (Bld) 68.4 % . [facility] No Panel InformationOrdered By: Genevieve Sahu on 05-04-2022 Estimated GFR () > 60 mL/Min [facility] Comment on above: GFR estimated refere nce range: According to KDOQI guidelines, <60 ml/min/1.73m2 is sufficient to diagnose a patient with chronic kidney disease. Pharmacy Creatinine Clearance (Chem N/A [facility] Platelet mean volume Auto (B ld) [Entitic vol]Ordered By: Genevieve Sahu on 05-04-2022 Platelet mean volume (Bld) [Entitic vol] 8.1 fL 6.3-10.[address] [facility] Platelets Auto (Bld) [#/Vol] Ordered By: Genevieve Sahu on 05-04-2022 Platelets (Bld) [#/Vol] 271 10*3/uL 150-[address] [facility] Protein [Mass/volume] in Ser um or PlasmaOrdered By: Genevieve Sahu on 05-04-2022 Protein [Mass/Vol] 6.4 g/dL 6.1-7.9 [facility] RBC Auto (Bld) [#/Vol]Ordere d By: Genevieve Sahu on 05-04-2022 RBC (Bld) [#/Vol] 4.40 10*6/uL 3.60-5.00 [facility] Serum or plasma alanine alejandre otransferase measurement without P-5'-P (enzymatic activiOrdered By: Genevieve Sahu on 05-04-2022 ALT No additional P-5'-P [Catalytic activity/Vol] 16 U/L 10-[address] [facility] Serum or plasma albumin/glob ulin mass ratioOrdered By: Genevieve Sahu on 05-04-2022 Albumin/Globulin [Mass ratio] 1.3 {ratio} [facility] Serum or plasma alkaline lakia sphatase measurement (enzymatic activity/volume)Ordered By: Genevieve Sahu on 05-04-2022 ALP [Catalytic activity/Vol] 48 U/L 32-[address] [facility] Serum or plasma aspartate am inotransferase measurement (enzymatic activity/volume)Ordered By: Genevieve Sahu on 05-04-2022 AST [Catalytic activity/Vol] 17 U/L 10-[address] [facility] Serum or plasma calcium glynn urement (mass/volume)Ordered By: Genevieve Sahu on 05-04-2022 Calcium [Mass/Vol] 9.2 mg/dL 8.2-10.2 [facility] Serum or plasma chloride srinivasa surement (moles/volume)Ordered By: Genevieve Sahu on 05-04-2022 Chloride [Moles/Vol] 101 mmol/L 95-114 [facility] Serum or plasma glucose glynn urement (mass/volume)Ordered By: Genevieve Sahu on 05-04-2022 Glucose [Mass/Vol] 95 mg/dL 70-100 [facility] Comment on above: ADA recommended refe rence range Random Glucose Reference Range is dependent on time and content of last meal. Glucose of more than 200 mg/dL in a nonstressed, ambulatory subject supports the diagnosis of Diabetes Mellitus. Serum or plasma potassium me asurement (moles/volume)Ordered By: Genevieve Sahu on 05-04-2022 Potassium [Moles/Vol] 4.2 mmol/L 3.5-5.1 [facility] Serum or plasma sodium measu rement (moles/volume)Ordered By: Genevieve Sahu on 05-04-2022 Sodium [Moles/Vol] 138 mmol/L 136-146 [facility] Serum or plasma total biliru bin measurement (mass/volume)Ordered By: Genevieve Sahu on 05-04-2022 Bilirubin [Mass/Vol] 0.4 mg/dL 0.3-1.2 [facility] Serum or plasma total carbon dioxide measurement (moles/volume)Ordered By: Genevieve Sahu on 05-04-2022 CO2 [Moles/Vol] 24.9 mmol/L 22.0-30.0 [facility] Serum or plasma urea nitroge n measurement (mass/volume)Ordered By: Genevieve Sahu on 05-04-2022 Urea nitrogen [Mass/Vol] 17 mg/dL 9- [facility] XR hand LT min 3V*on 022 XR hand LT min 3V* [facility] [employer] Other XR hand LT min 3V* [facility] [employer] Other XR hand LT min 3V* [address] [place] [address] [employer] Other XR hand LT min 3V* [place] [address] [employer] Other XR hand LT min 3V* XRay Report [employer] Other XR hand LT min 3V* Signed [employer] Other XR hand LT min 3V* Patient: Nany Carmen MR#: [id number] [employer] Other XR hand LT min 3V* 1 [employer] Other XR hand LT min 3V* : 1955 Acct:[id number] [employer] Other XR hand LT min 3V* Age/Sex: 66 / F ADM Date: 05/03/22 [employer] Other XR hand LT min 3V* Loc: SOXD Room: [facility] [employer] Other XR hand LT min 3V* Attending Dr: Ginna Sahu MD [employer] Other XR hand LT min 3V* Copies to: Genevieve Sahu MD [employer] Other XR hand LT min 3V* Ordering Provider: Genevieve Sahu MD [employer] Other XR hand LT min 3V* Date of Service: 05/03/22 [employer] Other XR hand LT min 3V* XR/XR hand LT min 3V*: M79.642 [employer] Other XR hand LT min 3V* XR hand LT min 3V* 05/03/2022 4:05 PM [employer] Other XR hand LT min 3V* SIGNS AND SYMPTOMS: Injury to left fourth digit with fracture, follow-up [employer] Other XR hand LT min 3V* PROTOCOL: Frontal, lateral, and oblique radiographs of the left [employer] Other XR hand LT min 3V* COMPARISON: 04/11/2022 [employer] Other XR hand LT min 3V* FINDINGS: [employer] Other XR hand LT min 3V* There is a transversely oriented, comminuted fracture of the shaft of the fourth proximal phalanx. [employer] Other XR hand LT min 3V* There is 38 degrees of apex palmar angulation which is slightly more pronounced when compared prior [employer] Other XR hand LT min 3V* exam. No change in alignment otherwise. There is mild narrowing of the distal interphalangeal [employer] Other XR hand LT min 3V* joints of the second and third digits. Degenerative changes are noted in the wrist. [employer] Other XR hand LT min 3V* XR/XR hand LT min 3V* [employer] Other XR hand LT min 3V* IMPRESSION: [employer] Other XR hand LT min 3V* exam. [employer] Other XR hand LT min 3V* Impression dictated by: Chente Crook M.D.05/03/2022 7:18 PM [employer] Other XR hand LT min 3V* Dictation Location: [place] [address] [employer] Other XR hand LT min 3V* Transcribed By: HEMANT 05/03/221917 [employer] Other XR hand LT min 3V* Dictated By: Chente Crook II, MD 05/03/221916 [employer] Other XR hand LT min 3V* Signed By: [employer] Other XR hand LT min 3V* 05/03/221917 [facility] [employer] Other XR hand LT min 3V*on 022 XR hand LT min 3V* [facility] [employer] Other XR hand LT min 3V* [facility] [employer] Other XR hand LT min 3V* [address] [place] [address] [employer] Other XR hand LT min 3V* [place] [address] [employer] Other XR hand LT min 3V* XRay Report [employer] Other XR hand LT min 3V* Signed [employer] Other XR hand LT min 3V* Patient: Nany Carmen MR#: [id number] [employer] Other XR hand LT min 3V* 1 [employer] Other XR hand LT min 3V* : 1955 Acct:[id number] [employer] Other XR hand LT min 3V* Age/Sex: 66 / F ADM Date: 04/11/22 [employer] Other XR hand LT min 3V* Loc: XDUCLY Room: Type: [facility] [employer] Other XR hand LT min 3V* Attending Dr: Jewell CUNNINGHAM [employer] Other XR hand LT min 3V* Ordering Provider: OCTAVIO Guzman [employer] Other XR hand LT min 3V* Date of Service: 04/11/22 [employer] Other XR hand LT min 3V* XR/XR hand LT min 3V*: LEFT HAND PAIN [employer] Other XR hand LT min 3V* Copies to: OCTAVIO Guzman [employer] Other XR hand LT min 3V* LEFT HAND - 3 views [employer] Other XR hand LT min 3V* COMPARISON: None [employer] Other XR hand LT min 3V* REASON FOR EXAM: Heavy rock truck onto left hand without pain and swelling and redness over the [employer] Other XR hand LT min 3V* dorsal hand/ ringfinger [employer] Other XR hand LT min 3V* FINDINGS: [employer] Other XR hand LT min 3V* Soft tissue swelling is noted involving the ring finger. There is a mildly displaced comminuted [employer] Other XR hand LT min 3V* fracture involving the shaft of the proximal phalanx of the fourth digit. No additional fractures [employer] Other XR hand LT min 3V* are seen. Mild degenerative changes involving the DIP joints. [employer] Other XR hand LT min 3V* XR/XR hand LT min 3V* [employer] Other XR hand LT min 3V* IMPRESSION: [employer] Other XR hand LT min 3V* MILDLY DISPLACED COMMINUTED FRACTURE INVOLVING THE SHAFT OF THE PROXIMAL PHALANX OF THE FOURTH [employer] Other XR hand LT min 3V* DIGIT. [employer] Other XR hand LT min 3V* Impression dictated by: Reji Khan Jr., D.OMario04/11/2022 1:56 PM [employer] Other XR hand LT min 3V* Dictation Location: [facility] [employer] Other XR hand LT min 3V* Transcribed By: PWS 04/11/22 [facility] [employer] Other XR hand LT min 3V* Dictated By: Reji Khan Jr, DO 04/11/22 [facility] [employer] Other XR hand LT min 3V* Signed By: [employer] Other XR hand LT min 3V* 04/11/[address] [place] [address] [employer] Other Basic Metabolic Panelon Anion gap [Moles/Vol] 7 mmol/L Low 9 - 17 mmol/L [facility] [place] Bun/Cre Ratio 13 [facility] [place], [place] Calcium [Mass/Vol] 9.2 mg/dL 8.6 - 10. 4 mg/dL [facility] [place], [place] Chloride [Moles/Vol] 104 mmol/L 98 - 10 7 mmol/L [place] CO2 [Moles/Vol] 26 mmol/L 20 - 31 mmol/L [place] Creatinine [Mass/Vol] 0.76 mg/dL 0.5 - 0.9 mg/dL [place] GFR >60 >60 mL/min [place] GFR Non- >60 >60 mL/min [place] Glucose [Mass/Vol] 111 mg/dL High 70 - 99 mg/dL [place] Interpretation and review of laboratory results Abnormal [place] Potassium [Moles/Vol] 4.2 mmol/L 3.7 - 5.3 mmol/L [place] Sodium [Moles/Vol] 137 mmol/L 135 - 144 mmol/L [place] Urea nitrogen [Mass/Vol] 10 mg/dL 8 - 23 mg/dL [place] Basic Metabolic Profon 11-25 (cont.) Normal [facility] Comment on above: Result Comment: Aver age GFR for 60-69 years old: 85 mL/min/1.73sq m Chronic Kidney Disease: <60 mL/min/1.73sq m Kidney failure: <15 mL/min/1.73sq m eGFR calculated using average adult body mass. Additional eGFR calculator available at: http://www.[employer]/multiple_crcl_2012.htm Performed By: #### B AMANDA, CDP #### [facility] [address] [place] [address] [place] [address] [employer]: Kan Gupta MD Anion gap [Moles/Vol] 7 mmol/L Low 9-[address] [facility] Comment on above: Performed By: #### Eleazar PATEL, CDP #### [facility] [address] [place] [address] [employer]: Kan Gupta MD BUN/CRE Ratio 13 Normal 9-20 [facility] Comment on above: Performed By: #### Eleazar PATEL, CDP #### [facility] [address] [place] [id number] [employer]: Kan Gupta MD Calcium [Mass/Vol] 9.2 mg/dL Normal 8.6-10.4 [facility] Comment on above: Performed By: #### B MP, CDP #### [facility] [address] [place], [place] [id number] [employer]: Kan Gupta MD Chloride [Moles/Vol] 104 mmol/L Normal 98-107 [facility] Comment on above: Performed By: #### B MP, CDP #### [facility] [address] [place], [place] [id number] [employer]: Kan Gupta MD CO2 [Moles/Vol] 26 mmol/L Normal 20-31 [facility] Comment on above: Performed By: #### B AMANDA, CDP #### [facility] [address] [place], [place] [id number] [employer]: Kan Gupta MD Creatinine [Mass/Vol] 0.76 mg/dL Normal 0.50-0.[address] [facility] Comment on above: Performed By: #### B AMANDA, CDP #### [facility] [address] [place], [place] [id number] [employer]: Kan Gupta MD GFR, Amer >60 Normal >60 [facility] Comment on above: Performed By: #### B MP, CDP #### [facility] [address] [place], [place] [address] [employer]: Kan Gupta MD GFR,non Amer >60 Normal >60 [facility] Comment on above: Performed By: #### B MP, CDP #### [facility] [address] [place], [place] [id number] [employer]: Kan Gupta MD Glucose [Mass/Vol] 111 mg/dL High 70-99 [facility] Comment on above: Performed By: #### B MP, CDP #### [facility] [address] [place] [address] [employer]: Kan Gupta MD Potassium [Moles/Vol] 4.2 mmol/L Normal 3.7-5.[address] [facility] Comment on above: Performed By: #### B AMANDA, CDP #### [address] [place] [address] [employer]: Kan Gupta MD Sodium [Moles/Vol] 137 mmol/L Normal 135-144 [facility] Comment on above: Performed By: #### B AMANDA, CDP #### [address] [place] [address] [employer]: Kan Gupta MD Staging: Normal [facility] Comment on above: Result Comment: Stag e 1: Some kidney damage normal GFR Stage 2: Mild kidney damage GFR 60-89 Stage 3: Moderate kidney damage GFR 30-59 Stage 4: Severe kidney damage GFR 15-29 Stage 5: Severe kidney damage GFR <15 ESRD - chronic treatment by dialysis or transplant Performed By: #### B AMANDA, CDP #### [address] [place] [address] [employer]: Kan Gupta MD Urea nitrogen [Mass/Vol] 10 mg/dL Normal 8-23 [facility] Comment on above: Performed By: #### B AMANDA, CDP #### [address] [place] [address] [employer]: Kan Gupta MD CBC Auto Differentialon Basophils (Bld) [#/Vol] 10*3/uL [place] Basophils/100 WBC (Bld) 0 % 0 - 2 % [place] Differential Type NOT REPORTED [place] Eosinophils (Bld) [#/Vol] 0.10 10*3/uL [place] Eosinophils/100 WBC (Bld) 2 % 1 - 4 % [place] Erythrocyte distribution width (RBC) [Ratio] 13.2 % 11.8 - 14.4 % [place] Hematocrit (Bld) [Volume fraction] 39.3 % 36.3 - 47.1 % [place] Hemoglobin (Bld) [Mass/Vol] 12.5 g/dL 11.9 - 15.1 g/dL [place] Immature granulocytes (Bld) [#/Vol] 0.03 10*3/uL [place] Immature granulocytes (Bld) [#/Vol] 1 % High 0 [place] Interpretation and review of laboratory results Abnormal [place] Lymphocytes (Bld) [#/Vol] 0.99 10*3/uL Low [place] Lymphocytes/100 WBC (Bld) 19 % Low 24 - 43 % [place] MCH (RBC) [Entitic mass] 28.0 pg 25.2 - 33.5 pg [place] MCHC (RBC) [Mass/Vol] 31.8 g/dL 28.4 - 34.8 g/dL [place] MCV (RBC) [Entitic vol] 88.1 fL 82.6 - 102.9 fL [place] Monocytes (Bld) [#/Vol] 0.51 10*3/uL [place] Monocytes/100 WBC (Bld) 10 % 3 - 12 % [place] Platelet mean volume (Bld) [Entitic vol] 8.4 fL 8.1 - 13.5 fL [place] Platelets (Bld) [#/Vol] NOT REPORTED [place] Platelets (Bld) [#/Vol] 279 10*3/uL [place] RBC (Bld) [#/Vol] 4.46 10*6/uL 3.95 - 5.1 1 m/uL [place] RBC morphology finding Nom (Bld) NOT REPORTED [place] Segmented neutrophils/100 WBC (Bld) 68 % High 36 - 65 % [place] Segs Absolute 3.64 [place] WBC (Bld) [#/Vol] 0.0 10*3/uL 0.0 per 10 0 WBC [place] WBC (Bld) [#/Vol] 5.3 10*3/uL [place] WBC Morphology NOT REPORTED [place], [place] CBC with Diffon 11-25-2020 Abs. Basophil <0.03 Normal 0.00-0.20 [facility] Comment on above: Performed By: #### B AMANDA, CDP #### [address] [place] [address] [employer]: Kan Gupta MD Abs.Imm.Granulocyte 0.03 k/uL Normal 0.00-0.30 [facility] Comment on above: Performed By: #### B AMANDA, CDP #### [address] [place] [address] Beverage Steward: Kan Gupta MD Abs.Neutrophil (Seg) 3.64 k/uL Normal 1.50-8.10 [facility] Comment on above: Performed By: #### B AMANDA, CDP #### [address] [place] [address] Beverage Steward: Kan Gupta MD Basophils/100 WBC (Bld) 0 % Normal 0-2 [facility] Comment on above: Performed By: #### B AMANDA, CDP #### [address] [place] [id number] Beverage Steward: Kan Gupta MD Eosinophils (Bld) [#/Vol] 0.10 10*3/uL Normal 0.00-0.44 [facility] Comment on above: Performed By: #### B MP, CDP #### [address] [place] [id number] Beverage Steward: Kan Gupta MD Eosinophils/100 WBC (Bld) 2 % Normal 1-4 [facility] Comment on above: Performed By: #### B MP, CDP #### [address] [place], [place] [id number] Beverage Steward: Kan Gupta MD Erythrocyte distribution width (RBC) [Ratio] 13.2 % Normal 11.8-14.4 [facility] Comment on above: Performed By: #### B MP, CDP #### [address] [place], [facility]83 Beverage Steward: Kan Gupta MD Hematocrit (Bld) [Volume fraction] 39.3 % Normal 36.3-47.1 [facility] Comment on above: Performed By: #### B AMANDA, CDP #### [address] [place], [facility]83 Beverage Steward: Kan Gupta MD Hemoglobin (Bld) [Mass/Vol] 12.5 g/dL Normal 11.9-15.1 [facility] Comment on above: Performed By: #### B AMANDA, CDP #### [address] [place], [facility]83 Beverage Steward: Kan Gupta MD Immature granulocytes (Bld) [#/Vol] 1 % High 0 [facility] Comment on above: Performed By: #### B MP, CDP #### [address] [place], [facility]83 Beverage Steward: Kan Gupta MD Lymphocytes (Bld) [#/Vol] 0.99 10*3/uL Low 1.10-3.70 [facility] Comment on above: Performed By: #### B MP, CDP #### [address] [place], [place] [id number] Beverage Steward: Kan Gupta MD Lymphocytes/100 WBC (Bld) 19 % Low 24-43 [facility] Comment on above: Performed By: #### B MP, CDP #### [address] [place] [address] Beverage Steward: Kan Gupta MD MCH (RBC) [Entitic mass] 28.0 pg Normal 25.2-33.5 [facility] Comment on above: Performed By: #### B MP, CDP #### [address] [place] [address] Beverage Steward: Kan Gupta MD MCHC (RBC) [Mass/Vol] 31.8 g/dL Normal 28.4-34.[address] [facility] Comment on above: Performed By: #### B MP, CDP #### [address] [place] [address] Beverage Steward: Kan Gupta MD MCV (RBC) [Entitic vol] 88.1 fL Normal 82.6-102.9 [facility] Comment on above: Performed By: #### B AMANDA, CDP #### [address] [place] [address] Beverage Steward: Kan Gupta MD Monocytes (Bld) [#/Vol] 0.51 10*3/uL Normal 0.10-1.20 [facility] Comment on above: Performed By: #### B AMANDA, CDP #### [address] [place] [address] Beverage Steward: Kan Gupta MD Monocytes/100 WBC (Bld) 10 % Normal 3-12 [facility] Comment on above: Performed By: #### B MP, CDP #### [facility] [address] [place] [address] Dr. [place], [place] [id number] Beverage Steward: Kan Gupta MD Neutrophil (Seg) 68 % High 36-65 [facility] Comment on above: Performed By: #### B MP, CDP #### [facility] [address] [place] [address] Dr[place], [place] [id number] Beverage Steward: Kan Gupta MD NRBC Automated 0.0 per 100 WBC Normal 0.0 [facility] Comment on above: Performed By: #### B MP, CDP #### [facility] [address] [place] [address] Beverage Steward: Kan Gupta MD Platelet mean volume (Bld) [Entitic vol] 8.4 fL Normal 8.1-13.5 [facility] Comment on above: Performed By: #### B MP, CDP #### [facility] [address] [place], [facility]83 Beverage Steward: Kan Gupta MD Platelets (Bld) [#/Vol] 279 10*3/uL Normal 138-453 [facility] Comment on above: Performed By: #### B AMANDA, CDP #### [facility] [address] [place] [address] Beverage Steward: Kan Gupta MD RBC (Bld) [#/Vol] 4.46 10*6/uL Normal 3.95-5.11 [facility] Comment on above: Performed By: #### B AMANDA, CDP #### [address] [place] [address] Beverage Steward: Kan Gupta MD WBC (Bld) [#/Vol] 5.3 10*3/uL Normal 3.5-11.3 [facility] Comment on above: Performed By: #### B AMANDA, CDP #### [facility] [address] [place], [facility]83 Beverage Steward: Kan Gupta MD Auto Diff Performed NOT REPORTED Normal [facility] Comment on above: Performed By: #### B AMANDA, CDP #### [facility] [address] [place], [place] [id number] Beverage Steward: Kan Gupta MD Platelets (Bld) [#/Vol] NOT REPORTED Normal [facility] Comment on above: Performed By: #### B MP, CDP #### [facility] [address] [place], [place] [id number] Beverage Steward: Kan Gupta MD RBC morphology finding Nom (Bld) NOT REPORTED Normal [facility] Comment on above: Performed By: #### B MP, CDP #### [facility] [address] [place] [address] Beverage Steward: Kan Gupta MD WBC Morphology NOT REPORTED Normal [facility] Comment on above: Performed By: #### B MP, CDP #### [facility] [address] [place] [address] Beverage Steward: Kan Gupta MD Metabolic Panelon 11-25-2020 GFR/1.73 sq M predicted among non-blacks MDRD (S/P/Bld) [Vol rate/Area] [place], [place] Comment on above: Stage 1: Some [...] body mass. Additional eGFR calculator available at: [email or web address]_[email or web address] US NON OB TRANSVAGINALon US NON OB [...] Mele Ivy MD 11/25/20 Final result Normal [facility] Axel, [employer] Incoming Radiant Results From [employer] - 11/25/2020 12:03 PM EST EXAMINATION: PELVIC [...] cm calcification. 3. Nonvisualization of the ovaries. [facility], [place] EXAMINATION: PELVIC ULTRASOUND 11/25/2020 TECHNIQUE: Transvaginal [...] Free Fluid: No evidence of free fluid. [place], [place] 1. Endometrial strip e thickness is abnormally enlarged measuring 8 mm in a postmenopausal female with bleeding. Differential considerations include endometrial hyperplasia or endometrial carcinoma. Endometrial sampling recommended. 2. Left uterine fundal fibroid measuring up to 2.4 cm with associated 1.2 cm calcification. 3. Nonvisualization of the ovaries. [place], [place] Vital Signs Date Time Vital Sign Value Performing Clinician Faci lity 02-10-2025 13:43-0400 Body height 165.1 cm Catalina Carson MD Work Phone: [facility] 02-10-2025 13:43-0400 Body mass index (BMI) [Ratio] 29.7 kg/m2 Catalina Carson MD Work Phone: [facility] 02-10-2025 13:43-0400 Body weight 81.19 kg Catalina Carson MD Work Phone: [facility] 02-10-2025 13:43-0400 Diastolic blood pressure 82 mm[Hg] Catalina Carson MD Work Phone: [facility] 02-10-2025 13:43-0400 Heart rate 83 /min Catalina Carson MD Work Phone: [facility] 02-10-2025 13:43-0400 Systolic blood pressure 132 mm[Hg] Catalina Carson MD Work Phone: [facility] 12-10-2024 09:52-0500 Diastolic blood pressure 75 mm[Hg] Catalina Carson MD Work Phone: [facility] 12-10-2024 09:52-0500 Heart rate 82 /min Catalina Carson MD Work Phone: [facility] 12-10-2024 09:52-0500 Respiratory rate 14 /min Catalina Carson MD Work Phone: [facility] 12-10-2024 09:52-0500 SaO2% (BldA) [Mass fraction] 98 % Catalina Carson MD Work Phone: [facility] 12-10-2024 09:52-0500 Systolic blood pressure 154 mm[Hg] Catalina Carson MD Work Phone: [facility] 12-10-2024 07:44-0500 Body height 165.1 cm Catalina Carson MD Work Phone: [facility] 12-10-2024 07:44-0500 Body weight 86.18 kg Catalina Carson MD Work Phone: [facility] 11-17-2024 13:56-0500 Body height 165.1 cm Catalina Carson MD Work Phone: [facility] 11-17-2024 13:56-0500 Body mass index (BMI) [Ratio] 32.1 kg/m2 Catalina Carson MD Work Phone: [facility] 11-17-2024 13:56-0500 Body weight 87.54 kg Catalina Carson MD Work Phone: [facility] 07-24-2024 11:10-0400 Body height 165.1 cm [facility] 07-24-2024 11:10-0400 Body mass index (BMI) [Ratio] 30.7 kg/m2 [facility] 07-24-2024 11:10-0400 Body weight 83.91 kg [facility] 07-24-2024 11:10-0400 Diastolic blood pressure 73 mm[Hg] [facility] 07-24-2024 11:10-0400 Heart rate 75 /min [facility] 07-24-2024 11:10-0400 Systolic blood pressure 137 mm[Hg] [facility] 06-12-2024 10:04-0400 Body height 165.1 cm [facility] 06-12-2024 10:04-0400 Body mass index (BMI) [Ratio] 31.1 kg/m2 [facility] 06-12-2024 10:04-0400 Body weight 84.82 kg [facility] 06-12-2024 10:04-0400 Diastolic blood pressure 82 mm[Hg] [facility] 06-12-2024 10:04-0400 Heart rate 68 /min [facility] 06-12-2024 10:04-0400 Systolic blood pressure 129 mm[Hg] [facility] 03-05-2024 11:03-0400 Body height 165.1 cm [facility] 03-05-2024 11:03-0400 Body mass index (BMI) [Ratio] 31.3 kg/m2 [facility] 03-05-2024 11:03-0400 Body weight 85.33 kg [facility] 03-05-2024 11:03-0400 Diastolic blood pressure 74 mm[Hg] [facility] 03-05-2024 11:03-0400 Heart rate 78 /min [facility] 03-05-2024 11:03-0400 Systolic blood pressure 122 mm[Hg] [facility] 12-26-2023 12:00-0500 Body height 165.1 cm Joi Hernandez Other [employer] Other 12-26-2023 12:00-0500 Body mass index (BMI) [Ratio] 30.95 kg/m2 Joi Hernandez Other [employer] Other 12-26-2023 12:00-0500 Body weight 84.37 kg Joi Hernandez Other [facility] Other 11-02-2023 08:00-0500 Body height 165.1 cm Gagandeep Stevens Other [employer] Other 11-02-2023 08:00-0500 Body mass index (BMI) [Ratio] 31.12 kg/m2 Gagandeep Stevens Other [facility] Other 11-02-2023 08:00-0500 Body weight 84.82 kg Gagandeep Stevens Other [facility] Other 10-08-2023 11:00-0500 Body height 165.1 cm Catalina Carson Other [facility] Other 10-08-2023 11:00-0500 Body mass index (BMI) [Ratio] 31.21 kg/m2 Catalina Carson Other [facility] Other 10-08-2023 11:00-0500 Body weight 85.1 kg Catalina Carson Other [facility] Other 10-08-2023 11:00-0500 Diastolic blood pressure 91 mm[Hg] Catalina Carson Other [facility] Other 10-08-2023 11:00-0500 Systolic blood pressure 142 mm[Hg] Catalina Carson Other [facility] Other 09-04-2023 11:00-0400 Body height 165.1 cm Catalina Carson Other [facility] Other 09-04-2023 11:00-0400 Body mass index (BMI) [Ratio] 31.08 kg/m2 Catalina Carson Other [facility] Other 09-04-2023 11:00-0400 Body weight 84.73 kg Catalina Carson Other [facility] Other 09-04-2023 11:00-0400 Diastolic blood pressure 85 mm[Hg] Catalina Carson Other [facility] Other 09-04-2023 11:00-0400 Systolic blood pressure 135 mm[Hg] Catalina Carson Other [facility] Other 07-07-2022 11:45-0400 Body height 166.37 cm Genevieve Sahu Other [facility] Other 07-07-2022 11:45-0400 Body mass index (BMI) [Ratio] 29.99 kg/m2 Genevievejovani Sahu Other [facility] Other 07-07-2022 11:45-0400 Body weight 83.01 kg Genevieve Sahu Other [facility] Other 05-16-2022 12:45-0400 Body height 166.37 cm Genevieve Sahu Other [facility] Other 05-16-2022 12:45-0400 Body mass index (BMI) [Ratio] 30.48 kg/m2 Genevieve Calvmalinda Other [facility] Other 05-16-2022 12:45-0400 Body weight 84.37 kg Genevieve Sahu Other [facility] Other 05-08-2022 17:02-0400 Diastolic blood pressure 75 mm[Hg] MD Catalina Carson Work Phone: [facility] 05-08-2022 17:02-0400 Heart rate 66 /min MD Catalina Carson Work Phone: [facility] 05-08-2022 17:02-0400 Respiratory rate 16 /min MD Catalina Carson Work Phone: [facility] 05-08-2022 17:02-0400 SaO2% (BldA) [Mass fraction] 97 % MD Catalina Carson Work Phone: [facility] 05-08-2022 17:02-0400 Systolic blood pressure 144 mm[Hg] MD Catalina Carson Work Phone: [facility] 05-08-2022 16:17-0400 Inhaled oxygen flow rate 6 L/min MD Catalina Carson Work Phone: [facility] 05-08-2022 14:43-0400 Body mass index (BMI) [Ratio] 32.5 kg/m2 MD Catalina Carson Work Phone: [facility] 05-08-2022 14:34-0400 Body height 162.56 cm MD Catalina Carson Work Phone: [facility] 05-08-2022 14:34-0400 Body weight 86 kg MD Catalina Carson Work Phone: [facility] 05-08-2022 12:57-0400 Body temperature 98.1 [degF] MD Catalina Carson Work Phone: [facility] 04-11-2022 14:10-0400 Body height 166.37 cm Jewell Fernandez Other [facility] [employer] Other 04-11-2022 14:10-0400 Body mass index (BMI) [Ratio] 30.48 kg/m2 Jewell Fernandez Other [facility] Other 04-11-2022 14:10-0400 Body temperature 97.1 [degF] Jewell Fernandez Other [facility] Other 04-11-2022 14:10-0400 Body weight 84.37 kg Jewell Fernandez Other [facility] Other 04-11-2022 14:10-0400 Diastolic blood pressure 93 mm[Hg] Jewell Fernandez Other [facility] Other 04-11-2022 14:10-0400 Respiratory rate 18 /min Jewell Calhounmond Other [facility] Other 04-11-2022 14:10-0400 SaO2% (BldA) [Mass fraction] 99 % Jewell Calhounmond Other [facility] Other 04-11-2022 14:10-0400 Systolic blood pressure 151 mm[Hg] Jewell Calhounmond Other [facility] Other 11-25-2020 12:30-0500 BP Diastolic 80 mm[Hg] Morro [facility] [address] [facility], [place] 11-25-2020 12:30-0500 BP Systolic 129 mm[Hg] Morro [facility] [address] [facility] [place] 11-25-2020 12:30-0500 Pulse Oximetry 94 % Morro [facility] [address] [facility], [place] 11-25-2020 10:39-0500 Body Temperature 99.9 [degF] [facility] [place] 11-25-2020 10:35-0500 BMI (Body Mass Index) 31.62 kg/m2 [facility] [place] 11-25-2020 10:35-0500 Body weight 86.18 [address] [facility], [place] 11-25-2020 10:35-0500 Height 165.[address] [facility], [place] 11-25-2020 10:35-0500 Pulse (Heart Rate) 95 /min [facility] [place] 11-25-2020 10:35-0500 Respiratory Rate 18 /min Morro [employer] [place] Encounters Encounter Date Encounter Type Care Provider Facility Start: 02-10-2025 End: 02-10-2025 ambulatory Catalina Carson MD Work Phone: [facility] Work Phone: Start: 02-10-2025 End: 02-10-2025 Patient encounter procedure Catalina Carson MD Work Phone: [facility] Work Phone: Start: 12-11-2024 Non-patient / Non-visit Catalina Carson MD Work Phone: [facility] Work Phone: Start: 12-10-2024 Non-patient / Non-visit Catalina Carson MD Work Phone: [facility] Work Phone: Start: 12-10-2024 End: 12-10-2024 Admission to same day surgery center Catalina Carson MD Work Phone: [facility] Work Phone: Start: 12-10-2024 End: 12-10-2024 ambulatory Catalina Carson MD Work Phone: [facility] Work Phone: Start: 11-27-2024 Non-patient / Non-visit Catalina Carson MD Work Phone: [facility] Work Phone: Start: 11-17-2024 End: 11-17-2024 Patient encounter procedure Catalina Carson MD Work Phone: [facility] Work Phone: Start: 08-04-2024 End: 08-04-2024 Patient encounter procedure MD Catalina Carson Work Phone: [facility] Work Phone: Start: 08-04-2024 End: 08-04-2024 ambulatory MD Catalina Carson Work Phone: [facility] Work Phone: Start: 07-29-2024 Non-patient / Non-visit MD Catalina Carson Work Phone: [facility] [employer] Work Phone: Start: 07-24-2024 End: 07-24-2024 ambulatory [facility] Work Phone: Start: 07-24-2024 End: 07-24-2024 Patient encounter procedure [facility] Work Phone: Start: 06-12-2024 End: 06-12-2024 ambulatory [facility] Work Phone: Start: 06-12-2024 End: 06-12-2024 Patient encounter procedure [facility] Work Phone: Start: 03-05-2024 End: 03-05-2024 ambulatory [facility] Work Phone: Start: 03-05-2024 End: 03-05-2024 Patient encounter procedure [facility] Work Phone: Start: 12-26-2023 End: 12-26-2023 ambulatory Joi Hernandez Other [facility] [employer] Other Start: 12-26-2023 Office outpatient visit 25 minutes Joi Hernandez [facility] Start: 11-23-2023 End: 11-23-2023 ambulatory MD Catalina Carson Work Phone: [facility] Work Phone: Start: 11-23-2023 End: 11-23-2023 Patient encounter procedure MD Catalina Carson Work Phone: [facility] [place] Work Phone: Start: 11-20-2023 End: 11-20-2023 ambulatory Catalina Carson Other [facility] [employer] Other Start: 11-20-2023 Telephone encounter Catalina Carson [facility] [address] Start: 11-05-2023 (Televisit) Televisit Catalina Silva [facility] Start: 11-05-2023 End: 11-05-2023 ambulatory Catalina Carson Other [facility] Other Start: 11-02-2023 End: 11-02-2023 ambulatory Gagandeep Stevens Other [facility] Other Start: 11-02-2023 Office outpatient ne w 30 minutes Gagandeep Stevens [facility] Start: 10-08-2023 End: 10-08-2023 ambulatory Catalina Carson Other [facility] Other Start: 10-08-2023 Office outpatient visit 15 minutes Catalina Carson [facility] Start: 09-24-2023 Telephone encounter Catalina Carson [facility] Start: 09-24-2023 End: 09-24-2023 ambulatory MD Catalina Carson Work Phone: [facility] Work Phone: Start: 09-24-2023 End: 09-24-2023 Patient encounter procedure MD Catalina Carson Work Phone: [facility] Work Phone: Start: 09-04-2023 End: 09-04-2023 ambulatory Catalina Carson Other [facility] Other Start: 09-04-2023 Patient encounter procedure Catalina Carson [facility] Start: 07-27-2023 End: 07-27-2023 ambulatory MD Catalina Carson Work Phone: [facility] Work Phone: Start: 07-27-2023 End: 07-27-2023 Patient encounter procedure MD Catalina Carson Work Phone: [facility] Work Phone: Start: 11-06-2022 Adult health examination Catalina Carson Other [facility] Other Start: 11-06-2022 Pre-procedure evaluation check Catalina Carson Other [employer] Other Start: 10-30-2022 End: 10-30-[address] KAN BAXTER Facility: Start: 10-03-2022 End: 10-03-2022 ambulatory Genevieve Calvey Other [facility] Other Start: 10-03-2022 Office outpatient visit 15 minutes Genevieve Calvey [facility] Start: 07-19-2022 End: 07-19-2022 Patient encounter procedure MD Catalina Carson Work Phone: [facility] Start: 07-07-2022 End: 07-07-2022 ambulatory Genevieve Calvey Other [facility] Other Start: 07-07-2022 Postop follow up vis it related to original px Genevieve Calvey [facility] Start: 07-07-2022 End: 07-07-2022 Patient encounter procedure MD Catalina Carson Work Phone: [facility] Start: 06-09-2022 End: 06-09-2022 ambulatory Genevieve Calvey Other [facility] Other Start: 06-09-2022 Postop follow up vis it related to original px Genevieve Calvey [facility] Start: 06-09-2022 End: 06-09-2022 Patient encounter procedure MD Catalina Carson Work Phone: [facility] Start: 05-16-2022 End: 05-16-2022 ambulatory Genevieve Calvey Other [facility] Other Start: 05-16-2022 Postop follow up vis it related to original px Genevieve Luis Alberto [facility] Start: 05-16-2022 End: 05-16-2022 Patient encounter procedure MD Catalina Carson Work Phone: [facility] Start: 05-11-2022 End: 05-11-2022 ambulatory Genveieve Luis Alberto Other [facility] Other Start: 05-11-2022 Telephone encounter Genevieve Usmalinda [facility] Start: 05-08-2022 End: 05-08-2022 Admission to same day surgery center MD Catalina Carson Work Phone: [facility] [place] Start: 05-04-2022 End: 05-04-2022 Patient encounter procedure MD Catalina Carson Work Phone: [facility] Start: 05-03-2022 End: 05-03-2022 Patient encounter procedure MD Catalina Carson Work Phone: [facility] Start: 05-03-2022 End: 05-03-2022 ambulatory Genevieve Sahu Other [facility] Other Start: 05-03-2022 Office outpatient ne w 45 minutes Genevievejovani Sahu [facility] Start: 04-11-2022 End: 04-11-2022 ambulatory Jewell Fernandez Other [facility] Other Start: 04-11-2022 Office outpatient ne w 20 minutes Jewell Fernandez [facility] Start: 11-25-2020 End: 11-25-2020 Emergency department patient visit [facility] Start: 11-25-2020 End: 11-25-2020 Emergency department patient visit [facility] ED Comment on above: COVID-19 virus [...] Date Care Activity Detail Author Start: 12-10-[address] [facility] Start: 08-04-2024 MG Breast - bilateral Screening [facility] Start: 08-04-2024 Screening mammography of bilateral breasts MM screening mammo BI w/CAD [facility] Start: 07-24-2024 Patient referral [facility] Work Phone: Start: 11-23-2023 MR Brain WO contrast [facility] Start: 11-23-2023 MRI of head MR head/brain wo con [facility] Start: 07-19-2022 Screening mammography of bilateral breasts MM screening mammo BI w/CAD [facility] Start: 07-19-2022 End: 07-19-2022 Patient encounter procedure Departed Clinical [facility] Start: 05-08-2022 [facility] Work Phone: Start: 05-08-2022 [facility] Work Phone: Start: 07-20-2020 Influenza vaccination Flu vaccine (#1) [place], [place] Start: 2006 Screening for malignant neoplasm of breast Breast cancer screen [place], [place] Start: 2006 Screening for malignant neoplasm of colon Colon cancer screen colonoscopy [place], [place] Start: 2006 Shingles Vaccine (1 of 2) Shingles Vaccine (1 of 2) [place], [place] Start: 1996 Diabetes screen Diabetes screen [place], [place] Start: 1996 Lipid panel Lipid screen [place], [place] Start: 1977 Screening for malignant neoplasm of cervix Cervical cancer screen [place], [place] Start: 1975 DTaP/Tdap/Td vaccine (1 - Tdap) DTaP/Tdap/Td vaccine (1 - Tdap) [place], [place] Start: 1971 HIV screening HIV screen [place], [place] Start: 1956 Hepatitis C screening Hepatitis C screen [place] CT Abdomen and Pelvi s W contrast IV [facility] Patient Education Hemorrhoids ED High-fiber diet Diverticulosis Know your Meds [facility] Work Phone: Patient referral [facility] Work Phone: XR Lumbar spine 2 or 3 Views [facility] Immunizations Immunization Date Immunization Notes Care Provider Mahesh reid 11-14-2021 COVID-19 Adriane Azevedo (Pfizer) MD Catalina Carson Work Phone: [facility] 04-04-2021 COVID-19 Adriane Azevedo (Pfizer) MD Catalina Carson Work Phone: [facility] 03-14-2021 COVID-19 Adriane Azevedo ([employer]) MD Catalina Carson Work Phone: [facility] 01-27-2021 zoster vaccine, live Catalina Carson Other [facility] 09-28-2016 diphtheria, tetanus toxoids and acellular pertussis vaccine, unspecified formulation Catalina Carson Other [facility] Payers Date Payer Category Payer Self-pay [id number] 2019 Unknown [id number] 1958 Medicare [id number] 2. [id number] 1955 Unknown [id number] 2.16.8 [id number] 1955 Unknown [id number] 2.16.84 [id number] Medicare Medicare [id number] Medicare Anthem MCR PFFS [id number] Unknown [employer] [id number] Unknown [id number] 2.16.8 [id number] Unknown [id number] 2.16.8 [id number] Social History Date Type Detail Facility Tobacco smoking status NHIS Unknown if ever smoked [facility], [employer] Sex Assigned At Not on file [facility] [place], [employer] Sex Assigned At Sex Assigned At [facility] Other Start: 05-08-2022 End: 12-10-2024 Tobacco smoking status NHIS Never smoked tobacco (finding) [facility] Start: 1955 Sex Assigned At Female F [facility] Start: 12-10-2024 End: 02-10-2025 Sex Female (finding) [facility] Medical Equipment Procedure Code Equipment Code Equipment Origin al Text Equipment Identifier Dates ORIF, fracture, hand Orthopaedic bone screw, non-bioabsorbable, non-sterile ()[id number] FDA Start: 05-08-2022 Goals Date Patient Goal Desired Activity /State Clinical Notes 04-11-2022 to 12-10-2024 Note Date & Type Note Facility 12-10-2024 Procedure note [facility] 11-17-2024 Evaluation note Authored November 17, [...] twice or three times daily if needed. [facility] Work Phone: [phone] 477-245712-30-2024 Evaluation note* Author Paul Blair [facility] Authored November 17, 2024 2:11pm 69-year-old [...] twice or three times daily if needed. [facility] Work Phone: [phone]) 661-312702-07-2024 Evaluation note* Encounter Date Diagnosis Assessment Notes [...] in the office today and providing supervision. [facility] Other 12-18-2023 Evaluation note* Encounter Date Diagnosis [...] verbalized understanding and agreement with treatment plan. [facility] Other 12-15-2023 Evaluation note* Encounter Date Diagnosis [...] as documented in the electronic medical record. [facility] Other 11-20-2023 Evaluation note* Encounter Date Diagnosis Assessment Notes Treatment Notes Treatment Clinical Notes Sep, Primary osteoarthritis of left knee (ICD-10 - M17.12) Pt agrees to referral to ortho for her ongoing knee issues. Sep, Attention-deficit hyperactivity disorder, unspecified type (ICD-10 - F90.9) Recommend Neurology eval to assess adult ADD v. memory issues causing problems focusing and completing tasks [facility] Other 10-17-2023 Evaluation note* Encounter Date Diagnosis [...] of medication and followup in 1 month [facility] Other 11-15-2022 Evaluation note* Encounter Date Diagnosis Assessment Notes Treatment Notes Treatment Clinical Notes Sep, Other specified postprocedural states (ICD-10 - Z98.890) Sep, Displaced fracture o f proximal phalanx of left ring finger, subsequent encounter for fracture with routine healing (ICD-10 - S62.615D) Discussed with patient to continue to progress activity as tolerated. Call with any questions or concerns [facility] Other 08-19-2022 Evaluation note* Encounter Date Diagnosis [...] medrol dose pack sent into patients pharmacy [facility] Other 07-22-2022 Evaluation note* Encounter Date Diagnosis [...] May, Left hand pain (ICD-10 - M79.642) [facility] Other 06-28-2022 Evaluation note* Encounter Date Diagnosis [...] can call with any questions or concerns. [facility] Other 06-15-2022 Evaluation note* Encounter Date Diagnosis Assessment Notes Treatment Notes Treatment Clinical Notes Apr, Left hand pain (ICD-10 - M79.642) Apr, Closed displaced fracture of proximal phalanx of left ring finger, initial encounter (ICD-10 - S62.615A) Patient would like to proceed with surgery patient was informed of the risks and benefits. [facility] Other 05-24-2022 Evaluation note* Encounter Date Diagnosis [...] the ER for worsening symptoms or concerns. [facility] Other Evaluation noteNo [employer] Other Evaluation noteNo assessment information available [facility] Work Phone: Evaluation note* Diagnosis Onset Date Resolution Status Irritable bowel syndrome with diarrhea acute Mass of oral cavity acute Abdominal pain acute Change in bowel habits acute Irritable bowel syndrome with diarrhea acute [facility] Work Phone: [facility] general Narrative - Reported* Type Description Date Medical History HTN Medical History Menopause Medical History Urinary Incontinence Medical History Colonoscopy Medical History ulcers Surgical History Carpal Tunnel, Bilateral Surgical History hernia repair with mesh january 182018 Hospitalization History See above [facility] Other [facility] general Narrative - Reported* Type Description Date Medical History HTN Medical History Menopause Medical History Urinary Incontinence Medical History Colonoscopy Medical History ulcers Medical History Skin cancer Surgical History Carpal Tunnel, Bilateral Surgical History hernia repair with mesh january 182018 Surgical History Skin cancer 08/2022 Hospitalization History See above [facility] Other Hospital Discharge instructionsAmbulatory Orders* Referral to Gastroenterology Time Frame: 07/24/24, Location: None Selected [facility] Work Phone: Hospital Discharge instructions Additional Instructions [...] three times daily if needed. -Office number [phone]. [facility] Work Phone: Summary Purpose Family History Relationship [...] 2 weeks you need to see an [employer] physician to have endometrial biopsy done. The lining of your uterus is thicker than it should be. There might be uterine cancer. * Attachments The following attachments cannot be sent through Care Everywhere. * Vaginal Bleeding: Postmenopausal (Lao) * Coronavirus Disease (COVID-19): General Info (Lao) documented in this encounter Assessments Diagnosis COVID-19 [...] Referral Reason [facility] - [place] [facility] [place] [facility] [place] saw Joi Mina - had xrays Diagnosis 1 Primary osteoarthrit is of left knee (M17.12) Referral Organization [facility] icix linjohn Referring Provider First Name Catalina Referring Provider Last Name Ernestine Referring Provider Specialty [facility] GIGAS Referred Organization [facility] Referred Provider Sean Draling Referred Address [address] [place],[address] Referred Provider Specialty Orthopedic S urgery Referral Priority Routine General Notes Karina Aleman 12:08:58 PM >received today, faxed P2P Reason *FU 10/16 Mat[facility] office - problems focusing and completing tasks. Diagnosis 1 Attention-deficit hy peractivity disorder, unspecified type (F90.9) Referral Organization [facility] roberth Referring Provider First Name Catalina Referring Provider Last Name Ernestine Referring Provider Specialty [facility] GIGAS Referred Organization [facility] Referred Provider Dylan Stockton Referred Address [address] [place],[address] Referred Provider Specialty Neurology Referral Priority Routine General Notes Karina Aleman 04:07:47 PM >received today, attachments made, referral faxed Additional Source Comments INFORMATION SOURCE (unrecogn ized section and content) DATE CREATED AUTHOR 11/25/2020 [facility] DATE CREATED AUTHOR AUTHOR'S ORGANIZ ATION 11/08/2022 [facility] DATE CREATED AUTHOR AUTHOR'S ORGANIZ ATION 12/20/2024 [facility] Reason for Visit (unrecogniz ed [...] BE BASED ON THE PRIMARY CLINICAL RECORDS. [employer] provides no warranty or guarantee of the accuracy or completeness of information in this document.
[2025-02-18 18:10] LABS: Ova + Parasite Exam Final report (.)
== END 2025-02-17 08:13 | disposition home or self-care (01) ==
LOC: LAB 08:12
PROVIDERS: PCP Family Medicine; Visit Provider Internal Medicine
DX: R19.7 Diarrhea, unspecified (principal)
CPT/HCPCS: 87045; 87046; 87177; 87209; 87427; 87493

== ENCOUNTER 2025-02-23 15:59 | Outpatient (OUT) | payer MEDICARE, SELFPAY ==
--- NOTE | 2025-02-23 16:20 | XR_ITS ---
The [place] [address] Patient Name: ROGER MALHOTRA MRN: [id number] date: 1955 Sex: F Assigned Patient Location: [facility] Current Patient Location: [facility] Accession/Order Number: [id number] Exam Date: 02/23/2025 16:55 Report Date: 02/23/2025 16:56 At the request of: YESI JIMÉNEZ MD Procedure: XR abdomen 1V Single view of abdomen COMPARISON: CT of the abdomen and pelvis 02/11/2025 HISTORY: Diarrhea for 12 weeks THORAX: Lung bases unremarkable. FREE AIR: Supine position limits assessment BOWEL: No gaseous intestinal distention. STOOL: Moderate constipation RENAL STONES: No significant stones present. VASCULAR CALCIFICATIONS: Unremarkable SOFT TISSUE: Unremarkable BONES: Degenerative change. POSTSURGICAL CHANGES: None XR/XR abdomen 1V IMPRESSION: Moderate constipation increased from prior examination. Impression dictated by: Miguelangel Alonzo M.D.02/23/2025 4:56 PM Dictation Location: [place] [address] Electronically authenticated by: [id number] Y Date: 02/23/2025 16:56
== END 2025-02-23 16:00 | disposition home or self-care (01) ==
LOC: RAD 16:00
PROVIDERS: PCP Family Medicine; Visit Provider Internal Medicine
DX: K59.00 Constipation, unspecified (principal); R10.84 Generalized abdominal pain
CPT/HCPCS: 74018; 87045; 87046; 87427

== ENCOUNTER 2025-03-03 10:35 | Outpatient (OUT) | payer MEDICARE, SELFPAY ==
--- NOTE | 2025-03-03 10:43 | XR_ITS ---
The [address] [address] Patient Name: ROGER MALHOTRA MRN: [id number] date: 1955 Sex: F Assigned Patient Location: [facility] Current Patient Location: [facility] Accession/Order Number: [id number] Exam Date: 03/03/2025 11:38 Report Date: 03/03/2025 11:42 At the request of: JEMMA CARSON MD Procedure: XR lumbar spine 2-3V LUMBAR SPINE - 2 views COMPARISON: CT 02/11/2025 CLINICAL DATA: Low back pain radiating to the tailbone for the past 4 months. AP and lateral views were obtained. There is subtle levoscoliotic curvature. No acute compression fractures or displacement are seen. There is slight disc space narrowing at L3-4 and L4-5. Endplate spurring is noted. There is minor lower lumbar facet hypertrophy. The SI joints show sclerosis, greater on the left. The coccyx is not included on the lateral view. The remainder of the sacrum, as imaged appears intact. Fibroid disease is noted. No other soft tissue abnormalities are seen. XR/XR lumbar spine 2-3V IMPRESSION: SUBTLE SCOLIOSIS AND DEGENERATIVE CHANGES. NO ACUTE BONY FINDINGS WITHIN THE [id number]. Impression dictated by: Madeline Jimenes M.D.03/03/2025 11:42 AM Dictation Location: [place] [address] Electronically authenticated by: [id number] Y Date: 03/03/2025 11:42
--- OUTSIDE RECORDS SUMMARY | 2025-03-03 10:58 | XMS_ITS | CCD ---
Author Organization [facility] Care Team Providers Care Technical Healthcare Consultant Name Role Phone MORRO LILLY Attending Unavailab JEMMA Root Primary Care Unavailable Jemma Carson Primary Care Provider Genevieve Sahu Unavailable Jewell Fernandez Unavailable MD Jemma Carson Primary Care Provider MD Genevieve Sahu Attending Provider DO Dallas Whitaker Attending Provider DO Dallas Whitaker Referring Provider DR KAN BAXTER V Consulting Unavailable DR JEMMA CARSON Primary Care Unavailable DELIA GONZALEZ Attending Unavailable DELIA GONZALEZ Admitting Unavailable DELIA GONZALEZ Consulting Unavailable MD Jemma Carson Primary Care Provider DO Dallas Whitaker Attending Provider DO Dallas Whitaker Referring Provider Jemma Carson Unavailable MD Jemma Carson Primary Care Provider DO Dallas Whitaker Attending Provider DO Dallas Whitaker Referring Provider OCTAVIO Hernandez Attending Provider [phone] Gagandeep Stevens Unavailable MD Jemma Carson Primary Care Provider JESSICA Doran-MARVIN Coulter Attending Provider Joi Hernandez Unavailable MD Jemma Carson Primary Care Provider Self, Referral Attending Provider Unavailable Jemma Carson MD Primary Care Provider [phone] Paul Blair MD Attending Provider Jemma Carson Primary Care Unavailable Self, Referral Admitting Unavailable Self, Referral Attending Unavailable Jemma Carson Primary Care Unavailable Asaad, Imad Admitting Unavailable Asaad, Imad Attending Unavailable Jemma Carson MD Primary Care Provider Paul Blair MD Attending Provider Allergies Allergy Classification Reported Allergen(s) Allergy Type Date of Onset Reaction(s) Facility (2 sources) patient allergy list reviewed by nurse or physicia Propensity to adverse reactions Comment:Done Sarbari Other (2 sources) Allergies Reconciled Propensity to adverse reactions Unknown Sarbari Other Medications Current Medications Medication Drug Class(es) [...] Active ascorbic acid 500 mg oral tablet (12 sources) Vitamin C Start: 05-04-2022 take 1 [...] a day for 10 day(s) Oct, Active Xefqgkg-Dmllgstvq-H inc (9 sources) Start: 05-04-2022 take 2 tablets by mouth once daily in the evening Calcium-Magnesium- Zinc Active 2 TAB PO Every evening May 03, 2022 11:00pm Start: 05-04-2022 take 2 tablets by mo uth once daily in the evening Srctfuh-Sgapdwrhp-Mcdh Active 2 TAB PO Every evening May 04, 2022 12:00am Ugzkddw-Cewndukah-Rwsq Tablet (3 sources) Start: 05-04-2022 take 2 tablets by mouth once daily in the evening Djpicsu-Jvqzesqib-Mahg Tablet Active 2 TAB PO Every evening May 04, 2022 12:00am Start: 05-04-2022 take 2 tablets by mo uth once daily in the evening Ewgekvs-Fsoskuuze-Gool Tablet Active 2 TAB PO Every evening [...] inulin 200 mg / lactobacillus rhamnosus gg [id number] unt oral capsule (15 sources) Culturelle - [...] Active medroxyPROGESTERone acetate 2.5 mg oral tablet (20 sources) Progestin Start: 05-04-2022 Medroxyprogest erone 2.5 mg Tablet Active 2.5 MG PO Q48H May 04, 2022 12:00am medroxyPROGESTER one Acetate Active Medroxyprogesterone Yordan-Lido (1 source) Medroxyprogester one Yordan-Lido Active methylPREDNISolone 4 mg oral tablet (4 sources) Corticosteroid Start: 2021 Medrol 4 MG as directed Orally for 6 days May, Active Omeprazole 20 mg capsule,delayed release(DR/EC) (3 sources) Start: 2024 take 1 capsule by mouth once daily Omeprazole 20 mg capsule,delayed release(DR/EC) Active 0 .ROUTE .COMPLEX December 02, 2024 9:31am TAKE 1 CAPSULE BY MOUTH EVERY DAY Start: 12-02-2024 take 1 capsule by mo [facility] once daily Omeprazole 20 mg capsule,delayed [...] 12:00am Oxybutynin Activ e polyethylene glycol 3350 18105 mg powder for oral solution (3 sources) Osmotic Laxative Start: 11-17-2024 Polyethylene Glycol 3350 (Miralax) 17 gram/dose powder Active 17 GM PO Daily November 17, 2024 1:00am Psyllium (10 sources) Metamucil 48.57 % as directed Orally Active Completed/Discontinued Medications Medication Drug Class(es) Dates Sig (Normalized) Sig (Original) acetaminophen 325 mg / HYDROcodone bitartrate 5 mg oral tablet (12 sources) Opioid Agonist Start: 05-08-2022 End: 03-05-2024 [...] Not-Taking cetirizine hydrochloride 10 mg oral capsule (20 sources) Histamine-1 Receptor Antagonist Start: 02-09-2025 End: [...] ctive doxycycline hyclate 100 mg oral tablet (12 sources) Tetracycline-class Drug Start: 05-08-2022 End: 03-05-2024 take 1 tablet by mouth twice daily Doxycycline Hyclate 100 mg tablet Discontinued 100 MG PO Twice daily 10 5 May 08, 2022 12:00am March 05, 2024 11:10am Golo (12 sources) Start: 05-04-2022 End: 03-05-2024 take 1 [...] 12:00am hyoscyamine sulfate 0.125 mg oral tablet (6 sources) Start: 06-12-2024 End: 11-27-2024 Hyoscyamine Sulfate (Levsin) 0.125 mg tablet Discontinued 0.125 MG PO 2-4 TIMES PER DAY as needed for dyspepsia June 12, 2024 12:00am November 27, 2024 10:41am lactobacillus rhamnosus gg [id number] unt oral capsule (2 sources) Start: 02-09-2025 End: 02-10-2025 Lactobacillus Rhamnosus Gg [...] omeprazole 20 mg delayed release oral capsule (19 sources) Proton Pump Inhibitor Start: 06-12-2024 End: 12-02-2024 take 1 capsule by mouth once daily Omeprazole 20 mg capsule,delayed release(DR/EC) Discontinued 20 MG PO Daily July 08, 2024 2:51pm December 02, 2024 9:31am PriLOSEC Active Probiotic For Digestive Health (12 sources) Start: 05-04-2022 End: 11-27-2024 take 2 [...] 04, 2022 12:00am Sod Picosulf-Mag Ox-Citric Ac (3 sources) Start: 11-17-2024 End: 02-10-2025 take 1 [...] Date Documented Da te Episodic/Chronic Abdominal pain (19 sources) Unspecified abdominal pain; Translations: [Generalized abdominal [...] type Chronic Diseases of mouth; excluding dental (7 sources) Mass of oral cavity; Translations: [Other [...] reflux finding] Onset: 06-28-2015 Chronic Essential hypertension (15 sources) Essential (primary) hypertension; Translations: [Essential hypertension] Onset: 11-01-2022 Chronic Fracture of upper limb (19 sources) Nondisplaced fracture of proximal phalanx of [...] left knee Episodic Other connective tissue disease (6 sources) Muscle pain; Translations: [Myalgia, unspecified site] 03-11-2024 Episodic Other gastrointestinal disorders (12 sources) Irritable bowel syndrome with diarrhea; Translations: [Irritable bowel syndrome with diarrhea] 06-12-2024 Chronic Other gastrointestinal disorders (5 sources) Irritable bowel syndrome with diarrhea; Translations: [Irritable bowel syndrome] 06-12-2024 Chronic Other gastrointestinal disorders (5 sources) Altered bowel function; Translations: [Change in bowel habit] 07-24-2024 Episodic Other gastrointestinal disorders (4 sources) Change in bowel habit; Translations: [Other symptoms involving digestive system] 07-24-2024 Episodic Other gastrointestinal disorders (3 sources) Constipation; Translations: [Constipation, unspecified] 11-17-2024 Episodic Other gastrointestinal disorders (2 sources) Constipation, unspecified; Translations: [Constipation, unspecified] 11-17-2024 Episodic Other gastrointestinal disorders (1 source) Other constipation; Translations: [Other constipation] Onset: 12-10-2024 Episodic Other liver diseases (15 sources) Liver cyst; Translations: [Other specified diseases of liver] Chronic Other liver diseases (15 sources) Disease of liver; Translations: [Liver disease, unspecified] Chronic Other nervous system disorders (12 sources) Pain in limb; Translations: [Other acute [...] Spondylosis; intervertebral disc disorders; other back problems (4 sources) Pain in the coccyx; Translations: [Sacrococcygeal [...] and Corynebacterium diphtheriae antigens (medicinal product); Translations: [Vwxfvyyjwo-dfdxczm-r ertussis, combined [DTP] [DtaP]] Onset: 09-28-2016 Results Test Name Value Interpretation Reference Range Facility No Panel Informationon 02-17 Ova & Parasite Result 1 Comment . [facility] Comment on above: No ova, cysts, or pa rasites seen.One negative specimen does not rule out the possibility ofa parasitic infection.Performed at: [facility] [id number] [place], [place] [id number] Director: Justin Tomlinson PhD, Phone: [phone] Ova and Parasites (LAB) Final report . [facility] Comment on above: These results were o btained using wet preparation(s) andtrichrome stained smear. This test does not include testingfor Cryptosporidium parvum, Cyclospora, or Microsporidia. Basophils Auto (Bld) [#/Vol] on 02-11-2025 Basophils (Bld) [#/Vol] Automated basophil count 0.0-0.1 [facility] Basophils/100 WBC Auto (Bld) on 02-11-2025 Basophils/100 WBC (Bld) Automated basophil % 0.2-2.0 [facility] Eosinophils/100 WBC Auto (Bl d)on 02-11-2025 Eosinophils/100 WBC (Bld) Automated eosinophil % Low 0.9-7.0 [facility] Erythrocyte distribution wid th Auto (RBC) [Ratio]on 02-11-2025 Erythrocyte distribution width (RBC) [Ratio] Erythrocyte distribution width [Ratio] by Automated count 11.0-15.0 [facility] Estimated glomerular filtrat ion rate (GFR) non- Americanon 02-11-2025 GFR/1.73 sq M.predicted among non-blacks MDRD (S/P/Bld) [Vol rate/Area] Estimated glomerular filtration rate (GFR) non- Low >=60 mL/min/1.73m 2 [facility] Globulin Calc (S) [Mass/Vol] on 02-11-2025 Globulin (S) [Mass/Vol] Serum globulin measurement by calculation (mass/volume) [facility] Hematocrit Auto (Bld) [Volum e fraction]on 02-11-2025 Hematocrit (Bld) [Volume fraction] Hematocrit [Volume Fraction] of Blood by Automated count 36.0-48.0 [facility] Hemoglobin [Mass/volume] in Bloodon 02-11-2025 Hemoglobin (Bld) [Mass/Vol] Hemoglobin [Mass/volume] in Blood 12.0-16.0 [facility] Laboratory - Chemistry and C hemistry - challengeon 02-11-2025 Albumin [Mass/Vol] 3.6 g/dL 3.4-5.0 [facility] ALP [Catalytic activity/Vol] 68 U/L 46-116 [facility] ALT [Catalytic activity/Vol] 23 U/L 14-59 [facility] AST [Catalytic activity/Vol] 14 U/L Low 15-37 [facility] Bilirubin [Mass/Vol] 0.6 mg/dL 0.2-1.0 [facility] Calcium [Mass/Vol] 9.3 mg/dL 8.5-10.1 [facility] Chloride [Moles/Vol] 104 mmol/L 98-107 [facility] CO2 [Moles/Vol] 24.5 mmol/L 21.0-32.0 [facility] Creatinine [Mass/Vol] 1.03 mg/dL High 0.55-1.02 [facility] GFR/1.73 sq M.predicted MDRD (S/P/Bld) [Vol rate/Area] mL/min/{1.73_m2} >=60 mL/min/1.73m 2 [facility] Glucose [Mass/Vol] 113 mg/dL High 74-106 [facility] Lactate [Moles/Vol] 1.2 mmol/L 0.4-2.0 [facility] Lipase [Catalytic activity/Vol] 40.0 U/L 16.0-77.0 [facility] Potassium [Moles/Vol] 3.7 mmol/L 3.5-5.1 [facility] Protein [Mass/Vol] 7.4 g/dL 6.4-8.2 [facility] Sodium [Moles/Vol] 138 mmol/L 136-145 [facility] Urea nitrogen [Mass/Vol] 14.0 mg/dL 7.0-18.0 [facility] Urea nitrogen/Creatinine [Mass ratio] 13.6 mg/mg [facility] Laboratory - Hematology and Cell countson 02-11-2025 Immature granulocytes/100 WBC (Bld) 0.3 % 0.0-0.5 [facility] Leukocytes [#/volume] correc shakira for nucleated erythrocytes in Blood by Automated counon 02-11-2025 WBC corrected for nucl RBC Auto (Bld) [#/Vol] Leukocytes [#/volume] corrected for nucleated erythrocytes in Blood by Automated coun High 4.0-11.0 [facility] Lymphocytes Auto (Bld) [#/Vo l]on 02-11-2025 Lymphocytes (Bld) [#/Vol] Lymphocytes [#/volume] in Blood by Automated count Low 1.2-3.8 [facility] Lymphocytes/100 WBC Auto (Bl d)on 02-11-2025 Lymphocytes/100 WBC (Bld) Lymphocytes/100 leukocytes in Blood by Automated count Low 20.5-60.0 [facility] MCH Auto (RBC) [Entitic mass ]on 02-11-2025 MCH (RBC) [Entitic mass] MCH [Entitic mass] by Automated count 26.7-34.0 [facility] MCHC Auto (RBC) [Mass/Vol]on 02-11-2025 MCHC (RBC) [Mass/Vol] MCHC [Mass/volume] by Automated count 29.9-35.2 [facility] MCV Auto (RBC) [Entitic vol] on 02-11-2025 MCV (RBC) [Entitic vol] MCV [Entitic volume] by Automated count 81.0-99.0 [facility] Monocytes Auto (Bld) [#/Vol] on 02-11-2025 Monocytes (Bld) [#/Vol] Automated blood monocyte count 0.3-0.8 [facility] Monocytes/100 WBC Auto (Bld) on 02-11-2025 Monocytes/100 WBC (Bld) Automated monocyte % 1.7-12.0 [facility] Neutrophils Auto (Bld) [#/Vo l]on 02-11-2025 Neutrophils (Bld) [#/Vol] Neutrophils [#/volume] in Blood by Automated count High 1.4-6.5 [facility] Neutrophils/100 WBC Auto (Bl d)on 02-11-2025 Neutrophils/100 WBC (Bld) Automated neutrophil % High 43.0-75.0 [facility] No Panel Informationon 02-11 Eosinophils # (Auto) 0.1 10 3/uL 0.0-0.7 [facility] Immature Granulocyte # (Auto) 0.04 10 3/uL High 0.00-0.03 [facility] Platelet mean volume Auto (B ld) [Entitic vol]on 02-11-2025 Platelet mean volume (Bld) [Entitic vol] Platelet mean volume [Entitic volume] in Blood by Automated count Low 9.5-13.5 [facility] Platelets Auto (Bld) [#/Vol] on 02-11-2025 Platelets (Bld) [#/Vol] Platelets [#/volume] in Blood by Automated count 150-450 [facility] RBC Auto (Bld) [#/Vol]on RBC (Bld) [#/Vol] Erythrocytes [#/volume] in Blood by Automated count 4.20-5.40 [facility] Serum or plasma albumin/glob ulin mass ratioon 02-11-2025 Albumin/Globulin [Mass ratio] Serum or plasma albumin/globulin mass ratio [facility] Serum or plasma anion gap de terminationon 02-11-2025 Anion gap [Moles/Vol] Serum or plasma an ion gap determination [facility] Laboratory - Chemistry and C hemistry - challengeon 11-27-2024 TSH Qn 1.525 m[IU]/L 0.358-3.740 [facility] No Panel Informationon 11-27 C-Reactive Protein, Quantitative 0.61 mg/dL High <=0.50 [facility] Stool Calprotectin 110 ug/g 0-120 [facility] Comment on above: Concentration Interp retation Follow-Up< 5 - 50 ug/g Normal None>50 -120 ug/g Borderline Re-evaluate in 4-6 weeks >120 ug/g Abnormal Repeat as clinically indicatedPerformed at: - [facility] [address] [id number] Director: Elma Oshea MD, Phone: [phone] MM screening mammo BI w/CADo n 08-05-2024 MM screening mammo BI w/CAD [facility] [place] [address] Mammography Report Signed Patient: Nany Carmen MR#: [id number] 1 : 1955 Acct:[id number] Age/Sex: 69 / F ADM Date: 08/04/24 Loc: [place] Room: Type: [facility] Attending Dr: Referral Self Copies to: Jemma Carson MD SELF,REFERRAL Ordering Provider: SELF,REFERRAL Date [...] Miguelangel Alonzo M.D.08/05/2024 8:18 AM Dictation Location: [facility] Transcribed By: [facility] 08/05/24817 Dictated By: Miguelangel Alonzo DO 08/05/24813 Signed By: 08/05/24817 Normal [facility] Estimated glomerular filtrat ion rate (GFR) non- Americanon 07-29-2024 GFR/1.73 sq M.predicted among non-blacks MDRD (S/P/Bld) [Vol rate/Area] 54 mL/min/{1.73_m2} Low >=60 [facility] Laboratory - Chemistry and C hemistry - challengeon 07-29-2024 Creatinine [Mass/Vol] 1.02 mg/dL 0.55-1.02 [facility] GFR/1.73 sq M.predicted MDRD (S/P/Bld) [Vol rate/Area] mL/min/{1.73_m2} >=60 [facility] AMYLASEon 10-30-2022 Amylase [Catalytic activity/Vol] 20 U/L Critically low 25-115 [facility] Comment on above: Performed By: #### A MY, LIPA, CMP #### [facility] [address] [address] [address] Nunu Newman CBC AUTO DIFFon 10-30-2022 BASO # 0.0 103/ul Normal 0.0-0.1 [facility] Comment on above: Performed By: #### C BC #### [facility] [address] [address] [address] Nunu Newman Basophils/100 WBC (Bld) 0.5 % Normal 0.2-2.0 [facility] Comment on above: Performed By: #### C BC #### [facility] [address] [place] [address] Dr. Nunu Newman EO # 0.0 103/ul Normal 0.0-0.7 [facility] Comment on above: Performed By: #### C BC #### [facility] [address] [place] [address] Dr. Nunu Newman Eosinophils/100 WBC (Bld) 0.2 % Critically low 0.9-7.0 [facility] Comment on above: Performed By: #### C BC #### [facility] [address] [place] [address] Dr. Nunu Newman Erythrocyte distribution width (RBC) [Ratio] 12.7 % Normal 11.0-15.0 [facility] Comment on above: Performed By: #### C BC #### [facility] [address] [place] [address] Dr. Nunu Newman Hematocrit (Bld) [Volume fraction] 39.7 % Normal 36.0-48.0 [facility] Comment on above: Performed By: #### C BC #### [facility] [address] [place] [address] Dr. Nunu Newman Hemoglobin (Bld) [Mass/Vol] 13.6 g/dL Normal 12.0-16.0 [facility] Comment on above: Performed By: #### C BC #### [facility] [address] [address] [address] Nunu Newman IG # 0.02 10e3/ul Normal 0.00-0.03 [facility] Comment on above: Performed By: #### C BC #### [facility] [address] [place] [address] Dr. Nunu Newman IG % 0.3 % Normal 0.0-0.5 [facility] Comment on above: Performed By: #### C BC #### [facility] [address] [place] [address] Dr. Nunu Newman LYMPH # 0.9 103/ul Critically low 1.2-3.8 [facility] Comment on above: Performed By: #### C BC #### [facility] [address] [place] [address] Dr. Nunu Newman Lymphocytes/100 WBC (Bld) 14.6 % Critically low 20.5-60.0 [facility] Comment on above: Performed By: #### C BC #### [facility] [address] [place] [address] Dr. Nunu Newman MANUAL DIFF REQ NO Normal [facility] Comment on above: Performed By: #### C BC #### [facility] [address] [place] [address] Dr. Nunu Newman MCH (RBC) [Entitic mass] 29.1 pg Normal 26.7-34.0 [facility] Comment on above: Performed By: #### C BC #### [facility] [address] [place] [address] Dr. Nunu Newman MCHC (RBC) [Mass/Vol] 34.3 g/dL Normal 29.9-35.2 [facility] Comment on above: Performed By: #### C BC #### [facility] [address] [place] [address] Dr. Nunu Newman MCV (RBC) [Entitic vol] 84.8 fL Normal 81.0-99.0 [facility] Comment on above: Performed By: #### C BC #### [facility] [address] [place] [address] Dr. Nunu Newman MONO # 0.8 103/ul Normal 0.3-0.8 [facility] Comment on above: Performed By: #### C BC #### [facility] [address] [place] [address] Dr. Nunu Newman Monocytes/100 WBC (Bld) 11.8 % Normal 1.7-12.0 [facility] Comment on above: Performed By: #### C BC #### [facility] [address] [place] [address] Dr. Nunu Newman NEUT # 4.7 103/ul Normal 1.4-6.5 [facility] Comment on above: Performed By: #### C BC #### [facility] [address] [place] [address] Dr. Nunu Newman Neutrophils/100 WBC (Bld) 72.6 % Normal 43.0-75.0 [facility] Comment on above: Performed By: #### C BC #### [facility] [address] [place] [address] Dr. Nunu Newman Platelet mean volume (Bld) [Entitic vol] 8.8 fL Critically low 9.5-13.5 [facility] Comment on above: Performed By: #### C BC #### [facility] [address] [place] [address] Dr. Nunu Newman PLT 200 103/ul Normal 150-450 [facility] Comment on above: Performed By: #### C BC #### [facility] [address] [place] [address] Dr. Nunu Newman RBC 4.68 106/ul Normal 4.20-5.40 [facility] Comment on above: Performed By: #### C BC #### [facility] [address] [place] [address] Dr. Nunu Newman WBC 6.4 103/ul Normal 4.0-11.0 [facility] Comment on above: Performed By: #### C BC #### [facility] [address] [place] [address] ABD/PELVIS WO CONon [...] KAN BAXTER Date: 2022-10-30 10:50 Normal [facility] ER URINE PROFILEon 2 Bilirubin Ql (U) SMALL Abnormal NEGATIVE [facility] Comment on above: Performed By: #### U MICRO, ERUR #### [facility] [address] [address] [address] Nunu Newman Clarity (U) CLEAR Normal CLEAR [facility] Comment on above: Performed By: #### U MICRO, ERUR #### [facility] [address] [address] [address] Nunu Newman Color (U) YELLOW Normal YELLOW [facility] Comment on above: Performed By: #### U MICRO, ERUR #### [facility] [address] [address] [address] Nunu Newman ERUAHD A micrscopic examination will be performed if indicated. Normal [facility] Comment on above: Performed By: #### U MICRO, ERUR #### [facility] [address] [address] [address] Nunu Newman Glucose Ql (U) Negative Normal NEGATIVE [facility] Comment on above: Performed By: #### U MICRO, ERUR #### [facility] [address] [address] [address] Nunu Newman Hemoglobin Ql (U) TRACE-INTACT Abnormal NEGATIVE [facility] Comment on above: Performed By: #### U MICRO, ERUR #### [facility] [address] [address] [address] Nunu Newman Ketones Ql (U) 15 mg/dl Abnormal NEGATIVE [facility] Comment on above: Performed By: #### U MICRO, ERUR #### [facility] [address] [place] [address] Dr. Nunu Newman LEUKOCYTES Negative Normal NEGATIVE [facility] Comment on above: Performed By: #### U MICRO, ERUR #### [facility] [address] [place] [address] Dr. Nunu Newman Nitrite Ql (U) Negative Normal NEGATIVE [facility] Comment on above: Performed By: #### U MICRO, ERUR #### [facility] [address] [place] [address] Dr. Nunu Newman pH (U) 6.0 [pH] Normal 5-9 [facility] Comment on above: Performed By: #### U MICRO, ERUR #### [facility] [address] [address] [address] Nunu Newman SPEC GRAVITY 1.010 Normal 1.005-<=1.02 5 [facility] Comment on above: Performed By: #### U MICRO, ERUR #### [facility] [address] [place] [address] Dr. Nunu Newman UA PROTEIN TRACE Normal NEGATIVE/ TRACE [facility] Comment on above: Performed By: #### U MICRO, ERUR #### [facility] [address] [place] [address] Dr. Nunu Newman UR MICRO IND INDICATED Normal [facility] Comment on above: Performed By: #### U MICRO, ERUR #### [facility] [address] [place] [address] Dr. Nunu Newman Urobilinogen Qn (U) 0.2 {Anish'U}/dL Normal 0.2 - 1. 0 [facility] Comment on above: Performed By: #### U MICRO, ERUR #### [facility] [address] [place] [address] Dr. Nunu Newman GI PANEL (PCR)on 10-30-2022 Adenovirus F 40/41 Not detected Normal NOT DETECTED [facility] Comment on above: Performed By: #### G IPANEL #### [facility] [address] [place] [address] Dr. Nunu Newman Astrovirus Not detected Normal NOT DETECTED [facility] Comment on above: Performed By: #### G IPANEL #### [facility] [address] [place] [address] Dr. Nunu Newman C. Diff toxin A/B Not detected Normal NOT DETECTED [facility] Comment on above: Performed By: #### G IPANEL #### [facility] [address] [place] [address] Dr. Nunu Newman Campylobacter Detected Critically abnormal NOT DETECTED [facility] Comment on above: Performed By: #### G IPANEL #### [facility] [address] [place] [address] Dr. Nunu Newman Cryptosporidium Not detected Normal NOT DETECTED [facility] Comment on above: Performed By: #### G IPANEL #### [facility] [address] [place] [address] Dr. Nunu Newamn Cyclos. Cayetanensis Not detected Normal NOT DETECTED [facility] Comment on above: Performed By: #### G IPANEL #### [facility] [address] [place] [address] Dr. Nunu Newman E. Coli O157 Not Applicable Normal Not Applicable [facility] Comment on above: Performed By: #### G IPANEL #### [facility] [address] [place] [address] Dr. Nunu Newman E. histolytica Not detected Normal NOT DETECTED The [facility] Comment on above: Performed By: #### G IPANEL #### [facility] [address] [place] [address] Dr. Nunu Newman EAEC Not detected Normal NOT DETECTED [facility] Comment on above: Performed By: #### G IPANEL #### [facility] [address] [place] [address] Dr. Nunu Newman EIEC Not detected Normal NOT DETECTED [facility] Comment on above: Performed By: #### G IPANEL #### [facility] [address] [place] [address] Dr. Nunu Newman EPEC Not detected Normal NOT DETECTED [facility] Comment on above: Performed By: #### G IPANEL #### [facility] [address] [place] [address] Dr. Nunu Newman ETEC Not detected Normal NOT DETECTED [facility] Comment on above: Performed By: #### G IPANEL #### [facility] [address] [place] [address] Dr. Nunu Lee Lamblia Not detected Normal NOT DETECTED [facility] Comment on above: Performed By: #### G IPANEL #### [facility] [address] [place] [address] Dr. Nunu STARKEY CONTROLS PASSED Normal The [facility] Comment on above: Performed By: #### G IPANEL #### [facility] [address] [place] [address] Dr. Nunu MATHTEWS BART HEADER GI PANEL BACTERIA Normal T [facility] Comment on above: Performed By: #### G IPANEL #### [facility] [address] [place] [address] Dr. Nunu EISENBERG ECOLI GI PANEL DIARRHEAGENIC E.COLI / SHIGELLA Normal [facility] Comment on above: Performed By: #### G IPANEL #### [facility] [address] [place] [address] Dr. Yilan Newman GIPNLHD INFO SEE BELOW Normal [facility] Comment on above: Result Comment: EAEC - Enteroaggregative E. Coli EPEC- Enteropathogenic E. Coli ETEC- Enterotoxigenic E. Coli lt/st STEC- Shigella-like toxin-producing E. Coli stx1/stx2 EIEC- Shigella/Enteroinvasive E. Coli Performed By: #### G IPANEL #### [facility] [address] [address] [address] Nunu EISENBERG PARASITES GI PANEL PARASITES Normal [facility] Comment on above: Performed By: #### G IPANEL #### [facility] [address] [address] [address] Nunu EISENBERG VIRUS GI PANEL VIRUSES Normal [facility] Comment on above: Performed By: #### G IPANEL #### [facility] [address] [place] [address] Dr. Nunu Newman Norovirus GI/GII Not detected Normal NOT DETECTED [facility] Comment on above: Performed By: #### G IPANEL #### [facility] [address] [place] [address] Dr. Nunu Newman P. Shigelloides Not detected Normal NOT DETECTED [facility] Comment on above: Performed By: #### G IPANEL #### [facility] [address] [place] [address] Dr. Nunu Newman Rotavirus A Not detected Normal NOT DETECTED The [facility] Comment on above: Performed By: #### G IPANEL #### [facility] [address] [address] [address] Nunu Newman Salmonella Not detected Normal NOT DETECTED [facility] Comment on above: Performed By: #### G IPANEL #### [facility] [address] [address] [address] Nunu Newman Sapovirus Not detected Normal NOT DETECTED [facility] Comment on above: Performed By: #### G IPANEL #### [facility] [address] [place] [address] Dr. Nunu Newman STEC Not detected Normal NOT DETECTED [facility] Comment on above: Performed By: #### G IPANEL #### [facility] [address] [place] [address] Dr. Nunu Newman Vibrio Not detected Normal NOT DETECTED [facility] Comment on above: Performed By: #### G IPANEL #### [facility] [address] [place] [address] Dr. Nunu Newman Vibrio Cholera Not detected Normal NOT DETECTED [facility] Comment on above: Performed By: #### G IPANEL #### [facility] [address] [address] [address] Nunu Newman Y. Enterocolitica Not detected Normal NOT DETECTED [facility] Comment on above: Performed By: #### G IPANEL #### [facility] [address] [place] [address] Dr. Nunu Newman LACTATE/LACTIC ACIDon 2021 Lactate [Moles/Vol] 0.9 mmol/L Normal 0.4-1.9 [facility] Comment on above: Performed By: #### L ACT #### [facility] [address] [place] [address] Dr. Nunu Newman LIPASEon 10-30-2022 Lipase [Catalytic activity/Vol] 114.0 U/L Normal 73.0-393.0 [facility] Comment on above: Performed By: #### A MY LIPA, CMP #### [facility] [address] [place] [address] Dr. Nunu Newman PROF 14(COMP METB)on 022 Albumin [Mass/Vol] 3.0 g/dL Critically low 3.4-5.0 [facility] Comment on above: Performed By: #### A MY LIPA, CMP #### [facility] [address] [place] [address] Dr. Nunu Newman Albumin/Globulin [Mass ratio] 0.7 {ratio} Normal [facility] Comment on above: Performed By: #### A MY LIPA, CMP #### [facility] [address] [place] [address] Dr. Nunu Newman ALP [Catalytic activity/Vol] 53 U/L Normal 46-116 [facility] Comment on above: Performed By: #### A MY, LIPA, CMP #### [facility] [address] [address] [address] Nunu Newman ALT [Catalytic activity/Vol] 20 U/L Normal 14-59 [facility] Comment on above: Performed By: #### A MY, LIPA, CMP #### [facility] [address] [address] [address] Nunu Newman Anion gap [Moles/Vol] 12.4 mmol/L Normal [facility] Comment on above: Performed By: #### A MY, LIPA, CMP #### [facility] [address] [place] [address] Dr. Nunu Newman AST [Catalytic activity/Vol] 21 U/L Normal 15-37 [facility] Comment on above: Performed By: #### A MY, LIPA, CMP #### [facility] [address] [place] [address] Dr. Nunu Newman Bilirubin [Mass/Vol] 0.4 mg/dL Normal 0.2-1.0 [facility] Comment on above: Performed By: #### A MY, LIPA, CMP #### [facility] [address] [place] [address] Dr. Nunu Newman Calcium [Mass/Vol] 8.6 mg/dL Normal 8.5-10.1 [facility] Comment on above: Performed By: #### A MY, LIPA, CMP #### [facility] [address] [place] [address] Dr. Nunu Newman Chloride [Moles/Vol] 100 mmol/L Normal 98-107 [facility] Comment on above: Performed By: #### A MY, LIPA, CMP #### [facility] [address] [place] [address] Dr. Nunu Newman CO2 [Moles/Vol] 27.0 mmol/L Normal 21.0-32.0 [facility] Comment on above: Performed By: #### A MY, LIPA, CMP #### [facility] [address] [place] [address] Dr. Nunu Newman Creatinine [Mass/Vol] 0.90 mg/dL Normal 0.55-1.02 [facility] Comment on above: Performed By: #### A OSCAR HOGAN, CMP #### [facility] [address] [address] [address] Nunu Newman EGFR-AF BAHRAINI >60 Normal >=60 [facility] Comment on above: Performed By: #### A SAMIRA LIPA, CMP #### [facility] [address] [address] [address] Nunu Newman EGFR-NON AF BAHRAINI >60 Normal >=60 [facility] Comment on above: Performed By: #### A OSCAR HOGAN, CMP #### [facility] [address] [address] [address] Nunu Newman Globulin (S) [Mass/Vol] 4.1 g/dL Normal [facility] Comment on above: Performed By: #### A MARQUEZ HOGANA, CMP #### [facility] [address] [place] [address] Dr. Nunu Newman Glucose [Mass/Vol] 112 mg/dL Critically high 74-106 [facility] Comment on above: Performed By: #### A OSCAR HOGAN, CMP #### [facility] [address] [place] [address] Dr. Nunu Newman Potassium [Moles/Vol] 3.4 mmol/L Critically low 3.5-5.1 [facility] Comment on above: Performed By: #### A MARQUEZ HOGANA, CMP #### [facility] [address] [place] [address] Dr. Nunu Newman Protein [Mass/Vol] 7.1 g/dL Normal 6.4-8.2 [facility] Comment on above: Performed By: #### A MARQUEZ HOGANA, CMP #### [facility] [address] [place] [address] Dr. Nunu Newman Sodium [Moles/Vol] 136 mmol/L Normal 136-145 [facility] Comment on above: Performed By: #### A MARQUEZ HOGANA, CMP #### [facility] [address] [address] [address] Nunu Newman Urea nitrogen [Mass/Vol] 14.0 mg/dL Normal 7.0-18.0 [facility] Comment on above: Performed By: #### A OSCAR HOGAN, CMP #### [facility] [address] [address] [address] Nunu Newman Urea nitrogen/Creatinine [Mass ratio] 15.6 mg/mg Normal [facility] Comment on above: Performed By: #### A OSCAR HOGAN, CMP #### [facility] [address] [address] [address] Nunu Newman URINE MICROSCOPIC ONLYon BACTERIA NONE SEEN Normal NONE SEEN [facility] Comment on above: Performed By: #### U MICRO, ERUR #### [facility] [address] [place] [address] Dr. Nunu Newman Bacteria identified Cx Nom (U) NOT INDICATED Normal [facility] Comment on above: Performed By: #### U MICRO, ERUR #### [facility] [address] [place] [address] Dr. Nunu Newman CAST NONE SEEN Normal NONE SEEN [facility] Comment on above: Performed By: #### U MICRO, ERUR #### [facility] [address] [place] [address] Dr. Nunu Newman Crystals LM Nom (Urine sed) NONE SEEN Normal NONE SEEN [facility] Comment on above: Performed By: #### U MICRO, ERUR #### [facility] [address] [place] [address] Dr. Nunu Newman Epithelial cells LM Ql (Urine sed) FEW Abnormal NONE SEEN /RARE [facility] Comment on above: Performed By: #### U MICRO, ERUR #### [facility] [address] [place] [address] Dr. Nunu Newman MUCOUS NONE SEEN Normal NONE SEEN [facility] Comment on above: Performed By: #### U MICRO, ERUR #### [facility] [address] [place] [address] Dr. Nunu Newman RBC 0-2 Normal 0-2 [facility] Comment on above: Performed By: #### U MICRO, ERUR #### [facility] [address] [address] [address] Nunu Newman WBC NONE SEEN Normal NONE SEEN [facility] Comment on above: Performed By: #### U MICRO, ERUR #### [facility] [address] [address] [address] Nunu Newman XR hand LT min 3V*on 022 XR hand LT min 3V* [facility] [employer] Other XR hand LT min 3V* [facility] [employer] Other XR hand LT min 3V* [address] [place] [address] [employer] Other XR hand LT min 3V* [place] [address] [employer] Other XR hand LT min 3V* XRay Report [employer] Other XR hand LT min 3V* Signed [employer] Other XR hand LT min 3V* Patient: Nany Carmen MR#: [id number] [employer] Other XR hand LT min 3V* 1 [employer] Other XR hand LT min 3V* : 1955 Acct:[id number] [employer] Other XR hand LT min 3V* Age/Sex: 67 / F ADM Date: 06/09/22 [employer] Other XR hand LT min 3V* Loc: SOX Room: Type : [facility] [employer] Other XR hand LT min 3V* Attending Dr: Ginna Sahu MD [employer] Other XR hand LT min 3V* Copies to: Genevieve Sahu MD [employer] Other XR hand LT min 3V* Ordering Provider: Genevieve Sahu MD [employer] Other XR hand LT min 3V* Date of Service: 06/09/22 [employer] Other XR hand LT min 3V* XR/XR hand LT min 3V*: Closed displaced fracture of proximal phalanx of [employer] Other XR hand LT min 3V* left ring f [employer] Other XR hand LT min 3V* 4 viewsLEFT hand plain film [employer] Other XR hand LT min 3V* COMPARISON:05/16/22 [employer] Other XR hand LT min 3V* HISTORY:Status post ORIF LEFT 4th proximal interphalangeal fracture [employer] Other XR hand LT min 3V* Fixation hardware intact. Continued healing of the fracture of the proximal 4th phalanx present. [employer] Other XR hand LT min 3V* Bony alignment is unchanged. [employer] Other XR hand LT min 3V* XR/XR hand LT min 3V* [employer] Other XR hand LT min 3V* IMPRESSION:Healing fracture. No hardware failure. [employer] Other XR hand LT min 3V* Impression dictated by: Miguelangel Alonzo M.D.06/09/2022 1:13 PM [employer] Other XR hand LT min 3V* Dictation Location: [address] [address] [employer] Other XR hand LT min 3V* Transcribed By: HEMANT 06/09/22 [facility] [employer] Other XR hand LT min 3V* Dictated By: Miguelangel Alonzo DO 06/09/22 [facility] [employer] Other XR hand LT min 3V* Signed By: [employer] Other XR hand LT min 3V* 06/09/22 [address] [employer] Other XR hand LT min 3V*on 022 XR hand LT min 3V* [facility] [employer] Other XR hand LT min 3V* [facility] [employer] Other XR hand LT min 3V* [address] [facility] [employer] Other XR hand LT min 3V* [place] [address] [employer] Other XR hand LT min 3V* XRay Report [employer] Other XR hand LT min 3V* Signed [employer] Other XR hand LT min 3V* Patient: Nany Carmen MR#: [id number] [place] [employer] Other XR hand LT min 3V* 1 [employer] Other XR hand LT min 3V* : 1955 Acct:[id number] [employer] Other XR hand LT min 3V* Age/Sex: 67 / F ADM Date: 05/16/22 [employer] Other XR hand LT min 3V* Loc: SOXD Room: Type : REG CLI [employer] Other XR hand LT min 3V* Attending Dr: Ginna Sahu MD [employer] Other XR hand LT min 3V* Copies to: Genevieve Sahu MD [employer] Other XR hand LT min 3V* Ordering Provider: Genevieve Sahu MD [employer] Other XR hand LT min 3V* Date of Service: 05/16/22 [employer] Other XR hand LT min 3V* XR/XR hand LT min 3V*: Closed displaced fracture of proximal phalanx of [employer] Other XR hand LT min 3V* left ring f [employer] Other XR hand LT min 3V* XR hand LT min 3V* 05/16/2022 1:23 PM [employer] Other XR hand LT min 3V* SIGNS AND SYMPTOMS: Closed displaced fracture of proximal phalanx of left ring finger, follow-up [employer] Other XR hand LT min 3V* PROTOCOL: Frontal, lateral, and oblique radiographs of the left hand [employer] Other XR hand LT min 3V* COMPARISON: 05/08/2022 [employer] Other XR hand LT min 3V* FINDINGS: [employer] Other XR hand LT min 3V* There has been screw fixation across a midshaft fracture of the proximal phalanx of the fourth [employer] Other XR hand LT min 3V* digit. Healing remains incomplete. There is soft tissue swelling throughout the fourth digit. No [employer] Other XR hand LT min 3V* hardware complicatio n or change in alignment. [employer] Other XR hand LT min 3V* XR/XR hand LT min 3V* [employer] Other XR hand LT min 3V* IMPRESSION: [employer] Other XR hand LT min 3V* Status post hardware fixation across a fracture involving the shafts of the fourth proximal phalanx [employer] Other XR hand LT min 3V* without hardware complication or change in alignment. Healing remains incomplete. [employer] Other XR hand LT min 3V* Impression dictated by: Chente Crook M.D.05/16/2022 2:34 PM [employer] Other XR hand LT min 3V* Dictation Location: [facility]-- [employer] Other XR hand LT min 3V* Transcribed By: HEMANT 05/16/22 [facility] [employer] Other XR hand LT min 3V* Dictated By: Chente Crook II, MD 05/16/22 [facility] [employer] Other XR hand LT min 3V* Signed By: [employer] Other XR hand LT min 3V* 05/16/[address] [place] [address] [employer] Other Albumin [Mass/volume] in Ser um or PlasmaOrdered By: Genevieve Sahu on 05-04-2022 Albumin [Mass/Vol] 3.6 g/dL 3.2-5.5 [facility] Basophils Auto (Bld) [#/Vol] Ordered By: Genevieve Sahu on 05-04-2022 Basophils (Bld) [#/Vol] 0.0 10*3/uL 0.0-0.2 [facility] Basophils/100 WBC Auto (Bld) Ordered By: Genevieve Sahu on 05-04-2022 Basophils/100 WBC (Bld) 0.5 % . [facility] Blood hemoglobin measurement (mass/volume)Ordered By: Genevieve Sahu on 05-04-2022 Hemoglobin (Bld) [Mass/Vol] 13.0 g/dL 11.8-15.4 [facility] Blood leukocytes automated c ount (number/volume)Ordered By: Genevieve Sahu on 05-04-2022 WBC (Bld) [#/Vol] 7.0 10*3/uL 4.5-11.0 [facility] COVID-19 Positive/NegativeOr dered By: Genevieve Sahu on 05-04-2022 SARS-CoV-2 (COVID-19) N gene LISA+probe Ql (Resp) Negative Negative [facility] Comment on above: Testing for SARS-CoV -2 by RT-PCR This test was developed and its performance characteristics determined by [employer] ([employer]) and validated at the [facility]. This test has not been [...] on 05-04-2022 Creatinine [Mass/Vol] 0.95 mg/dL 0.44-1.03 [facility] Eosinophils Auto (Bld) [#/Vo l]Ordered By: Genevieve Sahu on 05-04-2022 Eosinophils (Bld) [#/Vol] 0.1 10*3/uL 0.0-0.45 [facility] Eosinophils/100 WBC Auto (Bl d)Ordered By: Genevieve Sahu on 05-04-2022 Eosinophils/100 WBC (Bld) 2.0 % . [facility] Erythrocyte distribution wid th Auto (RBC) [Ratio]Ordered By: Genevieve Sahu on 05-04-2022 Erythrocyte distribution width (RBC) [Ratio] 14.0 % 11.9-15.3 [facility] Estimated glomerular filtrat ion rate (GFR) non- AmericanOrdered By: Genevieve Sahu on 05-04-2022 GFR/1.73 sq M.predicted among non-blacks MDRD (S/P/Bld) [Vol rate/Area] 59 mL/Min [facility] Globulin Calc (S) [Mass/Vol] Ordered By: Genevieve Sahu on 05-04-2022 Globulin (S) [Mass/Vol] 2.8 g/dL [facility] Hematocrit Auto (Bld) [Volum e fraction]Ordered By: Genevieve Sahu on 05-04-2022 Hematocrit (Bld) [Volume fraction] 38.7 % 34.0-46.4 [facility] - Hematology and Cell countsOrdered By: Genevieve Sahu on 05-04-2022 Nucleated RBC/100 WBC (Bld) [Ratio] 0.1 % 0-0.5 [facility] Lymphocytes Auto (Bld) [#/Vo l]Ordered By: Genevieve Sahu on 05-04-2022 Lymphocytes (Bld) [#/Vol] 1.5 10*3/uL 1.00-4.8 [facility] Lymphocytes/100 WBC Auto (Bl d)Ordered By: Genevieve Sahu on 05-04-2022 Lymphocytes/100 WBC (Bld) 22.0 % . [facility] MCH Auto (RBC) [Entitic mass ]Ordered By: Genevieve Sahu on 05-04-2022 MCH (RBC) [Entitic mass] 29.5 pg 24.7-34.3 [facility] MCHC Auto (RBC) [Mass/Vol]Or dered By: Genevieve Sahu on 05-04-2022 MCHC (RBC) [Mass/Vol] 33.6 g/dL 32.0-35.0 [facility] MCV Auto (RBC) [Entitic vol] Ordered By: Genevieve Sahu on 05-04-2022 MCV (RBC) [Entitic vol] 87.9 fL 80-100 [facility] Monocytes Auto (Bld) [#/Vol] Ordered By: Genevieve Sahu on 05-04-2022 Monocytes (Bld) [#/Vol] 0.5 10*3/uL 0.0-0.8 [facility] Monocytes/100 WBC Auto (Bld) Ordered By: Genevieve Sahu on 05-04-2022 Monocytes/100 WBC (Bld) 7.1 % . [facility] Neutrophils Auto (Bld) [#/Vo l]Ordered By: Genevieve Sahu on 05-04-2022 Neutrophils (Bld) [#/Vol] 4.8 10*3/uL 1.8-7.7 [facility] Neutrophils/100 WBC Auto (Bl d)Ordered By: Genevieve Sahu on 05-04-2022 Neutrophils/100 WBC (Bld) 68.4 % . [facility] No Panel InformationOrdered By: Genevieve Sahu on 05-04-2022 Estimated GFR () > 60 mL/Min [facility] Comment on above: GFR estimated refere nce range: According to KDOQI guidelines, <60 ml/min/1.73m2 is sufficient to diagnose a patient with chronic kidney disease. Pharmacy Creatinine Clearance (Chem N/A [facility] Platelet mean volume Auto (B ld) [Entitic vol]Ordered By: Genevieve Sahu on 05-04-2022 Platelet mean volume (Bld) [Entitic vol] 8.1 fL 6.3-10.7 [facility] Platelets Auto (Bld) [#/Vol] Ordered By: Genevieve Sahu on 05-04-2022 Platelets (Bld) [#/Vol] 271 10*3/uL 150-450 [facility] Protein [Mass/volume] in Ser um or PlasmaOrdered By: Genevieve Sahu on 05-04-2022 Protein [Mass/Vol] 6.4 g/dL 6.1-7.9 [facility] RBC Auto (Bld) [#/Vol]Ordere d By: Genevieve Sahu on 05-04-2022 RBC (Bld) [#/Vol] 4.40 10*6/uL 3.60-5.00 [facility] Serum or plasma alanine alejandre otransferase measurement without P-5'-P (enzymatic activiOrdered By: Genevieve Sahu on 05-04-2022 ALT No additional P-5'-P [Catalytic activity/Vol] 16 U/L 10-60 [facility] Serum or plasma albumin/glob ulin mass ratioOrdered By: Genevieve Sahu on 05-04-2022 Albumin/Globulin [Mass ratio] 1.3 {ratio} [facility] Serum or plasma alkaline lakia sphatase measurement (enzymatic activity/volume)Ordered By: Genevieve Sahu on 05-04-2022 ALP [Catalytic activity/Vol] 48 U/L 32-92 [facility] Serum or plasma aspartate am inotransferase measurement (enzymatic activity/volume)Ordered By: Genevieve Sahu on 05-04-2022 AST [Catalytic activity/Vol] 17 U/L 10-42 [facility] Serum or plasma calcium glynn urement (mass/volume)Ordered By: Genevieve Sahu on 05-04-2022 Calcium [Mass/Vol] 9.2 mg/dL 8.2-10.2 [facility] Serum or plasma chloride srinivasa surement (moles/volume)Ordered By: Genevieve Sahu on 05-04-2022 Chloride [Moles/Vol] 101 mmol/L 95-114 [facility] Serum or plasma glucose glynn urement (mass/volume)Ordered By: Genevieve Sahu on 05-04-2022 Glucose [Mass/Vol] 95 mg/dL 70-100 [facility] Comment on above: ADA recommended refe rence range Random Glucose Reference Range is dependent on time and content of last meal. Glucose of more than 200 mg/dL in a nonstressed, ambulatory subject supports the diagnosis of Diabetes Mellitus. Serum or plasma potassium me asurement (moles/volume)Ordered By: Genevieve Sahu on 05-04-2022 Potassium [Moles/Vol] 4.2 mmol/L 3.5-5.1 [facility] Serum or plasma sodium measu rement (moles/volume)Ordered By: Genevieve Sahu on 05-04-2022 Sodium [Moles/Vol] 138 mmol/L 136-146 [facility] Serum or plasma total biliru bin measurement (mass/volume)Ordered By: Genevieve Sahu on 05-04-2022 Bilirubin [Mass/Vol] 0.4 mg/dL 0.3-1.2 [facility] Serum or plasma total carbon dioxide measurement (moles/volume)Ordered By: Genevieve Sahu on 05-04-2022 CO2 [Moles/Vol] 24.9 mmol/L 22.0-30.0 [facility] Serum or plasma urea nitroge n measurement (mass/volume)Ordered By: Genevieve Sahu on 05-04-2022 Urea nitrogen [Mass/Vol] 17 mg/dL 9-23 [facility] XR hand LT min 3V*on 022 XR hand LT min 3V* [facility] [employer] Other XR hand LT min 3V* [facility] Main [facility] [employer] Other XR hand LT min 3V* [address] [facility] [employer] Other XR hand LT min 3V* [place] [address] [employer] Other XR hand LT min 3V* XRay Report [employer] Other XR hand LT min 3V* Signed [employer] Other XR hand LT min 3V* Patient: Nany Carmen MR#: [id number] [employer] Other XR hand LT min 3V* 1 [employer] Other XR hand LT min 3V* : 1955 Acct:[id number] [employer] Other XR hand LT min 3V* Age/Sex: 66 / F ADM Date: 05/03/22 [employer] Other XR hand LT min 3V* Loc: SOXD Room: Type : [facility] [employer] Other XR hand LT min 3V* Attending Dr: Ginna Sahu MD [employer] Other XR hand LT min 3V* Copies to: Genevieve Sahu MD [employer] Other XR hand LT min 3V* Ordering Provider: Genevieve Sahu MD [employer] Other XR hand LT min 3V* Date of Service: 05/03/22 [employer] Other XR hand LT min 3V* XR/XR hand LT min 3V*: M79.642 [employer] Other XR hand LT min 3V* XR hand LT min 3V* 05/03/2022 4:05 PM [employer] Other XR hand LT min 3V* SIGNS AND SYMPTOMS: Injury to left fourth digit with fracture, follow-up [employer] Other XR hand LT min 3V* PROTOCOL: Frontal, lateral, and oblique radiographs of the left [employer] Other XR hand LT min 3V* COMPARISON: 04/11/2022 [employer] Other XR hand LT min 3V* FINDINGS: [employer] Other XR hand LT min 3V* There is a transversely oriented, comminuted fracture of the shaft of the fourth proximal phalanx. [employer] Other XR hand LT min 3V* There is 38 degrees of apex palmar angulation which is slightly more pronounced when compared prior [employer] Other XR hand LT min 3V* exam. No change in alignment otherwise. There is mild narrowing of the distal interphalangeal [employer] Other XR hand LT min 3V* joints of the second and third digits. Degenerative changes are noted in the wrist. [employer] Other XR hand LT min 3V* XR/XR hand LT min 3V* [employer] Other XR hand LT min 3V* IMPRESSION: [employer] Other XR hand LT min 3V* exam. [employer] Other XR hand LT min 3V* Impression dictated by: Chente Crook M.D.05/03/2022 7:18 PM [employer] Other XR hand LT min 3V* Dictation Location: [place] [address] [employer] Other XR hand LT min 3V* Transcribed By: HEMANT 05/03/221917 [employer] Other XR hand LT min 3V* Dictated By: Chente Crook II, MD 05/03/221916 [employer] Other XR hand LT min 3V* Signed By: [facility] Other XR hand LT min 3V* 05/03/221917 [employer] Other XR hand LT min 3V*on 022 XR hand LT min 3V* [facility] [employer] Other XR hand LT min 3V* [facility] Other XR hand LT min 3V* [address] [place] [address] [employer] Other XR hand LT min 3V* [place] [address] [employer] Other XR hand LT min 3V* XRay Report [employer] Other XR hand LT min 3V* Signed [employer] Other XR hand LT min 3V* Patient: Nany Carmen MR#: [id number] [employer] Other XR hand LT min 3V* 1 [employer] Other XR hand LT min 3V* : 1955 Acct:[id number] [employer] Other XR hand LT min 3V* Age/Sex: 66 / F ADM Date: 04/11/22 [facility] Other XR hand LT min 3V* Loc: XDUCLY Room: Type: REG CLI [employer] Other XR hand LT min 3V* Attending Dr: Jewell CUNNINGHAM [employer] Other XR hand LT min 3V* Ordering Provider: OCTAVIO Guzman [employer] Other XR hand LT min 3V* Date of Service: 04/11/22 [employer] Other XR hand LT min 3V* XR/XR hand LT min 3V*: LEFT HAND PAIN [employer] Other XR hand LT min 3V* Copies to: OCTAVIO Guzman [employer] Other XR hand LT min 3V* LEFT HAND - 3 views [employer] Other XR hand LT min 3V* COMPARISON: None [employer] Other XR hand LT min 3V* REASON FOR EXAM: Heavy rock truck onto left hand without pain and swelling and redness over the [employer] Other XR hand LT min 3V* dorsal hand/ ringfinger [employer] Other XR hand LT min 3V* FINDINGS: [employer] Other XR hand LT min 3V* Soft tissue swelling is noted involving the ring finger. There is a mildly displaced comminuted [employer] Other XR hand LT min 3V* fracture involving the shaft of the proximal phalanx of the fourth digit. No additional fractures [employer] Other XR hand LT min 3V* are seen. Mild degenerative changes involving the DIP joints. [employer] Other XR hand LT min 3V* XR/XR hand LT min 3V* [employer] Other XR hand LT min 3V* IMPRESSION: [employer] Other XR hand LT min 3V* MILDLY DISPLACED COMMINUTED FRACTURE INVOLVING THE SHAFT OF THE PROXIMAL PHALANX OF THE FOURTH [employer] Other XR hand LT min 3V* DIGIT. [employer] Other XR hand LT min 3V* Impression dictated by: Reji Khan Jr., DMarioOMario04/11/2022 1:56 PM [employer] Other XR hand LT min 3V* Dictation Location: [place] [address] [employer] Other XR hand LT min 3V* Transcribed By: PWS 04/11/22 [facility] [employer] Other XR hand LT min 3V* Dictated By: Reji Khan Jr, DO 04/11/22 [facility] Other XR hand LT min 3V* Signed By: [employer] Other XR hand LT min 3V* 04/11/[address] [place] [address] [employer] Other Basic Metabolic Panelon Anion gap [Moles/Vol] 7 mmol/L Low 9 - 17 mmol/L [place] Bun/Cre Ratio 13 [place] Calcium [Mass/Vol] 9.2 mg/dL 8.6 - 10. 4 mg/dL [place] Chloride [Moles/Vol] 104 mmol/L 98 - 10 7 mmol/L [place] CO2 [Moles/Vol] 26 mmol/L 20 - 31 mmol/L [place] Creatinine [Mass/Vol] 0.76 mg/dL 0.5 - 0.9 mg/dL [place] GFR >60 >60 mL/min [place] GFR Non- >60 >60 mL/min [place] Glucose [Mass/Vol] 111 mg/dL High 70 - 99 mg/dL [place] Interpretation and review of laboratory results Abnormal [place] Potassium [Moles/Vol] 4.2 mmol/L 3.7 - 5.3 mmol/L [place] Sodium [Moles/Vol] 137 mmol/L 135 - 144 mmol/L [facility] [place] [place] Urea nitrogen [Mass/Vol] 10 mg/dL 8 - 23 mg/dL [facility] [place], [place] Basic Metabolic Profon 11-25 (cont.) Normal [facility] Comment on above: Result Comment: Aver age GFR for 60-69 years old: 85 mL/min/1.73sq m Chronic Kidney Disease: <60 mL/min/1.73sq m Kidney failure: <15 mL/min/1.73sq m eGFR calculated using average adult body mass. Additional eGFR calculator available at: http://www.[employer]/multiple_crcl_2012.htm Performed By: #### B AMANDA, CDP #### [facility] [address] [place] [address] [place] [address] [employer]: Kan Gupta MD Anion gap [Moles/Vol] 7 mmol/L Low 9-17 [facility] Comment on above: Performed By: #### Eleazar PATEL, CDP #### [facility] [address] [place] [address] [place], [place] [id number] [employer]: Kan Gupta MD BUN/CRE Ratio 13 Normal 9-20 [facility] Comment on above: Performed By: #### B AMANDA, CDP #### [facility] [address] [place] [address] [place], [place] [id number] [employer]: Kan Gupta MD Calcium [Mass/Vol] 9.2 mg/dL Normal 8.6-10.4 [facility] Comment on above: Performed By: #### B AMANDA, CDP #### [facility] [address] [place] [address] [place], [place] [id number] [employer]: Kan Gupta MD Chloride [Moles/Vol] 104 mmol/L Normal 98-107 [facility] Comment on above: Performed By: #### B AMANDA, CDP #### [facility] [address] [place] [address] [place], [place] [id number] [employer]: Kan Gupta MD CO2 [Moles/Vol] 26 mmol/L Normal 20-31 [facility] Comment on above: Performed By: #### B MP, CDP #### [facility] [address] [place], [place] [id number] [employer]: Kan Gupta MD Creatinine [Mass/Vol] 0.76 mg/dL Normal 0.50-0.90 [facility] Comment on above: Performed By: #### B MP, CDP #### [facility] [address] [place], [place] [phone] [employer]: Kan Gupta MD GFR, Amer >60 Normal >60 [facility] Comment on above: Performed By: #### B MP, CDP #### [facility] [address] [place], [place] [phone] [employer]: Kan Gupta MD GFR,non Amer >60 Normal >60 [facility] Comment on above: Performed By: #### B AMANDA, CDP #### [facility] [address] [place], [place] [phone] [employer]: Kan Gupta MD Glucose [Mass/Vol] 111 mg/dL High 70-99 [facility] Comment on above: Performed By: #### B MP, CDP #### [facility] [address] [place] [address] [employer]: Kan Gupta MD Potassium [Moles/Vol] 4.2 mmol/L Normal 3.7-5.3 [facility] Comment on above: Performed By: #### B MP, CDP #### [facility] [address] [place] [address] [employer]: Kan Gupta MD Sodium [Moles/Vol] 137 mmol/L Normal 135-144 [facility] Comment on above: Performed By: #### B MP, CDP #### [facility] [address] [place], [place] [phone] [employer]: Kan Gupta MD Staging: Normal [facility] Comment on above: Result Comment: Stag e 1: Some kidney damage normal GFR Stage 2: Mild kidney damage GFR 60-89 Stage 3: Moderate kidney damage GFR 30-59 Stage 4: Severe kidney damage GFR 15-29 Stage 5: Severe kidney damage GFR <15 ESRD - chronic treatment by dialysis or transplant Performed By: #### B MP, CDP #### [facility] [address] [place] [address] [employer]: Kan Gupta MD Urea nitrogen [Mass/Vol] 10 mg/dL Normal 8-23 [facility] Comment on above: Performed By: #### B AMANDA, CDP #### [facility] [address] [place] [address] [employer]: Kan Gupta MD CBC Auto Differentialon Basophils (Bld) [#/Vol] 10*3/uL [place] Basophils/100 WBC (Bld) 0 % 0 - 2 % [place] Differential Type NOT REPORTED [place] Eosinophils (Bld) [#/Vol] 0.10 10*3/uL [place] Eosinophils/100 WBC (Bld) 2 % 1 - 4 % [place] Erythrocyte distribution width (RBC) [Ratio] 13.2 % 11.8 - 14.4 % [place] Hematocrit (Bld) [Volume fraction] 39.3 % 36.3 - 47.1 % [place] Hemoglobin (Bld) [Mass/Vol] 12.5 g/dL 11.9 - 15.1 g/dL [place] Immature granulocytes (Bld) [#/Vol] 0.03 10*3/uL [place] Immature granulocytes (Bld) [#/Vol] 1 % High 0 [place] Interpretation and review of laboratory results Abnormal [place] Lymphocytes (Bld) [#/Vol] 0.99 10*3/uL Low [place] Lymphocytes/100 WBC (Bld) 19 % Low 24 - 43 % [place] MCH (RBC) [Entitic mass] 28.0 pg 25.2 - 33.5 pg [place] MCHC (RBC) [Mass/Vol] 31.8 g/dL 28.4 - 34.8 g/dL [place] MCV (RBC) [Entitic vol] 88.1 fL 82.6 - 102.9 fL [place] Monocytes (Bld) [#/Vol] 0.51 10*3/uL [place] Monocytes/100 WBC (Bld) 10 % 3 - 12 % [place] Platelet mean volume (Bld) [Entitic vol] 8.4 fL 8.1 - 13.5 fL [place] Platelets (Bld) [#/Vol] NOT REPORTED [place] Platelets (Bld) [#/Vol] 279 10*3/uL [place] RBC (Bld) [#/Vol] 4.46 10*6/uL 3.95 - 5.1 1 m/uL [place] RBC morphology finding Nom (Bld) NOT REPORTED [place] Segmented neutrophils/100 WBC (Bld) 68 % High 36 - 65 % [place] Segs Absolute 3.64 [place] WBC (Bld) [#/Vol] 0.0 10*3/uL 0.0 per 10 0 WBC [place] WBC (Bld) [#/Vol] 5.3 10*3/uL [place] WBC Morphology NOT REPORTED [place], [place] CBC with Diffon 11-25-2020 Abs. Basophil <0.03 Normal 0.00-0.20 [facility] Comment on above: Performed By: #### B AMANDA, NOEMI #### [facility] [address] [place] [address] [employer]: Kan Gupta MD Abs.Imm.Granulocyte 0.03 k/uL Normal 0.00-0.30 [facility] Comment on above: Performed By: #### B AMANDA, CDP #### [facility] [address] [place], [place] [phone] [employer]: Kan Gupta MD Abs.Neutrophil (Seg) 3.64 k/uL Normal 1.50-8.10 [facility] Comment on above: Performed By: #### B MP, CDP #### [address] [place], [place] [phone] [employer]: Kan Gupta MD Basophils/100 WBC (Bld) 0 % Normal 0-2 [facility] Comment on above: Performed By: #### B MP, CDP #### [address] [place], [place] [phone] [employer]: Kan Gupta MD Eosinophils (Bld) [#/Vol] 0.10 10*3/uL Normal 0.00-0.44 [facility] Comment on above: Performed By: #### B MP, CDP #### [address] [place], [place] [id number] [employer]: Kan Gupta MD Eosinophils/100 WBC (Bld) 2 % Normal 1-4 [facility] Comment on above: Performed By: #### B MP, CDP #### [address] [place], [place] [id number] [employer]: Kan Gupta MD Erythrocyte distribution width (RBC) [Ratio] 13.2 % Normal 11.8-14.4 [facility] Comment on above: Performed By: #### B MP, CDP #### [address] [place], [place] [phone] [employer]: Kan Gupta MD Hematocrit (Bld) [Volume fraction] 39.3 % Normal 36.3-47.1 [facility] Comment on above: Performed By: #### B MP, CDP #### [address] [place], [place] 3396383 [employer]: Kan Gupta MD Hemoglobin (Bld) [Mass/Vol] 12.5 g/dL Normal 11.9-15.1 [facility] Comment on above: Performed By: #### B AMANDA, CDP #### [address] [place], [place] [phone] [employer]: Kan Gupta MD Immature granulocytes (Bld) [#/Vol] 1 % High 0 [facility] Comment on above: Performed By: #### B AMANDA, CDP #### [address] [place], [place] [phone] [employer]: Kan Gupta MD Lymphocytes (Bld) [#/Vol] 0.99 10*3/uL Low 1.10-3.70 [facility] Comment on above: Performed By: #### B AMANDA, CDP #### [address] [place], [place] [id number] [employer]: Kan Gupta MD Lymphocytes/100 WBC (Bld) 19 % Low 24-43 [facility] Comment on above: Performed By: #### B AMANDA, CDP #### [address] [place], [place] [phone] [employer]: Kan Gupta MD MCH (RBC) [Entitic mass] 28.0 pg Normal 25.2-33.5 [facility] Comment on above: Performed By: #### B AMANDA, CDP #### [address] [place], [place] [phone] [employer]: Kan Gupta MD MCHC (RBC) [Mass/Vol] 31.8 g/dL Normal 28.4-34.8 [facility] Comment on above: Performed By: #### B AMANDA, CDP #### [address] [place], [place] [phone] [employer]: Kan Gupta MD MCV (RBC) [Entitic vol] 88.1 fL Normal 82.6-102.9 [facility] Comment on above: Performed By: #### B MP, CDP #### [facility] [address] [place] [address] [place], [place] [phone] [employer]: Kan Gupta MD Monocytes (Bld) [#/Vol] 0.51 10*3/uL Normal 0.10-1.20 [facility] Comment on above: Performed By: #### B MP, CDP #### [address] [place], [place] [phone] [employer]: Kan Gupta MD Monocytes/100 WBC (Bld) 10 % Normal 3-12 [facility] Comment on above: Performed By: #### B MP, CDP #### [address] [place], [place] 9457983 [employer]: Kan Gupta MD Neutrophil (Seg) 68 % High 36-65 [facility] Comment on above: Performed By: #### B MP, CDP #### [address] [place], [place] [phone] [employer]: Kan Gupta MD NRBC Automated 0.0 per 100 WBC Normal 0.0 [facility] Comment on above: Performed By: #### B AMANDA, CDP #### [address] [place], [place] [phone] [employer]: Kan Gupta MD Platelet mean volume (Bld) [Entitic vol] 8.4 fL Normal 8.1-13.5 [facility] Comment on above: Performed By: #### B MP, CDP #### [address] [place] [address] [employer]: Kan Gupta MD Platelets (Bld) [#/Vol] 279 10*3/uL Normal 138-453 [facility] Comment on above: Performed By: #### B MP, CDP #### [facility] [address] [place] [address] [place], [place] [phone] [employer]: Kan Gupta MD RBC (Bld) [#/Vol] 4.46 10*6/uL Normal 3.95-5.11 [facility] Comment on above: Performed By: #### B MP, CDP #### [address] [place] [address] [employer]: Kan Gupta MD WBC (Bld) [#/Vol] 5.3 10*3/uL Normal 3.5-11.3 [facility] Comment on above: Performed By: #### B MP, CDP #### [address] [place], [place] [phone] [employer]: Kan Gupta MD Auto Diff Performed NOT REPORTED Normal [facility] Comment on above: Performed By: #### B MP, CDP #### [address] [place], [place] [phone] [employer]: Kan Gupta MD Platelets (Bld) [#/Vol] NOT REPORTED Normal [facility] Comment on above: Performed By: #### B MP, CDP #### [address] [place], [place] [phone] [employer]: Kan Gupta MD RBC morphology finding Nom (Bld) NOT REPORTED Normal [facility] Comment on above: Performed By: #### B MP, CDP #### [address] [place], [place] [phone] [employer]: Kan Gupta MD WBC Morphology NOT REPORTED Normal [facility] Comment on above: Performed By: #### B MP, CDP #### [address] [place] [address] [employer]: Kan Gupta MD Metabolic Panelon 11-25-2020 GFR/1.73 sq M predicted among non-blacks MDRD (S/P/Bld) [Vol rate/Area] [facility] [place] Comment on above: Stage 1: Some kidney [...] body mass. Additional eGFR calculator available at: http://www.[employer]/multiple_crcl_2012.htm US NON OB TRANSVAGINALon US NON OB [...] MD 11/25/20 Final result Normal [facility] Axel, Mhpn Incoming Radiant Results From [email or web address] - 11/25/2020 12:03 PM EST EXAMINATION: PELVIC [...] cm calcification. 3. [facility]visualization of the ovaries. [facility] [place] EXAMINATION: PELVIC ULTRASOUND 11/25/2020 TECHNIQUE: Transvaginal [...] Free Fluid: No evidence of free fluid. [employer] [place] 1. Endometrial strip e thickness is abnormally enlarged measuring 8 mm in a postmenopausal female with bleeding. Differential considerations include endometrial hyperplasia or endometrial carcinoma. Endometrial sampling recommended. 2. Left uterine fundal fibroid measuring up to 2.4 cm with associated 1.2 cm calcification. 3. Nonvisualization of the ovaries. [employer] [place] Vital Signs Date Time Vital Sign Value Performing Clinician Faci lity 02-10-2025 13:43-0400 Body height 165.1 cm Jemma Carson MD Work Phone: [facility] 02-10-2025 13:43-0400 Body mass index (BMI) [Ratio] 29.7 kg/m2 Jemma Carson MD Work Phone: [facility] 02-10-2025 13:43-0400 Body weight 81.19 kg Jemma Carson MD Work Phone: [facility] 02-10-2025 13:43-0400 Diastolic blood pressure 82 mm[Hg] Jemma Carson MD Work Phone: [phone] [place] [address] 02-10-2025 13:43-0400 Heart rate 83 /min Jemma Carson MD Work Phone: [facility] 02-10-2025 13:43-0400 Systolic blood pressure 132 mm[Hg] Jemma Carson MD Work Phone: [facility] 12-10-2024 09:52-0500 Diastolic blood pressure 75 mm[Hg] Jemma Carson MD Work Phone: [facility] 12-10-2024 09:52-0500 Heart rate 82 /min Jemma Carson MD Work Phone: [facility] 12-10-2024 09:52-0500 Respiratory rate 14 /min Jemma Carson MD Work Phone: [facility] 12-10-2024 09:52-0500 SaO2% (BldA) [Mass fraction] 98 % Jemma Carson MD Work Phone: [facility] 12-10-2024 09:52-0500 Systolic blood pressure 154 mm[Hg] Jemma Carson MD Work Phone: [facility] 12-10-2024 07:44-0500 Body height 165.1 cm Jemma Carson MD Work Phone: [facility] 12-10-2024 07:44-0500 Body weight 86.18 kg Jemma Carson MD Work Phone: [facility] 11-17-2024 13:56-0500 Body height 165.1 cm Jemma Carson MD Work Phone: [facility] 11-17-2024 13:56-0500 Body mass index (BMI) [Ratio] 32.1 kg/m2 Jemma Carson MD Work Phone: [facility] 11-17-2024 13:56-0500 Body weight 87.54 kg Jemma Carson MD Work Phone: [facility] 07-24-2024 11:10-0400 Body height 165.1 cm [facility] 07-24-2024 11:10-0400 Body mass index (BMI) [Ratio] 30.7 kg/m2 [facility] 07-24-2024 11:10-0400 Body weight 83.91 kg [facility] 07-24-2024 11:10-0400 Diastolic blood pressure 73 mm[Hg] [facility] 07-24-2024 11:10-0400 Heart rate 75 /min [facility] 07-24-2024 11:10-0400 Systolic blood pressure 137 mm[Hg] [facility] 06-12-2024 10:04-0400 Body height 165.1 cm [facility] 06-12-2024 10:04-0400 Body mass index (BMI) [Ratio] 31.1 kg/m2 [facility] 06-12-2024 10:04-0400 Body weight 84.82 kg [facility] 06-12-2024 10:04-0400 Diastolic blood pressure 82 mm[Hg] [facility] 06-12-2024 10:04-0400 Heart rate 68 /min [facility] 06-12-2024 10:04-0400 Systolic blood pressure 129 mm[Hg] [facility] 03-05-2024 11:03-0400 Body height 165.1 cm [facility] 03-05-2024 11:03-0400 Body mass index (BMI) [Ratio] 31.3 kg/m2 [facility] 03-05-2024 11:03-0400 Body weight 85.33 kg [facility] 03-05-2024 11:03-0400 Diastolic blood pressure 74 mm[Hg] [facility] 03-05-2024 11:03-0400 Heart rate 78 /min [facility] 03-05-2024 11:03-0400 Systolic blood pressure 122 mm[Hg] [facility] 12-26-2023 12:00-0500 Body height 165.1 cm Joi Hernandez Other [facility] [employer] Other 12-26-2023 12:00-0500 Body mass index (BMI) [Ratio] 30.95 kg/m2 Joi Mary Other [employer] Other 12-26-2023 12:00-0500 Body weight 84.37 kg Joi [place] Other [employer] Other 11-02-2023 08:00-0500 Body height 165.1 cm Gagandeep Stevesn Other [employer] Other 11-02-2023 08:00-0500 Body mass index (BMI) [Ratio] 31.12 kg/m2 Gagandeep Stevens Other [employer] Other 11-02-2023 08:00-0500 Body weight 84.82 kg Gagandeep Hilda Other [employer] Other 10-08-2023 11:00-0500 Body height 165.1 cm Jemma Carson Other [employer] Other 10-08-2023 11:00-0500 Body mass index (BMI) [Ratio] 31.21 kg/m2 Jemma Carson Other [employer] Other 10-08-2023 11:00-0500 Body weight 85.1 kg Jemma Carson Other [employer] Other 10-08-2023 11:00-0500 Diastolic blood pressure 91 mm[Hg] Jemma Carson Other [employer] Other 10-08-2023 11:00-0500 Systolic blood pressure 142 mm[Hg] Jemma Carson Other [employer] Other 09-04-2023 11:00-0400 Body height 165.1 cm Jemma Carson Other [employer] Other 09-04-2023 11:00-0400 Body mass index (BMI) [Ratio] 31.08 kg/m2 Jemma Carson Other [employer] Other 09-04-2023 11:00-0400 Body weight 84.73 kg Jemma Carson Other [employer] Other 09-04-2023 11:00-0400 Diastolic blood pressure 85 mm[Hg] Jemma Carson Other [employer] Other 09-04-2023 11:00-0400 Systolic blood pressure 135 mm[Hg] Jemma Carson Other [employer] Other 07-07-2022 11:45-0400 Body height 166.37 cm Genevieve Sahu Other [employer] Other 07-07-2022 11:45-0400 Body mass index (BMI) [Ratio] 29.99 kg/m2 Genevieve Luis Alberto Other [employer] Other 07-07-2022 11:45-0400 Body weight 83.01 kg Genevieve Sahu Other [employer] Other 05-16-2022 12:45-0400 Body height 166.37 cm Genevieve Sahu Other [employer] Other 05-16-2022 12:45-0400 Body mass index (BMI) [Ratio] 30.48 kg/m2 Genevieve Sahu Other [employer] Other 05-16-2022 12:45-0400 Body weight 84.37 kg Genevieve Sahu Other [employer] Other 05-08-2022 17:02-0400 Diastolic blood pressure 75 mm[Hg] MD Jemma Carson Work Phone: [facility] 05-08-2022 17:02-0400 Heart rate 66 /min MD Jemma Carson Work Phone: [facility] 05-08-2022 17:02-0400 Respiratory rate 16 /min MD Jemma Carson Work Phone: [facility] 05-08-2022 17:02-0400 SaO2% (BldA) [Mass fraction] 97 % MD Jemma Carson Work Phone: [facility] 05-08-2022 17:02-0400 Systolic blood pressure 144 mm[Hg] MD Jemma Carson Work Phone: [facility] 05-08-2022 16:17-0400 Inhaled oxygen flow rate 6 L/min MD Jemma Carson Work Phone: [facility] 05-08-2022 14:43-0400 Body mass index (BMI) [Ratio] 32.5 kg/m2 MD Jemma Carson Work Phone: [facility] 05-08-2022 14:34-0400 Body height 162.56 cm MD Jemma Carson Work Phone: [facility] 05-08-2022 14:34-0400 Body weight 86 kg MD Jemma Carson Work Phone: [facility] 05-08-2022 12:57-0400 Body temperature 98.1 [degF] MD Jemma Carson Work Phone: [facility] 04-11-2022 14:10-0400 Body height 166.37 cm Jewell Calhounmond Other [employer] Other 04-11-2022 14:10-0400 Body mass index (BMI) [Ratio] 30.48 kg/m2 Jewell Rebecca Other [employer] Other 04-11-2022 14:10-0400 Body temperature 97.1 [degF] Jewell Rebecca Other [employer] Other 04-11-2022 14:10-0400 Body weight 84.37 kg Jewell Rebecca Other [facility] Other 04-11-2022 14:10-0400 Diastolic blood pressure 93 mm[Hg] Jewell Rebecca Other [facility] Other 04-11-2022 14:10-0400 Respiratory rate 18 /min Jewell Rebecca Other [facility] Other 04-11-2022 14:10-0400 SaO2% (BldA) [Mass fraction] 99 % Jewell Rebecca Other [facility] Other 04-11-2022 14:10-0400 Systolic blood pressure 151 mm[Hg] Jewell Rebecca Other [facility] Other 11-25-2020 12:30-0500 BP Diastolic 80 mm[Hg] Morro Mayer [facility] 11-25-2020 12:30-0500 BP Systolic 129 mm[Hg] [facility]ro Mayer [facility] 11-25-2020 12:30-0500 Pulse Oximetry 94 % Morro Mayer [facility] 11-25-2020 10:39-0500 Body Temperature 99.9 [degF] [facility] [place] 11-25-2020 10:35-0500 BMI (Body Mass Index) 31.62 kg/m2 Morro Mayer [facility] 11-25-2020 10:35-0500 Body weight 86.18 kg Morro Mayer [facility] 11-25-2020 10:35-0500 Height 165.1 cm Morro Mayer [facility] 11-25-2020 10:35-0500 Pulse (Heart Rate) 95 /min [facility] [place] 11-25-2020 10:35-0500 Respiratory Rate 18 /min [facility] [place] Encounters Encounter Date Encounter Type Care Provider Facility Start: 02-24-2025 End: 02-24-2025 ambulatory Jemma Carson MD Work Phone: [facility] Work Phone: Start: 02-24-2025 End: 02-24-2025 Patient encounter procedure Jemma Carson MD Work Phone: [facility] Work Phone: Start: 02-17-2025 Non-patient / Non-visit Jemma Carson MD Work Phone: [facility] [place] Work Phone: Start: 02-12-2025 Non-patient / Non-visit Jemma Carson MD Work Phone: [facility] Work Phone: Start: 02-11-2025 Non-patient / Non-visit Jemma Carson MD Work Phone: [facility] Work Phone: Start: 02-10-2025 End: 02-10-2025 ambulatory Jemma Carson MD Work Phone: [facility] Work Phone: Start: 02-10-2025 End: 02-10-2025 Patient encounter procedure Jemma Carson MD Work Phone: [facility] Work Phone: Start: 12-11-2024 Non-patient / Non-visit Jemma Carson MD Work Phone: [facility] Work Phone: Start: 12-10-2024 Non-patient / Non-visit Jemma Carson MD Work Phone: [facility] Work Phone: Start: 12-10-2024 End: 12-10-2024 Admission to same day surgery center Jemma Carson MD Work Phone: [facility] Work Phone: Start: 12-10-2024 End: 12-10-2024 ambulatory Jemma Carson MD Work Phone: [facility] Work Phone: Start: 11-27-2024 Non-patient / Non-visit Jemma Carson MD Work Phone: [facility] Work Phone: Start: 11-17-2024 End: 11-17-2024 Patient encounter procedure Jemma Carson MD Work Phone: [facility] Work Phone: Start: 08-04-2024 End: 08-04-2024 Patient encounter procedure MD Jemma Carson Work Phone: [facility] Work Phone: Start: 08-04-2024 End: 08-04-2024 ambulatory MD Jemma Carson Work Phone: [facility] Work Phone: Start: 07-29-2024 Non-patient / Non-visit MD Jemma Carson Work Phone: [facility]ician [facility] [employer] Work Phone: Start: 07-24-2024 End: 07-24-2024 ambulatory [facility] Work Phone: Start: 07-24-2024 End: 07-24-2024 Patient encounter procedure [facility] Work Phone: Start: 06-12-2024 End: 06-12-2024 ambulatory [facility] Work Phone: Start: 06-12-2024 End: 06-12-2024 Patient encounter procedure [facility] Work Phone: Start: 03-05-2024 End: 03-05-2024 ambulatory [facility] Work Phone: Start: 03-05-2024 End: 03-05-2024 Patient encounter procedure [facility] Work Phone: Start: 12-26-2023 End: 12-26-2023 ambulatory Joi Hernandez Other Loc[facility] [employer] Other Start: 12-26-2023 Office outpatient visit 25 minutes Joi Hernandez [facility] Start: 11-23-2023 End: 11-23-2023 ambulatory MD Jemma Carson Work Phone: [facility] Work Phone: Start: 11-23-2023 End: 11-23-2023 Patient encounter procedure MD Jemma Carson Work Phone: [facility] Work Phone: Start: 11-20-2023 End: 11-20-2023 ambulatory Jemma Carson Other [facility] Other Start: 11-20-2023 Telephone encounter Jemma Carson [facility] [address] Start: 11-05-2023 (Televisit) Televisit Jemma Carson [facility] Start: 11-05-2023 End: 11-05-2023 ambulatory Jemma Carson Other [facility] Other Start: 11-02-2023 End: 11-02-2023 ambulatory Gagandeep Stevens Other [facility] Other Start: 11-02-2023 Office outpatient ne w 30 minutes Gagandeep Stevens [facility] Start: 10-08-2023 End: 10-08-2023 ambulatory Jemma Carson Other [facility] Other Start: 10-08-2023 Office outpatient visit 15 minutes Jemma Carson [facility] Start: 09-24-2023 Telephone encounter Jemma Carson [facility] Start: 09-24-2023 End: 09-24-2023 ambulatory MD Jemma Carson Work Phone: [facility] Work Phone: Start: 09-24-2023 End: 09-24-2023 Patient encounter procedure MD Jemma Carson Work Phone: [facility] Work Phone: Start: 09-04-2023 End: 09-04-2023 ambulatory Jemma Carson Other [employer] Other Start: 09-04-2023 Patient encounter procedure Jemma Carson [facility] Start: 07-27-2023 End: 09-08-2023 ambulatory MD Jemma Carson Work Phone: [facility] Work Phone: Start: 07-27-2023 End: 07-27-2023 Patient encounter procedure MD Jemma Carson Work Phone: [facility] Work Phone: Start: 11-06-2022 Adult health examination Jemma Carson Other [facility] Other Start: 11-06-2022 Pre-procedure evaluation check Jemma Carson Other [facility] Other Start: 10-30-2022 End: 10-30-[address] KAN BAXTER Facility: Start: 10-03-2022 End: 10-03-2022 ambulatory Genevieve Sahu Other [facility] Other Start: 10-03-2022 Office outpatient visit 15 minutes Genevieve Calvey [facility] Start: 07-19-2022 End: 07-19-2022 Patient encounter procedure MD Jemma Carson Work Phone: [facility] Start: 07-07-2022 End: 07-07-2022 ambulatory Genevieve Calvey Other [facility] Other Start: 07-07-2022 Postop follow up vis it related to original px Genevieve Calvey [facility] Start: 07-07-2022 End: 07-07-2022 Patient encounter procedure MD Jemma Carson Work Phone: [facility] Start: 06-09-2022 End: 06-09-2022 ambulatory Genevieve Calvey Other [facility] Other Start: 06-09-2022 Postop follow up vis it related to original px Genevieve Calvey [facility] Start: 06-09-2022 End: 06-09-2022 Patient encounter procedure MD Jemma Carson Work Phone: [facility] Start: 05-16-2022 End: 05-16-2022 ambulatory Genevieve Luis Alberto Other [facility] Other Start: 05-16-2022 Postop follow up vis it related to original px Genevieve Usey [facility] Start: 05-16-2022 End: 05-16-2022 Patient encounter procedure MD Jemma Carson Work Phone: [facility] Start: 05-11-2022 End: 05-11-2022 ambulatory Genevieve Luis Alberto Other [facility] Other Start: 05-11-2022 Telephone encounter Genevieve Sahu [facility] Start: 05-08-2022 End: 05-08-2022 Admission to same day surgery center MD Jemma Carson Work Phone: [facility] Start: 05-04-2022 End: 05-04-2022 Patient encounter procedure MD Jemma Carson Work Phone: [facility] Start: 05-03-2022 End: 05-03-2022 Patient encounter procedure MD Jemma Carson Work Phone: [facility] Start: 05-03-2022 End: 05-03-2022 ambulatory Genevieve Luis Alberto Other [facility] Other Start: 05-03-2022 Office outpatient ne w 45 minutes Genevieve Calvey [facility] Start: 04-11-2022 End: 04-11-2022 ambulatory Jewell Fernandez Other [facility] Other Start: 04-11-2022 Office outpatient ne w 20 minutes Jewellleah Fernandez [facility] Start: 11-25-2020 End: 11-25-2020 [facility] Start: 11-25-2020 End: 11-25-2020 [facility] Comment on above: COVID-19 virus infec tion (Primary Dx); Postmenopausal bleeding Procedures Date Procedure Procedure Detail Performing Clinician Start: 12-10-2024 Colonoscopy Jemma brewer MD Work Phone: Start: 09-24-2023 Radiologic examinati on of knee MD Jemma Carson Work Phone: Start: 07-27-2023 Screening mammograph y of bilateral breasts MD Jemma Carson Work Phone: Start: 07-19-2022 Screening mammograph y of bilateral breasts MD Jemma Carson Work Phone: Start: 07-07-2022 Plain X-ray of left hand MD Jemma Carson Work Phone: Start: 06-09-2022 Plain X-ray of left hand MD Jemma Carson Work Phone: Start: 05-16-2022 Plain X-ray of left hand MD Jemma Carson Work Phone: Start: 05-08-2022 Plain X-ray of left hand MD Jemma Carson Work Phone: Start: 05-08-2022 Open reduction with external fixation MD Jemma Carson Work Phone: Start: 05-03-2022 Plain X-ray of left hand MD Jemma Carson Work Phone: Start: 11-25-2020 Basic metabolic pane l calcium total Morro Lilly Start: 11-25-2020 Blood count complete auto&auto difrntl wbc Morro Lilly Start: 11-25-2020 Us transvaginal Morro Lilly Plan of Treatment Date Care Activity Detail Author Start: 12-10-2024 [facility] Start: 08-04-2024 MG Breast - bilateral Screening [facility] Start: 08-04-2024 Screening mammography of bilateral breasts MM screening mammo BI w/CAD [facility] Start: 07-24-2024 Patient referral [facility] Work Phone: Start: 11-23-2023 MR Brain WO contrast [facility] Start: 11-23-2023 MRI of head MR head/brain wo con [facility] Start: 07-19-2022 Screening mammography of bilateral breasts MM screening mammo BI w/CAD [facility] Start: 07-19-2022 End: 07-19-2022 Patient encounter procedure Departed Clinical [facility] Start: 05-08-2022 [facility] Work Phone: Start: 05-08-2022 [facility] Work Phone: Start: 07-20-2020 Influenza vaccination Flu vaccine (#1) [place], [place] Start: 2006 Screening for malignant neoplasm of breast Breast cancer screen [place], [place] Start: 2006 Screening for malignant neoplasm of colon Colon cancer screen colonoscopy [place], [place] Start: 2006 Shingles Vaccine (1 of 2) Shingles Vaccine (1 of 2) [place], [place] Start: 1996 Diabetes screen Diabetes screen [place], [place] Start: 1996 Lipid panel Lipid screen [place] Start: 1977 Screening for malignant neoplasm of cervix Cervical cancer screen [place], [place] Start: 1975 DTaP/Tdap/Td vaccine (1 - Tdap) DTaP/Tdap/Td vaccine (1 - Tdap) [place] Start: 1971 HIV screening HIV screen [place], [place] Start: 1956 Hepatitis C screening Hepatitis C screen [place] CT Abdomen and Pelvi s W contrast IV [facility] Patient Education Hemorrhoids ED High-fiber diet Diverticulosis Know your Meds [facility] Work Phone: Patient referral [facility] Work Phone: XR Lumbar spine 2 or 3 Views [facility] Immunizations Immunization Date Immunization Notes Care Provider Fa cility 11-14-2021 COVID-19 Adriane Azevedo (Pfizer) MD Jemma Carson Work Phone: [facility] 04-04-2021 COVID-19 Adriane Azevedo (Pfizer) MD Jemma Carson Work Phone: [facility] 03-14-2021 COVID-19 Adriane Azevedo (Pfizer) MD Jemma Carson Work Phone: [facility] 01-27-2021 zoster vaccine, live Jemma Carson Other [facility] 09-28-2016 diphtheria, tetanus toxoids and acellular pertussis vaccine, unspecified formulation Jemma Carson Other [facility] Payers Date Payer Category Payer Self-pay [id number] 2019 Unknown [id number] 1958 Medicare [id number] 1955 Unknown [id number] 1955 Unknown [id number] Medicare Medicare [id number] Medicare Anthem MCR PFFS [id number] Unknown [employer] [id number] Unknown [id number] [id number] Unknown [id number] [id number] [id number] Social History Date Type Detail Facility Tobacco smoking status NHIS Unknown if ever smoked [employer] [facility]ACI [facility]FF[facility] Sex Assigned At Not on file [employer] [facility]ACI [facility]FF[facility] Sex Assigned At Sex Assigned At Bir th [facility]ated [facility] [employer] Other Start: 05-08-2022 End: 12-10-2024 Tobacco smoking status NHIS Never smoked tobacco (finding) [facility] Start: 1955 Sex Assigned At Female F [facility] Start: 12-10-2024 End: 02-24-2025 Sex Female (finding) [facility] Medical Equipment Procedure Code Equipment Code Equipment Origin al Text Equipment Identifier Dates ORIF, fracture, hand Orthopaedic bone screw, non-bioabsorbable, non-sterile [id number] FDA Start: 05-08-2022 Goals Date Patient Goal Desired Activity /State Clinical Notes 04-11-2022 to 02-10-2025 Note Date & Type Note Facility 02-10-2025 Evaluation note Diagnosis Onset Date Resolution Coccygeal pain, chronic acute February 10, 2025 1:38pm Irritable bowel syndrome with diarrhea acute January 1:38pm [facility] Work Phone: 1(795) 940-899701-22-2025 Procedure [place] [id number] Colonoscopy Procedure Report Signed Patient: Nany Carmen MR#: [id number] : 1955 Acct:[id number] Age/Sex: 69 / F Adm Date: 5 Loc: Room: Type: [facility] Attending Dr: Paul Blair MD Copies to: MD Jemma Bloom MD~ Colonoscopy Date/Provider 12/10/2024 Paul Blair MD Colonoscopy Findings: Procedure: Colonoscopy Indication: 69-year-old female here for colonoscopy for evaluation of constipation Pre-operative diagnosis: Constipation Post-operative diagnosis: Diverticulosis noted throughout the colon, internal hemorrhoids. Sedation: propofol per anesthesia dept O2 oximetry, hemodynamic monitoring was performed pre, during, and post procedure. Patient was identified, H&P completed, patient was given full explanation of the procedure as well as associatedrisks and written consent wasobtained prior to procedure. Patient expressed complete understanding of the procedure as well as alternatives to the procedure and to anesthesia and agreed to proceed with the procedure as indicated. Patient was immediately reassessed prior to IV sedation. Under IV sedation, patient was placed in the left lateral decubitus position. Digital rectal exam was performed and [normal]. Colonoscope was inserted and passed proximally to the cecum, which was identified by the ileocecal valve, appendiceal orifice and cecal floor. Colonoscope was slowly withdrawn with the findings as below. [place] bowel prep score was [good]. Findings: Diverticulosis noted throughout the colon otherwise findings are as below. Terminal ileum: Normal Cecum: Normal. Ascending colon: Normal. Hepatic flexure: Normal. Transverse colon: Normal. Splenic flexure: Normal. Descending colon: Normal. Sigmoid colon: Normal. Rectum: Normal. Retroflexed views: Rectum [did] show internal hemorrhoids. Biopsy taken: No Complications: [None] EBL: None Recommendations: -Repeat colonoscopy in 10 years -can add tablespoon of Metamucil once daily if needed, avoid dehydration, maintain regular activity/exercise. Can add Miralax 17gm PO Qday and titrate up to twice or three times daily if needed. Following a period of recovery, patient was seen and given full explanation of the procedure. Patient tolerated the procedure well and will be discharged in satisfactory, stable condition. Paul Blair M.D. Documented By: Paul Blair MD 12/10/24 0859 Signed By: 12/10/24 0923 [facility]12-30-2024 Evaluation note* Author Paul Blair [facility] Authored November 17, 2024 3:11pm 69-year-old female [...] if needed. [facility] Work Phone: 1(986) 559-744912-30-2024 Evaluation note* [facility] November 17, 2024 2:11pm 69-year-old [...] daily if needed. [facility] Work Phone: 1(655) 519-811202-07-2024 Evaluation note* Encounter Date Diagnosis Assessment Notes [...] in the office today and providing supervision. [facility] Other 12-18-2023 Evaluation note* Encounter Date Diagnosis [...] verbalized understanding and agreement with treatment plan. [facility] Other 12-15-2023 Evaluation note* Encounter Date Diagnosis [...] as documented in the electronic medical record. [facility] Other 11-20-2023 Evaluation note* Encounter Date Diagnosis Assessment Notes Treatment Notes Treatment Clinical Notes Sep, Primary osteoarthritis of left knee (ICD-10 - M17.12) Pt agrees to referral to ortho for her ongoing knee issues. Sep, Attention-deficit hyperactivity disorder, unspecified type (ICD-10 - F90.9) Recommend Neurology eval to assess adult ADD v. memory issues causing problems focusing and completing tasks [facility] Other 10-17-2023 Evaluation note* Encounter Date Diagnosis [...] of medication and followup in 1 month [facility] Other 11-15-2022 Evaluation note* Encounter Date Diagnosis Assessment Notes Treatment Notes Treatment Clinical Notes Sep, Other specified postprocedural states (ICD-10 - Z98.890) Sep, Displaced fracture o f proximal phalanx of left ring finger, subsequent encounter for fracture with routine healing (ICD-10 - S62.615D) Discussed with patient to continue to progress activity as tolerated. Call with any questions or concerns [facility] Other 08-19-2022 Evaluation note* Encounter Date Diagnosis [...] medrol dose pack sent into patients pharmacy [facility] Other 07-22-2022 Evaluation note* Encounter Date Diagnosis [...] May, Left hand pain (ICD-10 - M79.642) [facility] Other 06-28-2022 Evaluation note* Encounter Date Diagnosis [...] can call with any questions or concerns. [facility] Other 06-15-2022 Evaluation note* Encounter Date Diagnosis Assessment Notes Treatment Notes Treatment Clinical Notes Apr, Left hand pain (ICD-10 - M79.642) Apr, Closed displaced fracture of proximal phalanx of left ring finger, initial encounter (ICD-10 - S62.615A) Patient would like to proceed with surgery patient was informed of the risks and benefits. [facility] Other 05-24-2022 Evaluation note* Encounter Date Diagnosis [...] the ER for worsening symptoms or concerns. [facility] Other Evaluation noteNo InformationNort [employer] Other Evaluation noteNo assessment information available [facility] Work Phone: Evaluation note* Diagnosis Onset Date Resolution Status Irritable bowel syndrome with diarrhea acute Mass of oral cavity acute Abdominal pain acute Change in bowel habits acute Irritable bowel syndrome with diarrhea acute [facility] Work Phone: History general Narrative - Reported* Type Description Date Medical History HTN Medical History Menopause Medical History Urinary Incontinence Medical History Colonoscopy Medical History ulcers Surgical History Carpal Tunnel, Bilateral Surgical History hernia repair with mesh january 182018 Hospitalization History See above [facility] Other Hisrciz general Narrative - Reported* Type Description Date Medical History HTN Medical History Menopause Medical History Urinary Incontinence Medical History Colonoscopy Medical History ulcers Medical History Skin cancer Surgical History Carpal Tunnel, Bilateral Surgical History hernia repair with mesh january 182018 Surgical History Skin cancer 08/2022 Hospitalization History See above [facility] Other Hospital Discharge instructionsAmbulatory Orders* Referral to Gastroenterology Time Frame: 07/24/24, Location: None [facility] Work Phone: Hospital Discharge instructions Additional [...] three times daily if needed. -Office number [phone]. [facility] Work Phone: Summary Purpose Family History Relationship [...] 2 weeks you need to see an [facility] physician to have endometrial biopsy done. The lining of your uterus is thicker than it should be. There might be uterine cancer. * Attachments The following attachments cannot be sent through Care Everywhere. * Vaginal Bleeding: Postmenopausal (Hebrew) * Coronavirus Disease (COVID-19): General Info (Hebrew) documented in this encounter Assessments Diagnosis COVID-19 [...] Coccygeal pain, chronic February 10, 2025 1:38pm Chief Complaint Admit Date constipation December 10, 2024 7 :07am constipation December 10, 2024 8 :59am Amb Documentation December 11, 2024 8 :18am diarrhea, abd discomfort February 10 1:38pm Amb Documentation February 12, 2025 9:1 2am UA recheck February 24, 2025 11:1 9am Reason for Visit Admit Date Coccygeal pain, chronic February 10, 2025 1:38pm Irritable bowel syndrome with diarrhea 2024 1:38pm Reason for Referral Reason [place] - Fol lowup from [facility], saw Joi Mina - had xrays Diagnosis 1 Primary osteoarthrit is of left knee (M17.12) Referral Organization [facility] [employer] Referring Provider First Name Jemma Referring Provider Last Name Ernestine Referring Provider Specialty [facility] Referred Organization [facility] Referred Provider Sean Darling Referred Address [address] Referred Provider Specialty Orthopedic S urgery Referral Priority Routine General Notes Karina Aleman 12:08:58 PM >received today, faxed P2P Reason *FU 10/16 [facility] office - problems focusing and completing tasks. Diagnosis 1 Attention-deficit hy peractivity disorder, unspecified type (F90.9) Referral Organization [facility] [employer] Referring Provider First Name Jemma Referring Provider Last Name Ernestine Referring Provider Specialty [facility] Referred Organization [facility] Referred Provider Dylan Stockton [address] [place] Referred Provider Specialty Neurology Referral Priority Routine General Notes Karina Aleman 04:07:47 PM >received today, attachments made, referral faxed Additional Source Comments INFORMATION SOURCE (unrecogn ized section and content) DATE CREATED AUTHOR 11/25/2020 [facility] DATE CREATED AUTHOR AUTHOR'S ORGANIZ ATION 11/08/2022 [facility] DATE CREATED AUTHOR AUTHOR'S ORGANIZ ATION 12/20/2024 [facility] Reason for Visit (unrecogniz ed section and content) Reason Comments Vaginal Bleeding Onset 1-2 days ago. Pt states she is postmenopausal Cough Pt tested positive f or Covid on Nov 15 and has been on home O2 x 1 week and is still having shortness of breath Care Teams (unrecognized sec tion and content) Team Status: Active Member Role Status Dates Jemma Carson MD Primary Care Provider Active Team Status: Active Member Role Status Dates Jemma Carson MD Primary Care Provider Active Start: November 27, 2024 Paul Blair MD Attending Provider Active Start: November 27, 2024 Team Status: Inactive Member Role Status Dates Jemma Carson MD Primary Care Provider Active Start: December 10, 2024 End: December 10, 2024 Paul Blair MD Attending Provider Active Start: December 10, 2024 End: December 10, 2024 Team Status: Active Member Role Status Dates Jemma Carson MD Primary Care Provider Active Start: December 10, 2024 Paul Blair MD Attending Provider, Other Provider Active Start: December 10, 2024 Team Status: Active Member Role Status Dates Jemma Carson MD Primary Care Provider Active Start: December 11, 2024 Mini Hernandez CMA Attending Provider Active St art: December 11, 2024 Team Status: Inactive Member Role Status Dates Jemma Carson MD Primary Care Provide r, Attending Provider Active Start: February 10, 2025 End: February 10, 2025 Team Status: Active Member Role Status Dates Jemma Carson MD Primary Care Provider Active Start: February 11, 2025 Linsey Pitts PA-C Attending Provider Active Start: February 11, 2025 Team Status: Active Member Role Status Dates Jemma Carson MD Primary Care Provider Active Start: February 12, 2025 Blanca Orta CMA Attending Provider Active Start: February 12, 2025 Team Status: Active Member Role Status Joan Carson MD Primary Care Provider Active Start: February 17, 2025 Paul Blair MD Attending Provider Active Start: February 17, 2025 Team Status: Inactive Member Role Status Joan Carson MD Primary Care Provide r, Attending Provider Active Start: February 24, 2025 End: February 24, 2025 Team Status: Active Member Role Status Joan Carson MD Primary Care Provider Active Team Status: Inactive Member Role Status Joan Carson MD Primary Care Provider Active Dallas Whitaker DO Attending Provider, Referring Niko tobias Active Team Status: Inactive Member Role Status Joan Carson MD Primary Care Provider Active Genevieve Sahu MD Attending Provider Active Team Status: Inactive Member Role Status Joan Carson MD Primary Care Provider Active Joi Hernandez TIME PIECE REPAIRER-C Attending Provider Active Team Status: Inactive Member Role Status Joan Carson MD Primary Care Provider Active Marylin Doran , ANP-BC Attending Provider Active Team Status: Inactive Member Role Status Joan Carson MD Primary Care Provide r, Attending Provider Active Start: March 05, 2024 End: March 05, 2024 Team Status: Inactive Member Role Status Joan Carson MD Primary Care Provide r, Attending Provider Active Start: June 12, 2024 End: June 12, 2024 Team Status: Inactive Member Role Status Joan Carson MD Primary Care Provide r, Attending Provider Active Start: July 24, 2024 End: July 24, 2024 Team Status: Active Member Role Status Joan Carson MD Primary Care Provider Active Start: July 29, 2024 Reg Adamson DO Attending Provider Active Sta rt: July 29, 2024 Team Status: Inactive Member Role Status Joan Carson MD Primary Care Provider Active Start: August 04, 2024 End: August 04, 2024 Referral Self Attending Provider Active Start: Feliz green 2023 End: August 04, 2024 Team Status: Inactive Member Role Status Joan Carson MD Primary Care Provider Active Start: November 17, 2024 End: November 17, 2024 Paul Blair MD Attending Provider Active Start: November 17, 2024 End: November 17, 2024 Team Status: Active Member Role Status Dates Jemma Carson MD Primary Care Provider Active Start: November 27, 2024 Paul Blair MD Attending Provider Active Start: November 27, 2024 Team Status: Inactive Member Role Status Dates Jemma Carson MD Primary Care Provider Active Start: December 10, 2024 End: December 10, 2024 Paul Blair MD Attending Provider Active Start: December 10, 2024 End: December 10, 2024 Team Status: Active Member Role Status Dates Jemma Carson MD Primary Care Provider Active Start: December 10, 2024 Paul Blair MD Attending Provider, Other Provider Active Start: December 10, 2024 Team Status: Active Member Role Status Dates Jemma Carson MD Primary Care Provider Active Start: December 11, 2024 Mini Hernandez CMA Attending Provider Active St art: December 11, 2024 Team Status: Inactive Member Role Status Dates Jemma Carson MD Primary Care Provide r, Attending Provider Active Start: February 10, 2025 End: February 10, 2025 Team Status: Active Member Role Status Dates Jemma Carson MD Primary Care Provider Active Start: February 11, 2025 Linsey Pitts PA-C Attending Provider Active Start: February 11, 2025 Team Status: Active Member Role Status Dates Jemma Carson MD Primary Care Provider Active Start: February 12, 2025 Blanca Orta CMA Attending Provider Active Start: February 12, 2025 Team Status: Active Member Role Status Dates Jemma Carson MD Primary Care Provider Active Start: February 17, 2025 Paul Blair MD Attending Provider Active Start: February 17, 2025 Team Status: Inactive Member Role Status Joan Carson MD Primary Care Provide r, Attending Provider Active Start: February 24, 2025 End: February 24, 2025 Goals (unrecognized section and content) Goals [...] BE BASED ON THE PRIMARY CLINICAL RECORDS. [facility]. provides no warranty or guarantee of the accuracy or completeness of information in this document.
== END 2025-03-03 10:36 | disposition home or self-care (01) ==
LOC: RAD 10:37
PROVIDERS: PCP Family Medicine; Visit Provider Family Medicine
DX: M53.3 Sacrococcygeal disorders, not elsewhere classified (principal); G89.29 Other chronic pain; M51.369 Other intervertebral disc degeneration, lumbar region without mention of lumbar back pain or lower extremity pain
CPT/HCPCS: 72100

== ENCOUNTER 2025-04-22 09:27 | Outpatient (OUT) | payer MEDICARE, SELFPAY ==
--- OUTSIDE RECORDS SUMMARY | 2025-04-22 09:34 | XMS_ITS | Encounter Summary ---
Author Organization [facility] Address [address] [place] [address] Care Team Providers Care Piping Designer Name Role Phone Catalina Sinha MD Primary Care Provider [phone] Encounter Details Date Type Department Care Team (Late st Contact Info) Description 07/22/2023 Abstract [facility] [address] [facility] [address] [place] [address] Dallas Whitaker, DO [address] [facility] [address] [place] [address] Social History Tobacco Use Types Packs/Day Years Used Date Smoking Tobacco: Never Tobacco Cessation:Counseling Given: Not Answered Alcohol Use Standard Drinks/Week Comments Yes 0 (1 standard drink = 0.6 oz pure alcohol) 1-2 drinks 2-4x a month in the past year, Caffeine intake: 1-2 cups per day coffee AUDIT-C Answer Date Recorded Q1: How often do you have a drink containing alcohol? Never 07/24/2023 Q2: How many drinks containi ng alcohol do you have on a typical day when you are drinking? Patient does not drink Q3: How often do you have si x or more drinks on one occasion? Never 07/24/2023 PHQ-2 Answer Date Recorded Patient Health Questionnaire-2 Score 0 07/24/2023 Comments Unknown Sex and Gender Information Value Date Recorded Sex Assigned at Not on file Legal Sex Female 6:40 PM EDT Gender Identity Not on file Sexual Orientation Not on file documented as of this encounter Functional Status * Audit-C Score Answer Date of Assessment Author 0 07/24/2023 11:30 AM EDT Maribel Orta MA * Question Answer Date of Assessment Author Q1: How often do you have a drink containing alcohol? Never 07/24/2023 11:30 AM EDVandana Cohen M A Q2: How many drinks containing alcohol do you have on a typical day when you are drinking? Patient does not drink 07/24/2023 11:30 AM Vandana Corrigan MA Q3: How often do you have six or more drinks on one occasion? Never 07/24/2023 11:30 AM EDT Vandana Orta M A * Over the past 2 weeks, how often have you been bothered by any of the following problems? Question Answer Date of Assessment Author Little interest or pleasure in doing things Not at all 07/24/2023 11:30 AM Vandana Corrigan M A Feeling down, depressed, or hopeless Not at all 07/24/2023 11:30 AM Vandana Corrigan M A Patient Health Questionnaire -2 Score 0 07/24/2023 11:30 AM Vandana Corrigan M A documented as of this encounter Plan of Treatment Upcoming Encounters Date Type Department Care Team (Late st Contact Info) Description 07/27/2025 11:00 AM EDT Office Visit [facility] [address] [facility] [address] [place] [phone] Dallas Whitaker, DO [address] [facility] [address] [place] [address] documented as of this encounter Visit Diagnoses Not on filedocumented in this encounter Care Teams Piping Designer Relationship Specialty Start Date End Date Catalina Sinha MD PCP - General Family Medicine 07/24/23 documented as of this encounter
--- OUTSIDE RECORDS SUMMARY | 2025-04-22 09:34 | XMS_ITS | Clinical Summary ---
Author Organization [facility] Address [address] [place] [address] Care Team Providers Care Network Support Technician Name Role Phone Catalina Sinha MD Primary Care Provider [phone] Allergies No known active allergies Active Problems Problem Noted Date Diagnosed Date COVID-19 virus infection 11/25/2020 Postmenopausal bleeding 11/25/2020 Social History Tobacco Use Types Packs/Day Years Used Date Smoking Tobacco: Never Assessed Comments Unknown Sex and Gender Information Value Date Recorded Sex Assigned at Not on file Legal Sex Female 10:23 AM EST Gender Identity Not on file Sexual Orientation Not on file Last Filed Vital Signs Vital Sign Reading Time Taken Comments Blood Pressure 129/80 11/25/2020 12:30 PM EST Pulse 95 11/25/2020 10:35 AM EST Temperature 37.7 C (99.9 F) 11/25/2020 10:39 AM EST Respiratory Rate 18 11/25/2020 10:35 AM EST Oxygen Saturation 94% 11/25/2020 12:30 PM EST Inhaled Oxygen Concentration - - Weight 86.2 kg (190 lb) 11/25/2020 10:35 AM EST Height 165.1 cm (5' 5 ) 11/25/2020 10:35 AM EST Body Mass Index 31.62 11/25/2020 10:35 AM EST Plan of Treatment Not on file Insurance BCBS OUT OF STATE Advance Directives Healthcare Agents on File Name Relationship Healthcare Agent Relationshi p Communication Jose Juan Carmen Spouse Primary Decision Maker Care Teams Network Support Technician Relationship Specialty Start Date End Date Catalina Sinha MD PCP - General Family Medicine 11/25/20
--- OUTSIDE RECORDS SUMMARY | 2025-04-22 09:34 | XMS_ITS | Encounter Summary ---
Author Organization [facility] Address [address] [place] [address] Care Team Providers Care Home Appraiser Name Role Phone Catalina Sinha MD Primary Care Provider [phone] Encounter Details Date Type Department Care Team (Late Contact Info) Description 07/27/2023 External Result Encounter [facility] External Department Unsolicited Dallas Whitaker, DO [address] [facility] [address] [place] [address] Social History Tobacco Use Types Packs/Day Years Used Date Smoking Tobacco: Never Smokeless Tobacco: Never Alcohol Use Standard Drinks/Week Comments Yes 0 [...] Patient Health Questionnaire-2 Score 0 07/24/2023 Comments No Sex and Gender Information Value Date Recorded Sex Assigned at Not on file Legal Sex Female 6:40 PM EDT Gender Identity Not on file Sexual Orientation Not on file documented as of this encounter Plan of Treatment Upcoming Encounters Date Type Department Care Team (Late st Contact Info) Description 07/27/2025 11:00 AM EDT Office Visit [facility] [address] [facility] [address] [place] [phone] Dallas Whitaker DO [address] [place] [address] documented as of this encounter Procedures Procedure Name Priority Date/Time Associated Diagnosis Comments BI MAMMOGRAM SCREENING BILATERAL 07/27/2023 2:48 PM EDT documented in this encounter Results * Bilateral screening mammogram (07/27/2023 2:48 PM EDT) Anatomical Region Laterality Modality Breast Bilateral Mammography 07/27/2023 2:48 PM EDT Impressions 07/30/2023 10:14 AM EDT NO MAMMOGRAPHIC EVIDENCE OF MALIGNANCY. ROUTINE FOLLOW-UP [...] Madeline Jimenes M.D.07/27/2023 2:52 PM Dictation Location: [facility] Transcribed By: [facility] 07/27/23 1452 Dictated By: Madeline Jimenes MD 07/27/23 1448 Signed By: <Electronically signed by MD Madeline Jimenes in OV> 07/27/23 1452 Narrative 07/30/2023 10:14 AM EDT [facility] [address] [place] [id number] Mammography Report Signed Patient: Nany Carmen MR#: [id number] 1 : 1955 Acct:[id number] Age/Sex: 68 / F ADM Date: 07/27/23 Loc: [place] Room: Type: [facility] Attending Dr: Dallas Whitaker DO Copies to: [...] interval change. MM/MM screening mammo BI w/CAD Procedure Note Radiology, Radiologist, MD - 07/30/2023 [facility] [address] [place] [address] Mammography Report Signed Patient: Nany Carmen LMR#: [id number] 1 : 6Acct:[id number] Age/Sex: 68 / FADM Date: 07/27/23 Loc: [place] Room:Type: [facility] Attending Dr: Dallas Whitaker DO Copies to: MD Dallas Yi DO Ordering Provider: Dallas Whitaker DO Date of Service: 07/27/23 MM/MM screening mammo BI w/CAD: SCREENING CLINICAL DATA: Screening for malignancy. BILATERAL SCREENING MAMMOGRAMS - FULL FIELD DIGITAL WITH TOMOSYNTHESIS ANDCAD Tomosynthesis craniocaudal and mediolateral oblique views of both breastswere obtained using low- dose digital technique. Comparison is made to prior studies from 2018 through July 19, 2022. This examination was reviewed with the aid of CAD. There are scattered fibroglandular densities. There are a few benign andvascular calcifications. There are no developing masses, typically malignant calcifications orarchitectural distortion. There has been no significant interval [...] system with a target due date for thenext mammogram. Impression dictated by: Madeline Jimenes M.D.07/27/2023 2:52 PM Dictation Location: [facility] Transcribed By: HEMANT 07/27/23 1452 Dictated By: Madeline Jimenes MD 07/27/23 1448 Signed By: <Electronically signed by MD Madeline Jimenes in OV> 07/27/23 1452 Dallas Whitaker DO IMG BI PROCEDURES Final Resu lt documented in this encounter Visit Diagnoses Not on filedocumented in this encounter Care Teams Home Appraiser Relationship Specialty Start Date End Date Catalina Sinha MD PCP - General Family Medicine 07/24/23 documented as of this encounter
--- OUTSIDE RECORDS SUMMARY | 2025-04-22 09:34 | XMS_ITS | Clinical Summary ---
Author Organization [facility] Address [address] [place], [place] [id number] Care Team Providers Care Human Resources Intern Name Role Phone Gerard Modi MD Primary Care Provider [phone] Allergies No known active allergies Medications lisinopril 10 mg tablet Take 10 mg by mouth once daily. Active oxybutynin 5 mg tablet Take 5 mg by mouth twice daily. Active medroxyPROGESTER one 2.5 mg tablet Take 2.5 mg by mouth once daily. Active estradiol 1 mg tablet Take 1 mg by mouth once daily. Active Active Problems Problem Noted Date Diagnosed Date Fecal incontinence 12/29/2012 Family History Medical History Relation Comments Melanoma [Other] Sister Relation Status Comments Sister Social History Tobacco Use Types Packs/Day Years Used Date Smoking Tobacco: Never Alcohol Use Standard Drinks/Week Comments Yes 0 (1 standard drink = 0.6 oz pur e alcohol) rarely Comments No Sex and Gender Information Value Date Recorded Sex Assigned at Not on file Legal Sex Female 9:45 AM EST Gender Identity Not on file Sexual Orientation Not on file Last Filed Vital Signs Vital Sign Reading Time Taken Comments Blood Pressure 135/87 12/27/2012 8:09 AM EST Pulse 74 12/27/2012 8:09 AM EST Temperature 36.8 C (98.2 F) 12/27/2012 8:09 AM EST Respiratory Rate - - Oxygen Saturation 96% 12/27/2012 8:09 AM EST Inhaled Oxygen Concentration - - Weight 81.6 kg (180 lb) 12/27/2012 8:09 AM EST Height 165.1 cm (5' 5 ) 12/27/2012 8:09 AM EST Body Mass Index 29.95 12/27/2012 8:09 AM EST Plan of Treatment Health Maintenance Due Date Last Done Comments Anxiety Screening 1974 Depression Screening 1974 Hepatitis C Screening 1974 DTaP,Tdap,Td Vaccine (1 - Tdap) [address] Colonography 2001 Cologuard (FIT-DNA) 2001 Colonoscopy 2001 Colorectal Cancer Screening 2001 Diabetes Screening 2001 Fecal Occult Blood 2001 Lipid Screening 2001 Sigmoidoscopy 2001 Pneumococcal Vaccine: 50+ (1 of 1 - PCV) 2006 Shingrix Vaccine (1 of 2) 2006 Bone Density Screening 2021 Covid-19 Vaccine (1 - 2023- season) 2024 Advance Directive Discussion 11/19/2024 Influenza Vaccine (Season Ended) 2025 RSV Vaccine (1 - 1-dose 75+ series) 2031 Care Teams Human Resources Intern Relationship Specialty Start Date End Date Gerard Modi MD PCP - General Family Medicine 12/17/12
--- OUTSIDE RECORDS SUMMARY | 2025-04-22 09:34 | XMS_ITS | Clinical Summary ---
Author Organization [facility] Address [address] [place] [address] Care Team Providers Care Expedition Supervisor Name Role Phone Catalina Sinha MD Primary Care Provider [phone] Allergies No known active allergies Medications Cetirizine HCl (ALLERGY, CETIRIZINE, PO) Take 1 tablet by mouth in the morning. 3 Active losartan (Cozaar) 50 MG tablet Take 50 mg by mouth in the morning. Active oxybutynin (Ditropan) 5 MG tabletIndications: Urgency of urination TAKE 1 TABLET BY MOUTH TWICE A DAY FOR 90 DAYS 180 tablet 4 Active medroxyPROGESTERon e (Provera) 2.5 MG tabletIndications: Postmenopausal HRT (hormone replacement therapy) TAKE 1 TABLET BY MOUTH EVERY OTHER DAY 50 tablet 7 4 Active estradiol (Estrace) 1 MG tabletIndications: Postmenopausal HRT (hormone replacement therapy) TAKE 1 TABLET BY MOUTH EVERY OTHER DAY 50 tablet 7 4 Active ondansetron ODT (Zofran-ODT) 4 MG disintegrating tablet DISSOLVE 1 TABLET ON THE TONGUE EVERY 6 HOURS NEEDED FOR NAUSEA AND VOMITING 5 Active dicyclomine (Bentyl) 20 MG tablet TAKE 1 TABLET BY MOUTH 4 TIMES A DAY NEEDED FOR ABDOMNIAL PAIN 5 Active hyoscyamine (Anaspaz,Levsin) 0.125 MG tablet TAKE 1 TABLET BY MOUTH 2-4 TIMES A DAY NEEDED FOR DYSPEPSIA 4 Active CALCIUM PO Take by mouth Activ e Active Problems Problem Noted Date Diagnosed Date Menopausal symptom 07/24/2023 Postmenopausal atrophic vaginitis 07/24/2023 Diverticulitis of large inte nadege without perforation or abscess 03/14/2019 Generalized abdominal pain 02/18/2019 Nausea, vomiting and diarrhea 02/18/2019 Recurrent ventral hernia with incarceration 05/2019 Fecal incontinence 12/29/2012 Resolved Problems Problem Noted Date Diagnosed Date Resolved Date Abnormal uterine bleeding 07/24/2023 Thickened endometrium 07/24/20232022 COVID-19 virus infection 11/25/202003/2023 Encounters Date Type Department Care Team Description 03/04/2025 2:15 PM EDT Office Visit [facility] [address] [place] [address] Dallas Whitaker, DO Irritable bowel syndrome with both constipation and diarrhea (Primary Dx) 03/04/2025 Travel 02/27/2025 Telephone [facility] [address] [place] [address] Aye Tobar LPN from Last 3 Months Immunizations Immunization Administration Dates Next Due Tdap 09/28/2016 Zoster, Recombinant 01/27/2021,09/03/2020 Family History Medical History Relation Name Comments Skin cancer Sister Relation Name Status Comments Father Mother Sister Social History Tobacco Use Types Packs/Day Years Used Date Smoking Tobacco: Never Smokeless Tobacco: Never Tobacco Cessation:Counseling Given: Not Answered [...] Sign Reading Time Taken Comments Blood Pressure 142/84 03/04/2025 2:06 PM EDT Pulse - - Temperature - - Respiratory Rate - - Oxygen Saturation - - Inhaled Oxygen Concentration - - Weight 76.7 kg (169 lb) 03/04/2025 2:06 PM EDT Height 163.2 cm (5' 4.25 ) 07/24/2023 11:20 AM E DT Body Mass Index 28.78 07/24/2023 11:20 AM EDT Plan of Treatment Upcoming Encounters Date Type Department Care Team (Late st Contact Info) Description 07/27/2025 11:00 AM EDT Office Visit [facility] [address] [place] [phone] Dallas Whitaker, [address] [facility] [address] [place] [address] Health Maintenance Due Date Last Done Comments CT Colonography 1956 Colonoscopy 1956 Colorectal Cancer Screening 1956 FIT-DNA 1956 FIT 1955 FOBT 1955 Sigmoidoscopy 1956 Pneumococcal Vaccine: 65+ Ye ars (1 of 1 - PCV) 2006 Influenza Vaccine (Season Ended) 2025 Mammogram 08/05/2025 08/05/2024, 06/2023, 07/19/2022, Additional history exists Procedures Procedure Name Priority Date/Time Associated Diagnosis Comments BI MAMMOGRAM DIAGNOSTIC TOMOSYNTHESIS LEFT Routine 08/05/2024 9:27 AM EDT from Last 3 Months or Most Recently Relevant to Health Maintenance Results * Left diagnostic mammogram with tomosynthesis (08/05/2024 9:27 AM EDT) Anatomical Region Laterality Modality Breast Left Mammography Dallas Whitaker DO IMG BI PROCEDURES Final Resu lt from Last 3 Months or Most Recently Relevant to Health Maintenance Insurance [employer] MEDICARE ADVANTAGE Care Teams Expedition Supervisor Relationship Specialty Start Date End Date Catalina Sinha MD PCP - General Family Medicine 07/24/23
--- OUTSIDE RECORDS SUMMARY | 2025-04-22 09:34 | XMS_ITS | Clinical Summary ---
Author Organization [employer] [facility] tem Address [id number] [address] [place] [address] Care Team Providers Care Hand Cementer Name Role Phone Catalina Sinha MD Primary Care Provider [phone] Allergies No known active allergies Medications estradiol (ESTRACE) 1 mg tablet Take 1 mg by mouth daily. Active lisinopril (PRINIVIL,ZESTR IL) 10 mg tablet Take 10 mg by mouth daily. 3 8 Active oxybutynin (DITROPAN) 5 mg tablet Take 5 mg by mouth 2 (two) times a day. 2 8 Active medroxyPROGESTE Brandon (PROVERA) 2.5 mg tablet Take 2.5 mg by mouth daily. 3 8 Active olopatadine (PATANOL) 0.1 % ophthalmic solution Administer 1 drop to both eyes daily. 6 8 Active CALCIUM [id number] OP-JULITO ORAL Take 1 capsule by mouth daily. Patient states she believes they are 500 MG capsules and she takes once daily Active triamcinolone (KENALOG) 0.025 % cream APPLY TO AFFECTED AREA TWICE A DAY FOR 5 DAYS 0 8 Active omeprazole (PriLOSEC) 20 mg capsule Take 20 mg by mouth daily. Active metroNIDAZOLE (FLAGYL) 500 mg tablet 9 Active ciprofloxacin HCl (CIPRO) 500 mg tablet Take 500 mg by mouth 2 (two) times a day. Active Active Problems Problem Noted Date Diagnosed Date Diverticulitis of large inte nadege without perforation or abscess 03/14/2019 Generalized abdominal pain 02/18/2019 Nausea, vomiting and diarrhea 02/18/2019 Recurrent ventral hernia with incarceration 05/2019 Fecal incontinence 12/29/2012 Family History Medical History Relation Name Comments No Known Problems Daughter Heart disease Father Skin cancer Father Heart disease Mother No Known Problems Sister No Known Problems Son Anesthesia problems Neg Hx Relation Name Status Comments Daughter Alive Father Alive Mother Alive Sister Alive Son Alive Social History Tobacco Use Types Packs/Day Years Used Date Smoking Tobacco: Never Smokeless Tobacco: Never Alcohol Use Standard Drinks/Week Comments Yes 1 (1 standard drink = 0.6 oz pur e alcohol) socially Childcare Answer Date Recorded Childcare Unknown 04/30/2019 Employment Answer Date Recorded Employment Unknown 04/30/2019 Purpose - Life Answer Date Recorded Purpose and direction in life Unknown Comments No Sex and Gender Information Value Date Recorded Sex Assigned at Not on file Legal Sex Female 11:33 AM EDT Gender Identity Not on file Sexual Orientation Not on file Last Filed Vital Signs Vital Sign Reading Time Taken Comments Blood Pressure 134/90 03/13/2019 1:53 PM EDT Pulse 74 03/13/2019 1:53 PM EDT Temperature 36.3 C (97.3 F) 02/05/2019 12:45 PM EDT Respiratory Rate 17 03/13/2019 1:53 PM EDT Oxygen Saturation 100% 02/05/2019 2:45 PM EDT Inhaled Oxygen Concentration - - Weight 86.2 kg (190 lb) 03/13/2019 1:53 PM EDT Height 165.1 cm (5' 5 ) 03/13/2019 1:53 PM EDT Body Mass Index 31.62 03/13/2019 1:53 PM EDT Plan of Treatment Health Maintenance Due Date Last Done Comments Depression Screening 1968 Tobacco Screening 1968 Adult BMI Screening 1974 DTaP,Tdap and Td Vaccines (1 - Tdap) 1975 Zoster (Shingles) Vaccine (1 of 2) 2006 Fall Risk Screening 2021 Influenza Vaccine 07/20/2025 Colonoscopy 10/23/2028 10/23/2018, 10/21/2018 Medical Devices Implanted Type Area Medical Genetics Director Device Identifier Shelf Expiration Date Model / Serial / Lot Mesh Pp Pariten Ds [id number] [id number] - [id number] - [id number] Implanted:Qty: 1 on 02/05/2019 by Jd Maya MD at [facility] Mesh N/A: Abdomen [employer] [place] 09/18/2019 [id number] / [id number] / [id number] Procedures Procedure Name Priority Date/Time Associated Diagnosis Comments COLONOSCOPY Routine 10/23/2018 from Last 3 Months or Most Recently Relevant to Health Maintenance Results * Colonoscopy (10/23/2018) us Bharath Dickinson DO GI PROCEDURE ORDERABLES Fin al Result MANUALLY TRANSCRIBED RESULTS from Last 3 Months or Most Recently Relevant to Health Maintenance Insurance ANTHEM Care Teams Hand Cementer Relationship Specialty Start Date End Date Catalina Sinha MD [address] [place] [id number] PCP - General 09/27/18
--- OUTSIDE RECORDS SUMMARY | 2025-04-22 09:34 | XMS_ITS | Encounter Summary ---
Author Organization [facility] Address [address] [facility] [place] [address] Care Team Providers Care Microsoft Application Developer Name Role Phone Catalina Sinha MD Primary Care Provider Encounter Details Date Type Department Care Team (Late Contact Info) Description 08/05/2024 Orders Only [facility] [address] [place] [id number] Dallas Whitaker, DO [address] [place] [address] Social History Tobacco Use Types Packs/Day Years [...] Encounters Date Type Department Care Team (Late Contact Info) Description 07/27/2025 11:00 AM EDT Office Visit [facility] [address] [place] [address] Dallas Whitaker, DO [address] [place] [address] documented as of this encounter Procedures Procedure Name Priority Date/Time Associated Diagnosis Comments BI MAMMOGRAM DIAGNOSTIC TOMOSYNTHESIS LEFT Routine 08/05/2024 9:27 AM EDT documented in this encounter Results * Left diagnostic mammogram with tomosynthesis (08/05/2024 9:27 AM EDT) Anatomical Region Laterality Modality Breast Left Mammography Dallas Whitaker DO IMG BI PROCEDURES Final Resu lt documented in this encounter Visit Diagnoses Not on filedocumented in this encounter Care Teams Microsoft Application Developer Relationship Specialty Start Date End Date Catalina Sinha MD PCP - General Family Medicine 07/24/23 documented as of this encounter
--- NOTE | 2025-04-22 09:43 | XR_ITS ---
The [address] [address] Patient Name: ROGER MALHOTRA MRN: [id number] date: 1955 Sex: F Assigned Patient Location: [facility] Current Patient Location: [facility] Accession/Order Number: [id number] Exam Date: 04/22/2025 10:23 Report Date: 04/22/2025 10:28 At the request of: JEMMA CARSON MD Procedure: XR sternum min 2V STERNUM - 2 views COMPARISON: Chest x-ray 11/18/[address] abdomen 02/11/2025 CLINICAL DATA: Hard lump at the sternum for the past 2 months. Lateral and oblique views were obtained. A marker was placed at the site of concern. It is near the xiphoid on the lateral view. No sternal fracture or bony destruction is noted. The xiphoid shows anterior deflexion. This might be the etiology of patient's symptoms. No soft tissue abnormalities are noted. XR/XR sternum min 2V IMPRESSION: ANTERIOR DEFLEXION OF THE XIPHOID, ALSO SEEN ON PREVIOUS IMAGING. NO OTHER ACUTE PLAIN FILM FINDINGS. Impression dictated by: Madeline Jimenes M.D. 04/22/2025 10:28 AM Dictation Location: [place] [address] Electronically authenticated by: [id number] Y Date: 04/22/2025 10:28
== END 2025-04-22 09:28 | disposition home or self-care (01) ==
LOC: RAD 09:32
PROVIDERS: PCP Family Medicine; Visit Provider Family Medicine
DX: M89.8X8 Other specified disorders of bone, other site (principal)
CPT/HCPCS: 71120